=== PATIENT | female | born 1990 | race Caucasian/White ===

== ENCOUNTER → 2018-09-20 | Outpatient (CLI) | payer OTHER ==
--- NOTE | 2018-09-21 10:54 | REP ---
REASON: Shoulder pain after trauma. FINDINGS: Three views of the shoulder were performed. The acromioclavicular and glenohumeral relationships are within normal limits. There is no acute fracture or destructive osseous lesion. Electronically Signed by Alexis Burks DO 09/21/2018 12:43 P
== END ==
LOC: M WUC 18:21
PROVIDERS: ATTEND Physician Assistant
DX: S43.402A Unspecified sprain of left shoulder joint, initial encounter (principal); X58.XXXA Exposure to other specified factors, initial encounter; Y92.89 Other specified places as the place of occurrence of the external cause

== ENCOUNTER 2019-04-02 13:17 | Emergency (ER) | payer OTHER ==
[~2019-04-02] VITALS: Ht 172.7 cm; Wt 111.4 kg
[2019-04-02] MEDS ORDERED: PRAZ1CAP (13:25)
[2019-04-02] MEDS ORDERED: LIOT25TA8 (13:25)
[2019-04-02] MEDS ORDERED: CLON1TAB8 (13:25)
[2019-04-02] MEDS ORDERED: ZYRTTAB8 PO (13:25)
--- NOTE | 2019-04-02 14:08 | REP ---
Left knee series: Five views. History: Pain after twisting injury. Findings: Five views of the left knee demonstrate normal bones, joints and soft tissues. No fracture or subluxation is seen. Impression: Negative radiographs of the left knee. Electronically Signed by Pollo Barker MD 04/02/2019 02:00 P
--- NOTE | 2019-04-02 14:10 | REP ---
Right foot series: Five views. History: Horse stepped on right foot. Findings: Five views right foot show overall normal mineralization. There is no visible fracture or subluxation. A tiny os perineum is seen. There is also a tiny plantar calcaneal spur. Impression: No fracture seen. Electronically Signed by Pollo Barker MD 04/02/2019 02:01 P
[2019-04-02 14:46] VITALS: BP 109/74
== END 2019-04-02 15:10 | disposition home or self-care (01) ==
LOC: M ED 13:17
DX: S90.31XA Contusion of right foot, initial encounter (principal); S83.92XA Sprain of unspecified site of left knee, initial encounter; W55.12XA Struck by horse, initial encounter; Y92.89 Other specified places as the place of occurrence of the external cause; Y99.0 Civilian activity done for income or pay; J45.909 Unspecified asthma, uncomplicated; F41.9 Anxiety disorder, unspecified; E03.9 Hypothyroidism, unspecified; Z88.8 Allergy status to other drugs, medicaments and biological substances; Z79.83 Long term (current) use of bisphosphonates; Z79.899 Other long term (current) drug therapy

== ENCOUNTER 2019-09-16 09:14 | Emergency (ER) | payer BC, OTHER ==
[~2019-09-16] VITALS: Ht 172.7 cm; Wt 120.0 kg
[~2019-09-16 09:14] MED LIST: CLON1TAB8 PO; LIOT25TA8; PRAZ1CAP; ZYRTTAB8 PO
[2019-09-16] MEDS ORDERED: LAMO100T3 PO (09:22)
[2019-09-16] MEDS ORDERED: OXCA300T14 PO (09:22)
[2019-09-16] MEDS ORDERED: PRAZ2CAP PO (09:22)
[2019-09-16] MEDS ORDERED: ARIP1TAB PO (09:22)
[2019-09-16] MEDS ORDERED: MARIJUANA PO (09:23)
[2019-09-16 10:24] LABS: BASO % 0.4 % (0.0-1.0); EOS % 0.6 % (0.0-3.0); HEMATOCRIT 43.7 % (36.0-47.0); HEMOGLOBIN 14.3 g/dl (12.0-15.5); LYMPH # 1.6 10^3/uL (1.5-5.0); LYMPH % 24.2 % (24.0-44.0); MEAN CORPUSCULAR HEMOGLOBIN 31.1 pg (27.0-33.0); MEAN CORPUSCULAR HGB CONC 32.7 g/dl (32.0-36.5); MONO # 0.5 10^3/uL (0.0-0.8); MONO % 6.8 % (0.0-5.0); NEUTROPHILS # 4.6 10^3/uL (1.5-8.5); NEUTROPHILS % 67.7 % (36.0-66.0); PLATELET COUNT, AUTOMATED 310 10^3/uL (150-450); WHITE BLOOD COUNT 6.7 10^3/uL (4.0-10.0)
[2019-09-16 10:28] LABS: AMPHETAMINES LEVEL URINE NEGATIVE (NEGATIVE); BARBITURATES URINE NEGATIVE (NEGATIVE); BENZODIAZEPINES URINE NEGATIVE (NEGATIVE); CANNABINOIDS URINE NEGATIVE (NEGATIVE); COCAINE METABOLITE URINE NEGATIVE (NEGATIVE); METHADONE URINE NEGATIVE (NEGATIVE); OPIATES URINE NEGATIVE (NEGATIVE); PHENCYCLIDINE URINE NEGATIVE (NEGATIVE)
[2019-09-16 10:37] LABS: BLOOD UREA NITROGEN 15 MG/DL (7-18); CALCIUM LEVEL 8.9 MG/DL (8.5-10.1); CARBON DIOXIDE LEVEL 27 MEQ/L (21-32); CHLORIDE LEVEL 109 MEQ/L (98-107); CREATININE FOR GFR 0.75 MG/DL (0.55-1.30); FREE THYROXINE INDEX 2.1 % (1.3-4.8); GLOMERULAR FILTRATION RATE > 60.0 (>60); GLUCOSE, FASTING 96 MG/DL (70-100); MAGNESIUM LEVEL 2.2 MG/DL (1.8-2.4); POTASSIUM SERUM 4.5 MEQ/L (3.5-5.1); SODIUM LEVEL 140 MEQ/L (136-145); T UPTAKE 33 % (30-39); THYROXINE (T4) 6.5 UG/DL (4.5-12.0)
[2019-09-16 11:28] VITALS: BP 137/84
--- NOTE | 2019-09-16 19:06 | ECGEPIP ---
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 Order Number: [id number] Reading MD: Tanisha Ramirez Measurements Intervals [place] Rate: 87 P: 60 TX: 148 QRS: 72 QRSD: 86 T: 40 QT: 369 QTc: 445 Interpretive Statements SINUS RHYTHM POSSIBLE LEFT ATRIAL ENLARGEMENT NO PRIOR Electronically Signed on 09-16-2019 19:06:37 EDT by Tanisha Ramirez
--- NOTE | 2019-09-16 19:08 | ECGEPIP ---
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
== END 2019-09-16 11:29 | disposition home or self-care (01) ==
LOC: M ED 09:14
DX: R00.2 Palpitations (principal); J45.909 Unspecified asthma, uncomplicated; F41.9 Anxiety disorder, unspecified; G43.909 Migraine, unspecified, not intractable, without status migrainosus; F17.210 Nicotine dependence, cigarettes, uncomplicated; Z79.899 Other long term (current) drug therapy

== ENCOUNTER 2019-09-18 16:57 | Emergency (ER) | payer BC ==
[~2019-09-18] VITALS: Ht 172.7 cm; Wt 124.4 kg
[~2019-09-18 16:57] MED LIST changes: +ARIP1TAB PO; +LAMO100T3 PO; +MARIJUANA PO; +OXCA300T14 PO; +PRAZ2CAP PO
[2019-09-18] MEDS ORDERED: LIOT25TA8 PO (17:09)
[2019-09-18] MEDS ORDERED: NS 1,000 ML IV ONE (17:45)
[2019-09-18] MEDS ORDERED: GI COCKTAIL 50ML BTL(HYOSCYAMINE/MAALOX/LIDOCAINE VISCOUS)(1:3:1) PO ONE (17:45)
[2019-09-18 18:00] LABS: BASO % 0.2 % (0.0-1.0); EOS # 0.1 10^3/uL (0.0-0.5); HEMATOCRIT 39.2 % (36.0-47.0); HEMOGLOBIN 12.8 g/dl (12.0-15.5); LYMPH # 2.4 10^3/uL (1.5-5.0); LYMPH % 28.6 % (24.0-44.0); MEAN CORPUSCULAR HGB CONC 32.7 g/dl (32.0-36.5); MEAN CORPUSCULAR VOLUME 94.9 fl (80.0-96.0); MONO # 0.7 10^3/uL (0.0-0.8); MONO % 8.8 % (0.0-5.0); NEUTROPHILS # 5.1 10^3/uL (1.5-8.5); NEUTROPHILS % 61.2 % (36.0-66.0); PLATELET COUNT, AUTOMATED 319 10^3/uL (150-450); RED BLOOD COUNT 4.13 10^6/uL (4.00-5.40); WHITE BLOOD COUNT 8.3 10^3/uL (4.0-10.0)
[2019-09-18 18:27] LABS: ERYTHROCYTE SEDIMENTATION RATE 18 mm/hr (0-20)
[2019-09-18 18:28] LABS: HCG, SERUM QUALITATIVE NEGATIVE (NEGATIVE)
[2019-09-18 18:35] LABS: ALBUMIN 3.6 GM/DL (3.2-5.2); ALT/SGPT 45 U/L (12-78); BILIRUBIN,DIRECT < 0.1 MG/DL (0.0-0.2); BILIRUBIN,TOTAL 0.2 MG/DL (0.2-1.0); BLOOD UREA NITROGEN 14 MG/DL (7-18); C REACTIVE PROTEIN QUANTITATIV 1.06 MG/DL (0.00-0.30); CALCIUM LEVEL 8.9 MG/DL (8.5-10.1); CARBON DIOXIDE LEVEL 27 MEQ/L (21-32); CHLORIDE LEVEL 105 MEQ/L (98-107); CPK CREATINE PHOSPHOKINASE 152 U/L (26-192); CREATININE FOR GFR 0.69 MG/DL (0.55-1.30); FREE T4 0.65 NG/DL (0.76-1.46); GLOMERULAR FILTRATION RATE > 60.0 (>60); GLUCOSE, FASTING 80 MG/DL (70-100); LIPASE 92 U/L (73-393); MB/CK RELATIVE INDEX 1.32 (< OR =4); POTASSIUM SERUM 4.2 MEQ/L (3.5-5.1); SODIUM LEVEL 137 MEQ/L (136-145); THYROID STIMULATING HORMONE 0.957 uIU/ML (0.358-3.740); TOTAL PROTEIN 6.8 GM/DL (6.4-8.2); TROPONIN I < 0.02 NG/ML (< 0.10)
[2019-09-18] MEDS ORDERED: KETOROLAC 30 MG/ML 1ML VIAL IV ONE (19:00)
--- NOTE | 2019-09-18 19:03 | REP ---
Clinical: Chest pain. Technique: PA and lateral. Comparison: None. Findings: Calcified lymph node/granuloma in the right mid lung zone just lateral to the hilum likely represents chronic changes related to prior granulomas disease. Lung roberto are otherwise clear and without focal consolidation, effusion, or pneumothorax. Cardiac silhouette is normal. Skeletal structures intact. Impression: Right hilar calcification consistent with chronic granulomatous changes. No focal consolidation or effusion. Electronically Signed by Cachorro Garcia MD 09/18/2019 06:54 P
[2019-09-18 19:43] VITALS: BP 138/82
--- NOTE | 2019-09-19 01:14 | ECGEPIP ---
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
== END 2019-09-18 19:59 | disposition home or self-care (01) ==
LOC: M ED 16:57
DX: R07.89 Other chest pain (principal); R00.2 Palpitations; J45.909 Unspecified asthma, uncomplicated; E03.9 Hypothyroidism, unspecified; R51 Headache; F17.200 Nicotine dependence, unspecified, uncomplicated; Z98.890 Other specified postprocedural states; Z88.8 Allergy status to other drugs, medicaments and biological substances
CPT/HCPCS: 36415; 71046; 80048; 80076; 82550; 82553; 83690; 84439; 84443; 84484; 84703; 85025; 85379; 85652; 86140; 93005; 93041; 94760; 96360; 96361; 96375; 99285; J1885

== ENCOUNTER → 2020-04-13 | Outpatient (REF) | payer BC ==
[~2020-04-13] MED LIST changes: +LIOT25TA8 PO
[2020-04-13 19:18] LABS: CHLAMYDIA DNA AMPLIFICATION NEGATIVE (NEGATIVE); GC DNA AMPLIFICATION NEGATIVE (NEGATIVE)
== END ==
LOC: M SFHCWAGY 16:46
PROVIDERS: ATTEND Nurse Practitioner Family
DX: Z11.3 Encounter for screening for infections with a predominantly sexual mode of transmission (principal)

== ENCOUNTER → 2020-04-20 | Outpatient (CLI) | payer BC ==
--- NOTE | 2020-04-20 13:33 | REP ---
INDICATION: R10.2 PELVIC PAIN COMPARISON: None. TECHNIQUE: Transabdominal pelvic ultrasound followed by transvaginal examination for better evaluation of the endometrium and adnexa with color Doppler evaluation of the ovaries. FINDINGS: Bladder is unremarkable and measures 14.6 x 9.2 x 6.3 cm. Anteverted uterus measures 5.3 x 3.1 x 3.3 cm with moderate amount of fluid in the endocervical canal identified. The endometrial complex does not appear thickened and IUD is identified in relatively central position. Bilateral ovaries are normal in appearance and vascularity with multiple bilateral follicles noted. Right ovary measures 3.5 x 2.2 x 2.1 cm; R I = 0.46. Left ovary measures 2.3 x 2.2 x 2.7 cm; R I = 0.49. No pelvic free fluid or adnexal mass lesion. IMPRESSION: 1. Anteverted uterus with moderate amount of endocervical fluid may be related to menstrual cycle. IUD identified in relatively central position. 2. Normal bilateral ovaries. <Electronically signed by Cachorro Garcia > 04/20/20 [id number]
== END ==
LOC: M WHC 12:42
PROVIDERS: ATTEND Nurse Practitioner Family
DX: R10.2 Pelvic and perineal pain (principal); Z97.5 Presence of (intrauterine) contraceptive device

== ENCOUNTER → 2020-04-30 | Outpatient (REF) | payer BC | LOC: M SFHCWAGY 13:16 | PROVIDERS: ATTEND Nurse Practitioner Family | DX: R10.2 Pelvic and perineal pain (principal) ==

== ENCOUNTER 2020-09-05 19:38 | Emergency (ER) | payer BC ==
[~2020-09-05] VITALS: Ht 172.7 cm; Wt 118.2 kg
[2020-09-05] MEDS ORDERED: FLUO40CA PO (19:47)
[2020-09-05] MEDS ORDERED: ALPR0.5T6 PO (19:47)
[2020-09-05] MEDS ORDERED: dexameTHASONE 20MG/5ML VIAL (J1100 PER 1MG) IV ONE (20:55)
[2020-09-05] MEDS ORDERED: ACETAMINOPHEN 325 MG TAB PO ONE (20:55)
[2020-09-05] MEDS ORDERED: METOCLOPRAMIDE INJ 10MG/2ML VIAL (J2765 PER 1) IV ONE (20:55)
[2020-09-05] MEDS ORDERED: diphenhydrAMINE 50MG/ML VIAL (J1200) IV ONE (22:00)
[2020-09-05] MEDS ORDERED: ONDA8TAB8 PO (22:55)
[2020-09-05] MEDS ORDERED: KETO10TAB PO (22:55)
[2020-09-05 23:03] VITALS: BP 132/75
== END 2020-09-05 23:18 | disposition home or self-care (01) ==
LOC: M ED 20:49
DX: G43.909 Migraine, unspecified, not intractable, without status migrainosus (principal); F17.200 Nicotine dependence, unspecified, uncomplicated; Z88.8 Allergy status to other drugs, medicaments and biological substances; Z91.040 Latex allergy status; Z79.899 Other long term (current) drug therapy
CPT/HCPCS: 96374; 96375; 99284; J1100; J1200; J2765

== ENCOUNTER 2020-11-25 17:35 | Emergency (ER) | payer BC ==
[~2020-11-25] VITALS: Ht 172.7 cm; Wt 122.7 kg
[~2020-11-25 17:35] MED LIST changes: +ALPR0.5T6 PO; +ARIP10TA32 PO; -ARIP1TAB PO; +FLUO40CA PO; +KETO10TAB PO; +ONDA8TAB8 PO
[2020-11-25] MEDS ORDERED: ZONI25CA13 (17:55)
[2020-11-25] MEDS ORDERED: ADDE1TAB14 (17:55)
[2020-11-25] MEDS ORDERED: ZONI50CA11 (17:55)
[2020-11-25] MEDS ORDERED: SUMA50TA2 (17:55)
[2020-11-25] MEDS ORDERED: KETOROLAC 30 MG/ML 1ML VIAL IV ONE (19:00)
[2020-11-25] MEDS ORDERED: ONDANSETRON 4MG/2ML VIAL IV ONE ×2 (19:00→20:50)
[2020-11-25] MEDS ORDERED: NS 1,000 ML IV ONE (19:00)
[2020-11-25 19:24] LABS: BASO % 0.3 % (0.0-1.0); EOS # 0.1 10^3/uL (0.0-0.5); EOS % 0.9 % (0.0-3.0); HEMATOCRIT 38.3 % (36.0-47.0); HEMOGLOBIN 12.7 g/dl (12.0-15.5); LYMPH # 2.1 10^3/uL (1.5-5.0); MEAN CORPUSCULAR HEMOGLOBIN 31.6 pg (27.0-33.0); MEAN CORPUSCULAR HGB CONC 33.2 g/dl (32.0-36.5); MEAN CORPUSCULAR VOLUME 95.3 fl (80.0-96.0); MONO # 0.9 10^3/uL (0.0-0.8); MONO % 8.3 % (2.0-8.0); NEUTROPHILS % 71.1 % (36.0-66.0); PLATELET COUNT, AUTOMATED 313 10^3/uL (150-450); RED BLOOD COUNT 4.02 10^6/uL (4.00-5.40); WHITE BLOOD COUNT 11.3 10^3/uL (4.0-10.0)
[2020-11-25 19:50] LABS: ALBUMIN 3.7 GM/DL (3.2-5.2); ALT/SGPT 39 U/L (12-78); BILIRUBIN,DIRECT < 0.1 MG/DL (0.0-0.2); BILIRUBIN,TOTAL 0.3 MG/DL (0.2-1.0); BLOOD UREA NITROGEN 13 MG/DL (7-18); CALCIUM LEVEL 8.6 MG/DL (8.5-10.1); CARBON DIOXIDE LEVEL 29 MEQ/L (21-32); CHLORIDE LEVEL 105 MEQ/L (98-107); CREATININE FOR GFR 0.72 MG/DL (0.55-1.30); GLOMERULAR FILTRATION RATE > 60.0 (>60); GLUCOSE, FASTING 83 MG/DL (70-100); LIPASE 90 U/L (73-393); POTASSIUM SERUM 3.8 MEQ/L (3.5-5.1); SODIUM LEVEL 137 MEQ/L (136-145); TOTAL PROTEIN 6.9 GM/DL (6.4-8.2)
--- NOTE | 2020-11-25 20:05 | REP ---
INDICATION: pelvic pain. COMPARISON: 04/20/2020 TECHNIQUE: Transvesical and transvaginal imaging FINDINGS: The uterus measures 5.3 x 2.7 x 3.9 cm. The parenchymal echo pattern is within normal limits. The endometrial echo complex measures 6 mm in its greatest thickness. The specular reflection seen previously in the endometrial cavity is no longer present. This is consistent with the patient's history of recent removal of an IUD. There is a small amount of fluid seen in the endometrial cavity. The right ovary measures 2.7 x 2.2 x 2.6 cm and is within normal limits The left ovary measures 3.3 x 2.5 x 3.2 cm. Within the left ovary there is a 2.6 cm sized anechoic structure which exhibits posterior wall enhancement and increased through transmission. This is a simple cyst. There is a small amount of fluid in the cul-de-sac The left ovarian RI is 0.6 and the right is 0.66 The urinary bladder measures 5 x 6 x 8 cm IMPRESSION: 1. Status post removal of an IUD with only a small amount of fluid in the endometrial cavity. 2. Simple left ovarian cyst as described above. <Electronically signed by Alexis Burks > 11/25/202000
[2020-11-25] MEDS ORDERED: PERCOCET 5MG/325MG TAB PO ONE (20:50)
[2020-11-25] MEDS ORDERED: PERC5TAB12 PO (22:02)
[2020-11-25] MEDS ORDERED: ZOFR4TAB16 PO (22:03)
[2020-11-25 22:24] VITALS: BP 127/80
== END 2020-11-25 22:23 | disposition home or self-care (01) ==
LOC: M ED 17:35
DX: N83.292 Other ovarian cyst, left side (principal); R11.2 Nausea with vomiting, unspecified; R10.2 Pelvic and perineal pain; R10.31 Right lower quadrant pain; R10.32 Left lower quadrant pain; R10.84 Generalized abdominal pain; Z87.42 Personal history of other diseases of the female genital tract; F17.290 Nicotine dependence, other tobacco product, uncomplicated
CPT/HCPCS: 76830; 76856; 80048; 80076; 81001; 83690; 85025; 87210; 93976; 96361; 96374; 96375; 96376; 99284; J1885; J2405

== ENCOUNTER → 2020-12-14 | Outpatient (CLI) | payer BC ==
[~2020-12-14] MED LIST changes: +ADDE1TAB14; +ALLE60TA69 PO; +FLUO1TAB3 PO; +OXCA150T21 PO; +PERC5TAB12 PO; +PRAZ5CAP PO; +SUMA50TA2; +ZOFR4TAB16 PO; +ZONI25CA13 PO; +ZONI50CA11
== END ==
LOC: M LABSMTC 10:11
PROVIDERS: ATTEND Anesthesiology
DX: Z01.812 Encounter for preprocedural laboratory examination (principal)

== ENCOUNTER 2020-12-18 13:46 | Day surgery (SDC) | payer BC ==
[~2020-12-18] VITALS: Ht 172.7 cm; Wt 127.5 kg
[~2020-12-18 13:46] MED LIST changes: +LR 1,000 ML IV ONE
[2020-12-18] MEDS ORDERED: ONDANSETRON 4MG/2ML VIAL As Ordered ONE (14:10)
[2020-12-18] MEDS ORDERED: KETOROLAC 60MG 2ML VIAL As Ordered ONE (14:10)
[2020-12-18] MEDS ORDERED: SUGAMMADEX SODIUM 500 MG/5 ML VIAL (BRIDION) As Ordered ONE (14:10)
[2020-12-18] MEDS ORDERED: ROCURONIUM BROMIDE 50 MG/5 ML VIAL As Ordered ONE (14:10)
[2020-12-18] MEDS ORDERED: dexameTHASONE 4 MG/ML 1ML VIAL (J1100 PER 1MG) As Ordered ONE (14:10)
[2020-12-18] MEDS ORDERED: ACETAMINOPHEN 1000MG 100ML IV BTL (OFIRMEV) (J0131 PER 10MG) As Ordered ONE (14:10)
[2020-12-18] MEDS ORDERED: propofoL 200 MG/20 ML VIAL As Ordered ONE (14:10)
[2020-12-18] MEDS ORDERED: LIDOCAINE 2% 100MG/5ML SDV (FOR ANES.) As Ordered ONE (14:10)
[2020-12-18] MEDS ORDERED: MIDAZOLAM INJ 2MG/2ML VIAL (J2250 PER 1MG) As Ordered ONE (14:10)
[2020-12-18] MEDS ORDERED: fentaNYL 100 MCG/2 ML INJECTION (J3010) As Ordered ONE ×4 (14:11→17:25)
[2020-12-18 14:15] LABS: HEMOGLOBIN 13.6 g/dl (12.0-15.5); MEAN CORPUSCULAR HEMOGLOBIN 31.4 pg (27.0-33.0); MEAN CORPUSCULAR HGB CONC 33.2 g/dl (32.0-36.5); MEAN CORPUSCULAR VOLUME 94.7 fl (80.0-96.0); PLATELET COUNT, AUTOMATED 338 10^3/uL (150-450); RED BLOOD COUNT 4.33 10^6/uL (4.00-5.40); WHITE BLOOD COUNT 10.4 10^3/uL (4.0-10.0)
[2020-12-18] MEDS ORDERED: OXYC1TAB23 PO (15:58)
[2020-12-18] MEDS ORDERED: IBUP-1022 PO (15:58)
--- NOTE | 2020-12-18 16:00 | ROOPDOC ---
[facility] Report Of Operation Report of Operation DATE OF PROCEDURE: 12/18/20 .PREPROCEDURE DIAGNOSES: pelvic pain, endometriosis. POSTPROCEDURE DIAGNOSES: left ovarian cyst. PROCEDURE PERFORMED: Laparoscopic left ovarian cystectomy SURGEON: Jeanine Richardson MD ANESTHESIA: GETA. ESTIMATED BLOOD LOSS: Approximately 10 mL. COMPLICATIONS: none. FINDINGS: Normal uterus fallopian tubes, normal right ovary, 4-5 cm cystadenoma of left ovary. Mild adhesions of posterior cul de sac. No active endometriosis. SPECIMENS REMOVED: ovarian cyst and capsule PROCEDURE NOTE: The patient was taken to the operating room where general endotracheal anesthesia was induced. She was prepped and draped in a sterile fashion in the dorsal lithotomy position. A sponge stick was placed in the vagina to use as a manipulator. A periumbilical incision was made with a scalpel. A Veress needle was placed through this incision while tenting up on the skin of the abdomen. An intra-abdominal location the Veress needle was assessed with the use of a saline filled syringe. A pneumoperitoneum was created. The Veress needle was removed. A 5 mm trocar using Zura!iport was inserted through this incision. A 5 and 8 mm suprapubic port were placed under direct visualization. A grasping instrument was used to elevate each fallopian tube. Left ovarian cyst was stabilized with a grasping instrument. A harmonic scalpel was used to puncture the cyst wall. Clear cyst fluid was removed using a suction inspector crystal. Harmonic scalpel was used to excise the ovarian cyst and capsule. The specimen was removed through the 8 mm suprapubic port. Good hemostasis was noted. The pneumoperitoneum was released. All instruments were removed. The skin was closed with 4-0 Monocryl subcuticular sutures. Sponge instrument and needle counts were correct. The patient went to the recovery room in stable condition. JEANINE RICHARDSON MD Dec 18, 2020 16:00
[2020-12-18] MEDS ORDERED: BUPIVACAINE HCL 0.25% 10ML VIAL As Ordered ONE (16:09)
[2020-12-18 17:10] LABS: APPEARANCE, URINE CLOUDY (CLEAR); BACTERIA, URINE AUTO 1+ (NEGATIVE); BILIRUBIN, URINE AUTO NEGATIVE (NEGATIVE); BLOOD, URINE BLOOD 2+ (NEGATIVE); COLOR, URINE YELLOW (YELLOW); GLUCOSE, URINE (UA) AUTO NEGATIVE (NEGATIVE); KETONE, URINE AUTO NEGATIVE (NEGATIVE); LEUKOCYTE ESTERASE, URINE AUTO 3+ (NEGATIVE); MUCUS, URINE SMALL (NEGATIVE); NITRITE, URINE AUTO NEGATIVE (NEGATIVE); PROTEIN, URINE AUTO 2+ mg/dL (NEGATIVE); RBC, URINE AUTO 64 /HPF (0-3); SPECIFIC GRAVITY URINE AUTO 1.015 (1.002-1.035); SQUAMOUS EPITHELIAL CELL UR AU 0 /HPF (0-6); UROBILINOGEN, URINE AUTO 0.2 mg/dL (0.0-2.0); WBC, URINE AUTO TNTC /HPF (0-3)
[2020-12-18] MEDS: fentaNYL 100 MCG/2 ML INJECTION (J3010) IV PRN ×2 (17:24→17:29)
[2020-12-18] MEDS ORDERED: ONDANSETRON 4MG/2ML VIAL IV PRN (17:45)
[2020-12-18] MEDS ORDERED: MEPERIDINE INJ 25 MG/ML VIAL (J2175) IV PRN (17:45)
[2020-12-18] MEDS ORDERED: LR 1,000 ML IV SCH ×2 (17:45)
[2020-12-18] MEDS ORDERED: oxyCODONE 5MG TAB PO PRN (17:45)
[2020-12-18] MEDS ORDERED: PERCOCET 5MG/325MG TAB PO PRN (17:45)
[2020-12-18 18:25] VITALS: BP 118/74
== END 2020-12-18 18:34 | disposition home or self-care (01) ==
LOC: M SDC 13:46
PROVIDERS: ATTEND Specialist
DX: N83.202 Unspecified ovarian cyst, left side (principal); N73.6 Female pelvic peritoneal adhesions (postinfective); N80.8 Other endometriosis; R10.2 Pelvic and perineal pain; E03.9 Hypothyroidism, unspecified; K21.9 Gastro-esophageal reflux disease without esophagitis; G43.909 Migraine, unspecified, not intractable, without status migrainosus; F41.9 Anxiety disorder, unspecified; J45.909 Unspecified asthma, uncomplicated; Z79.899 Other long term (current) drug therapy; Z91.040 Latex allergy status; Z88.8 Allergy status to other drugs, medicaments and biological substances
CPT/HCPCS: 36415; 58662; 81001; 81025; 85027; 87086; 88305; J0131; J1100; J1885; J2250; J2405; J3010

== ENCOUNTER → 2021-04-01 | Outpatient (REF) | payer BC, OTHER ==
[~2021-04-01] MED LIST changes: +IBUP-1022 PO; -LR 1,000 ML IV ONE; +OXYC1TAB23 PO
== END ==
LOC: M SFHCWAGY 10:11
PROVIDERS: ATTEND Nurse Practitioner Women's Health
DX: Z12.4 Encounter for screening for malignant neoplasm of cervix (principal)

== ENCOUNTER 2021-04-15 10:44 | Emergency (ER) | payer BC, OTHER ==
[~2021-04-15] VITALS: Ht 165.1 cm; Wt 137.3 kg
[2021-04-15 10:45] VITALS: BP 134/61
--- OUTSIDE RECORDS SUMMARY | 2021-04-15 10:56 | CCD | Continuity of Care Document ---
Author Author Anna CABELLO [place] Organization Unknown Address [address] [place] [address] [place] [address] Phone [phone] Care Team Providers Care Learning Consultant Name Role Phone Alex Ia Publi AUTM [phone] [facility] AUTM [phone] Problems Description No Information Available Social History Type Date Description Comments Sex Unknown ETOH Use Occasionally consumes alcohol Tobacco Use Start: Unknown End: Unknown Patient is a former smoker Tobacco Use Start: Unknown Patient Currently Vapes Smoking Status Reviewed: 03/23/21 Patient Currently Vapes Allergies and adverse reactions Active Allergies Criticality Reaction | Severity Comments Date Nexium Unable to assess criticality Hives 09/20/2018 Latex Unable to assess criticality 03/25/2020 Medications Active Medications SIG Qnty Indications Ordering Provide r Date Liothyronine Sodium 25mcg Tablets Unknown Abilify Unknown Prozac Unknown Proair HFA Unknown Imitrex prn Unknown Immunizations CPT Code Status Date Vaccine Lot # [id number] Given 03/13/2019 Influenza Virus Vaccine, Quadrivalent (Cciiv4), Derived From Cell Vital Signs Date Vital Result Comment 03/23/2021 12:40pm BP Systolic 124 mmHg BP Diastolic 84 mmHg Heart Rate 79 /min Respiratory Rate 18 /min O2 % BldC Oximetry 98 % Body Temperature 98.2 F Weight 280.00 lb Height 68 inches 5'8" BMI (Body Mass Index) 42.6 kg/m2 Pain Level 4 02/17/2021 10:07am BP Systolic 115 mmHg BP Diastolic 78 mmHg Heart Rate 71 /min Respiratory Rate 20 /min O2 % BldC Oximetry 99 % Body Temperature 98.2 F Weight 280.00 lb Height 68 inches 5'8" BMI (Body Mass Index) 42.6 kg/m2 Pain Level 4 Results Description No Information Available Procedures Date Code Description Status 03/23/2021 12272 Office/Outpatient Established Lo w MDM 20-29 Min Completed 02/17/2021 11083 Office/Outpatient Established Lo w MDM 20-29 Min Completed Medical Devices Description No Information Available Encounters Type Date Location Provider Dx Diagnosis Office Visit 03/23/2021 10:15a Main Office TIFFANIE Carter J06 .9 Acute upper respiratory infection, unspecified Z20.828 Contact w and exposure to ot h viral communicable diseases Office Visit 02/17/2021 9:10a Main Office TIFFANIE Garcia JR J 06.9 Acute upper respiratory infection, unspecified Z20.828 Contact w and exposure to ot h viral communicable diseases Assessments Date Code Description Provider 03/23/2021 J06.9 Acute upper respiratory infectio n, unspecified TIFFANIE Carter 03/23/2021 Z20.828 Contact with and (hernandez spected) exposure to other viral communicable diseases TIFFANIE Carter 02/17/2021 J06.9 Acute upper respiratory infectio n, unspecified TIFFANIE Gracia JR 02/17/2021 Z20.828 Contact with and (hernandez spected) exposure to other viral communicable diseases TIFFANIE Garcia JR Plan of Treatment No Information Available Functional Status Description No Information Available Mental Status Description No Information Available Referrals Description No Information Available
--- OUTSIDE RECORDS SUMMARY | 2021-04-15 10:56 | CCD ---
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 20 Active confirmed 802034058 Problem Acquired hypothyroidism E03.9 Active confirmed 187806390 Problem Bipolar affective disorder, remission status unspecified F31.9 Active confirmed 29535006 Problem BMI 45.0-49.9, adult Z68.42 Active confirmed 791241264 ALLERGIES Allergen (clinical drug ingredient) Drug/Non Drug Allergy do cumented on EMR Reaction Allergy Type Onset Date Status esomeprazole Nexium([facility] Code:[address]-61) hives Drug Allergy Active Latex Latex anaphylaxis Non Drug Allergy Active ENCOUNTERS from 1990 to 2021-02-08 Encounter Location Date Provider Diagnosis [address] [id number] 08 Jan, 2021 Lisaernestina Patel Annual physical exam Z00.00 ; Acquired hypothyroidism E03.9 ; Depression with anxiety F41.8 ; PTSD (post-traumatic stress disorder) F43.10 ; History of migraine Z86.69 ; Mild intermittent asthma without complication J45.20 ; Bipolar affective disorder, remission status unspecified F31.9 ; Morbid (severe) obesity due to excess calories E66.01 ; BMI 45.0-49.9, adult Z68.42 ; Vaping nicotine dependence, tobacco product F17.290 ; Engages in vaping Z72.89 ; Screening for lipid disorders Z13.220 ; Vitamin D deficiency E55.9 ; Advanced care planning/counseling discussion Z71.89 and Trying to get Z78.9 IMMUNIZATIONS No Information SOCIAL HISTORY Tobacco Use: Social History Observation Description Date Details (start date - stop date) Current Smoker Sex Assigned At : Social History Observation Description Sex Assigned At Unknown Alcohol Screen Question Answer Notes Did you have a drink containing alcohol in the past year? Ye s Points 0 Interpretation Negative How many drinks did you have on a typica l day when you were drinking in the past year? 1 or 2 (0 points) Tobacco Use/Smoking Question Answer Notes Are you a current smoker How often do you smoke cigarettes? every day REASON FOR REFERRAL No Information VITAL SIGNS Height 67 in Jan, Weight 292.6 lbs Jan, BMI 45.82 kg/m2 Jan, Temperature 98.2 degrees Fahrenheit Jan, Heart Rate 83 /min Jan, Respiratory Rate 18 /min Jan, Oximetry 98 % Jan, Blood pressure systolic 124 mmHg Jan, Blood pressure diastolic 72 mmHg Jan, MEDICATIONS Medication SIG (Take, Route, Frequency, Duration) Notes Start Da te End Date Status 28-0.8 MG 1 tablet Orally Once a day for 30 day(s) Active Albuterol Sulfate HFA 108 (90 Base) MCG/ACT 2 puffs as needed Inhalation every 4 hrs for 83 PRN Active Liothyronine Sodium 25 MCG 1 tablet on an empty stomac h Orally Once a day for 90 Active PROzac 20 MG 1 capsule Orally Once a day for 30 day(s) Active PROzac 40 MG 1 capsule Orally Once a day Active Abilify 5 MG 1 tablet Orally Once a day for 30 day(s) Active PROCEDURES No Information RESULTS No Results REASON FOR VISIT [facility] (GENERAL) HISTORY Type Description Date Medical History Depression Medical History Anxiety Medical History PTSD with nightmares Medical History Hypothyroidism Medical History Endometriosis Medical History Asthma Medical History Allergies Medical History Migraines Medical History Bipolar Surgical History Tonsilectomy and adnoidectomy 2004 Surgical History laproscopy + hysterscopy 2012 Surgical History Pioneer teeth 2006 Surgical History Laproscopy 2020 Hospitalization History Mental health in patient - [place] 201 8 Hospitalization History Mental Health INPT- [facility] -06/17/2020 Goals Section No Information Health Concerns No Information MEDICAL EQUIPMENT No Information MENTAL STATUS No Information FUNCTIONAL STATUS No Information ASSESSMENTS Encounter Date Diagnosis Assessment Notes Treatment Notes Treatm ent Clinical Notes Jan, Annual physical exam (ICD-10 - Z00.00) - Follow up yearly for annual PE - Follow up as directed for routine condition monitoring - Follow up as needed for acute injury/illness/questions/concerns Health Maintenance: - Ensure diet high in fruits, vegetables, lean protein - Moderate alcohol, caffiene - Avoid tobacco - Obtain at least 150 mins of heart raising physical activity a week - Wear seatbelt - Use CO and smoke detectors in home Screenings: - Start colonoscopy at age 50 unless otherwise directed - Obtain yearly fasting labs - Start yearly mammograms at age 40 unless otherwise directed - Obtain yearly pelvic exams and every 3 years Jan, Acquired hypothyroidism (ICD-10 - E03.9) Labs ordered, will notify with the results once they are available. Continue to take medication as prescribed. Will continue to monitor Jan, Depression with anxiety (ICD-10 - F41.8) Continue to take medication as prescribed. Continue to follow with specialist. Will continue to monitor. Jan, PTSD (post-traumatic stress disorder) (ICD-10 - F43.10) As above. Jan, History of migraine (ICD-10 - Z86.69) Continue to take medication as needed. Will continue to monitor. Jan, Mild intermittent asthma without complication (I CD-10 - J45.20) Continue to use inhaler as prescribed. Will continue to monitor. Jan, Bipolar affective disorder, remission status unspecified (ICD-10 - F31.9) As above. Jan, Morbid (severe) obesity due to excess calories ( ICD-10 - E66.01) Things that you can do to reduce the chance of becoming a diabetic, getting high cholesterol, gaining weight and other health complications are mostly lifestyle (diet, exercise) related. Things you can do at home to prevent disease are: 1. Avoid processed foods and foods with added sugars (read nutrition labels) including bread, pasta, rice, sugar, sweets, potatoes 2. Monitor portions (weight/measure foods) and consider a food log/food diary 3. Increase physical activity: The [place] [employer] recommends at least 150 minutes of aerobic activity per week. This can include any heart raising activity (swim, bike, walk, run, exercise class, hike, ect) and does not need to be done all at once (may break up into two 75 min session or fifteen 10 min sessions) 4. Avoid snacking/eating between meals 5. Avoid sugary beverages like fruit juice, soda, alcohol 6. Maintain a healthy weight 7. Focus on healthy diet that is mostly lean protein, healthy fats, fruits and vegetables. Jan, BMI 45.0-49.9, adult (ICD-10 - Z68.42) As above. Jan, Vaping nicotine dependence, tobacco product (ICD -10 - F17.290) The patient is currently vaping. Encouraged patient to quit vaping as she is planning to get . Will continue to monitor. Jan, Engages in vaping (ICD-10 - Z72.89) As above. Jan, Screening for lipid disorders (ICD-10 - Z13.220) Labs ordered, will notify with the results once they are available. Encouraged healthy diet and exercise. Will continue to monitor. Things that you can do at home to help control cholesterol: - Decrease unhealthy fats (clemons, butter, meat) - Increase activity - Lose weight. Fasting labs have been ordered, please complete at least 2 days prior to appt. 1. Please do not eat or drink anything (other than PLAIN water) for at least 8 hours (preferably 12 hours). Usually the easiest thing to do is do not eat after dinner and have labs drawn the next day prior to coffee and breakfast. 2. The lab opens at 7 am daily, you do not need an appointment. 3. The orders will be sent to the hospital electronically, you will not need to remember to bring them with you. Jan, Vitamin D deficiency (ICD-10 - E55.9) Pt with low vitamin D levels in the past. Labs ordered, will notify the results once it is available. Jan, Advanced care planning/counseling discussion (IC D-10 - Z71.89) Pt denies having a healthcare proxy and is not interested in paperwork today. Jan, Trying to get (ICD-10 - Z78.9) Discussed with pt that she is ok to continue her prozac at this time until her third trimester. I advised her that her ambien will likely need to be discontinued before the third trimester. Encouraged her to discuss with her OBGYN. Jan, Other All questions an d concerns addressed, patient understanding and agreeable to plan. Patient encouraged to follow up at the clinic for any additional or new questions or concerns. Meg Mackay, scribing the following service on behalf of TIFFANIE Moreno on 02/03/2021. Time spent includes face to face time with patient and review of any pertinent laboratory results, and diagnostic imaging. Time spent: 25 minutes. PLAN OF TREATMENT Treatment Notes Assessment Notes Clinical Notes Advanced care planning/counseling discussion Pt denies having a healthcare proxy and is not interested in paperwork today. Annual physical exam - Follow up yearly for sophie mario PE- Follow up as directed for routine condition monitoring- Follow up as needed for acute injury/illness/questions/concernsHealth Maintenance:- Ensure diet high in fruit s, vegetables, lean protein- Moderate alcohol, caffiene- Avoid tobacco- Obtain at least 150 mins of heart raising physical activity a week- Wear seatbelt- Use CO and smoke detectors in homeScreenings:- Start colonoscopy at age 50 unless otherwise directed- Obtain yearly fasting labs- Start yearly mammograms at age 40 unless otherwise directed- Obtain yearly pelvic exams and every 3 years Vitamin D deficiency Pt with low vitamin D levels in the past. Labs ordered, will notify the results once it is available. Acquired hypothyroidism Labs ordered, will notify wi th the results once they are available. Continue to take medication as prescribed. Will continue to monitor Depression with anxiety Continue to take medication as prescribed. Continue to follow with specialist. Will continue to monitor. Trying to get Discussed with pt that she i s ok to continue her prozac at this time until her third trimester. I advised her that her ambien will likely need to be discontinued before the third trimester. Encouraged her to discuss with her OBGYN. PTSD (post-traumatic stress disorder) As above. History of migraine Continue to take medication as needed. Will continue to monitor. Mild intermittent asthma without complication Continue to use inhaler as prescribed. Will continue to monitor. Bipolar affective disorder, remission status unspecified As above. Screening for lipid disorders Labs ordered, will notif y with the results once they are available. Encouraged healthy diet and exercise. Will continue to monitor.Things that you can do at home to help control cholesterol: - Decrease unhealthy fats (clemons, butter, meat) - Increase activity - Lose weight.Fasting labs have been ordered, please complete at least 2 days prior to appt. 1. Please do not eat or drink anything (other than PLAIN water) for at least 8 hours (preferably 12 hours). Usually the easiest thing to do is do not eat after dinner and have labs drawn the next day prior to coffee and breakfast. 2. The lab opens at 7 am daily, you do not need an appointment. 3. The orders will be sent to the hospital electronically, you will not need to remember to bring them with you. Engages in vaping As above. Morbid (severe) obesity due to excess calories Things that you can do to reduce the chance of becoming a diabetic, getting high cholesterol, gaining weight and other health complications are mostly lifestyle (diet, exercise) related. Things you can do at home to prevent disease are:1. Avoid processed foods and foods with added sugars (read nutrition labels) including bread, pasta, rice, sugar, sweets, potatoes 2. Monitor portions (weight/measure foods) and consider a food log/food diary3. Increase physical activity:The [place] [employer] recommends at least 150 minutes of aerobic activity per week. This can include any heart raising activity (swim, bike, walk, run, exercise class, hike, ect) and does not need to be done all at once (may break up into two 75 min session or fifteen 10 min sessions) 4. Avoid snacking/eating between meals5. Avoid sugary beverages like fruit juice, soda, alcohol 6. Maintain a healthy weight 7. Focus on healthy diet that is mostly lean protein, healthy fats, fruits and vegetables. BMI 45.0-49.9, adult As above. Vaping nicotine dependence, tobacco product The patien t is currently vaping. Encouraged patient to quit vaping as she is planning to get . Will continue to monitor. Treatment Notes Test Name Order Date TSH 2021-02-03 FREE T4 2021-02-03 COMPLETE METABOLIC PROLFILE 2021-02-03 LIPID PROFILE 2021-02-03 CBC 2021-02-03 VITAMIN D, 25-HYDROXY 2021-02-03 Next Appt Details 6 months Reason:follow up Follow Up:6 monthsfollow up
--- OUTSIDE RECORDS SUMMARY | 2021-04-15 10:56 | CCD | Continuity of Care Document ---
Author Author Anna CABELLO MD Organization Unknown Address [address] [place] [address] [place] [address] Phone [phone] Care Team Providers Care Manager Clinical Informatics Name Role Phone [facility] [place] [employer] [facility] [phone] [facility] [phone] Problems Description No Information Available Social History [...] CPT Code Status Date Vaccine Lot # [id number] Given 03/13/2019 Influenza Virus Vaccine, Quadrivalent (Cciiv4), [...] Available Procedures Date Code Description Status 03/23/2021 57534 Office/Outpatient Established Lo w MDM 20-29 Min Completed 02/17/2021 71625 Office/Outpatient Established Lo w MDM 20-29 Min [...] Acute upper respiratory infectio n, unspecified TIFFANIE Garcia JR 02/17/2021 Z20.828 Contact with and (hernandez spected) exposure to other viral communicable diseases TIFFANIE Garcia JR Plan of Treatment No Information Available Functional Status Description No Information Available Mental Status Description No Information Available Referrals Description No Information Available
--- OUTSIDE RECORDS SUMMARY | 2021-04-15 10:56 | CCD | Continuity of Care Document ---
Author Author Anna BAL M.D. Organization Unknown Address [address] [place] [address] Phone [phone] Care Team Providers Care Boiling House Oiler Name Role Phone Lisa Patel PA-C AUTM [phone] Problems Description No Information Available Social History Type Date Description Comments Sex Unknown Allergies and adverse reactions Description No Information Available Medications Active Medications SIG Qnty Indications Ordering Provide r Date Magnesium Oxide 400mg Tablets 1 by daily x 1 week then 1 tab by mouth twice a day 60tabs Lida Mandel M.D. 03/11/2021 Riboflavin 100mg Capsules 1 by mouth twice a day 60caps Lida Bal M.D. 03/11/2021 History Medications Zonisamide 25mg Capsules 1 tab by mouth nightly x 1 week, then 1 tab twice a day x 1 week, then 1 tab morning and 2 tabs nightly 42caps Lida aBl M.D. 11/02/2020 - 03/11/2021 Zonisamide 50mg Capsules 1 by mouth twice a day 60caps Lida Bal M.D. 11/02/2020 - 03/11/2021 Immunizations Description No Information Available Vital Signs Description No Information Available Results Description No Information Available Procedures Date Code Description Status 03/11/2021 48257 Office/Outpatient Established Mo d MDM 30-39 Min Completed 11/17/2020 26398 MRI Brain W/O Contrast Completed 11/17/2020 43482 MRI Brain W/O Contrast Completed 11/02/2020 23860 Office/Outpatient New Moderate M DM 45-59 Minutes Completed Medical Devices Description No Information Available Encounters Type Date Location Provider Dx Diagnosis Office Visit 03/11/2021 9:15a Main office - [place] Lida Valeriano, M.D. R42 Dizziness and giddiness G47.00 Insomnia, unspecified M54.2 Cervicalgia G44.209 Tension-type headache, unspe cified, not intractable G31.84 Mild cognitive impairment, s o stated Office Visit 11/02/2020 12:30p Main office - [place] Lida Valeriano, M.D. R42 Dizziness and giddiness G47.00 Insomnia, unspecified G43.809 Other migraine, not intracta ble, without status migrainosus M54.2 Cervicalgia H53.8 Other visual disturbances G31.84 Mild cognitive impairment, s o stated Assessments Date Code Description Provider 03/11/2021 R42 Dizziness and giddiness Lida L meli, M.D. 03/11/2021 G47.00 Insomnia, unspecified Lida Lat if, M.D. 03/11/2021 M54.2 Cervicalgia Lida Valeriano, M. D. 03/11/2021 G44.209 Tension-type headache, unspecifi ed, not intractable Lida Valeriano, M.D. 03/11/2021 G31.84 Mild cognitive impairment, so st ated Lida Valeriano, M.D. 11/17/2020 R55 Syncope and collapse Sandee Valeriano , M.D. 11/17/2020 R55 Syncope and collapse MRI 11/02/2020 R42 Dizziness and giddiness Lida L meli, M.D. 11/02/2020 G47.00 Insomnia, unspecified Lida Lat if, M.D. 11/02/2020 G43.809 Other migraine, not intractable, without status migrainosus Lida Valeriano, M.D. 11/02/2020 M54.2 Cervicalgia Lida Valeriano, M. D. 11/02/2020 H53.8 Other visual disturbances Lida Valeriano, M.D. 11/02/2020 G31.84 Mild cognitive impairment, so st ated Lida Valeriano, M.DOmaira Plan of Treatment Future Appointment(s):* 06/11/2021 9:15 am - Lida Bal M.D. at Main office [facility] Functional Status Description No Information Available Mental Status Description No Information Available Referrals Refer to Reason for Referral Status Appt Date Created
--- OUTSIDE RECORDS SUMMARY | 2021-04-15 10:58 | CCD ---
Author Author [facility] Organization [facility] Address Unknown Phone Unavailable Care Team Providers Care Film Mounter Name Role Phone Shaun Farias MD Unavailable Unavailable Shaun Farias MD Unavailable Unavailable Shaun Farias MD Unavailable Unavailable Shaun Farias MD Unavailable Unavailable Shaun Farias MD Unavailable Unavailable Shaun Farias MD Unavailable Unavailable Elizabeth Maki MD Unavailable Unavailable Elizabeth Maki MD Unavailable Unavailable Elizabeth Maki MD Unavailable Unavailable Elizabeth Maki MD Unavailable Unavailable Elizabeth Maki MD Unavailable Unavailable Elizabeth Maki MD Unavailable Unavailable Elizabeth Maki MD Unavailable Unavailable Elizabeth Maki MD Unavailable Unavailable Elizabeth Maki MD Unavailable Unavailable Elizabeth Maki MD Unavailable Unavailable Elizabeth Maki MD Unavailable Unavailable Elizabeth Maki MD Unavailable Unavailable Elizabeth Maki MD Unavailable Unavailable Elizabeth Maki MD Unavailable Unavailable Elizabeth Maki MD Unavailable Unavailable Elizabeth Maki MD Unavailable Unavailable Elizabeth Maki MD Unavailable Unavailable Elizabeth Maki MD Unavailable Unavailable Elizabeth Maki MD Unavailable Unavailable SUN, David URBAN Unavailable Unavailable Amanda, M Lisa PA-C Unavailable Unavailable Amanda, M Lisa PA-C Unavailable Unavailable Amanda, M Lisa PA-C Unavailable Unavailable Amanda, M Lisa PA-C Unavailable Unavailable Amanda, M Lisa PA-C Unavailable Unavailable Amanda, M Lisa PA-C Unavailable Unavailable Amanda, M Lisa PA-C Unavailable Unavailable Amanda, M Lisa PA-C Unavailable Unavailable Amanda, M Lisa PA-C Unavailable Unavailable Amanda, M Lisa PA-C Unavailable Unavailable Amanda, M Lisa PA-C Unavailable Unavailable Amanda, M Lisa PA-C Unavailable Unavailable Amanda, M Lisa PA-C Unavailable Unavailable Amanda, M Lisa PA-C Unavailable Unavailable Amanda, M Lisa PA-C Unavailable Unavailable Amanda, M Lisa PA-C Unavailable Unavailable Amanda, M Lisa PA-C Unavailable Unavailable Amanda, M Lisa PA-C Unavailable Unavailable Amanda, M Lisa PA-C Unavailable Unavailable Amanda, M Lisa PA-C Unavailable Unavailable Amanda, M Lisa PA-C Unavailable Unavailable Amanda, M Lisa PA-C Unavailable Unavailable Amanda, M Lisa PA-C Unavailable Unavailable Amanda, M Lisa PA-C Unavailable Unavailable Amanda, M Lisa PA-C Unavailable Unavailable Amanda, M Lisa PA-C Unavailable Unavailable Amanda, M Lisa PA-C Unavailable Unavailable Amanda, M Lisa PA-C Unavailable Unavailable Amanda, M Lisa PA-C Unavailable Unavailable Amanda, M Lisa PA-C Unavailable Unavailable Amanda, M Lisa PA-C Unavailable Unavailable Amanda, M Lisa PA-C Unavailable Unavailable Amanda, M Lisa PA-C Unavailable Unavailable Amanda, M Lisa PA-C Unavailable Unavailable Amanda, M Lisa PA-C Unavailable Unavailable Amanda, M Lisa PA-C Unavailable Unavailable Amanda, M Lisa PA-C Unavailable Unavailable Amanda, M Lisa PA-C Unavailable Unavailable Amanda, M Lisa PA-C Unavailable Unavailable Amanda, M Lisa PA-C Unavailable Unavailable Amanda, M Lisa PA-C Unavailable Unavailable Amanda, M Lisa PA-C Unavailable Unavailable Amanda, M Lisa PA-C Unavailable Unavailable Amanda, M Lisa PA-C Unavailable Unavailable Amanda, M Lisa PA-C Unavailable Unavailable Amanda, M Lisa PA-C Unavailable Unavailable Amanda, M Lisa PA-C Unavailable Unavailable Amanda, M Lisa PA-C Unavailable Unavailable Amanda, M Lisa PA-C Unavailable Unavailable Amanda, M Lisa PA-C Unavailable Unavailable Amanda, M Lisa PA-C Unavailable Unavailable Amanda, M Lisa PA-C Unavailable Unavailable Amanda, M Lisa PA-C Unavailable Unavailable Amanda, M Lisa PA-C Unavailable Unavailable Amanda, M Lisa PA-C Unavailable Unavailable Amanda, M Lisa PA-C Unavailable Unavailable Amanda, M Lisa PA-C Unavailable Unavailable Amanda, M Lisa PA-C Unavailable Unavailable Amanda, M Lisa PA-C Unavailable Unavailable Amanda, M Lisa PA-C Unavailable Unavailable Amanda, M Lisa PA-C Unavailable Unavailable Amanda, M Lisa PA-C Unavailable Unavailable Amanda, M Lisa PA-C Unavailable Unavailable Amanda, M Lisa PA-C Unavailable Unavailable Amanda, M Lisa PA-C Unavailable Unavailable Amanda, M Lisa PA-C Unavailable Unavailable Amanda, M Lisa PA-C Unavailable Unavailable Amanda, M Lisa PA-C Unavailable Unavailable Amanda, M Lisa PA-C Unavailable Unavailable Amanda, M Lisa PA-C Unavailable Unavailable Amanda, M Lisa PA-C Unavailable Unavailable Amanda, M Lisa PA-C Unavailable Unavailable Amanda, M Lisa PA-C Unavailable Unavailable Amanda, M Lisa PA-C Unavailable Unavailable NEEDED NEEDED, INFO Unavailable Unavailable HEEDDY MD Unavailable Unavailable HEEDDY MD Unavailable Unavailable Susan, Antonio Chapmane AUTOMOTIVE INTERNET SALES MANAGER-C Unavailable Unavailabl e Susan, Antonio Chapmane AUTOMOTIVE INTERNET SALES MANAGER-C Unavailable Unavailabl e Susan, Antonio Smith Octavia AUTOMOTIVE INTERNET SALES MANAGER-C Unavailable Unavailabl e Susan, Antonio Chapmane AUTOMOTIVE INTERNET SALES MANAGER-C Unavailable Unavailabl e Susan, Antonio Chapmane AUTOMOTIVE INTERNET SALES MANAGER-C Unavailable Unavailabl e Susan, Antonio W Octavia AUTOMOTIVE INTERNET SALES MANAGER-C Unavailable Unavailabl e Susan, Antonio W Octavia AUTOMOTIVE INTERNET SALES MANAGER-C Unavailable Unavailabl e Susan, Anotnio Chapmane AUTOMOTIVE INTERNET SALES MANAGER-C Unavailable Unavailabl e Susan, Antonio Smith Octavia AUTOMOTIVE INTERNET SALES MANAGER-C Unavailable Unavailabl e Susan, Antonio Chapmane AUTOMOTIVE INTERNET SALES MANAGER-C Unavailable Unavailabl e Susan, Antonio Chapmane AUTOMOTIVE INTERNET SALES MANAGER-C Unavailable Unavailabl e Susan, Maris Sarah Dudley AUTOMOTIVE INTERNET SALES MANAGER-C Unavailable Unavailabl e Susan, Antonio Dudley AUTOMOTIVE INTERNET SALES MANAGER-C Unavailable Unavailabl e Susan, Antonio Chapmane AUTOMOTIVE INTERNET SALES MANAGER-C Unavailable Unavailabl e Susan, Antonio Chapmane AUTOMOTIVE INTERNET SALES MANAGER-C Unavailable Unavailabl e Susan, Antonio Smith Octavia AUTOMOTIVE INTERNET SALES MANAGER-C Unavailable Unavailabl e Susan, Maris W Octavia AUTOMOTIVE INTERNET SALES MANAGER-C Unavailable Unavailabl e Susan, Maris W Octavia AUTOMOTIVE INTERNET SALES MANAGER-C Unavailable Unavailabl e Susan, Maris W Octavia AUTOMOTIVE INTERNET SALES MANAGER-C Unavailable Unavailabl e Susan, Antonio W Octavia AUTOMOTIVE INTERNET SALES MANAGER-C Unavailable Unavailabl e Susan, Maris Sarah Octavia AUTOMOTIVE INTERNET SALES MANAGER-C Unavailable Unavailabl e Susan, Maris W Octavia AUTOMOTIVE INTERNET SALES MANAGER-C Unavailable Unavailabl e Susan, Maris W Octavia AUTOMOTIVE INTERNET SALES MANAGER-C Unavailable Unavailabl e Susan, Marish W Octavia AUTOMOTIVE INTERNET SALES MANAGER-C Unavailable Unavailabl e Susan, Antonio Dudley AUTOMOTIVE INTERNET SALES MANAGER-C Unavailable Unavailabl e Susan, Antonio Dudley AUTOMOTIVE INTERNET SALES MANAGER-C Unavailable Unavailabl e Susan, Antonio Dudley AUTOMOTIVE INTERNET SALES MANAGER-C Unavailable Unavailabl e Susan, Antonio Dudley AUTOMOTIVE INTERNET SALES MANAGER-C Unavailable Unavailabl e Susan, Antonio Dudley AUTOMOTIVE INTERNET SALES MANAGER-C Unavailable Unavailabl e Susan, Antonio Dudley AUTOMOTIVE INTERNET SALES MANAGER-C Unavailable Unavailabl e Susan, Antonio Dudley AUTOMOTIVE INTERNET SALES MANAGER-C Unavailable Unavailabl e Susan, Antonio Chapmane AUTOMOTIVE INTERNET SALES MANAGER-C Unavailable Unavailabl e LETTIERE, A LISA PA Unavailable Unavailable LETTIERE, A LISA PA Unavailable Unavailable LETTIERE, A LISA PA Unavailable Unavailable LETTIERE, A LISA PA Unavailable Unavailable LETTIERE, A LISA PA Unavailable Unavailable LETTIERE, A LISA PA Unavailable Unavailable LETTIERE, A LISA PA Unavailable Unavailable LETTIERE, A LISA PA Unavailable Unavailable LETTIERE, A LISA PA Unavailable Unavailable LETTIERE, A LISA PA Unavailable Unavailable LETTIERE, A LISA PA Unavailable Unavailable LETTIERE, A LISA PA Unavailable Unavailable LETTIERE, A LISA PA Unavailable Unavailable LETTIERE, A LISA PA Unavailable Unavailable LETTIERE, A LISA PA Unavailable Unavailable LETTIERE, A LISA PA Unavailable Unavailable LETTIERE, A LISA PA Unavailable Unavailable LETTIERE, A LISA PA Unavailable Unavailable LETTIERE, A LISA PA Unavailable Unavailable LETTIERE, A LISA PA Unavailable Unavailable LETTIERE, A LISA PA Unavailable Unavailable LETTIERE, A LISA PA Unavailable Unavailable LETTIERE, A LISA PA Unavailable Unavailable LETTIERE, A LISA PA Unavailable Unavailable LETTIERE, A LISA PA Unavailable Unavailable LETTIERE, A LISA PA Unavailable Unavailable LETTIERE, A LISA PA Unavailable Unavailable LETTIERE, A LISA PA Unavailable Unavailable LETTIERE, A LISA PA Unavailable Unavailable LETTIERE, A LISA PA Unavailable Unavailable LETTIERE, A LISA PA Unavailable Unavailable Feola, T Cata PA Unavailable Unavailable Feola, T Cata PA Unavailable Unavailable Feola, T Cata PA Unavailable Unavailable Feola, T Cata PA Unavailable Unavailable Feola, T Cata PA Unavailable Unavailable Feola, T Cata PA Unavailable Unavailable Feola, T Cata PA Unavailable Unavailable Feola, T Cata PA Unavailable Unavailable Feola, T Cata PA Unavailable Unavailable Feola, T Cata PA Unavailable Unavailable Feola, T Cata PA Unavailable Unavailable Feola, T Cata PA Unavailable Unavailable Feola, T Cata PA Unavailable Unavailable Feola, T Cata PA Unavailable Unavailable Feola, T Cata PA Unavailable Unavailable Feola, T Cata PA Unavailable Unavailable Feola, T Cata PA Unavailable Unavailable Feola, T Cata PA Unavailable Unavailable Feola, T Cata PA Unavailable Unavailable Feola, T Cata PA Unavailable Unavailable Feola, T Cata PA Unavailable Unavailable Feola, T Cata PA Unavailable Unavailable Feola, T Cata PA Unavailable Unavailable Feola, T Cata PA Unavailable Unavailable Feola, T Cata PA Unavailable Unavailable Feola, T Cata PA Unavailable Unavailable Feola, T Cata PA Unavailable Unavailable Feola, T Cata PA Unavailable Unavailable Feola, T Cata PA Unavailable Unavailable Feola, T Cata PA Unavailable Unavailable Feola, T Cata PA Unavailable Unavailable Feola, T Cata PA Unavailable Unavailable Feola, T Cata PA Unavailable Unavailable Feola, T Cata PA Unavailable Unavailable Feola, T Cata PA Unavailable Unavailable Feola, T Cata PA Unavailable Unavailable Feola, T Cata PA Unavailable Unavailable Feola, T Cata PA Unavailable Unavailable Feola, T Cata PA Unavailable Unavailable Feola, T Cata PA Unavailable Unavailable Feola, T Cata PA Unavailable Unavailable HANNAH, M ALLYN PA Unavailable Unavailable HANNAH, M ALLYN PA Unavailable Unavailable HANNAH, M ALLYN PA Unavailable Unavailable HANNAH, M ALLYN PA Unavailable Unavailable HANNAH, M ALLYN PA Unavailable Unavailable HANNAH, M ALLYN PA Unavailable Unavailable HANNAH, M ALLYN PA Unavailable Unavailable HANNAH, M ALLYN PA Unavailable Unavailable HANNAH, M ALLYN PA Unavailable Unavailable HANNAH, M ALLYN PA Unavailable Unavailable HANNAH, M ALLYN PA Unavailable Unavailable HANNAH, M ALLYN PA Unavailable Unavailable HANNAH, M ALLYN PA Unavailable Unavailable HANNAH, M ALLYN PA Unavailable Unavailable HANNAH, M ALLYN PA Unavailable Unavailable HANNAH, M ALLYN PA Unavailable Unavailable HANNAH, M ALLYN PA Unavailable Unavailable HANNAH, M ALLYN PA Unavailable Unavailable HANNAH, M ALLYN PA Unavailable Unavailable HANNAH, M ALLYN PA Unavailable Unavailable HANNAH, M ALLYN PA Unavailable Unavailable HANNAH, M ALLYN PA Unavailable Unavailable Sammi YOUNG PA Unavailable Unavailable Sammi YOUNG PA Unavailable Unavailable GALEN, MALISSA MD Unavailable Unavailable GALEN, MALISSA MD Unavailable Unavailable GALEN, MALISSA MD Unavailable Unavailable GALEN, MALISSA MD Unavailable Unavailable GALEN, MALISSA MD Unavailable Unavailable GALEN, MALISSA MD Unavailable Unavailable GALEN, MALISSA MD Unavailable Unavailable GALEN, MALISSA MD Unavailable Unavailable GALEN, MALISSA MD Unavailable Unavailable GALEN, MALISSA MD Unavailable Unavailable GALEN, MALISSA MD Unavailable Unavailable GALEN, MALISSA MD Unavailable Unavailable GALEN, MALISSA MD Unavailable Unavailable GALEN, MALISSA MD Unavailable Unavailable GALEN, MALISSA MD Unavailable Unavailable GALEN, MALISSA MD Unavailable Unavailable GALEN, MALISSA MD Unavailable Unavailable GALEN, MALISSA MD Unavailable Unavailable GALEN, MALISSA MD Unavailable Unavailable GALEN, MALISSA MD Unavailable Unavailable GALEN, MALISSA MD Unavailable Unavailable GALEN, MALISSA MD Unavailable Unavailable GALEN, MALISSA MD Unavailable Unavailable GALEN, MALISSA MD Unavailable Unavailable GALEN, MALISSA MD Unavailable Unavailable GALEN, MALISSA MD Unavailable Unavailable GALEN, MALISSA MD Unavailable Unavailable GALEN, MALISSA MD Unavailable Unavailable GALEN, MALISSA MD Unavailable Unavailable GALEN, MALISSA MD Unavailable Unavailable GALEN, MALISSA MD Unavailable Unavailable GALEN, MALISSA MD Unavailable Unavailable GALEN, MALISSA MD Unavailable Unavailable GALEN, MALISSA MD Unavailable Unavailable GALEN, MALISSA MD Unavailable Unavailable GALEN, MALISSA MD Unavailable Unavailable GALEN, MALISSA MD Unavailable Unavailable GALEN, MALISSA MD Unavailable Unavailable GALEN, MALISSA MD Unavailable Unavailable GALEN, MALISSA MD Unavailable Unavailable GALEN, MALISSA MD Unavailable Unavailable GALEN, MALISSA MD Unavailable Unavailable GALEN, MALISSA MD Unavailable Unavailable PICKERAL JR, J PANCHO PA-C Unavailable Unavailable PICKERAL JR, J PANCHO PA-C Unavailable Unavailable PICKERAL JR, J PANCHO PA-C Unavailable Unavailable PICKERAL JR, J PANCHO PA-C Unavailable Unavailable PICKERAL JR, J PANCHO PA-C Unavailable Unavailable PICKERAL JR, J PANCHO PA-C Unavailable Unavailable PICKERAL JR, J PANCHO PA-C Unavailable Unavailable PICKERAL JR, J PANCHO PA-C Unavailable Unavailable PICKERAL JR, J PANCHO PA-C Unavailable Unavailable PICKERAL JR, J PANCHO PA-C Unavailable Unavailable PICKERAL JR, J PANCHO PA-C Unavailable Unavailable PICKERAL JR, J PANCHO PA-C Unavailable Unavailable PICKERAL JR, J PANCHO PA-C Unavailable Unavailable PICKERAL JR, J PANCHO PA-C Unavailable Unavailable PICKERAL JR, J PANCHO PA-C Unavailable Unavailable PICKERAL JR, J PANCHO PA-C Unavailable Unavailable PICKERAL JR, J PANCHO PA-C Unavailable Unavailable PICKERAL JR, J PANCHO PA-C Unavailable Unavailable PICKERAL JR, J PANCHO PA-C Unavailable Unavailable PICKERAL JR, J PANCHO PA-C Unavailable Unavailable PICKERAL JR, J PANCHO PA-C Unavailable Unavailable PICKERAL JR, J PANCHO PA-C Unavailable Unavailable PICKERAL JR, J PANCHO PA-C Unavailable Unavailable PICKERAL JR, J PANCHO PA-C Unavailable Unavailable PICKERAL JR, J PANCHO PA-C Unavailable Unavailable PICKERAL JR, J PANCHO PA-C Unavailable Unavailable PICKERAL JR, J PACNHO PA-C Unavailable Unavailable Hamlin, Brenda Laurie PA Unavailable Unavailable Hamlin, Brenda Laurie PA Unavailable Unavailable Hamlin, Brenda Laurie PA Unavailable Unavailable Hamlin, Brenda Laurie PA Unavailable Unavailable Hamlin, Brenda Laurie PA Unavailable Unavailable Hamlin, Brenda Laurie PA Unavailable Unavailable Hamlin, Brenda Laurie PA Unavailable Unavailable Hamlin, Brenda Laurie PA Unavailable Unavailable Hamlin, Brenda Laurie PA Unavailable Unavailable Hamlin, Brenda Laurie PA Unavailable Unavailable TURRIN, VARGAS Unavailable Unavailable TURRIN, VARGAS Unavailable Unavailable TURRIN, VARGAS Unavailable Unavailable TURRIN, VARGAS Unavailable Unavailable Judith ARAIZA Unavailable Unavailable Rosa Maria ARROYO MD Unavailable Unavailable Rosa Maria ARROYO MD Unavailable Unavailable Rosa Maria ARROYO MD Unavailable Unavailable Rosa Maria ARROYO MD Unavailable Unavailable Ayse, A Lisa AUTOMOTIVE INTERNET SALES MANAGER Unavailable Unavailable Ayse, A Lisa AUTOMOTIVE INTERNET SALES MANAGER Unavailable Unavailable Ayse, A Lisa AUTOMOTIVE INTERNET SALES MANAGER Unavailable Unavailable Ayse, A Lisa AUTOMOTIVE INTERNET SALES MANAGER Unavailable Unavailable Ayse, A Lisa AUTOMOTIVE INTERNET SALES MANAGER Unavailable Unavailable Ayse, A Lisa AUTOMOTIVE INTERNET SALES MANAGER Unavailable Unavailable Ayse, A Lisa AUTOMOTIVE INTERNET SALES MANAGER Unavailable Unavailable Ayse, A Lisa AUTOMOTIVE INTERNET SALES MANAGER Unavailable Unavailable Ayse, A Lisa AUTOMOTIVE INTERNET SALES MANAGER Unavailable Unavailable Ayse, A Lisa AUTOMOTIVE INTERNET SALES MANAGER Unavailable Unavailable Ayse, A Lisa AUTOMOTIVE INTERNET SALES MANAGER Unavailable Unavailable Ayse, A Lisa AUTOMOTIVE INTERNET SALES MANAGER Unavailable Unavailable Ayse, A Lisa AUTOMOTIVE INTERNET SALES MANAGER Unavailable Unavailable Ayse, A Lisa AUTOMOTIVE INTERNET SALES MANAGER Unavailable Unavailable Ayse, A Lisa AUTOMOTIVE INTERNET SALES MANAGER Unavailable Unavailable Ayse, A Lisa AUTOMOTIVE INTERNET SALES MANAGER Unavailable Unavailable Ayse, A Lisa AUTOMOTIVE INTERNET SALES MANAGER Unavailable Unavailable Ayse, A Lisa AUTOMOTIVE INTERNET SALES MANAGER Unavailable Unavailable Ayse, A Lisa AUTOMOTIVE INTERNET SALES MANAGER Unavailable Unavailable Ayse, A Lisa AUTOMOTIVE INTERNET SALES MANAGER Unavailable Unavailable Ayse, A Lisa AUTOMOTIVE INTERNET SALES MANAGER Unavailable Unavailable Ayse, A Lisa AUTOMOTIVE INTERNET SALES MANAGER Unavailable Unavailable Yase, A Lisa AUTOMOTIVE INTERNET SALES MANAGER Unavailable Unavailable Ayse, A Lisa AUTOMOTIVE INTERNET SALES MANAGER Unavailable Unavailable Ayse, A Lisa AUTOMOTIVE INTERNET SALES MANAGER Unavailable Unavailable Ayse, A Lisa AUTOMOTIVE INTERNET SALES MANAGER Unavailable Unavailable Ayse, A Lisa AUTOMOTIVE INTERNET SALES MANAGER Unavailable Unavailable Ayse, A Lisa AUTOMOTIVE INTERNET SALES MANAGER Unavailable Unavailable Ayse, A Lisa AUTOMOTIVE INTERNET SALES MANAGER Unavailable Unavailable Ayse, A Lisa AUTOMOTIVE INTERNET SALES MANAGER Unavailable Unavailable Ayse, A Lisa AUTOMOTIVE INTERNET SALES MANAGER Unavailable Unavailable Ayse, A Lisa AUTOMOTIVE INTERNET SALES MANAGER Unavailable Unavailable Ayse, A Lisa AUTOMOTIVE INTERNET SALES MANAGER Unavailable Unavailable Ayse, A Lisa AUTOMOTIVE INTERNET SALES MANAGER Unavailable Unavailable Ayse, A Lisa AUTOMOTIVE INTERNET SALES MANAGER Unavailable Unavailable Ayse, A Lisa AUTOMOTIVE INTERNET SALES MANAGER Unavailable Unavailable Ayse, A Lisa AUTOMOTIVE INTERNET SALES MANAGER Unavailable Unavailable Ayse, A Lisa AUTOMOTIVE INTERNET SALES MANAGER Unavailable Unavailable Ayse, A Lisa AUTOMOTIVE INTERNET SALES MANAGER Unavailable Unavailable Ayse, A Lisa AUTOMOTIVE INTERNET SALES MANAGER Unavailable Unavailable Ayse, A Lisa AUTOMOTIVE INTERNET SALES MANAGER Unavailable Unavailable Ayse, A Lisa AUTOMOTIVE INTERNET SALES MANAGER Unavailable Unavailable Ayse, A Lisa AUTOMOTIVE INTERNET SALES MANAGER Unavailable Unavailable Ayse, A Lisa AUTOMOTIVE INTERNET SALES MANAGER Unavailable Unavailable Ayse, A Lisa AUTOMOTIVE INTERNET SALES MANAGER Unavailable Unavailable Ayse, A Lisa AUTOMOTIVE INTERNET SALES MANAGER Unavailable Unavailable Ayse, A Lisa AUTOMOTIVE INTERNET SALES MANAGER Unavailable Unavailable Ayse, A Lisa AUTOMOTIVE INTERNET SALES MANAGER Unavailable Unavailable Ayse, A Lisa AUTOMOTIVE INTERNET SALES MANAGER Unavailable Unavailable Ayse, A Lisa AUTOMOTIVE INTERNET SALES MANAGER Unavailable Unavailable Ayse, A Lisa AUTOMOTIVE INTERNET SALES MANAGER Unavailable Unavailable Ayse, A Lisa AUTOMOTIVE INTERNET SALES MANAGER Unavailable Unavailable Ayse, A Lisa AUTOMOTIVE INTERNET SALES MANAGER Unavailable Unavailable Ayse, A Lisa AUTOMOTIVE INTERNET SALES MANAGER Unavailable Unavailable Re-disclosure Warning The records that you are about to access may contain information from federally-assisted alcohol or drug abuse programs. If such information is present, then the following federally mandated warning applies: This information has been disclosed to you from records protected by federal confidentiality rules (42 CFR part 2). The federal rules prohibit you from making any further disclosure of this information unless further disclosure is expressly permitted by the written consent of the person to whom it pertains or as otherwise permitted by 42 CFR part 2. A general authorization for the release of medical or other information is NOT sufficient for this purpose. The Federal rules restrict any use of the information to criminally investigate or prosecute any alcohol or drug abuse patient.The records that you are about to access may contain highly sensitive health information, the redisclosure of which is protected by Article 27-F of the [facility] Public Health law. If you continue you may have access to information: Regarding HIV / AIDS; Provided by facilities licensed or operated by the [facility] Office of Mental Health; or Provided by the [facility] Office for People With Developmental Disabilities. If such information is present, then the following [facility] mandated warning applies: This information has been disclosed to you from confidential records which are protected by state law. State law prohibits you from making any further disclosure of this information without the specific written consent of the person to whom it pertains, or as otherwise permitted by law. Any unauthorized further disclosure in violation of state law may result in a fine or mcfp sentence or both. A general authorization for the release of medical or other information is NOT sufficient authorization for further disc losure. Allergies and Adverse Reactions Type Description Substance Reaction Status Data Source(s ) Drug allergy ESOMEPRAZOLE MAGNESIUM ESOMEPRAZOLE MAGNESIUM [facility] Propensity to adverse reactions LATEX Latex Itching [facility] Drug allergy latex Latex Other, not listed U Angioedema [facility] Drug allergy esomeprazole esomeprazole [facility] Family History Family Member Name Family Member Gender Family Member Status Date o f Status Description Data Source(s) Unknown Unknown Problem [facility] ([facility]) Encounters Encounter Providers Location Date Indications Data Source(s ) Emergency Attender: Shaun Farias MDConsultant: Lisa Patel PA-C 04/13/2021 04:18:00 PM EST - 04/13/2021 06:51:00 PM EST [facility] Patient discharged. Outpatient Attender: LISA seals 03/23/2021 10:15:00 AM EDT [facility] ([facility]) Outpatient Attender: MALISSA AARON MD Main office - [facility] n 03/11/2021 09:15:00 AM EDT [facility] ([facility]) Emergency Attender: Shaun Farias MDConsultant: Lisa Patel PA-C 02/25/2021 04:17:00 PM EDT - 02/25/2021 05:59:00 PM EDT [facility] Patient discharged. Outpatient Attender: PANCHO medellin 02/17/2021 09:10:00 AM EDT [facility] ([facility]) Outpatient Attender: Lisa Patel PA-C 02/03/2021 03:48 :00 PM [facility] Outpatient [facility] 02/03/2021 12:00:00 AM EDT eCW1 ([facility]) Outpatient Attender: MALISSA AARON MD 12/27/2020 11:00:00 A M [facility] Outpatient Attender: MALISSA AARON MDAttender: CHERISE STAFFORD N EEDED 12/16/2020 03:02:00 PM EDT - 12/25/2020 10:59:00 AM EDT [facility]ital Patient discharged. Outpatient Attender: LISA ARROYO MDConsultant: Lisa MORENO-C 11/23/2020 11:03:00 AM EDT - 11/23/2020 12:04:00 PM EDT [facility] Emergency Attender: VARGAS ORTIZConsultant: Lisa Khan-Alexis 11/18/2020 07:40:00 PM EDT - 11/18/2020 11:28:00 PM EDT [facility] Patient discharged. Outpatient Attender: MALISSA AARON MD Main office - [facility] 11/02/2020 12:30:00 PM EDT [facility] ([facility] [place]) Outpatient Attender: Lisa Patel PA-C 09/30/2020 03:26 :00 PM EDT [facility] Outpatient [facility] 09/30/2020 12:00:00 AM EDT eCW1 ([facility]) Outpatient [facility] 09/29/2020 12:00:00 AM EDT eCW1 ([facility]) Outpatient [facility] 09/22/2020 12:00:00 AM EDT eCW1 ([facility]) Outpatient [facility] 09/09/2020 12:00:00 AM EDT eCW1 ([facility]) Emergency Attender: Shaun Farias MDConsultant: Lisa Patel PA-C 09/06/2020 03:17:00 PM EDT - 09/06/2020 05:30:00 PM EDT [facility] Patient discharged. Outpatient Attender: Cata MORENO 021 05:06:50 PM EDT - 09/05/2020 05:46:54 PM EDT [employer]uTap ([facility] ) Outpatient Attender: Lisa Patel PA-C EMERGENCY ROOM-LA B 06/22/2020 01:32:00 PM EST - 06/22/2020 01:32:00 PM [facility] Outpatient Attender: Lisa Patel PA-C 06/22/2020 12:42 :00 PM [facility] (TCM) TCM/Hospital Follow Up [facility] 06/22/2020 12:00:00 AM EST eCW1 ([facility]) Outpatient [facility] 06/18/2020 12:00:00 AM EST eCW1 ([facility]) Inpatient Attender: YG Whitfield er: Elizabeth Maki MDAttender: RAJNI CAGEAdmitter: YG ARAIZAReferrer: Elizabeth Maki MD [id number] 06/10/2020 12:00:00 AM EST - 06/17/2020 11:04:00 [facility]. Emergency Attender: EDDY TEE MD 04/24/2020 0 7:01:00 PM EST - 04/25/2020 12:47:00 AM EST PELVIC PAIN [facility] l PELVIC PAIN Patient discharged. Outpatient [facility] 04/07/2020 12:00:00 AM EST eCW1 ([facility]) Outpatient Attender: Lisa Patel PA-C EMERGENCY ROOM-LA B REF 04/03/2020 08:45:00 AM EST - 04/03/2020 08:45:00 AM EST [facility] Outpatient Attender: Octavia FORTUNE 04/02/2020 12:05:[address] [facility] Hospital Admission cancelled. Disregard status an d admitted date. Outpatient Attender: Octavia FORTUNE 04/02/2020 12:03:[address] [facility] Hospital Admission cancelled. Disregard status an d admitted date. Outpatient Attender: Octavia FORTUNE EMERGENCY ROOM-LAB REF 04/02/2020 11:57:00 AM EST - 04/02/2020 11:57:00 AM EST [facility] Outpatient Attender: Octavia FORTUNE 04/02/2020 11:24:0 0 AM EST [facility] Outpatient [facility] 04/02/2020 12:00:00 AM EST eCW1 ([facility]) Outpatient [facility] 04/02/2020 12:00:00 AM EST eCW1 ([facility]) Outpatient [facility] 04/02/2020 12:00:00 AM EST eCW1 ([facility]) Outpatient Attender: ALLYN MORENO 03/28/2020 09:12:00 AM EDT [facility] Outpatient [facility] 03/28/2020 12:00:00 AM EDT eCW1 ([facility]) Outpatient Attender: Laurie seals 03/25/2020 05:30:00 PM EDT [facility] ([facility]) Outpatient Attender: Lisa Patel PA-C EMERGENCY ROOM-LA B 02/24/2020 10:05:00 AM EDT - 02/24/2020 10:05:00 AM EDT [facility] Outpatient Attender: Lisa Patel PA-C 02/24/2020 09:58 :00 AM EDT [facility] Outpatient [facility] 02/24/2020 12:00:00 AM EDT eCW1 ([facility]) Outpatient Attender: Lisa Tavera AMBER 11/13/2019 08:45 :00 AM EDT [facility] Immunizations Vaccine Date Status Description Data Source(s) COVID-19 VACCINE Moderna 04/02/2021 12:00:00 AM EDT completed [facility] Vaccine Series Complete: YESThis Data wa s Submitted to [facility] Via i3 membrane. COVID-19 VACCINE Pfizer 06/10/2020 12:00:00 AM EST completed [facility] Vaccine Series Complete: YESThis Data wa s Submitted to [facility] Via i3 membrane. COVID-19 VACCINE Pfizer 05/20/2020 12:00:00 AM EST completed [facility] Vaccine Series Complete: NOThis Data was Submitted to [facility] Via i3 membrane. Medications Medication Brand Name Start Date Product Form Dose Route Admi nistrative Instructions Pharmacy Instructions Status Indications Reaction Description Data Source(s) [facility] 03/11/2021 12:00:00 AM EDT ORAL active MEDENT ([facility]) Magnesium Oxide 400 MG Oral Tablet Magnesium Oxide 03/11/2021 12:00 :00 AM EDT ORAL active [facility] ([facility]) zonisamide 25 MG Oral Capsule Zonisamide 11/02/2020 12:00:00 AM EDT ORAL completed [facility]ENT ([facility] ) zonisamide 50 MG Oral Capsule Zonisamide 11/02/2020 12:00:00 AM EDT ORAL completed [facility] ([facility] ) Sumatriptan 50 MG Oral Tablet [Imitrex] Imitrex 50 MG Imitre x 50 MG 09/30/2020 12:00:00 AM EDT active Imitrex 50 MG eCW1 ([facility]) Sumatriptan 50 MG Oral Tablet [Imitrex] Imitrex 50 MG Imitre x 50 MG 09/30/2020 12:00:00 AM EDT active Imitrex 50 MG eCW1 ([facility]) Sennosides-Docusate Sodium (Senna Plus) 8.6-50 mg capsule 04/25/2020 12:27:17 AM EST 1 TAB-CAP active [facility] Acetaminophen 325 MG / Oxycodone Hydroch loride 5 MG Oral Tablet Oxycodone- Acetaminophen (Percocet) 5-325 mg tablet Oxycodone-Acetaminophen (Percocet) 5- 325 mg tablet 04/25/2020 12:26:37 AM EST 1 TAB active [facility] Pseudoephedrine Hydrochloride 60 MG Oral Tablet Pseudo ephedrine HCl 60 MG Pseudoephedrine HCl 60 MG 03/28/2020 12:00:00 AM EDT 1.0 {tablet_as _needed} active Pseudoephedrine HCl 60 MG eCW1 ([facility]) Insurance Providers Payer name Policy type / Coverage type Policy ID Covered alliance party ID Covered alliance party's relationship to benjamin Policy Benjamin Plan Information [employer] [id number] Luiza VYA [id number] [employer] - [place] Blue [employer]/B l[place] Shield [id number] Self [id number] [employer] [place] Blue [employer]/[place] Shield [id number] Self [id number] EX[employer]LLUS H [id number] Self [id number] [place] [id number] S VYA [id number] [place] PPO 302/307 [id number] SP [id number] [facility]EE [facility] KADY MIDDLETON 18 KADY MOHAMUDARINGEN BLUE CROSS BLUE SHIELD -O/P [id number] 18 [id number] BLUE CROSS BLUE SHIELD -O/P [id number] 18 [id number] [employer] [place] [id number] S VYA [id number] [facility] INSURANCE [facility] [id number] SP [id number] [place] WATN PPO 302/307 [id number] SP [id number] [place] PPO 302/307 [id number] SP [id number] [place] WAT[place] PPO 302/307 [id number] SP [id number] [facility] INSURANCE [facility] [id number] SP [id number] O UNAVAILABLE [facility] [id number] [facility] [id number] BLUE CROSS BLUE [place] [id number] 18 [id number] [facility] Commercial [id number] Family Dependent [id number] [facility] [id number] SP [id number] [facility] [id number] [facility] [id number] BCBS [place] WATN PPO 302/307 [id number] SP [id number] UMR -O/P [id number] 18 [id number] SELF PAY [id number] S [id number] Problems, Conditions, and Diagnoses Code Display Name Description Problem Type Effective Dates Data Source(s) Y00807 Latex allergy status Latex allergy status Diagnosis 02/25/2021 04:17:00 PM [facility] E039 Hypothyroidism, unspecified Hypothyroidism, unspecifie d Diagnosis 02/25/2021 04:17:00 PM [facility] L25331 Unspecified asthma, uncomplicated Unspecified as thma, uncomplicated Diagnosis 02/25/2021 04:17:00 PM [facility] A46140 Chronic migraine without aura, intractab le, without status migrainosus Chronic migraine without aura, intractable, without status migrainosus Diagnosis 02/25/2021 04:17:00 PM [facility] R519 Headache, unspecified Headache, unspecified Diagnosis 02/25/2021 04:17:00 PM [facility] Z71.89 Other specified counseling OTHER SPECIFIED COUNSELING Diagnosis 02/03/2021 03:48:00 PM [facility] Z13.220 Encounter for screening for lipoid disor ders ENCOUNTER FOR SCREENING FOR LIPOID DISORDERS Diagnosis 02/03/2021 03:48:00 PM [facility] Z72.89 Other problems related to lifestyle OTHER PROBLE MS RELATED TO LIFESTYLE Diagnosis 02/03/2021 03:48:00 PM [facility] Z86.69 Personal history of other di seases of the nervous system and sense organs PERSONAL HISTORY OF DIS OF THE NERVOUS SYS AND SEN Diagnosis 02/03/2021 03:48:00 PM [facility] F17.290 Nicotine dependence, other tobacco produ ct, uncomplicated NICOTINE DEPENDENCE, OTHER TOBACCO PRODUCT, UNCOMP Diagnosis 02/03/2021 03:48:0 0 PM [facility] Z68.42 Body mass index (BMI) 45.0-49.9, adult B AAMIR MASS INDEX [BMI] 45.0-49.9, ADULT Diagnosis 02/03/2021 03:48:00 PM [facility] l E66.01 Morbid (severe) obesity due to excess ca lories MORBID (SEVERE) OBESITY DUE TO EXCESS CALORIES Diagnosis 02/03/2021 03:48:[address] [facility] ital E55.9 Vitamin D deficiency, unspecified VITAMIN D DEFI CIENCY, UNSPECIFIED Diagnosis 02/03/2021 03:48:00 PM [facility] J45.20 Mild intermittent asthma, uncomplicated MILD INTERMITTENT ASTHMA, UNCOMPLICATED Diagnosis 02/03/2021 03:48:00 PM [facility] E03.9 Hypothyroidism, unspecified HYPOTHYROIDISM, UNSPECIFIE D Diagnosis 02/03/2021 03:48:00 PM [facility] F31.9 Bipolar disorder, unspecified BIPOLAR DISORDER, UNSPEC IFIED Diagnosis 02/03/2021 03:48:00 PM [facility] F43.10 Post-traumatic stress disorder, unspecif ied POST-TRAUMATIC STRESS DISORDER, UNSPECIFIED Diagnosis 02/03/2021 03:48:00 PM [facility] rodrigo F41.8 Other specified anxiety disorders OTHER SPECIFIE D ANXIETY DISORDERS Diagnosis 02/03/2021 03:48:00 PM [facility] Z00.00 Encounter for general adult medical examination without abnormal findings ENCNTR FOR GENERAL ADULT MEDICAL EXAM W/O ABNORMAL FINDINGS Diagnosis 02/03/2021 03:48:00 PM [facility] M54.2 Cervicalgia CERVICALGIA Diagnosis 12/16/2020 07:00:00 AM [facility] Z021 Encounter for pre-employment examination Encounter for pre-employment examination Diagnosis 11/23/2020 11:03:00 AM [facility] U71591 Nicotine dependence, other tobacco produ ct, uncomplicated Nicotine dependence, other tobacco product, uncomplicated Diagnosis 11/18 07:40:00 PM [facility] N809 Endometriosis, unspecified Endometriosis, unspecified Diagnosis 11/18/2020 07:40:00 PM [facility] K5730 Diverticulosis of large inte russ without perforation or abscess without bleeding Diverticulosis of large intestine withou t perforation or abscess without bleeding Diagnosis 11/18/2020 07:40:00 PM [facility] R1084 Generalized abdominal pain Generalized abdominal pain Diagnosis 11/18/2020 07:40:00 PM [facility] G43.909 Migraine, unspecified, not intractable, without status migrainosus MIGRAINE, UNSP, NOT INTRACTABLE, WITHOUT STATUS MIGRAINOSUS Diagnosis 09/30/2020 03:26:00 PM [facility] G43B1 Ophthalmoplegic migraine, intractable Op hthalmoplegic migraine, intractable Diagnosis 09/06/2020 03:17:00 PM [facility] Z13.21 Encounter for screening for nutritional disorder ENCOUNTER FOR SCREENING FOR NUTRITIONAL DISORDER Diagnosis 06/22/2020 12:42:00 PM [facility] spital Z13.0 Encounter for screening for diseases of the blood and blood-forming organs and certain disorders involving the immune mechanism ENCNTR SCREEN FOR DIS OF THE BLD/BLD-FORM ORG/IMMU Diagnosis 06/22/2020 12:42:00 PM [facility] ospital R03.0 Elevated blood-pressure reading, without diagnosis of hypertension ELEVATED BLOOD-PRESSURE READING, W/O DIAGNOSIS OF Diagnosis 05/30 12:42:00 PM [facility] R45.851 Suicidal ideations SUICIDAL IDEATIONS Diagnosis 12:42:00 PM [facility] F43.10 Post-traumatic stress disorder, unspecif ied Post-traumatic stress disorder, unspecified Diagnosis 06/11/2020 02:27:[address] [facility] R45.851 Suicidal ideations Suicidal ideations Diagnosis 10:04:37 PM [facility] Z20.822 Contact with and (suspected) exposure to covid-19 Contact with and (suspected) exposure to covid-19 Diagnosis 06/10/2020 07:49:00 PM [facility] F31.9 Bipolar disorder, unspecified Bipolar disorder, unspec ified Diagnosis 06/10/2020 07:49:00 PM [facility] R00.0 Tachycardia, unspecified Tachycardia, unspecified Diag nosis 06/10/2020 07:49:00 PM [facility] G89.29 Other chronic pain Other chronic pain Diagnosis 07:49:00 PM [facility] M54.2 Cervicalgia Cervicalgia Diagnosis 06/10/2020 07:49:00 PM [facility] Psych Eval Psych Eval Diagnosis 06/10/2020 07:49:00 PM [facility] Z20.828 Contact with and (suspected) exposure to other viral communicable diseases CONTACT W AND EXPOSURE TO OT VIRAL COMMUNICABLE DISEASES Di agnosis 04/03/2020 08:45:00 AM [facility] R19.7 Diarrhea, unspecified DIARRHEA, UNSPECIFIED Diagnosis 04/02/2020 11:24:00 AM [facility] J06.9 Acute upper respiratory infection, unspe cified ACUTE UPPER RESPIRATORY INFECTION, UNSPECIFIED Diagnosis 04/02/2020 11:24:00 AM [facility] ital K29.00 Acute gastritis without bleeding ACUTE GASTRITIS WITHOUT BLEEDING Diagnosis 04/02/2020 11:24:00 AM [facility] J00 Acute nasopharyngitis [common cold] ACUTE NASOPH ARYNGITIS [COMMON COLD] Diagnosis 03/28/2020 09:12:00 AM [facility] Z76.89 Persons encountering health services in other specified circumstances PERSONS ENCOUNTERING HEALTH SERVICES IN OT CIRCUM Diagnosis 09:58:00 AM [facility] Z71.6 Tobacco abuse counseling TOBACCO ABUSE COUNSELING Diag nosis 02/24/2020 09:58:00 AM [facility] Z30.09 Encounter for other general counseling a nd advice on contraception ENCOUNTER FOR [facility] GENERAL CNSL AND ADVICE ON CONTR Diagnosis 09:58:00 AM [facility] Z68.41 Body mass index (BMI) 40.0-44.9, adult B AAMIR MASS INDEX (BMI) 40.0-44.9, ADULT Diagnosis 02/24/2020 09[facility] [facility] F[facility].200 Nicotine dependence, unspecified, uncomp licated NICOTINE DEPENDENCE, UNSPECIFIED, UNCOMPLICATED Diagnosis 02/24/2020 09:58:00 AM [facility] Z68.42 Body mass index 40+ - severely obese BMI 45.0-49.9, ad ult Problem 02/03/2021 12:00:00 AM EDT eCW1 ([facility]) E66.01 Morbid obesity Morbid (severe) obesity due to excess c alories Problem 02/03/2021 12:00:00 AM EDT eCW1 ([facility]) E55.9 [id number] Vitamin D deficiency Problem 02/03/2021 12:0 0:00 AM EDT eCW1 ([facility]) F31.9 [id number] Bipolar affective disorder, remission sta tus unspecified Problem 06/22/2020 12:00:00 AM EST eCW1 ([facility]) E03.9 [id number] Acquired hypothyroidism Problem 02/24/2020 1 2:00:00 AM EDT eCW1 ([facility]) J45.20 [id number] Mild intermittent asthma without complica tion Problem 02/24/2020 12:00:00 AM EDT eCW1 ([facility]) F41.8 [id number] Depression with anxiety Problem 02/24/2020 1 2:00:00 AM EDT eCW1 ([facility]) F43.10 62859344 PTSD (post-traumatic stress disorder) Pro blem 02/24/2020 12:00:00 AM EDT eCW1 ([facility]) Z86.69 [id number] History of migraine Problem 02/24/2020 12:00 :00 AM EDT eCW1 ([facility]) F17.200 28024719 Tobacco dependence Problem 02/24/2020 12:00: 00 AM EDT eCW1 ([facility]) Z68.41 951475258 Body mass index (BMI) 40.0-44.9, adult Pr oblem 02/24/2020 12:00:00 AM EDT eCW1 ([facility]) Surgeries/Procedures Procedure Description Date Indications Data Source(s) OFFICE OUTPATIENT VISIT 15 MINUTES 03/23/2021 12:00:00 AM EDT [facility] ([facility]) OFFICE OUTPATIENT VISIT 25 MINUTES 03/11/2021 12:00:00 AM EDT MED[facility] ([facility]) OFFICE OUTPATIENT VISIT 15 MINUTES 02/17/2021 12:00:00 AM EDT [facility] ([facility]) MRI BRAIN BRAIN STEM W/O CONTRAST MATERIAL 11/17/2020 12:00:00 AM EDT MEDENT ([facility] ) MRI BRAIN BRAIN STEM W/O CONTRAST MATERIAL 11/17/2020 12:00:00 AM EDT MEDENT ([facility] ) OFFICE OUTPATIENT NEW 45 MINUTES 11/02/2020 12:00:00 A M EDT MED[facility] ([facility] ) Pelvic echography (procedure) 04/24/2020 11:12:00 PM E [facility] Computed tomography of abdomen and pelvis with contrast (pro cedure) 04/24/2020 07:24:[facility] 04/24/2020 12:00:00 AM [facility] Results ID Date Data Source [id number] 04/14/2021 09:19:00 AM [facility] [address] [place] [address] PHONE: [phone] FAX: [phone] Name .................. : EMI Wong Acct Number.................. : [id number] ROOM. ................. : VT-02 MR Number ................... : [id number] Stay type ............. : E/R Discharge Date......... ... : 04/13/21 Admit Date ....... .. : 04/13/21 Admit Phys .................... : JOSE Espinoza Date of ....... : 1990 Family Phys ................... : AMANDA PURVIS Phone .................. : [phone] Age ................................ : 30 Film# .................. .:[id number] Sex ................................. : F Unsigned transcriptions are preliminary reports and do not represent a medical or legal document [place] [id number] COMPLETE:04/13/21 17:53 ADB [id number] Reason(s): left pelvic pain ULTRASOUND PELVIS INDICATION: Left pelvic pain COMPARISON: CT 11/18/2020 TECHNIQUE: Ultrasound of the pelvis is performed using transabdominal technique. FINDINGS: Uterus: Size 6.7 x 2.2 x 3.1 cm. No focal uterine masses. Endometrium: thickness is 3.3 mm. Right ovary: 7.1 x 5.8 x 6.3 cm. Color flow/Doppler imaging shows blood flow to the ovary. Cyst 6.0 x 5.7 x 5.1 cm this has some artifactual reverberation echoes but is otherwise anechoic. Sharp posterior wall. No wall thickening or mural nodularity. Left Ovary: 2.4 x 1.1 x 1.6 cm. Color flow/Doppler imaging shows blood flow to the ovary. No ovarian or adnexal masses. No free fluid. IMPRESSION: Right ovarian cyst measuring up to 6 cm. This is a simple cyst. No evidence of ovarian torsion. Electronically Reviewed and Signed By Jorge Wayne MD , 04/14/21 09:19, JWAlexia Transcribe Initials: LEV , Transcribe Date: 04/13/21 21:01, Dictation Date: Page 1 of 2 [facility] [address] [place] [address] PHONE: [phone] FAX: [phone] Name .................. : EMI Wong Acct Number.................. : [id number] ROOM. ................. : VT-02 MR Number ................... : [id number] Stay type ............. : E/R Discharge Date......... ... : 04/13/21 Admit Date ......... : 04/13/21 Admit Phys .................... : JOSE Espinoza Date of ....... : 1990 Family Phys ................... : AMANDA PURVIS Phone .................. : [phone] Age ................................ : 30 Film# .................. .:[id number] Sex ................................. : F Unsigned transcriptions are preliminary reports and do not represent a medical or legal document [place] [address] COMPLETE: 17:53 ADB 86357 Reason(s): left pelvic pain Copy for: EMERGENCY DEPT via modem Copy for: 710 MED REC DISCHARGED Page 2 of 2 Name Value Range Interpretation Code Description Data Radha rce(s) Supporting Document(s) ID Date Data Source [id number] 04/13/2021 04:18:00 PM EST [facility] 1 OrderSheet [facility] Emergency Department [address] [place] [address] Phone #: ext- [phone] 04/13/2021 16:15 Patient: KADY MIDDLETON Sex: F : 1990 Age: 30yWEIGHT:131.5 kg (S) HEIGHT:68 inches (S) BMI:44.1ALLERGIES: Latex, NexIUMCHIEF COMPLAINT: abdominal painDIAGNOSIS: Cyst of ovaryLAB ORDERSOrder Description Priority Entered Acknowledged InitialedUA Reflex to UA STAT 16:31 04/13/2021 16:31 Babs SheltonCulture Babs Shelton R.N.; R.N. Verbal order per; Tapan Louis [facility] Urine Qual STAT 16:31 04/13/2021 16:31 Babs Shelton Julie R.N.; R.N. Verbal order per; Tapan Louis PADIAGNOSTIC STUDY ORDERSOrder Description Priority Entered Acknowledged InitialedUS PELVIC STAT 16:47 04/13/2021 17:14 Babs SheltonCOMPLETE W TV Shaun Farias ; R.N.IF NEEDED(Oxygen?(No))(IV?(No)) Reason for Study: left pelvic painMEDICATION/IV/DRIP/FLUID ORDERSOrder Description Priority Entered Acknowledged InitialedToradol IM 30 mg 16:46 04/13/2021 16:52 Babs Shelton(NOW x1) Shaun Farias ; R.N.Zofran ODT PO 4 16:52 04/13/2021 16:52 Babs Sheltonmg (NOW) Babs Shelton R.N.; R.N. Verbal order per; Shaun FariasGENERAL ORDERSOrder Description Priority Entered Acknowledged Initialed 2 OrderSheet [facility] Emergency Department [address] [place] [address] Phone #: ext- [phone] 04/13/2021 16:15 Patient: KADY MIDDLETON Sex: F : 1990 Age: 30y[Electronically signed by Marielle Sarabia RN (18:53 04/13/2021)][Electronically signed by Shaun Farais (18:54 03/29)][Electronically locked by Marielle Sarabia RN (18:53 04/13/2021)] Name Value Range Interpretation Code Description Data Radha rce(s) Supporting Document(s) ID Date Data Source [id number] 04/13/2021 04:18:00 PM [facility] 1 Medication Reconciliation Report [facility] Emergency Department [address] [place] [address] Phone #: ext- [phone] 04/13/2021 16:15 Patient: KADY MIDDLETON Sex: F : 1990 Age: 30yWeight: 131.5 kgHeight/Length: 68 in.BMI: 44.1ALLERGIES: Latex, NexIUMThe patient's Home Medications are listed below:CONTINUE TAKING THE FOLLOWING MEDICATIONS: Abilify Oral (5 mg), daily Magnesium Oral Vitamins Oral PROzac Oral 60mg, daily Synthroid Oral (25 mcg), dailyThe source(s) of the original Home Medication information:Not obtained.The following Medications were given to the patient in the Emergency Department:Toradol [IM] IM 30 mg, administered: 16:52 04/13/2021Zofran ODT [PO] PO 4 mg, administered: 16:52 04/13/2021The following Medications were prescribed to the patient:None. Name Value Range Interpretation Code Description Data Radha rce(s) Supporting Document(s) ID Date Data Source [id number] 04/13/2021 04:18:00 PM [facility] 1 Medication Administration Record [facility] Emergency Department [address] [place] [address] Phone #: ext- [phone] 04/13/2021 16:15 Patient: KADY MIDDLETON Sex: F : 1990 Age: 30yWeight: 131.5 kgHeight/Length: 68 inBMI: 44.1ALLERGIES: Latex, NexIUM Date/Time Medication Administered Medication OrderedGiven TORADOL [IM] (KETOROLAC Toradol IM 30 mg (NOW x1)16:52 04/13/2021 TROMETHAMINE)Babs Shelton R.N. Dose: 30 mg IMGiven ZOFRAN ODT [PO] (ONDANSETRON Zofran ODT PO 4 mg (NOW)16:52 04/13/2021 HCL)Babs Shelton R.N. Dose: 4 mg Oral Disintegrating Tablets PO Name Value Range Interpretation Code Description Data Radha rce(s) Supporting Document(s) ID Date Data Source [id number] 04/13/2021 04:18:00 PM EST [facility] 1 General Instructions [facility] Emergency Department [address] [place] [address] Phone #: ext- [phone] 04/13/2021 16:15 Patient: KADY MIDDLETON Sex: F : 1990 Age: 30ySingle follicular right ovarian cyst. No simple ovarian cyst.INSTRUCTIONSWarnings: Further evaluation is necessary.GENERAL WARNINGS: Return or contact your physician immediately if your condition worsens orchanges unexpectedly, if not improving as expected, or if other problems arise.Your Current Medications: Your current home medications have been reviewed.CONTINUE TAKING THE FOLLOWING MEDICATIONS:Abilify Oral : Tablet 5 mg, daily.Magnesium Oral. Vitamins Oral.PROzac Oral : 60mg daily.Synthroid Oral : Tablet 25 mcg, daily.Understanding of the discharge instructions verbalized by patient.[facility] TO [facility], , , [address] [facility] [facility], ,[place], [address] Follow up in three days even if well. Call for an appointment. Reason for referral: evaluation. ADDITIONAL INFORMATIONOvarian Cysts 2 General Instructions [facility] Emergency Department [address] [place] [address] Phone #: ext- [phone] 04/13/2021 16:15 Patient: KADY MIDDLETON Sex: F : 1990 Age: 30yThe ovaries are two small organs located on each side of a woman's uterus (womb). They are part ofthe female reproductive system. Ovarian cysts are sacs filled with fluid or tissue that form on or insidethe ovaries.Ovarian cysts are common in women, especially during childbearing years. There are different typesof cysts. Most are harmless (benign) and go away on their own. They often cause no symptoms. Ifsymptoms do occur, they can include mild pain or pressure in the lower belly (abdomen).Cysts that are large or break (rupture) may cause more severe pain and symptoms. In these cases,you may need hospital care or treatment such as surgery. You may need more extensive treatment ifa cyst causes an ovary to twist (called torsion) or if your doctor suspects your cyst is cancerous. Keepin mind that most cysts are not cancerous, however.General care To help relieve pain, your healthcare provider may recommend using [id number] pain medicine. If needed, your provide may prescribe stronger pain medicine. Depending on the type of cyst you have, your healthcare provider may advise ta grady control pills. These help shrink cysts in certain cases. They may also help prevent new cysts from forming. Be sure to take these medicines as directed if they are prescribed. Your healthcare provider may advise you to watch your symptoms over time to see if they go away or worsen. Regular ultrasound tests may also be advised. These can help check if a cyst goes away or grows in size.Follow-up careFollow up with your healthcare provider, or as advised. 3 General Instructions [facility] Emergency Department [address] [place] [address] Phone #: ext- [phone] 04/13/2021 16:15 Patient: KADY MIDDLETON Sex: F : 1990 Age: 30yWhen to seek medical adviceCall your healthcare provider right away if any of these occur: Pain worsens or fails to get better with home treatment Fever of 100.4F (38C) or higher (or other fever amount directed by your healthcare provider) Nausea and vomiting Weakness, dizziness, or fainting Abnormal vaginal bleeding [phone] [employer]. [address] [place] [address]. All rights reserved. This information is not intended as asubstitute for professional medical care. Always follow your healthcare professional's instructions. You have been given the following additional information: Ovarian Cyst(Electronica lly signed by Shaun Farias 04/13/2021 18:54) Name Value Range Interpretation Code Description Data Radha rce(s) Supporting Document(s) ID Date Data Source [id number] 04/13/2021 04:18:00 PM EST [facility] 1 Clinical Report - Nurses [facility] Emergency Department [address] [place] [address] Phone #: ext- [phone] 04/13/2021 16:15 Patient: KADY MIDDLETON Sex: F : 1990 Age: 30yTRIAGEArrived by private vehicle. Historian: patient. ( pelvic pain that radiates down legs more on left).Acuity: LEVEL 3.Chief Complaint: PELVIC PAIN and ABDOMINAL CRAMPS (menses light).Alert.Onset. (2 days ago). ( states when the pain gets bad she vomits and has not been able to keep anythingdown today).Treatment DISASTER DIRECTOR:Took ibuprofen. (midal 1200, motrin 900).SEPSIS SCREEN: SIRS SCREEN NEGATIVE. SEPSIS SCREEN NEGATIVE. No suspected or confirmedsigns of infection present. --16:30 04/13/21 Babs Shelton R.N.16:22 04/13/21. BP: 116/65. MAP: 82. HR: 77. RR: 18. O2 saturation: 100%. Temp: 98 F. Pain level now:12/05. --16:04/13/21 Babs Shelton R.N.Weight: 131.5 kg stated. Height/Length: 68 inches Per Patient. BMI: 44.1. --16:04/13/21 Babs Shelton R.N.MedicationsAbilify Oral (Tablet 5 mg), daily. --16:27 04/13/21 Babs Shelton R.N. PROzac Oral 60mg, daily. Synthroid Oral (Tablet 25 mcg), daily. --16:27 04/13/21 Babs Shelton R.N. Vitamins Oral. --16:27 04/13/21 Babs Shelton R.N. Magnesium Oral. --16:27 04/13/21 Babs Shelton R.N.AllergiesLatex.NexIUM. --16:27 04/13/21 Babs Shelton R.N.PROBLEMS:Diverticulosis.Endometritis.Abdominal Pain.Asthma.Bipolar Disorder.Hypothermia. 2 Clinical Report - Nurses [facility] Emergency Department [address] [place] [address] Phone #: ext- [phone] 04/13/2021 16:15 Patient: KADY MIDDLETON Sex: F : 1990 Age: 30yObesity.Neck Pain.Hypothyroidism. --16:27 04/13/21 Babs Shelton R.N.The following entry was modified by Babs Shelton R.N., 16:27 04/13/21PTSD. --16:26 04/13/21 Babs Shelton R.N.The following entry was modified by Babs Shelton R.N., 16:27 04/13/21Migraine Headache. --16:26 04/13/21 Babs Shelton R.N..ADDITIONAL SURGERIES:Adenoidectomy.Dental Surgery.Laparoscopy.Tonsillectomy. --16:27 04/13/21 Babs Shelton R.N.HistoryPAST MEDICAL HX: Immunizations: up-to-date. Last normal menstrual period- Mar 22.SOCIAL HX: Smoker- current status unknown (vapes). Occasional alcohol use. Occasional drug use:marijuana. She was offered HIV testing but declined and hepatitis C testing but declined. She has nottraveled outside the [place]Infectious disease exposure: No infectious disease exposure. The patient was not exposed t o Coronavirus.Patient is not a known carrier of tuberculosis, hepatitis, HIV, MRSA or VRE. Patient is not a known carrierof CRE.SELF HARM ASSESSMENT: Self harm assessment was performed. The patient answered "no" to thequestion(s) "Have you recently felt down, depressed, or hopeless?" and "Do you have thoughts of harmingor killing yourself?".ABUSE ASSESSMENT: Abuse assessment. Abuse denied. No suspicion of abuse. No report of abuse.NUTRITIONAL RISK ASSESSMENT: The nutritional risk assessment revealed no deficiencies.FUNCTIONAL ASSESSMENT: Functional assessment: no impairments noted.LEARNING NEEDS ASSESSMENT: The learning needs assessment revealed no barriers.FALL RISK ASSESSMENT: Fall risk assessment completed. No risk factors identified.SKIN INTEGRITY ASSESSMENT: Skin integrity risk assessment completed. No skin integrity riskidentified. --16:30 04/13/21 Babs Shelton R.N.FAMILY HX:No significant family medical history. --16:52 04/13/21 Shaun Farias.Interventions 3 Clinical Report - Nurses [facility] Emergency Department [address] [place] [address] Phone #: ext- [phone] 04/13/2021 16:15 Patient: KADY MIDDLETON Sex: F : 1990 Age: 30y Identification band on patient. To treatment room. --16:30 04/13/21 Babs Shelton R.N.PHYSICAL ASSESSMENTGENERAL / NEURO / PSYCH: Alert. Oriented X 4. Appears in no acute distress.HEENT: Mucous membranes are pink.RESPIRATORY: Respirations not labored. Breath sounds within normal limits.CVS: Normal heart rate and rhythm. Capillary refill less than 2 seconds.GI / : Abdomen soft. Abdominal tenderness (pelvic pain, nausea). Bowel sounds within normal limits.No vaginal bleeding. No vaginal discharge. No genital lesions noted.SKIN: Skin is warm and dry. --16:31 04/13/21 Babs Shelton R.N.NURSING PROGRESS NOTESPatient gowned. Reassurance given. Patient ID band checked for patient name and birthdate: patientconfirmed. Instructions provided to collect clean catch urine and patient verbalized understanding. Cleancatch urine collected; sample sent to lab for urinalysis and HCG. Specimen labeled in the presence of thepatient. Two patient identifiers checked. Call light placed in reach. Side rails up x 2. Bed placed inlowest position. Brakes of bed on. Patient ready for evaluation. --16:31 04/13/21 Babs Shelton R.N. 16:52 04/13/2021 Toradol (Ketorolac Tromethamine) IM 30 mg given. Given in the left deltoid. Allergies verified and confirmed 5 rights. Information reviewed with patient including reason for taking this medication, signs of allergic reaction and precautions. Verbalizes understanding. --16:52 04/13/21 Babs Shelton R.N. 16:52 04/13/2021 Zofran ODT (Ondansetron HCl) PO Oral Disintegrating Tablets 4 mg given. Allergies verified and confirmed 5 rights. Information reviewed with patient including reason for taking this medication, signs of allergic reaction and precautions. Verbalizes understanding. --16:52 04/13/21 Babs Shelton R.N. 17:09 04/13/21. [facility] by wheelchair with pharmaceutical laboratory technician. --17:14 04/13/21 Babs Shelton R.N. 17:52 04/13/21. BP: 105/61. HR: 77. RR: 18. O2 saturation: 100%. --17:52 04/13/21 [facility].DISPOSITION / DISCHARGE 18:49 04/13/21. BP: 98/64. HR: 72. RR: 18. O2 saturation: 99%. Temp: 98.9 F. Pain level now 7/10. --18:50 04/13/21 [facility] 18:51 04/13/21. Condition at departure: stable. No learning barriers present. Discharge instructions provided and reviewed with the patient. Patient verbalized understanding. Written instructions provided in Omani. The patient was discharged home. She left ambulatory and via private vehicle. Patient driving. --18:52 04/13/21 Marielle Sarabia RN. 4 Clinical Report - Nurses [facility] Emergency Department [address] [place] [address] Phone #: ext- [phone] 04/13/2021 16:15 Patient: KADY MIDDLETON Sex: F : 1990 Age: 30yLocked/Released at 04/13/2021 18:53 by Marielle Sarabia RN Name Value Range Interpretation Code Description Data Radha rce(s) Supporting Document(s) ID Date Data Source [id number] 04/13/2021 04:18:00 PM EST [facility] 1 Clinical Report - Physicians/Mid Levels [facility] Emergency Department [address] [place] [address] Phone #: ext- [phone] 04/13/2021 16:15 Patient: KADY MIDDLETON Sex: F : 1990 Age: 30y Time Seen: 16:43 04/13/2021. Arrived- By private vehicle. Historian- patient.HISTORY OF PRESENT ILLNESS Chief Complaint: ABDOMINAL PAIN. It is described as "pain" and sharp and it is described as located in the left lower quadrant and radiating to the left thigh. This started 3 days and is still present. It has been constant and waxing/waning. At its maximum, severity described as moderate. When seen in the E.D., severity described as moderate. Modifying factors. Not worsened by anything. The patient has had nausea and vomiting. No loss of appetite or diarrhea. (History of endometriosis and ovarian cyst. She's had pelvic pain. no improvement with NSAID's, midol. No burning with urination. Does not believe she is even though IUD removed earlier this year). No recent travel. Similar symptoms previously. Recent medical care: Not recently seen/assessed.REVIEW OF SYSTEMSNo constipation, hematemesis, difficulty with urination, urinary frequency or fever. No headache, sorethroat, chest pain, difficulty breathing or cough. No skin rash, chills, back pain, fever or dizziness. Nodiabetic symptoms. The patient has had nausea and vomiting. All other systems reviewed and arenegative.PAST HISTORYSee nurses notes. Has not had urinary calculi. Problems: Diverticulosis. Endometritis. Asthma. Bipolar Disorder. Obesity. Hypothyroidism. Surgeries: Prior abdominal surgery. Additional Surgeries: Adenoidectomy. Dental Surgery. Laparoscopy. 2 Clinical Report - Physicians/Mid Levels [facility] Emergency Department [address] [place] [address] Phone #: ext- [phone] 04/13/2021 16:15 [id number] Sex: F : 1990 Age: 30y Tonsillectomy. Medications: Magnesium Oral. Vitamins Oral. PROzac Oral 60mg, daily. Synthroid Oral (Tablet 25 mcg), daily. Abilify Oral (Tablet 5 mg), daily. Allergies: Latex. NexIUM.SOCIAL HISTORYCurrent every day smoker.FAMILY HISTORYNo significant family medical history.ADDITIONAL NOTESThe nursing notes have been reviewed.PHYSICAL EXAMVital Signs: 04/13/2021 16:22 BP: 116/65. MAP: 82. HR: 77. RR: 18. O2 saturation: 100%. Temp: 98 F.Pain level now: 7/10.Appearance: Alert. Oriented X3. No acute distress.Eyes: Pupils equal, round and reactive to light.ENT: Nose normal. Pharynx normal.Neck: Neck supple.CVS: Normal heart rate and rhythm. Heart sounds normal.Respiratory: No respiratory distress. Breath sounds normal. Chest nontender.Abdomen: Soft. Moderate tenderness in the left lower quadrant. No guarding. No mass. Obese.Back: Normal inspection.Skin: Skin warm and dry. Normal skin color. No rash. Normal skin turgor.Extremities: Extremities exhibit normal ROM. No lower extremity edema.Neuro: Oriented X 3. No motor deficit. No sensory deficit.LABS, X-RAYS, AND EKGPelvic Sonogram: An ovarian cyst is present. no torsion. 6 cm complex cyst on right. The study wasinterpreted by the radiologist.Laboratory Tests: US PELVIC COMPLETE W TV IF NEEDED: (LULU: 04/13/2021 16:47) ( MsgRcvd 04/13/2021 17:54) In Progress US PELVIC COMPLETE W TV IF NEEDED Reason(s): left pelvic pain TRANSPORTATION: IV? IV?(No) O2? Oxygen?(No) Elif 3 Clinical Report - Physicians/Mid Levels [facility] Emergency Department [address] [place] [address] Phone #: ext- [phone] 04/13/2021 16:15 Patient: KADY MIDDLETON Sex: F : 1990 Age: 30y UA REFLEX TO UA CULTURE: (LULU: 04/13/2021 16:30) ( [facility] 04/13/2021 16:40) Final results Test Result Flag Units (Reference) UA REFLEX TO UA CULTURE URINALYSIS SOURCE R COLOR yellow (NORMAL: Yello CLARITY clear (NORMAL: Clear SPEC GRAVITY 1.025 (1.001 - 1.030 pH 6 (5 - 9) GLUCOSE NORM (NORMAL: Negat BILIRUBIN NEG (NORMAL: Negat KETONE NEG (NORMAL: Negat PROTEIN NEG (NORMAL: Negat NITRITE NEG (NORMAL: Negat BLOOD NEG (NORMAL: Negat LEUK EST NEG (NORMAL: Negat UROBILINOGEN NOR (less than 1.0 MICROSCOPIC Not Indicate Beta-HCG, Qual Urine: (LULU: 04/13/2021 16:30) ( [facility] 04/13/[facility] 16:42) Final results Test Result Flag Units (Reference) HCG URINE QUAL NEGATIVE (NORMAL: NEGAT HCG URINE QL REENTER NEGATIVE (NORMAL: NEGAT { KIT LOT # [id number] ){ KIT EXP DATE 06.28.22 ){ PROCEDURAL CONTROL VALID ).PROGRESS AND PROCEDURESCourse of Care: 17:00 04/13/21. Non-surgical abdomen. No fever, diarrhea or bowel changes to suggestdiverticulitis. No signs of UTI. 18:45 04/13/21. Patient made aware of findings on ultrasound. She was given choice to follow up with her urogynaecologist or [facility] [facility]. NSAID's for pain. No signs of ovarian torsion. Patient/family counseled. Disposition: Discharged. Condition: stable.CLINICAL IMPRESSION Single follicular right ovarian cyst. No simple ovarian cyst.INSTRUCTIONS 4 Clinical Report - Physicians/Mid Levels [facility] Emergency Department [address] [place] [address] Phone #: ext- [phone] 04/13/2021 16:15 Patient: KADY MIDDLETON Sex: F : 1990 Age: 30y Warnings: Further evaluation is necessary. GENERAL WARNINGS: Return or contact your physician immediately if your condition worsens or changes unexpectedly, if not improving as expected, or if other problems arise. Your Current Medications: Your current home medications have been reviewed. CONTINUE TAKING THE FOLLOWING MEDICATIONS: Abilify Oral : Tablet 5 mg, daily. Magnesium Oral. Vitamins Oral. PROzac Oral : 60mg daily. Synthroid Oral : Tablet 25 mcg, daily. Understanding of the discharge instructions verbalized by patient. Follow-up with: [facility], , , [address] [place] [address], [address] Follow up in three days even if well. Call for an appointment. Reason for referral: evaluation.(Electronically signed by Shaun Farias 04/13/2021 18:54) Name Value Range Interpretation Code Description Data Radha rce(s) Supporting Document(s) ID Date Data Source [id number] 04/13/2021 04:41:00 PM EST [facility] Name Value Range Interpretation Code Description Data Radha rce(s) Supporting Document(s) HCG URINE QUAL NEGATIVE NORMAL: NEGATIVE [facility] HCG URINE QL REENTER NEGATIVE NORMAL: NEGATIVE [facility] { KIT LOT # [id number] ){ KIT EXP DATE 06.28.22 ){ PROCEDURAL CONTROL VALID ) ID Date Data Source [id number] 04/13/2021 04:40:00 PM EST [facility] Name Value Range Interpretation Code Description Data Radha rce(s) Supporting Document(s) UA REFLEX TO UA CULTURE [facility]YSIS [facility] yellow NORMAL: Yellow [facility] ospital CLARITY clear NORMAL: Clear [facility] Ho spital Specific gravity of Urine by Test strip 1.025 1.001 - 1.030 [facility] pH 6 5 - 9 [facility] Glucose [Mass/volume] in Urine by Test strip NORM NORMAL: Negat [facility] Bilirubin.total [Presence] in Urine by Test strip NEG NORMAL: Negative [facility] Ketones [Presence] in Urine by Test strip NEG NORMAL: Negative [facility] Protein [Mass/volume] in Urine by Test strip NEG NORMAL: Negat [facility] Nitrite [Presence] in Urine by Test strip NEG NORMAL: Negative [facility] BLOOD NEG NORMAL: Negative [facility] Leukocyte esterase [Presence] in Urine by Test strip NEG AMANDA L: Negative [facility] Urobilinogen [Mass/volume] in Urine by Test strip NOR less antonio n 1.0 mg/dL [facility] MICROSCOPIC Not Indicate [facility] ospital ID Date Data Source [id number] 03/23/2021 12:00:00 AM EDT [facility] Name Value Range Interpretation Code Description Data Radha rce(s) Supporting Document(s) SARS-CoV2 Rapid Antigen Negative [facility] This lab was ordered by [facility] and reported by [facility]. ID Date Data Source [id number] 02/25/2021 04:17:00 PM EDT [facility] 1 OrderSheet [facility] Emergency Department [address] [place] [address] Phone #: ext- [phone] 02/25/2021 15:58 Patient: KADY MIDDLETON Sex: F : 1990 Age: 30yWEIGHT:127.0 kg (S) HEIGHT:68 inches (S) BMI:42.6ALLERGIES: Latex, NexIUMCHIEF COMPLAINT: headacheDIAGNOSIS: MigraineLAB ORDERSOrder Description Priority Entered Acknowledged InitialedDIAGNOSTIC STUDY ORDERSOrder Description Priority Entered Acknowledged InitialedMEDICATION/IV/DRIP/FLUID ORDERSOrder Description Priority Entered Acknowledged InitialedToradol IVP 30 mg 16:34 02/25/2021 16:47 Babs Shelton(NOW x1) Shaun Farias ; R.WindyReglan 10 mg IVP 16:34 02/25/2021 16:47 Babs SheltonX1 dose: 10 mg Shaun Farias ; R.N.(NOW x1)Benadryl IVP 12.5 16:34 02/25/2021 16:47 Babs Sheltonmg (NOW x1) Shaun Farias.WindyHaldol IVP 5 mg 17:19 02/25/2021 17:23 Babs Shelton(NOW x1) Shaun Farias ; R.NOmairaGENERAL ORDERSOrder Description Priority Entered Acknowledged Initialed[Electronically signed by Hector Shelton R.N. (17:59 02/25/2021)][Electronically signed by Shaun Farias (20:53 02/25/2021)][Electronically locked by Babs Shelton R.N. (17:59 02/25/2021)] Name Value Range Interpretation Code Description Data Radha rce(s) Supporting Document(s) ID Date Data Source [id number] 02/25/2021 04:17:00 PM EDT [facility] 1 Medication Reconciliation Report [facility] Emergency Department [address] [place] [address] Phone #: ext- [phone] 02/25/2021 15:58 Patient: KADY MIDDLETON Sex: F : 1990 Age: 30yWeight: 127.0 kgHeight/Length: 68 in.BMI: 42.6ALLERGIES: Latex, NexIUMThe patient's Home Medications are listed below:CONTINUE TAKING THE FOLLOWING MEDICATIONS: Abilify Oral (5 mg), daily PROzac Oral 60mg, daily Synthroid Oral (25 mcg), dailyThe source(s) of the original Home Medication information:Not obtained.The following Medications were given to the patient in the Emergency Department:Toradol [IVP] IVP 30 mg, administered: 16:47 02/25/2021eglan [IVP] IVP 10 mg, administered: 16:02/25/2021enadryl [IVP] IVP 12.5 mg, administered: 16:47 02/25/2021HALDOL [IVP] IVP 5 mg, administered: 17:23 02/25/2021The following Medications were prescribed to the patient:None. Name Value Range Interpretation Code Description Data Radha rce(s) Supporting Document(s) ID Date Data Source [id number] 02/25/2021 04:17:00 PM EDT [facility] 1 Medication Administration Record [facility] Emergency Department [address] [place] [address] Phone #: ext- [phone] 02/25/2021 15:58 Patient: KADY MIDDLETON Sex: F : 1990 Age: 30yWeight: 127.0 kgHeight/Length: 68 inBMI: 42.6ALLERGIES: NexIUM, Latex Date/Time Medication Administered Medication OrderedGiven TORADOL [IVP] (KETOROLAC Toradol IVP 30 mg (NOW x1)16:47 02/25/2021 TROMETHAMINE)Babs Shelton R.N. Dose: 30 mg IVP Site: #1 left ACGiven REGLAN [IVP] (METO CLOPRAMIDE Reglan 10 mg IVP X1 dose: 10 mg16:47 02/25/2021 HCL) (NOW x1)Babs Shelton R.N. Dose: 10 mg IVP Site: #1 left ACGiven BENADRYL [IVP] (DIPHENHYDRAMINE Benadryl IVP 12.5 mg (NOW x1)16:47 02/25/2021 HCL)Babs Shelton R.N. Dose: 12.5 mg IVP Site: #1 left ACGiven HALDOL [IVP] (HALOPERIDOL Haldol IVP 5 mg (NOW x1)17:23 02/25/2021 LACTATE)Babs Shelton R.N. Dose: 5 mg IVP Site: #1 left AC Name Value Range Interpretation Code Description Data Radha rce(s) Supporting Document(s) ID Date Data Source [id number] 02/25/2021 04:17:00 PM EDT [facility] 1 General Instructions [facility] Emergency Department [address] [place] [address] Phone #: aiq- [phone] 02/25/2021 15:58 Patient: KADY MIDDLETON Sex: F : 1990 Age: 30yChronic migraine headache without aura- poorly controlled. No status migrainosus.INSTRUCTIONSDo not work tomorrow.Warnings: Further evaluation is necessary.GENERAL WARNINGS: Return or contact your physician immediately if your condition worsens orchanges unexpectedly, if not improving as expected, or if other problems arise.Your Current Medications: Your current home medications have been reviewed.CONTINUE TAKING THE FOLLOWING MEDICATIONS:Abilify Oral : Tablet 5 mg, daily.PROzac Oral : 60mg daily.Synthroid Oral : Tablet 25 mcg, daily.Follow-up:Follow up with your healthcare provider.Understanding of the discharge instructions verbalized by patient. ADDITIONAL INFORMATIONMigraine HeadacheA migraine headache is an often severe type of headache. It's different from other types ofheadaches in that symptoms other than pain occur with the it. For instance, a classic migraineheadache means visual symptoms (or aura) such as flashes of light, blind spots or other visionchanges, warns you a headache is coming on. Nausea and vomiting, lightheadedness, sensitivity tolight or sound, and other visual disturbances are common migraine symptoms. The pain may lastfrom a few hours to several days. It's not clear why migraines occur, but certain factors called triggerscan raise the risk of having a migraine attack. A migraine may be triggered by emotional stress ordepression, or by hormone changes during the menstrual cycle. Other triggers include certain birthcontrol pills, overuse of migraine medicines, alcohol or caffeine, foods with tyramine such as agedcheese and wine, eyestrain, weather changes, missed meals, or too little or too much sleep. 2 General Instructions [facility] Emergency Department [address] [place] [address] Phone #: ext- [phone] 02/25/2021 15:58 Patient: KADY MIDDLETON Sex: F : 1990 Age: 30yHome careFollow these tips when taking care of yourself at home: Don't drive yourself home if you were given pain medicine for your headache or are having visual symptoms. Instead, have someone else drive you home. Try to sleep when you get home. You should feel much better when you wake up. Cold can help ease migraine symptoms. Put an ice pack wrapped in a thin towel on your forehead or at the base of your skull. Put heat on the back of your neck to help ease any neck spasm. Drink only clear liquids or eat a light diet until your symptoms get better. This will help you prevent nausea and vomiting.How to prevent migrainesPay attention to what seems to trigger your headache. Try to stay away from the triggers when youcan. If you have headaches often, consider keeping a headache diary. In it, write down what youwere doing, feeling, or eating in the hours before each headache. Show this to your healthcareprovider to help find the cause of your headaches.If stress seems to be a trigger for your headaches, figure out what is causing stress in your life. Learnnew ways to handle your stress. Ideas include regular exercise, biofeedback, self-hypnosis, yoga,and meditation. Talk with your healthcare provider to find out more information about managingstress. Many books and digital media are also available on this subject.Tyramine is a substance found in many foods. It can trigger a migraine in some people. These foodscontain tyramine: Chocolate Yogurt All cheeses, but especially aged cheeses Smoked or pickled fish and meat, including fields, caviar, bologna, pepperoni, and salami Liver Avocados Bananas Figs Raisins 3 General Instructions [facility] Emergency Department [address] [place] [address] Phone #: ext- [phone] 02/25/2021 15:58 Patient: KADY MIDDLETON Sex: F : 1990 Age: 30y Red wineTry staying away from these foods for 1 to 2 months to see if you have fewer headaches.How to treat future headaches Take time out at the first sign of a headache, if possible. Find a quiet, dark, comfortable place to sit or lie down. Let yourself relax or sleep. Put an ice pack wrapped in a thin towel on your forehead or on the area of greatest pain. A heating pad and massage may help if you are having a muscle spasm and tightness in your neck. If you have been prescribed a medicine to stop a migraine headache, use this at the first warning sign of the headache for best results. First signs may be an aura or pain. If you have been prescribed a medicine to prevent the headaches, it's important to take the medicine as directed. Many of these medicines may take a few weeks to start preventing headaches, so it's important to not give up on them right away. If you continue to have just as many headaches after taking these medicines for a while, talk with your doctor to see if the dose needs to be changed or if a different medicine is advised. If you need to take medicine often for your migraine, talk with your healthcare provider about other ways to prevent your headaches.Follow-up careFollow up with your healthcare provider, or as advised. Talk with your provider if you have frequentheadaches. He or she can figure out a treatment plan. Ask if you can have medicine to take at homethe next time you get a bad headache. This may keep you from having to visit the emergencydepartment in the future. You may need to see a headache specialist (neurologist) if you continue tohave headaches.When to seek medical adviceCall your healthcare provider right away if any of these occur: Your head pain gets worse, or doesn't get better within 24 hours You can't keep liquids down (repeated vomiting) Pain in your sinuses, ears, or throat Fever of 100.4 F (38 C) or higher, or as directed by your healthcare provider Stiff neck 4 General Instructions [facility] Emergency Department [address] [place] [address] Phone #: ext- [phone] 02/25/2021 15:58 Patient: KADY MIDDLETON Sex: F : 1990 Age: 30y Extreme drowsiness, confusion, or fainting Dizziness, or dizziness with spinning sensation (vertigo) Weakness or trouble feeling in an arm or leg, or on one side of your face Trouble talking or seeing [id number] [employer]. [address] [place] [address], [place] [address]. All rights reserved. This information is not intended as asubstitute for professional medical care. Always follow your healthcare professional's instructions. You have been given the following additional information: Headache, Migraine, Classic Do not work tomorrow.(Electronically signed by Shaun Farias 02/25/2021 20:53) Name Value Range Interpretation Code Description Data Radha rce(s) Supporting Document(s) ID Date Data Source [id number] 02/25/2021 04:17:00 PM EDT [facility] 1 Clinical Report - Nurses [facility] Emergency Department [address] [place] [address] Phone #: ext- [phone] 02/25/2021 15:58 Patient: KADY MIDDLETON Sex: F : 1990 Age: 30yTRIAGEArrived by private vehicle. Historian: patient. Unaccompanied. ( under a lot of stress).Acuity: LEVEL 4.Chief Complaint: MIGRAINE HEADACHE and (left sided miagraine).Alert. No acute distress.This started yesterday 1300. She has had nausea and vomiting. ( tingling in left side of arm but pt statesshe has that sometimes from her neck).Treatment DISASTER DIRECTOR:(imitrex 0800, tordol 1200).SEPSIS SCREEN: SIRS SCREEN NEGATIVE. SEPSIS SCREEN NEGATIVE. No suspected or confirmedsigns of infection present. --16:07 02/25/21 Babs Shelton R.N.16:01 02/25/21. BP: 120/59. MAP: 79. HR: 77. RR: 18. O2 saturation: 98%. Temp: 98.3 F. Pain level now:01/05. --16:07 02/25/21 Babs Shelton R.N.Weight: 127 kg stated. Height/Length: 68 inches Per Patient. BMI: 42.6. --16:00 02/25/21 Babs Shelton R.N.MedicationsAbilify Oral (Tablet 5 mg), daily. --16:04 02/25/21 Babs Shelton R.N. PROzac Oral 60mg, daily. --16:04 02/25/21 Babs Shelton R.N. Synthroid Oral (Tablet 25 mcg), daily. --16:04 02/25/21 Babs Shelton R.N.AllergiesLatex. --16:03 02/25/21 Babs Shelton R.N.NexIUM. --16:03 02/25/21 Babs Shelton R.N.PROBLEMS:Endometritis.Neck Pain.Hypothermia. --16:05 02/25/21 Babs Shelton R.N.Obesity.Abdominal Pain.Asthma.Diverticulosis.Hypothyroidism. --16:20 02/25/21 Babs Shelton R.N. 2 Clinical Report - Nurses [facility] Emergency Department [address] [place] [address] Phone #: ext- [phone] 02/25/2021 15:58 Patient: KADY MIDDLETON Sex: F : 1990 Age: 30y The following entry was modified by Babs Shelton R.N., 16:20 02/25/21 PTSD. --16:04 02/25/21 Babs Shelton R.N. The following entry was modified by Babs Shelton R.N., 16:20 02/25/21 Migraine Headache. --16:04 02/25/21 Babs Shelton R.N. The following entry was modified by Babs Shelton R.N., 16:20 02/25/21 Bipolar Di sorder. --16:04 02/25/21 Babs Shelton R.N.. ADDITIONAL SURGERIES: Laparoscopy. --16:05 02/25/21 Babs Shelton R.N. Adenoidectomy. Dental Surgery. Tonsillectomy. --16:20 02/25/21 Babs Shelton R.N. History PAST MEDICAL HX: Immunizations: up-to-date. Last normal menstrual period- 2 weeks ago. SOCIAL HX: Smoker- current status unknown (vapes). Occasional alcohol use. No drug use. No recent travel. No known contact with a sick individual. She was offered HIV testing but declined and hepatitis C testing but declined. She has not traveled outside the [place] Infectious disease exposure: No infectious disease exposure. The patient was not exposed to Coronavirus. (covid vaccinated covid test last week negative). Patient is not a known carrier of tuberculosis, hepatitis, HIV, MRSA or VRE. Patient is not a known carrier of CRE. SELF HARM ASSESSMENT: Self harm assessment was performed. The patient answered "no" to the question(s) "Have you recently felt down, depressed, or hopeless?" and "Do you have thoughts of harming or killing yourself?". ABUSE ASSESSMENT: Abuse assessment. Abuse denied. No suspicion of abuse. No report of abuse. FUNCTIONAL ASSESSMENT: Functional assessment: no impairments noted. LEARNING NEEDS ASSESSMENT: The learning needs assessment revealed no barriers. FALL RISK ASSESSMENT: Fall risk assessment completed. No risk factors identified. SKIN INTEGRITY ASSESSMENT: Skin integrity risk assessment completed. No skin integrity risk identified. --16:07 02/25/21 Babs Shelton R.N. FAMILY HX: Mother: Migraine without aura. --16:54 02/25/21 Shaun Farias. Interventions Identification band on patient. To treatment room. --16:07 02/25/21 Babs Shelton R.N.PHYSICAL ASSESSMENTGENERAL / NEURO / PSYCH: Alert. Oriented X 4. Appears in no acute distress. Speech within normal 3 Clinical Report - Nurses [facility] Emergency Department [address] [place] [address] Phone #: ext- [phone] 02/25/2021 15:58 Patient: KADY MIDDLETON Sex: F : 1990 Age: 30y limits. HEENT: No facial asymmetry noted. ( headache left sided). RESPIRATORY: Respirations not labored. Breath sounds within normal limits. CVS: Capillary refill less than 2 seconds. GI / : The patient has had nausea. Abdomen soft and nontender. SKIN: Skin is warm and dry. --16:08 02/25/21 Babs Shelton R.N.NURSING PROGRESS NOTESPatient gowned. Reassurance given. Two patient identifiers checked. Call light placed in reach. Siderails up x 2. Bed placed in lowest position. Brakes of bed on. Patient ready for evaluation. --16:0802/25/21 Babs Shelton R.N. 16:46 02/25/2021 Site #1 started via IV in the left antecubital space with an 20g angiocath, with aseptic technique and good blood return; one attempt. --16:46 02/25/21 Babs Shelton R.N. 16:47 02/25/2021 Toradol (Ketorolac Tromethamine) IVP 30 mg given over 2 minute(s) via site #1. Allergies verified and confirmed 5 rights. IV patency established. IV site checked: no pain, redness, or swelling. IV flushed thoroughly pre- and post- medication administration. IVP given by RN. Information reviewed with patient in cluding reason for taking this medication, signs of allergic reaction and precautions. Verbalizes understanding. --16:47 02/25/21 Babs Shelton R.N. 16:47 02/25/2021 Reglan (Metoclopramide HCl) IVP 10 mg given over 2 minute(s) via site #1. Allergies verified and confirmed 5 rights. IV patency established. IV site checked: no pain, redness, or swelling. IV flushed thoroughly pre- and post- medication administration. IVP given by RN. Information reviewed with patient including reason for taking this medication, signs of allergic reaction and precautions. Verbalizes understanding. --16:47 02/25/21 Babs Shelton R.N. 16:47 02/25/2021 Benadryl (diphenhydrAMINE HCl) IVP 12.5 mg given over 2 minute(s) via site #1. Allergies verified and confirmed 5 rights. IV patency established. IV site checked: no pain, redness, or swelling. IV flushed thoroughly pre- and post-medication administration. IVP given by RN. Information reviewed with patient including reason for taking this medication, signs of allergic reaction, precautions and sedative warning. Verbalizes understanding. --16:47 02/25/21 Babs Shelton R.N. Reassessment after medication administered. Pain still present. Nausea still present but improving. --17:06 02/25/21 Babs Shelton R.N. 17:23 02/25/2021 HALDOL (Haloperidol Lactate) IVP 5 mg given over 2 minute(s) via site #1. Allergies verified and confirmed 5 rights. IV patency established. IV site checked: no pain, redness, or swelling. IV flushed thoroughly pre- and post- medication administration. IVP given by RN. Information reviewed with patient including reason for taking this medication, signs of allergic reaction, precautions and sedative warning. Verbalizes understanding. --17:23 02/25/21 Babs Shelton R.N. 17:58 02/25/2021 Site #1 removed upon discharge. Pressure dressing applied. --17:58 02/25/21 Babs Shelton R.N. 4 Clinical Report - Nurses [facility] Emergency Department [address] [place] [address] Phone #: ext- [phone] 02/25/2021 15:58 Patient: KADY MIDDLETON Sex: F : 1990 Age: 30yDISPOSITION / DISCHARGE Condition at departure: improved. No learning barriers present. Work note given. Patient verbalized understanding. Written instructions provided in Omani. The patient was discharged home and unaccompanied at time of discharge. She left ambulatory and via private vehicle. Patient driving. --17:58 02/25/21 Babs Shelton R.N. 17:58 02/25/21. BP: 111/58. MAP: 75. HR: 97. RR: 19. O2 saturation: 98%. Temp: 97 F. Pain level now: 10. --17:58 02/25/21 Babs Shelton R.N. Departure time: 17:59 02/25/2021. --17:59 02/25/21 Babs Shelton R.N.Locked/Released at 02/25/2021 17:59 by Babs Shelton R.N. Name Value Range Interpretation Code Description Data Radha rce(s) Supporting Document(s) ID Date Data Source [id number] 02/25/2021 04:17:00 PM EDT [facility] 1 Clinical Report - Physicians/Mid Levels [facility] Emergency Department [address] [place] [address] Phone #: ext- [phone] 02/25/2021 15:58 Patient: KADY MIDDLETON Sex: F : 1990 Age: 30y Time Seen: 16:40 02/25/2021. Arrived- By private vehicle. Historian- patient.HISTORY OF PRESENT ILLNESS Chief Complaint: HEADACHE. Is still present. This started yesterday. It was gradual in onset and has been constant. It is described as similar to previous headaches and throbbing. Located in the region of the left eye and left hemicranial and left parietal region. No neck pain. Not located in the facial region. At its maximum, severity described as moderate. When seen in the E.D., severity described as severe. Modifying factors: worsened by bright light. The patient has had photophobia, nausea and vomiting. No preceding symptoms, blurred vision, numbness or weakness. (Once in awhile she gets migraines. Neurology work up with MRI. Long history of headaches and migraines. No improvement with Imitrex). No recent travel. Similar symptoms previously. Recent medical care: The patient was seen recently by a health care provider. ( Treated in ED twice([facility] and [facility]) in last 5 months).REVIEW OF SYSTEMSThe patient has had fever and a headache. No muscle aches, sinus pressure, ear pain, sore throat orhead injury. No chest pain, difficulty breathing, abdominal pain, pain with urination or enlarged lymphnodes. No back pain, fever, decreased vision, double vision or sinus pain. No fainting episodes. Deniescurrent . All other systems reviewed and are negative.PAST HISTORYSee nurses notes. No history of head injury. Problems: Endometriosis. Migraine Headache. Asthma. Diverticulosis. Hypothyroidism. Hypothermia. Additional Surgeries: Adenoidectomy. Dental Surgery. Tonsillectomy. 2 Clinical Report - Physicians/Mid Levels [facility] Emergency Department [address] [place] [address] Phone #: ext- [phone] 02/25/2021 15:58 Patient: KADY MIDDLETON Sex: F : 1990 Age: 30y Medications: Synthroid Oral (Tablet 25 mcg), daily. PROzac Oral 60mg, daily. Abilify Oral (Tablet 5 mg), daily. Allergies: Latex. NexIUM.SOCIAL HISTORYNever smoker. No alcohol use.FAMILY HISTORYMother: Migraine without aura.ADDITIONAL NOTESThe nursing notes have been reviewed.PHYSICAL EXAMVital Signs: 02/25/2021 16:01 BP: 120/59. MAP: 79. HR: 77. RR: 18. O2 saturation: 98%. Temp: 98.3 F.Pain level now: 8/10.Appearance: Alert.Eyes: Pupils equal, round and reactive to light. Eyes normal inspection.ENT: Nose normal. Pharynx normal.Neck: Normal inspection. Neck supple. ( no goiter).CVS: Normal heart rate and rhythm. Heart sounds normal.Respiratory: No respiratory distress. Painless inspiration.Abdomen: Soft and nontender.Back: Normal inspection.Skin: Skin warm. Normal skin color. Normal skin turgor.Extremities: No lower extremity edema.Neuro: Oriented X 3. Alert. Mood/affect normal. Speech normal. Cranial nerves normal (as tested).No cerebellar findings. No motor deficit. No sensory deficit.PROGRESS AND PROCEDURESCourse of Care: 16:56 02/25/21. Patient reporting migraine with her normal typical symptoms. No focaldeficits. She has had no history of polycystic kidneys, amenorrhea, PCOS. 17:53 02/25/21. Headache was unchanged with Reglan and Toradol. Some improvement with Haldol IV. Patient/family counseled. Old medical records ordered. Disposition: Discharged. Condition: stable. 3 Clinical Report - Physicians/Mid Levels [facility] Emergency Department [address] [place] [address] Phone #: ext- [phone] 02/25/2021 15:58 Patient: KADY MIDDLETON Sex: F : 1990 Age: 30yCLINICAL IMPRESSION Chronic migraine headache without aura- poorly controlled. No status migrainosus.INSTRUCTIONS Do not work tomorrow. Warnings: Further evaluation is necessary. GENERAL WARNINGS: Return or contact your physician immediately if your condition worsens or changes unexpectedly, if not improving as expected, or if other problems arise. Your Current Medications: Your current home medications have been reviewed. CONTINUE TAKING THE FOLLOWING MEDICATIONS: Abilify Oral : Tablet 5 mg, daily. PROzac Oral : 60mg daily. Synthroid Oral : Tablet 25 mcg, daily. Follow-up: Follow up with your healthcare provider. Understanding of the discharge instructions verbalized by patient.(Electronically signed by Shaun Farias 02/25/2021 20:53) Name Value Range Interpretation Code Description Data Radha rce(s) Supporting Document(s) ID Date Data Source [id number] 02/17/2021 12:00:00 AM EDT [facility] Name Value Range Interpretation Code Description Data Radha rce(s) Supporting Document(s) SARS-CoV2 Rapid Antigen Not Detected [facility] This lab was reported by Becky Waite. ID Date Data Source [id number] 11/24/2020 08:25:00 AM EDT [facility] Name Value Range Interpretation Code Description Data Radha rce(s) Supporting Document(s) Mumps virus IgG Ab [Units/volume] in Serum by Immunoassay <9 .0 AU/mL Immune >10.9 L [facility] Negative <9.0 Equivocal 9.0 - 10.9 Positive >10.9 A positive result generally indicates past exposure to Mumps virus or previous vaccination. ID Date Data Source [id number] 11/24/2020 08:25:00 AM EDT [facility] Value Range Interpretation Code Description Data Radha rce(s) Supporting Document(s) Hepatitis B virus surface Ab [Presence] in Serum Non Reactive [facility] Non Reactiv e: Inconsistent with immunity, less than 10 mIU/mL Reactive: Consistent with immunity, greater than 9.9 mIU/mLVerified by repeat analysis ID Date Data Source [id number] 11/24/2020 08:24:00 AM [facility] Value Range Interpretation Code Description Data Radha rce(s) Supporting Document(s) Varicella zoster virus IgG Ab [Units/volume] in Serum by Imm unoassay 1686 index Immune >165 [facility] Negative <135 Equivocal 135 - 165 Positive >165 A positive result generally indicates exposure to the pathogen or administration of specific immunoglobulins, but it is not indication of active infection or stage of disease. ID Date Data Source [id number] 11/24/2020 08:24:00 AM [facility] Value Range Interpretation Code Description Data Radha rce(s) Supporting Document(s) Measles virus IgG Ab [Units/volume] in Serum by Immunoassay >300.0 AU/mL Immune >16.4 [facility] Negative <13.5 Equivocal 13.5 - 16.4 Positive >16.4 Presence of antibodies to Rubeola is presumptive evidence of immunity except when acute infection is suspected. ID Date Data Source [id number] 11/23/2020 12:32:00 PM EDT [facility] Value Range Interpretation Code Description Data Radha rce(s) Supporting Document(s) Rubella virus IgG Ab [Units/volume] in Serum 52.190 IU/ml [facility] REACTI VE \\BLDo\\Rubella Immunity Interpretation\\BLDx\\ Non-reactive: <10 IU/mL Reactive: greater than or equal to 10 IU/mL A reactive result is presumptive evidence of immunity to Rubella, except when acute infection is suspected. ID Date Data Source [id number] 11/19/2020 10:04:00 AM EDT [facility] [address] [place] [address] PHONE: [phone] FAX: [phone] Name .................. : EMI HILLMAN Acct Number.................. : [id number] ROOM. ................. : VT-19 Number ................... : [id number] Stay type ............. : E/R Discharge Date......... ... : Admit Date ......... : 11/18/20 Admit Phys .................... : DIANA KEYS Date of ....... : 1990 Family Phys ................... : AMANDA PURVIS Phone .................. : [phone] Age ................................ : 30 Film# .................. .:[id number] Sex ................................. : F Unsigned transcriptions are preliminary reports and do not represent a medical or legal document CT ABD & PELVIS W/ IV ONLY [id number] COMPLETE:11/18/20 22:45 DLA [id number] Reason(s): diffuse abdominal pain, nausea, IUD removed 11-13-20, no bleeding CT OF THE ABDOMEN AND PELVIS WITH CONTRAST: INDICATION: Diffuse abdominal pain, nausea, IUD removed on the . FINDINGS: The chest base is clear. There is normal contrast-enhanced CT appearance of the liver, spleen, pancreas, adrenal glands and kidneys. No gallbladder wall thickening or biliary duct dilatation. The visualized bowel is normal in caliber. The appendix is normal. No bowel wall thickening. There is mild diveritculosis without diverticulitis. The bladder and pelvic organs are normal. No acute osseous abnormality. No lymphadenopathy. IMPRESSION: Mild diverticulosis without diverticulitis. No other acute abdominal process. While performing the above CT examination, radiation dose reduction was accomplished utilizing automated exposure control, adjusting of the mA and kV based on the patient's body size and/or the use of imperative reconstructive techniques. CT dose: 2115.0 mGycm Contrast agent in mL: 75 Isovue 370 Method of administra tion: Intravenous Page 1 of 2 [place] [address] PHONE: [phone] FAX: [phone] Name .................. : EMI HILLMAN Acct Number.................. : [id number] ROOM. ................. : VT-19 Number ................... : [id number] Stay type ............. : E/R Discharge Date......... ... : Admit Date ......... : 11/18/20 Admit Phys .................... : DIANA KEYS Date of ....... : 1990 Family Phys ................... : AMANDA PURVIS Phone .................. : [phone] Age ................................ : 30 Film# .................. .:[id number] Sex ................................. : F Unsigned transcriptions are preliminary reports and do not represent a medical or legal document CT ABD & PELVIS W/ IV ONLY [id number] COMPLETE:11/18/20 22:45 DLA [id number] Reason(s): diffuse abdominal pain, nausea, IUD removed 11-13-20, no bleeding Electronically Reviewed and Signed By Juwan Anaya M.D. , 11/19/20 10:04, [facility] Transcribe Initials: LEV , Transcribe Date: 11/18/20 23:03, Dictation Date: Copy for: EMERGENCY DEPT via modem Copy for: 710 MED REC DISCHARGED Page 2 of 2 Name Value Range Interpretation Code Description Data Radha rce(s) Supporting Document(s) ID Date Data Source [id number] 11/18/2020 07:40:00 PM EDT [facility] 1 OrderSheet [facility] Emergency Department [address] [place] [address] Phone #: ext- [phone] 11/18/2020 19:39 Patient: KADY MIDDLETON Sex: F : 1990 Age: 30yWEIGHT:122.4 kg (S) HEIGHT:68 inches (S) BMI:41.0ALLERGIES: Latex, NexIUMCHIEF COMPLAINT: abdominal painDIAGNOSIS: Abdominal pain, Endometriosis (clinical), Diverticular diseaseLAB ORDERSOrder Description Priority Entered Acknowledged In itialedCBC w Diff STAT 20:14 11/18/2020 20:27 Diana Kelly Riccardo Laura R.N. M.Elizabeth;CMP STAT 20:14 11/18/2020 20:27 Diana Kelly Riccardo Laura R.N. M.D.;Lipase STAT 20:14 11/18/2020 20:27 Robin, Vargas Ortiz R.N. M.D.;Urinalysis (Clean STAT 20:11/18/2020 Ack'd: 20:27 20:36 Robin,Catch) Vargas Ortiz Laura Laura R.NOmaira MJane; R.N.Lactic Acid STAT 20:11/18/2020 20:27 Diana Kelly Riccardo Laura R.N. M.Elizabeth;Beta-HCG, Qual STAT 20:11/18/2020 Ack'd: 20:27 20:36 Robin,Urine Vargas Ortiz Laura Laura R.N. MJane; R.N.DIAGNOSTIC STUDY ORDERSOrder Description Priority Entered Acknowledged InitialedCT Abd PEL W/ IV STAT 21:41 11/18/2020 Ack'd: 21:48 22:24 Temo,Contrast Only Vargas Ortiz, Yanet Holt(Oxygen?(No)) Renato;(IV?(Yes)) Reason for Study: diffuse abdominal pain, nausea, IUD removed 11-13-, no bleedingMEDICATION/IV/DRIP/FLUID ORDERS 2 OrderSheet [facility] Emergency Department [address] [place] [address] Phone #: ext- [phone] 11/18/2020 19:39 ---- Patient: KADY MIDDLETON Sex: F : 1990 Age: 30yOrder Description Priority Entered Acknowledged InitialedNS IV 1000 mL 20:14 11/18/2020 20:36 Melaragno,Bolus: : Bolus 1000 Felixrin, Vargas Avendañoa R.N.mL (X1) M.DOmaira;Toradol 15 mg IVP 20:14 11/18/2020 20:37 Melaragno,X1 dose: 15 mg Turrin, Vargas Rose R.N.(NOW x1) M.DOmaira;Zofran 4 mg IVP X 1 20:14 11/18/2020 20:37 [place],dose: 4 mg (NOW Turrin, Vargas Rose R.N.x1) M.DOmaira;Ofirmev IV 1000 mg 21:41 11/18/2020 Ack'd: 21:48 21:54 Temo(NOW x1, Infuse Vargas Ortiz Katelyn Katelynover 15 minutes) Renato;GENERAL ORDERSOrder Description Priority Entered Acknowledged InitialedNPO 20:14 11/18/2020 20:27 Diana Kelly Riccardo Laura R.N. M.D.;Saline Lock 20:11/18/2020 20:27 Diana Kelly Riccardo Laura R.N. M.D.;[Electronically signed by Yanet Plascencia (:11/18/2020)][Electronically signed by Vargas Ortiz M.D. (:11/19/2020)][Electronically locked by Yanet Plascencia (:11/18/2020)] Name Value Range Interpretation Code Description Data Radha rce(s) Supporting Document(s) ID Date Data Source [id number] 11/18/2020 07:40:00 PM EDT [facility] 1 Medication Reconciliation Report [facility] Emergency Department [address] [place] [address] Phone #: ext- [phone] 11/18/2020 19:39 Patient: KADY MIDDLETON Sex: F : 1990 Age: 30yWeight: 122.4 kgHeight/Length: 68 in.BMI: 41.0ALLERGIES: Latex, NexIUMThe patient's Home Medications are listed below:CONTINUE TAKING THE FOLLOWING MEDICATIONS: Abilify Oral (10 mg) 1 tablet, daily Adderall Oral (5 mg) 1 tablet, prn Imitrex Oral UNKNOWN DOSE, NOT HER PRESCRIPTION, SIGNIFICANT OTHERS Liothyronine Sodium Oral (25 mcg) 1 tablet, daily Prazosin HCl Oral 5 mg, daily PROzac Oral 40 mg, daily Trileptal Oral 450 mg, 2x a day Xanax Oral 0.25 mg, 2x a day Zofran ODT Oral 8 mg, prnThe source(s) of the original Home Medication information:Not obtained.The following Medications were given to the patient in the Emergency Department:Sodium Chloride [IV] IV Fluids bolus 0, then 1000 mL/hr, administered: 20:36 11/18/2020Toradol [IVP] IVP 15 mg, administered: 20:37 11/18/2020Zofran [IVP] IVP 4 mg, administered: 20:37 11/18/2020 2 Medication Reconciliation Report [facility] Emergency Department [address] [place] [address] Phone #: ext- [phone] 11/18/2020 19:39 Patient: KADY MIDDLETON Sex: F : 1990 Age: 30yOfirmev IVPB bolus 0, then 1 gm, administered: 21:54 11/18/2020The following Medications were prescribed to the patient:None. Name Value Range Interpretation Code Description Data Radha rce(s) Supporting Document(s) ID Date Data Source [id number] 11/18/2020 07:40:00 PM EDT [facility] 1 Medication Administration Record [facility] Emergency Department [address] [place] [address] Phone #: ext- [phone] 11/18/2020 19:39 Patient: KADY MIDDLETON Sex: F : 1990 Age: 30yWeight: 122.4 kgHeight/Length: 68 inBMI: 41ALLERGIES: Latex, NexIUM Date/Time Medication Administered Medication OrderedStart SODIUM CHLORIDE [IV] NS IV 1000 mL Bolus: : Bolus [id number] 11/18/2020 Dose: IV Fluids mL (X1)Rose Kelly, R.N. Rate: 1000 mL/hr over 1 hour(s)---- Dispensed: 1000 mL bagStop Site: #1 left AC22:20 1BYanet teran,Given TORADOL [IVP] (KETOROLAC Toradol 15 mg IVP X1 dose: 15 mg20:37 11/18/2020 TROMETHAMINE) (NOW x1)Rose Kelly, R.N. Dose: 15 mg IVP Site: #1 left ACGiven ZOFRAN [IVP] (ONDANSETRON HCL) Zofran 4 mg IVP X 1 dose: 4 mg20:37 11/18/2020 Dose: 4 mg IVP (NOW x1)Rose Kelly, R.N. Site: #1 left ACStart Ofirmev * Ofirmev IV 1000 mg (NOW x1,21:54 11/18/2020 Dose: 1 gm * IVPB Infuse over 15 minutes)Yanet Plascencia,----Stop22:17 11/18/2020Yanet teran, Name Value Range Interpretation Code Description Data [facility]) Supporting Document(s) ID Date Data Source [id number] 11/18/2020 07:40:00 PM EDT [facility] 1 General Instructions [facility] Emergency Department [address] [place] [address] Phone #: ext- [phone] 11/18/2020 19:39 Patient: KADY MIDDLETON Sex: F : 1990 Age: 30yAcute generalized abdominal pain of unknown cause.Chronic diverticulosis of the colon. No perforation, bleeding or abscess.Endometriosis.INSTRUCTIONSDrink plenty of fluids. Avoid alcohol. Avoid fatty, fried/greasy, lactose-containing (such as milk, cheeseand ice cream), salty and spicy foods. No alcohol. Do not smoke.(PLEASE FOLLOW UP WITH YOUR FRENCH COMBER IN [place] WITHIN 2 DAYS).Warnings: Further evaluation is necessary in order to conduct further tests (FRENCH COMBER). It is very importantto follow up with a healthcare provider.GENERAL WARNINGS: Return or contact your physician immediately if your condition worsens orchanges unexpectedly, if not improving as expected, or if other problems arise. SPECIFICALLY, return ifyou develop pain in the abdomen, pelvis, back or shoulder, fever, vomiting, the inability to keep fluidsdown, blood in vomitus, blood in diarrhea, fainting or lightheadedness.Your Current Medications: Your current home medications have been reviewed.CONTINUE TAKING THE FOLLOWING MEDICATIONS:Abilify Oral : Tablet 10 mg, 1 tablet daily.Adderall Oral : Tablet 5 mg, 1 tablet, prn.Imitrex Oral : UNKNOWN DOSE, NOT HER PRESCRIPTION, SIGNIFICANT OTHERS.Liothyronine Sodium Oral : Tablet 25 mcg, 1 tablet daily.Prazosin HCl Oral : 5 mg daily.PROzac Oral : 40 mg daily.Trileptal Oral : 450 mg 2x a day.Xanax Oral : 0.25 mg 2x a day.Zofran ODT Oral : 8 mg, prn.Follow-up:Return to the emergency department as needed. Follow up with a pbx repairer in two days even if well.Call for an appointment. Reason for referral: evaluation and treatment. Summary of care provided topatient via paper.Understanding of the discharge instructions verbalized by patient. Expected course of illness, dischargeinstructions, activity level, diet, follow-up appointment and risks and benefits of treatment reviewed withpatient and understanding verbalized. Agrees to plan of care. 2 General Instructions [facility] Emergency Department [address] [place] [address] Phone #: ext- [phone] 11/18/2020 19:39 Patient: KADY MIDDLETON Sex: F : 1990 Age: 30y ADDITIONAL INFORMATIONUnknown Causes of Abdominal Pain (Female)The exact cause of your belly (abdominal) pain is not clear. This does not mean that this is somethingto worry about. Everyone likes to know the exact cause of the problem. But sometimes with bellypain, there is no clear-cut cause, and this could be a good thing. The good news is that yoursymptoms can be treated, and you will feel better.Your condition does not seem serious now. But sometimes the signs of a serious problem may takemore time to appear. For this reason, it is important for you to watch for any new symptoms,problems, or worsening of your condition.Over the next few days, the abdominal pain may come and go. Or it may be constant. Other commonsymptoms can include nausea and vomiting. Sometimes it can be difficult to tell if you feel nauseous.You may just feel bad and not connect that feeling to nausea. Constipation, diarrhea, and a fever maygo along with the pain.The pain may continue even if treated correctly over the following days. Depending on how things go,sometimes the cause can become clear and may need more or different treatment. Additionalevaluations, medicines, or tests may also be needed. 3 General Instructions [facility] Emergency Department [address] [place] [address] Phone #: ext- [phone] 11/18/2020 19:39 Patient: KADY MIDDLETON Sex: F : 1990 Age: 30yHome [facility] healthcare provider may prescribe medicine for pain, symptoms, or an infection. Follow thehealthcare provider's instructions for taking these medicines.General care Rest as much as you can until your next exam. No strenuous activities. Try to find positions that ease discomfort. A small pillow placed on the abdomen may help relieve pain. Something warm on your abdomen (such as a heating pad) may help, but be careful not to burn yourself.Diet Don't force yourself to eat, especially if having cramps, vomiting, or diarrhea. Water is important so you don't get dehydrated. Soup may also be good. Sports drinks may also help, especially if they are not too acidic. Don't drink sugary drinks as this can make things worse. Take liquids in small amounts. Don't guzzle them. Caffeine sometimes makes the pain and cramping worse. Don't take dairy products if you have vomiting or diarrhea. Don't eat large amounts at a time. Wait a few minutes between bi grace. Eat a diet low in fiber (called a low-residue diet). Foods allowed include refined breads, white rice, fruit and vegetable juices without pulp, tender meats. These foods will pass more easily through the intestine. Don't have whole-grain foods, whole fruits and vegetables, meats, seeds and nuts, fried or fatty foods, dairy, alcohol and spicy foods until your symptoms go away.Follow-up careFollow up with your healthcare provider, or as advised, if your pain does not begin to improve in thenext 24 hours.Call [phone] if any of these occur: Trouble breathing Confusion 4 General Instructions [facility] Emergency Department [address] [place] [address] Phone #: ext- [phone] 11/18/2020 19:39 Patient: KADY MIDDLETON Sex: F : 1990 Age: 30y Fainting or loss of consciousness Rapid heart rate SeizureWhen to seek medical adviceCall your healthcare provider right away if any of these occur: Pain gets worse or moves to the right lower abdomen New or worsening vomiting or diarrhea Swelling of the abdomen Unable to pass stool for more than 3 days Fever of 100.4F (38C) or higher, or as directed by your healthcare provider. Blood in vomit or bowel movements (dark red or black color) Yellow color of eyes and skin (jaundice) Weakness, dizziness Chest, arm, back, neck, or jaw pain Unexpected vaginal bleeding or missed period Can't keep down liquids or water and you are getting dehydrated [id number] [employer]. [address] [place] [address]. All rights reserved. This information is not intended as asubstitute for professional medical care. Always follow your healthcare professional's instructi ons.Diverticulosis 5 General Instructions [facility] Emergency Department [address] [place] [address] Phone #: ext- [phone] 11/18/2020 19:39 Patient: KADY MIDDLETON Sex: F : 1990 Age: 30yDiverticulosis means that small pouches have formed in the wall of your large intestine (colon). Mostoften, this problem causes no symptoms and is common as people age. But the pouches in the colonare at risk of becoming infected. When this happens, the condition is called diverticulitis. Althoughmost people with diverticulosis never develop diverticulitis, it is still not uncommon. Rectal bleedingcan also occur and in less common situations, a type of colon inflammation called colitis.While most people don't have symptoms, some people with diverticulosis may have: Abdominal cramps and pain Bloating Constipation Change in bowel habitsCausesThe exact cause of diverticulosis (and diverticulitis) has not been proved, but a few things areassociated with the condition: Low-fiber diet Constipation Lack of exercise 6 General Instructions [facility] Emergency Department [address] [place] [address] Phone #: ext- [phone] 11/18/2020 19:39 Patient: KADY MIDDLETON Sex: F : 1990 Age: 30yYour healthcare provider will talk with you about how to manage your condition. Diet changes may juana that are needed to help control diverticulosis and prevent progression to diverticulitis. If youdevelop diverticulitis, you will likely need other treatments.Home careYou may be told to take fiber supplements daily. Fiber adds bulk to the stool so that it passes throughthe colon more easily. Stool softeners may also be recommended. You may also be given medicinesfor pain relief. Be sure to take all medicines as directe d.In the past, people were told to avoid corn, nuts, and seeds. This is no longer necessary.Follow these guidelines when caring for yourself at home: Eat unprocessed foods that are high in fiber. Whole-grains, fruits, and vegetables are good choices. Drink 6 to 8 glasses of water every day unless your healthcare provider has you limit how much fluid you should have. Watch for changes in your bowel movements. Tell your provider if you notice any changes. Begin an exercise program. Ask your provider how to get started. Generally, walking is the best. Get plenty of rest and sleep.Follow-up careFollow up with your healthcare provider, or as advised. Regular visits may be needed to check [facility]. Sometimes special procedures such as colonoscopy, are needed after an episode ofdiverticulitis or blooding. Be sure to keep all your appointments.If a stool sample was taken, or cultures were done, you should be told if they are positive, or if yourtreatment needs to be changed. You can call as directed for the results.If X-rays were done, a radiologist will look at them. You will be told if there is a change in yourtreatment.If antibiotics were prescribed, be sure to finish them all.When to seek medical adviceCall your healthcare provider right away if any of these occur: Fever of 100.4F (38C) or higher, or as directed by your healthcare provider 7 General Instructions [facility] Emergency Department [address] [place] [address] Phone #: ext- [phone] 11/18/2020 19:39 Patient: KADY MIDDLETON Sex: F D OB: 1990 Age: 30y Severe cramps in the lower left side of the abdomen or pain that is getting worse Tenderness in the lower left side of the abdomen or worsening pain throughout the abdomen Diarrhea or constipation that doesn't get better within 24 hours Nausea and vomiting Bleeding from the rectumCall 911Call 911 if any of the following occur: Trouble breathing Confusion Very drowsy or trouble awakening Fainting or loss of consciousness Rapid heart rate Chest pain [id number] [employer]. [address] [place] [address]. All rights reserved. This information is not intended as asubstitute for professional medical care. Always follow your healthcare professional's instructions.EndometriosisEndometriosis is a condition that occurs when the tissue that lines the uterus starts to grow where it 8 General Instructions [facility] Emergency Department [address] [place] [address] Phone #: ext- [phone] 11/18/2020 19:39 Patient: KADY MIDDLETON Sex: F : 1990 Age: 30ysh ould not. The tissue may grow on the outside surface of the uterus, the ovaries, or fallopian tubes.It may also grow on the bowel, rectum, bladder, or other areas. The tissue responds to the samehormones that control your menstrual cycle. So it may swell and bleed just like the lining of theuterus, which is shed every month during your period. The swelling and blood irritate nearby tissues.This causes pelvic or lower abdominal (belly) pain and cramping. The pain is often worse around thetime of your period. Pain during sex is also common. Some women have pain during bowelmovements or urination. Over time, scar tissue may form. This scar tissue can bind organstogether. It can also cause problems getting (infertility).The exact cause of endometriosis is unknown. The best way to confirm a diagnosis is with aprocedure called laparoscopy. This allows the provider to look inside the abdomen with a small tubeand light.Treatment depends on your symptoms. If pain is mild, no treatment may be needed. If pain is moresevere, medicines may be advised. Surgery may also be an option. Your provider can tell you moreas needed.Home careMedicinesTo help manage endometriosis, any of the following medicines may be used: Pain relievers, such as non-steroidal anti-inflammatory drugs (NSAIDS) Hormonal medicines o control pills o Progestin-only pills o Gonadotropin-releasing hormone (GnRH) agonists o DanazolIf you're prescribed medicines, be sure to take them as directed. Also, report any side effects youhave to your provider.General care Rest as needed when you have symptoms. To help ease pain or cramping, apply a heating pad to where the pain is. You may also use a hot water bottle.Follow-up care 9 General Instructions [facility] Emergency Department [address] [place] [address] Phone #: ext- [phone] 11/18/2020 19:39 Patient: KADY MIDDLETON Sex: F : 1990 Age: 30yFollow up with your healthcare provider, or as directed.When to seek medical adviceCall your healthcare provider right away if any of these occur: Fever of 100.4F (38C) or higher, or as directed by your provider Abdominal or pelvic pain or cramping worsens, or doesn't improve with medicines Pain during sex, urination, or bowel movements continues Heavy bleeding (soaking 1 pad or tampon every hour for 3 hours) Missed periods (if they are usually regular) Sudden, severe pain in the abdomen Abdominal swelling with nausea or vomiting Blood in the urine or problems urinating Blood in the stool Dizziness, weakness, fainting Note: If you have been unable to get after trying for 1 year, see your provider. He or she can talk with you about i nfertility testing. [phone] [employer]. [address] [place] [address], [place] [address]. All rights reserved. This information is not intended as asubstitute for professional medical care. Always follow your healthcare professional's instructions. You have been given the following additional information: Abdominal Pain, Unknown Cause, (Female) Diverticulosis Endometriosis(Electronically signed by Vargas Ortiz M.D. 11/19/2020 01:23) Name Value Range Interpretation Code Description Data Radha rce(s) Supporting Document(s) ID Date Data Source [id number] 11/18/2020 07:40:00 PM EDT [facility] 1 Clinical Report - Nurses [facility] Emergency Department [address] [place] [address] Phone #: ext- [phone] 11/18/2020 19:39 Patient: KADY MIDDLETON Sex: F : 1990 Age: 30yTRIAGEArrived by private vehicle. Historian: patient.Acuity: LEVEL 3.Chief Complaint: ABDOMINAL PAIN and NAUSEA.Alert. No acute distress.This started today. ( Pt arrives c/o abdominal pain. Pt states she started to experience left sided sharpabdominal pain and nausea today. Pt also reports she had her mirina taking out on Monday and has beenhaving pelvic pain since then. 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 --19:50 11/18/20 Rose Kelly R.N.19:45 11/18/20. BP: 122/68. MAP: 86. HR: 85. RR: 16. O2 saturation: 98% on room air. Temp: 97.9 F(oral). Pain level now: 12/05. --19:50 11/18/20 Rose Kelly R.N.Weight: 122.4 kg stated. Height/Length: 68 inches Per Patient. BMI: 41. --19:45 11/18/20 Rose Kelly R.N.MedicationsAbilify Oral (Tablet 10 mg) 1 tablet, daily. Imitrex Oral UNKNOWN DOSE (NOT HER PRESCRIPTION, SIGNIFICANT OTHERS). Liothyronine Sodium Oral (Tablet 25 mcg) 1 tablet, daily. Prazosin HCl Oral 5 mg, daily. PROzac Oral 40 mg, daily. Trileptal Oral 450 mg, 2x a day. Xanax Oral 0.25 mg, 2x a day. Zofran ODT Oral 8 mg, as needed. --19:48 11/18/20 Rose Kelly R.N. Adderall Oral (Tablet 5 mg) 1 tablet, as needed. --19:48 11/18/20 Rose Kelly R.N.AllergiesLatex. NexIUM. --19:48 11/18/20 Rose Kelly R.N.PROBLEMS:Bipolar Disorder.Asthma.Endometriosis. 2 Clinical Report - Nurses [facility] Emergency Department [address] [place] [address] Phone #: ext- [phone] 11/18/2020 19:39 -------- Patient: KADY MIDDLETON Sex: F : 1990 Age: 30y PTSD. Migraine Headache. --19:49 11/18/20 Rose Kelly R.N. ADDITIONAL SURGERIES: Adenoidectomy. Dental Surgery. Laparoscopy. Tonsillectomy. --19:49 11/18/20 Rose Kelly R.N. History PAST MEDICAL HX: Immunizations: up-to-date. Last normal menstrual period- 2 years, had mirina that was taken out of Monday. SOCIAL HX: Smoker- current status unknown (Don). Occasional alcohol use. No drug use. ( COVID screen negative). She has not traveled outside the [place] Infectious disease exposure: No infectious disease exposure. Patient is not a known carrier of tuberculosis, hepatitis, HIV, MRSA or VRE. Patient is not a known carrier of CRE. SELF HARM ASSESSMENT: Self harm assessment was performed. The patient answered "no" to the question(s) "Have you recently felt down, depressed, or hopeless?", "Do you have thoughts of harming or killing yourself?", "Do you have a plan for harming or killing yourself?", "Have you recently had thoughts about harming or killing others?", "Do you have any dangerous items in your possession?", "Have you noticed less interest or pleasure in doing things?", "Are you here because you tried to hurt yourself?" and "Have you ever tried to hurt yourself before today?". ABUSE ASSESSMENT: Abuse assessment. The patient had positive responses to the question(s) "Do you feel safe in your home?", "Are you afraid to go home?", "Has anyone hurt you or threatened to hurt you?", "Are you afraid of your partner?" and "Have children witnessed violence in the home?". Abuse denied. NUTRITIONAL RISK ASSESSMENT: The nutritional risk assessment revealed no deficiencies. FUNCTIONAL ASSESSMENT: Functional assessment: no impairments noted. LEARNING NEEDS ASSESSMENT: The learning needs assessment revealed no barriers. FALL RISK ASSESSMENT: Fall risk assessment completed. No risk factors identified. SKIN INTEGRITY ASSESSMENT: Skin integrity risk assessment completed. No skin integrity risk identified. --19:50 11/18/20 Rose Kelly R.N. Interventions Identification band on patient. To treatment room. --19:50 11/18/20 Rose Kelly R.N.PHYSICAL ASSESSMENTAmbulatory to room. Patient gowned. 3 Clinical Report - Nurses [facility] Emergency Department [address] [place] [address] Phone #: ext- [phone] 11/18/2020 19:39 Patient: KADY MIDDLETON Sex: F : 1990 Age: 30y GENERAL / NEURO / PSYCH: Alert. Oriented X 4. Appears in no acute distress. Appears anxious. HEENT: Mucous membranes are pink. RESPIRATORY: Respirations not labored. Breath sounds within normal limits. CVS: Normal sinus rhythm noted. Capillary refill less than 2 seconds. GI / : The patient has had nausea. Abdomen soft. Abdominal tenderness. Bowel sounds within normal limits. No emesis noted. No diarrhea. ( Pt reports left sided sharp abdominal pain with nausea that started today. Pt states cuauhtemoc was taken out on Monday and has been experiences pelvic pain and spotting since then.). SKIN: Skin is warm and dry. --19:52 11/18/20 Rose Kelly R.N.NURSING PROGRESS NOTESMonitoring of patient in place. Patient gowned. Head of bed elevated. Reassurance given. Twopatient identifiers checked. Call light placed in reach. Side rails up x 2. Bed placed in lowest position.Brakes of bed on. --19:50 11/18/20 Rose Kelly R.N. 20:36 11/18/2020 Site #1 started via IV in the left antecubital space with an 20g angiocath, with aseptic technique; one attempt. Blood drawn: rainbow set. Sent to the lab. Saline lock flushed with 10 mL saline. --20:36 11/18/20 Rose Kelly R.N. 20:36 11/18/2020 Started bag #1 1000 mL IV Fluids Sodium Chloride; at 1000 mL/hr over 1 hour(s) via site #1 via IV pump. Allergies verified and confirmed 5 rights. IV patency established. IV site checked: no pain, redness, or swelling. IV flushed thoroughly pre- and post- medication administration. Information reviewed with patient. Verbalizes understanding. --20:36 11/18/20 Rose Kelly R.N. 20:37 11/18/2020 Toradol (Ketorolac Tromethamine) IVP 15 mg given via site #1. Allergies verified and confirmed 5 rights. IV patency established. IV site checked: no pain, redness, or swelling. IV flushed thoroughly pre- and post-medication administration. IVP given by RN. Information reviewed with patient. Verbalizes understanding. --20:37 11/18/20 Rose Kelly R.N. 20:37 11/18/2020 Zofran (Ondansetron HCl) IVP 4 mg given via site #1. Allergies verified and confirmed 5 rights. IV patency established. IV site checked: no pain, redness, or swelling. IV flushed thoroughly pre- and post-medication administration. IVP given by RN. Information reviewed with patient. Verbalizes understanding. --20:37 11/18/20 Rose Kelly R.N. Reassurance given. Rounding: Pain: assessed pain level. Position: states comfortable. Personal care / toileting: denies toileting needs. Proximity of possessions / care items: call light within easy reach. Plug ins: assured IV pump plugged in; checked status of equipment in use; located all cords, tubes, and lines to prevent fall hazard. --21:42 11/18/20 Yanet Plascencia 21:54 11/18/2020 [facility] * IVPB 1 gm --21:54 11/18/20 Yanet Plascencia 22:17 [facility] Discontinued: completed. Total amount infused: 100 mL. IV patency 4 Clinical Report - Nurses [facility] Emergency Department [address] [place] [address] Phone #: ext- [phone] 11/18/2020 19:39 Patient: KADY MIDDLETON Sex: F : 1990 Age: 30y established. IV site checked: no pain, redness, or swelling. IV flushed thoroughly. --22:17 11/18/20 Yanet Plascencia 22:20 11/18/2020 IV Fluids Sodium Chloride via IV site #1 Discontinued: bag #1 infused. Total amount infused: 1000 mL. IV patency established. IV site checked: no pain, redness, or swelling. IV flushed thoroughly. --22:20 11/18/20 Yanet Plascencia Patient transported to [place] by wheelchair with mask and tech. --22:24 11/18/20 Yanet Plascencia.DISPOSITION / DISCHARGE 23:28 11/18/2020 Site #1 removed upon discharge. Catheter intact. Bandaid applied. --23:28 11/18/20 Yanet Plascencia Departure time: 23:28 0 11/18/2020. Condition at departure: improved. No learning barriers present. Discharge instructions provided and reviewed with the patient. Reviewed warnings. Reviewed medication(s). Treatments reviewed. Reviewed referrals. Patient verbalized understanding. Written instructions provided in Omani. The patient was discharged by the physician. She was discharged home and unaccompanied at time of discharge. She left ambulatory and via private vehicle. Patient driving. --23:28 11/18/20 Yanet Plascencia 23:27 11/18/20. BP: 118/74. HR: 82. RR: 17. O2 saturation: 99%. Temp: 98.6 F. Pain level now 06/07. --23:28 11/18/20 Yanet Plascencia.Locked/Released at 11/18/2020 23:28 by Yanet Plascencia Name Value Range Interpretation Code Description Data Radha rce(s) Supporting Document(s) ID Date Data Source [id number] 11/18/2020 07:40:00 PM EDT [facility] 1 Clinical Report - Physicians/Mid Levels [facility] Emergency Department [address] [place] [address] Phone #: ext- [phone] 11/18/2020 19:39 Patient: KADY MIDDLETON Sex: F : 1990 Age: 30y Time Seen: 19:51 11/18/2020; initial patient contact. Arrived- By private vehicle. Historian- patient. Disposition decision: 23:20 11/18/2020.HISTORY OF PRESENT ILLNESS Chief Complaint: ABDOMINAL PAIN. This started today and is still present. It has been intermittent. It is described as "pain" and cramping and it is described as located in the right lower quadrant, left upper quadrant and left abdomen. At its maximum, severity described as severe and 8 / 10. When seen in the E.D., severity described as moderate and 4 / 10. Modifying factors. Not worsened by anything. Not relieved by anything. The patient has had nausea. No loss of appetite, vomiting or diarrhea. (pt has Hx of endometriosis and is supposed to have LSC surgery in the future at [facility]). No recent travel. Similar symptoms previously. None. Recent medical care: The patie nt was seen recently by a health care provider. ( had Mirena IUD removed 11/13 by [facility]EN[facility] COMBER at [facility], had it x 2-3 yrs).REVIEW OF SYSTEMSNo constipation, black stools, hematemesis, difficulty with urination or pain with urination. No urinaryfrequency, bloody stools, fever, headache or sore throat. No blurred vision, chest pain, difficulty breathing,cough or joint pain. No skin rash, chills or back pain. Denies current . The patient has nothad weight loss. All other systems reviewed and are negative.PAST HISTORYSee nurses notes. Problems: Obesity. Hypothyroidism. Bipolar Disorder. Asthma. Endometriosis. PTSD. Migraine Headache. Additional Surgeries: Adenoidectomy. Dental Surgery. Laparoscopy. Tonsillectomy. 2 Clinical Report - Physicians/Mid Levels [facility] Emergency Department [address] [place] [address] Phone #: ext- [phone] 11/18/2020 19:39 Patient: KADY MIDDLETON Sex: F : 1990 Age: 30y Medications: Adderall Oral (Tablet 5 mg) 1 tablet, as needed. Abilify Oral (Tablet 10 mg) 1 tablet, daily. Imitrex Oral UNKNOWN DOSE (NOT HER P RESCRIPTION, SIGNIFICANT OTHERS). Liothyronine Sodium Oral (Tablet 25 mcg) 1 tablet, daily. Prazosin HCl Oral 5 mg, daily. PROzac Oral 40 mg, daily. Trileptal Oral 450 mg, 2x a day. Xanax Oral 0.25 mg, 2x a day. Zofran ODT Oral 8 mg, as needed. Allergies: Latex. NexIUM.SOCIAL HISTORYSmoker- current status unknown (electronic cigarrette). Occasional alcohol use. No drug use.ADDITIONAL NOTESThe nursing notes have been reviewed with agreement regarding the chief complaint, HPI, ROS, PMH andpatient medications and allergies.PHYSICAL EXAMVital Signs: 11/18/2020 19:45 BP: 122/68. MAP: 86. HR: 85. RR: 16. O2 saturation: 98% on room air.Temp: 97.9 F. Pain level now: 7/10. Have been reviewed. Oxygen saturation normal.Appearance: Alert. Oriented X3. No acute distress.Eyes: Pupils equal, round and reactive to light. Eyes normal inspection.ENT: Nose normal. Pharynx normal.Neck: Normal inspection. Neck supple.CVS: Normal heart rate and rhythm. Heart sounds normal. Pulses normal.Respiratory: No respiratory distress. Painless inspiration. Breath sounds normal. Chest nontender.Abdomen: Soft and nontender. Bowel sounds normal. No organomegaly. No mass. Femoral pulsesequal. Moderately obese.Back: Normal inspection. No CVA tenderness.Skin: Skin warm and dry. Normal skin color. No rash. Normal skin turgor.Extremities: Extremities exhibit normal ROM. No lower extremity edema.Neuro: Oriented X 3. No motor d eficit. No sensory deficit.LABS, X-RAYS, AND EKGAbdominal CT: see report; mild diverticulosis, no itis, otw NAD. Study type: abdomen and pelvis.Abdominal CT performed with IV contrast. The study was interpreted by the radiologist. Interpretationtime: 23:02 11/18/2020.Laboratory Tests: Laboratory tests have been ordered, with results reviewed and considered in themedical decision making process. CT Abd PEL W/ IV Contrast Only: (LULU: 11/18/2020 21:41) ( MsgRcvd 11/18/2020 23:05) In Progress 3 Clinical Report - Physicians/Mid Levels [facility] Emergency Department [address] [place] [address] Phone #: ext- [phone] 11/18/2020 19:39 Patient: KADY MIDDLETON Sex: F : 1990 Age: 30yCT ABDReason(s): diffuse abdominal pain, nausea, IUD removed 6-18-21, no bleedingTRANSPORTATION: WC IV? IV?(Yes) O2? Oxygen?(No) Ro Exam CT ABD //T// PELVIS W/ IV ONLY [facility] [address] [place] [address] PHONE: [phone] FAX: [phone] Name .................. : EMI HILLMAN Acct Number....... ........... : [id number] ROOM. ................. : [facility] MR Number ................... : [id number] Stay type ............. : E/R Discharge Date......... ... : Admit Date ......... : 11/18/20 Admit Phys .................... : DIANA KEYS Date of ....... : 1990 Family Phys ................... : AMANDA YANIV Phone .................. : [phone] Age ................................ : 30 Film# .................. .:[id number] Sex ............................ ..... : F Unsigned transcriptions are preliminary reports and do not represent a medical or legal document CT ABD Reason(s): diffuse abdominal pain, nausea, IUD removed 11-13-20, no bleeding CT OF THE ABDOMEN AND PELVIS WITH CONTRAST: INDICATION: Diffuse abdominal pain, nausea, IUD removed on the . FINDINGS: The chest base is clear. There is normal contrast-enhanced CT appearance of the liver, spleen, pancreas, adrenal glands and kidneys. No gallbladder wall thickening or biliary duct dilatation. The visualized bowel is normal in caliber. The appendix is normal. No bowel wall thickening. There is mild diveritculosis without diverticulitis. The bladder and pelvic organs are normal. No acute osseous abnormality. No lymphadenopathy. IMPRESSION: Mild diverticulosis without diverticulitis. No other acute abdominal process. While performing the above CT examination, radiation dose reduction was accomplished utilizing automated exposure control, adjusting of the mA and kV based on the patient's body size and/or the use of imperative reconstructive techniques. CT dose: 2115.0 mGycm Contrast agent in mL: 75 Isovue 370 Method of administration: Intravenous Page 1of 2 [facility] 4 Clinical Report - Physicians/Mid Levels [facility] Emergency Department [address] [place] [address] Phone #: ext- [phone] 11/18/2020 19:39 Patient: KADY MIDDLETON Sex: F : 1990 Age: 30y [address] [place] [address] PHONE: [phone] FAX: Name .................. : EMI HILLMAN Acct Number.................. : [id number] ROOM. ................. : VT-19 MR Number ................... : [id number] Stay type ............. : E/R Discharge Date......... ... : Admit Date ......... : 11/18/20 Admit Phys .................... : DIANA KEYS Date of ....... : 1990 Family Phys ................... : AMANDA PURVIS Phone .................. : [phone] Age ........................ ........ : 30 Film# .................. .:[id number] Sex ................................. : F Unsigned transcriptions are preliminary reports and do not represent a medical or legal document CT ABD Reason(s): diffuse abdominal pain, nausea, IUD removed 11-13-20, no bleeding Electronically Reviewed and Signed By DCTNAME , SIGNDATE, NHAngelia Transcribe Initials: LEV , Transcribe Date: 11/18/20 23:03, Dictation Date: <<REPDIST>> Page 2of 2CBC w Diff: (LUUL: 11/18/2020 20:23) ( MsgRcvd 11/18/2020 21:14) Final results Test Result Flag Units (Reference) CBC W/AUTOMATED DIFF COMPLETE BLOOD COUNT WBC 8.6 10/uL (4.2 - 11.0) RBC 4.36 10/uL (4.20 - 5.40) HEMOGLOBIN 13.7 g/dL (12.0 - 16.0) HEMATOCRIT 41.3 % (37.0 - 47.0) MCV 94.7 fL (81.0 - 101) MCH 31.4 pg (27.0 - 34.0) MCHC 33.2 g/dL (31.0 - 36.0) RDW 12.3 % (11.5 - 14.5) PLATELETS 334 10/uL (150 - 450) MPV 9.7 fL (7.4 - 10.4) NEUT 60.7 % (37.0 - 80.0) LYMPH 28.7 % (25.0 - 40.0) MONO 8.7 H % (3.0 - 8.0) EOS 1.4 % (0.0 - 7.0) BASO 0.3 % (0.0 - 2.5) %IG 0.2 H % (0.0 - 0.0) %NRBC 0.0 % (0.0 - 0.0) #NEUT 5.24 10/uL (2.00 - 6.90) #LYMPH 2.48 10/uL (0.60 - 3.40) #MONO 0.75 10/uL (0.00 - 0.90) #EOS 0.12 10/uL (0.00 - 0.70) #BASO 0.03 10/uL (0.00 - 0.20) 5 Clinical Report - Physicians/Mid Levels [facility] Emergency Department [address] [place] [address] Phone #: ext- [phone] 11/18/2020 19:39 Patient: KADY MIDDLETON Sex: F : 1990 Age: 30y #IG 0.02 10/uL (0.00 - 0.10) #NRBC 0.00 10/uL (0.00 - 0.00) MANUAL DIFF NOT INDICATED RBC MORPH NOT INDICATEDCMP: (LULU: 11/18/2020 20:23) ( MsgRcvd 11/18/2020 21:29) Final results T est Result Flag Units (Reference) COMPREHENSIVE METABOLIC PANEL COMPREHENSIVE METABOLIC PANEL SODIUM 137 mEq/L (134 - 153) POTASSIUM 4.0 mEq/L (3.6 - 5.0) CHLORIDE 101 mEq/L (98 - 107) CO2 26 MEQ/L (22 - 30) GLUCOSE 89 MG/DL (70 - 99) BUN 13 MG/DL (7 - 21) CREATININE 0.7 MG/DL (0.7 - 1.5) BUN/CREAT 19 (8 - 27) TOTAL PROTEIN 7.3 G/DL (6.3 - 8.2) ALBUMIN 4.3 G/DL (3.9 - 5.0) GLOBULIN 3.0 GM/DL (2.4 - 3.2) A/G RATIO 1.4 (0.8 - 2.0) CALCIUM 9.3 MG/DL (8.4 - 10.2) TOTAL BILI <0.7 MG/DL (0.2 - 1.3) ALKALINE PHOS 118 U/L (38 - 126) SGOT/AST 27 U/L (5 - 40) SGPT/ALT 38 U/L (7 - 56) ANION GAP 10.0 mmol/L (8.0 - 16.0) AGE 30 yrs NON-AA GFR >60 mL/min AFR AMER GFR >60 mL/min Male GFR Interprentation 20-49 yrs >60 mL/min Tejmho88-66 yrs >56 mL/min Normal 60-69 yrs >49 mL/min Normal 70-79yrs>42 mL/min Normal 80 and above >35 mL/min Normal Female GFRInterpretation 20-39 yrs >60 mL/min Normal 40-49 yrs >58 mL/minNormal 50-59 yrs >51 mL/min Normal 60-69 yrs >45 mL/min Ooumfu25-11 yrs >39 mL/min Normal 80 and above >32 mL/min NormalLipase: (LULU: 11/18/2020 20:23) ( [facility]29[facility] Final results Test Result Flag Units (Reference) LIPASE 24 U/L (13 - 60)Urinalysis: (LULU: 11/18/2020 20:23) ( Mscvd 11/18/2020 22:02) Final results Test Result Flag Units (Reference) URINALYSIS URINALYSIS SOURCE R COLOR yellow (NORMAL: Yello CLARITY clear (NORMAL: Clear SPEC GRAVITY 1.015 (1.001 - 1.030 pH 6 (5 - 9) GLUCOSE NORM (NORMAL: Negat BILIRUBIN NEG (NORMAL: Negat KETONE NEG (NORMAL: Negat PROTEIN NEG (NORMAL: Negat NITRITE NEG (NORMAL: Negat BLOOD 25 A (NORMAL: Negat 6 Clinical Report - Physicians/Mid Levels [facility] Emergency Department [address] [place] [address] Phone #: ext- [phone] 11/18/2020 19:39 Patient: KADY MIDDLETON Sex: F : 1990 Age: 30y LE[place] EST NEG (NORMAL: Negat UROBILINOGEN NOR (less than 1.0 MICROSCOPIC See Below WBC 0 - 1 (NORMAL: NONE RBC 1 - 3 (NORMAL: NONE EPITHELIAL MODERATE A (NORMAL: NONE BACTERIA 1+ SMALL (NORMAL: NONE MUCOUS Trace (NORMAL: NONE Lactic Acid: (LULU: 11/18/2020 20:23) ( PagRcvd 11/18/2020 21:11) Final results Test Result Flag Units (Reference) LACTIC ACID 1.5 MMOL/L (0.2 - 2.2) Beta-HCG, Qual Urine: (LULU: 11/18/2020 20:23) ( [facility] 11/18/2020 21:46) Final results Test Result Flag Units (Reference) HCG URINE QUAL NEGATIVE (NORMAL: NEGAT HCG URINE QL REENTER NEGATIVE (NORMAL: NEGAT { KIT LOT # [id number] ){ KIT EXP DATE 04.27.22 ){ PROCEDURAL CONTROL VALID ).PROGRESS AND PROCEDURESCourse of Care: 21:42 11/18/20. workup all in and reviewed and nml, incl. WBC, lactic; pt states pain isback and is localized b/l lower pelvis, abdomen soft though, pt has endometriosis and is suppose to haveLSC surgery in future, will do CTAP w iv 23:18 11/18/20. CTAP w iv shows mild diverticulosis, see report; pt feeling much better, abdomen soft, will d/c home w instructions, advised to f/u w her [facility]EN[facility] COMBER within 2 days; pt agrees; probable abdominal pain from endometriosis and/or diverticulosis. Patient counseled in person regarding the patient's stable condition, test results, diagnosis and need for follow- up. Patient agrees with plan of care. Disposition: Condition: good and stable. Discharge decision based on the following: patient's condition is stable; patient's condition is improved; patient is ambulatory; patient is active; patient drinking fluids; patient eating; patient's pain is controlled; patient's exam is improved; no abnormal test results; improving condition on multiple repeat evaluations; social support is good; transportation is available; follow-up is available; clinical impression is consistent with outpatient treatment.CLINICAL IMPRESSION Acute generalized abdominal pain of unknown cause. Chronic diverticulosis of the colon. No perforation, bleeding or abscess. Endometriosis. 7 Clinical Report - Physicians/[facility] Emergency Department [address] [place] [address] Phone #: ext- [phone] 11/18/2020 19:39 Patient: KADY MIDDLETON Sex: F : 1990 Age: 30yINSTRUCTIONS Drink plenty of fluids. Avoid alcohol. Avoid fatty, fried/greasy, lactose-containing (such as milk, cheese and ice cream), salty and spicy foods. No alcohol. Do not smoke. (PLEASE FOLLOW UP WITH YOUR FRENCH COMBER IN [place] WITHIN 2 DAYS). Warnings: Further evaluation is necessary in order to conduct further tests (FRENCH COMBER). It is very important to follow up with a healthcare provider. GENERAL WARNINGS: Return or contact your physician immediately if your condition worsens or changes unexpectedly, if not improving as expected, or if other problems arise. SPECIFICALLY, return if you develop pain in the abdomen, pelvis, back or shoulder, fever, vomiting, the inability to keep fluids down, blood in vomitus, blood in diarrhea, fainting or lightheadedness. Your Current Medications: Your current home medications have been reviewed. CONTINUE TAKING THE FOLLOWING MEDICATIONS: Abilify Oral : Tablet 10 mg, 1 tablet daily. Adderall Oral : Tablet 5 mg, 1 tablet, prn. Imitrex Oral : UNKNOWN DOSE, NOT HER PRESCRIPTION, SIGNIFICANT OTHERS. Liothyronine Sodium Oral : Tablet 25 mcg, 1 tablet daily. Prazosin HCl Oral : 5 mg daily. PROzac Oral : 40 mg daily. Trileptal Oral : 450 mg 2x a day. Xanax Oral : 0.25 mg 2x a day. Zofran ODT Oral : 8 mg, prn. Follow-up: Return to the emergency department as needed. Follow up with a pbx repairer in two days even if well. Call for an appointment. Reason for referral: evaluation and treatment. Summary of care provided to patient via paper. Understanding of the discharge instructions verbalized by patient. Expected course of illness, discharge instructions, activity level, diet, follow-up appointment and risks and benefits of treatment reviewed with patient and understanding verbalized. Agrees to plan of care.(Electronically signed by Vargas Ortiz M.D. 11/19/2020 01:23) Name Value Range Interpretation Code Description Data [facility](s) Supporting Document(s) ID Date Data Source [id number] 11/18/2020 10:00:00 PM EDT [facility] Name Value Range Interpretation Code Description Data [facility](s) Supporting Document(s) URINALYSIS [facility] URINALYSIS SOURCE R [facility] al COLOR yellow NORMAL: Yellow [facility] CLARITY clear NORMAL: Clear [facility] Specific gravity of Urine by Test strip 1.015 1.001 - 1.030 [facility] pH 6 5 - 9 [facility] Glucose [Mass/volume] in Urine by Test strip NORM NORMAL: Negat [facility] Bilirubin.total [Presence] in Urine by Test strip NEG NORMAL: Negative [facility] Ketones [Presence] in Urine by Test strip NEG NORMAL: Negative [facility] Protein [Mass/volume] in Urine by Test strip NEG NORMAL: Negat [facility] Nitrite [Presence] in Urine by Test strip NEG NORMAL: Negative [facility] BLOOD 25 NORMAL: Negative [facility] LE[place] EST NEG NORMAL: Negative [facility] Urobilinogen [Mass/volume] in Urine by Test strip NOR less antonio n 1.0 mg/dL [facility] MICROSCOPIC See Below [facility] ital WBC 0 - 1 NORMAL: NONE SEEN [facility] Erythrocytes [#/volume] in Urine by Test strip 1 - 3 NORMAL: NON E SEEN [facility] EPITHELIAL MODERATE NORMAL: NONE SEEN [facility] Bacteria [Presence] in Urine sediment by Light microscopy 1+ SMALL NORMAL: NONE SEEN [facility] Mucus [Presence] in Urine sediment by Light microscopy Trace NORMAL: NONE SEEN [facility] ID Date Data Source [id number] 11/18/2020 09:45:00 PM EDT [facility] Name Value Range Interpretation Code Description Data Radha rce(s) Supporting Document(s) HCG URINE QUAL NEGATIVE NORMAL: NEGATIVE [facility] HCG URINE QL REENTER NEGATIVE NORMAL: NEGATIVE [facility] { KIT LOT # [id number] ){ KIT EXP DATE 04.27.22 ){ PROCEDURAL CONTROL VALID ) ID Date Data Source [id number] 11/18/2020 09:29:00 PM EDT [facility] Name Value Range Interpretation Code Description Data Radha rce(s) Supporting Document(s) Lipase [Enzymatic activity/volume] in Serum or Plasma 24 U/L 13 - 60 [facility] ID Date Data Source [id number] 11/18/2020 09:29:00 PM EDT [facility] Name Value Range Interpretation Code Description Data Radha rce(s) Supporting Document(s) COMPREHENSIVE METABOLIC PANEL [facility] COMPREHENSIVE METABOLIC PANEL Sodium [Moles/volume] in Serum or Plasma 137 mEq/L 134 - 153 [facility] Potassium [Moles/volume] in Serum or Plasma 4.0 mEq/L 3.6 - 5.0 [facility] Chloride [Moles/volume] in Serum or Plasma 101 mEq/L 98 - 107 [facility] Carbon dioxide, total [Moles/volume] in Serum or Plasma 26 MEQ/L 22 - 30 [facility] Glucose [Mass/volume] in Serum or Plasma 89 MG/DL 70 - 99 [facility] BUN 13 MG/DL 7 - 21 [facility] Creatinine [Mass/volume] in Serum or Plasma 0.7 MG/DL 0.7 - 1.5 [facility] BUN/CREAT 19 8 - 27 [facility] al Protein [Mass/volume] in Serum or Plasma 7.3 G/DL 6.3 - 8.2 [facility] Albumin [Mass/volume] in Serum or Plasma 4.3 G/DL 3.9 - 5.0 [facility] Globulin [Mass/volume] in Serum by calculation 3.0 GM/DL 2.4 - 3.2 [facility] A/G RATIO 1.4 0.8 - 2.0 [facility] Calcium [Mass/volume] in Serum or Plasma 9.3 MG/DL 8.4 - 10.2 [facility] Bilirubin.total [Mass/volume] in Serum or Plasma <0.7 MG/DL 0.2 - 1.3 [facility] Alkaline phosphatase [Enzymatic activity/volume] in Serum or Plasma 118 U/L 38 - 126 [facility] Aspartate aminotransferase [Enzymatic activity/volume] in Serum or Plasma 27 U/L 5 - 40 [facility] Alanine aminotransferase [Enzymatic activity/volume] in Seru m or Plasma 38 U/L 7 - 56 [facility] Anion gap 3 in Serum or Plasma 10.0 mmol/L 8.0 - 16.0 [facility] AGE 30 yrs [facility] al NON-AA GFR >60 mL/min [facility] ital AFR AMER GFR >60 mL/min [facility] Male GFR In terprentation 20-49 yrs >60 mL/min Normal 50-59 yrs >56 mL/min Normal 60-69 yrs >49 mL/min Normal 70-79yrs >42 mL/min Normal 80 and above >35 mL/min Normal Female GFR Interpretation 20-39 yrs >60 mL/min Normal 40-49 yrs >58 mL/min Normal 50-59 yrs >51 mL/min Normal 60-69 yrs >45 mL/min Normal 70-79 yrs >39 mL/min Normal 80 and above >32 mL/min Normal ID Date Data Source [id number] 11/18/2020 09:13:00 PM EDT [facility] Name Value Range Interpretation Code Description Data Radha rce(s) Supporting Document(s) CBC W/AUTOMATED DIFF [facility] COMPLETE BLOOD COUNT Leukocytes [#/volume] in Blood by Automated count 8.6 10^3/uL 4.2 - 1 1.0 [facility] Erythrocytes [#/volume] in Blood by Automated count 4.36 10^6/uL 4. 20 - 5.40 [facility] Hemoglobin [Mass/volume] in Blood 13.7 g/dL 12.0 - 16.0 [facility] Hematocrit [Volume Fraction] of Blood by Automated count 41.3 % 3 7.0 - 47.0 [facility] Erythrocyte mean corpuscular volume [Entitic volume] by Auto mated count 94.7 fL 81.0 - 101 [facility] Erythrocyte mean corpuscular hemoglobin [Entitic mass] by Automated count 31.4 pg 27.0 - 34.0 [facility] Erythrocyte mean corpuscular hemoglobin concentration [Mass/volume] by Automated count 33.2 g/dL 31.0 - 36.0 [facility] Erythrocyte distribution width [Ratio] by Automated count 12.3 % 11.5 - 14.5 [facility] Platelets [#/volume] in Blood by Automated count 334 10^3/uL 150 - 45 0 [facility] Platelet mean volume [Entitic volume] in Blood by Automated count 9.7 fL 7.4 - 10.4 [facility] Neutrophils/100 leukocytes in Blood by Automated count 60.7 % 37. 0 - 80.0 [facility] Lymphocytes/100 leukocytes in Blood by Manual count 28.7 % 25.0 - 40.0 [facility] Monocytes/100 leukocytes in Blood by Automated count 8.7 % 3.0 - 8.0 H [facility] Eosinophils/100 leukocytes in Blood by Automated count 1.4 % 0.0 - 7.0 [facility] Basophils/100 leukocytes in Blood by Automated count 0.3 % 0.0 - 2.5 [facility] %IG 0.2 % 0.0 - 0.0 [facility] %NRBC 0.0 % 0.0 - 0.0 [facility] al Neutrophils [#/volume] in Blood by Automated count 5.24 10^3/uL 2.00 - 6.90 [facility] Lymphocytes [#/volume] in Blood by Automated count 2.48 10^3/uL 0.60 - 3.40 [facility] Monocytes [#/volume] in Blood by Automated count 0.75 10^3/uL 0.00 - 0.90 [facility] Eosinophils [#/volume] in Blood by Automated count 0.12 10^3/uL 0.00 - 0.70 [facility] Basophils [#/volume] in Blood by Automated count 0.03 10^3/uL 0.00 - 0.20 [facility] #IG 0.02 10^3/uL 0.00 - 0.10 [facility] #NRBC 0.00 10^3/uL 0.00 - 0.00 [facility] MANUAL DIFF NOT INDICATED [facility] RBC MORPH NOT INDICATED [facility] ID Date Data Source [id number] 11/18/2020 09:11:00 PM EDT [facility] Name Value Range Interpretation Code Description Data Radha rce(s) Supporting Document(s) Lactate [Moles/volume] in Serum or Plasma 1.5 MMOL/L 0.2 - 2.2 [facility] ID Date Data Source [id number] 09/07/2020 09:12:00 AM EDT [facility] [address] [place] [address] PHONE: [phone] FAX: [phone] Name .................. : EMI TANN Acct Number.................. : [id number] ROOM. ................. : TR-1A MR Number ................... : [id number] Stay type ............. : E/R Discharge Date......... ... : Admit Date ......... : 09/06/20 Admit Phys .................... : JOSE Espinoza Date of ....... : 1990 Family Phys ................... : AMANDA PURVIS Phone .................. : [phone] Age ................................ : 30 Film# .................. .:[id number] Sex ................................. : F Unsigned transcriptions are preliminary reports and do not represent a medical or legal document CT HEAD W/O CONTRAST [id number] COMPLETE:09/06/20 15:16 [id number] Reason(s): Headache CT OF THE HEAD WITHOUT CONTRAST: COMPARISON: None. FINDINGS: No intra-axial or extra-axial collections of fluid. Ventricles and sulci unremarkable. No midline shift or mass effect. Visualized paranasal sinuses and mastoid air cells unremarkable. IMPRESSION: No acute intracranial process. While performing the above CT examination, radiation dose reduction was accomplished utilizing automated exposure control, adjusting of the mA and kV based on the patient's body size and/or the use of imperative reconstructive techniques. CT dose: 854.4 mGycm Electronically Reviewed and Signed By Sujata Pepper MD , 09/07/20 09:12, KGMeenakshi Transcribe Initials: LEV , Transcribe Date: 09/06/20 15:58, Dictation Date: Copy for: [facility]ILLAL[facility]OS via fax Copy for: EMERGENCY DEPT via modem Copy for: 710 MED REC DISCHARGED Page 1 of 1 Name Value Range Interpretation Code Description Data Radha rce(s) Supporting Document(s) ID Date Data Source [id number] 09/06/2020 03:17:00 PM EDT [facility] 1 OrderSheet [facility] Emergency Department [address] [place] [address] Phone #: ext- [phone] 09/06/2020 14:58 Patient: KADY MIDDLETON Sex: F : 1990 Age: 30yWEIGHT:117.9 kg (S) HEIGHT:68 inches (S) BMI:39.5ALLERGIES: Latex, NexIUMCHIEF COMPLAINT: migraine HADIAGNOSIS: MigraineLAB ORDERSOrder Description Priority Entered Acknowledged InitialedCBC w Diff STAT 15:14 09/06/2020 15:49 Tapan Downing R.N. PA;CMP STAT 15:14 09/06/2020 15:49 Tapan Bateman R.N. PA;PT/PTT STAT 15:14 09/06/2020 15:49 Tapan Bateman R.N. PA;DIAGNOSTIC STUDY ORDERSOrder Description Priority Entered Acknowledged InitialedCT Head W/O Cont STAT 15:14 09/06/2020 15:49 Bhvaana,(Oxygen?(No)) Tapan Hart R.N. PA; Reason for Study: HeadacheMEDICATION/IV/DRIP/FLUID ORDERSOrder Description Priority Entered Acknowledged InitialedNS IV 1000 mL 15:14 09/06/2020 Ack'd: 15:49 16:07 Bhavana,Bolus: : Bolus 1000 Hailey Hess R.N.mL (X1) PA; R.N.Ofirmev IV 1000 mg 15:17 09/06/2020 Ack'd: 15:49 16:13 Bhavana,(NOW x1, Infuse Hailey HessNOmairaover 15 minutes) PA; R.N.Reglan 10 mg IVP 15:17 09/06/2020 Ack'd: 15:49 16:08 Bhavana,Brett dose: 10 mg Hailey Hess R.N.(NOW x1) TIFFANIE; ROmairaNOmaira 2 OrderSheet [facility] Emergency Department [address] [place] [address] Phone #: ext- [phone] 09/06/2020 14:58 Patient: KADY MIDDLETON Sex: F : 1990 Age: 30yHaloperidol IVP 5 15:17 09/06/2020 Ack'd: 16:08 16:12 Bhavana,Hailey Tobias R.N.; R.NOmairaZofran IVP 8 mg 15:17 09/06/2020 Ac k'd: 15:49 16:07 Tapan Bateman Jennifer Jennifer R.N. PA; R.NOmairaGENERAL ORDERSOrder Description Priority Entered Acknowledged Initialed[Electronically signed by Hailey Bateman R.N. (17:32 09/06/2020)][Electronically signed by Tapan Louis (22:07 09/06/2020)][Electronically locked by Hailey Bateman R.N. (17:32 09/06/2020)] Name Value Range Interpretation Code Description Data Radha rce(s) Supporting Document(s) ID Date Data Source [id number] 09/06/2020 03:17:00 PM EDT [facility] 1 Medication Reconciliation Report [facility] Emergency Department [address] [place] [address] Phone #: ext- [phone] 09/06/2020 14:58 Patient: KADY MIDDLETON Sex: F : 1990 Age: 30yWeight: 117.9 kgHeight/Length: 68 in.BMI: 39.5ALLERGIES: Latex, NexIUMThe patient's Home Medications are listed below:CONTINUE TAKING THE FOLLOWING MEDICATIONS: Abilify Oral (10 mg) 1 tablet, daily Benadryl Allergy Oral (25 mg) 2 tablets, prn Imitrex Oral UNKNOWN DOSE, NOT HER PRESCRIPTION, SIGNIFICANT OTHERS Liothyronine Sodium Oral (25 mcg) 1 tablet, daily Prazosin HCl Oral 5 mg, daily PROzac Oral 40 mg, daily Trileptal Oral 450 mg, 2x a day Xanax Oral 0.25 mg, 2x a day Zofran ODT Oral 8 mg, prnThe source(s) of the original Home Medication information:patientThe following Medications were given to the patient in the Emergency Department:NS [IV] IV Fluids bolus 1000 mL wide open, administered: 16:00 09/06/2020Zofran [IVP] IVP 8 mg, administered: 16:00 09/06/2020eglan [IVP] IVP 10 mg diluted in NS 10 mL, administered: 16:04 09/06/2020 2 Medication Reconciliation Report [facility] Emergency Department [address] [place] [address] Phone #: ext- [phone] 09/06/2020 14:58 Patient: KADY MIDDLETON Sex: F : 1990 Age: 30yHaloperidol [IVP] IVP 5 mg diluted in NS 10 mL, administered: 16:12 09/06/2020Ofirmev IVPB bolus 0, then 1000 mg, administered: 16:13 09/06/2020The following Medications were prescribed to the patient:None. Name Value Range Interpretation Code Description Data Radha rce(s) Supporting Document(s) ID Date Data Source [id number] 09/06/2020 03:17:00 PM EDT [facility] 1 Medication Administration Record [facility] Emergency Department [address] [place] [address] Phone #: ext- [phone] 09/06/2020 14:58 Patient: KADY MIDDLETON Sex: F : 1990 Age: 30yWeight: 117.9 kgHeight/Length: 68 inBMI: 39.5ALLERGIES: Latex, NexIUM Date/Time Medication Administered Medication OrderedStart NS [IV] NS IV 1000 mL Bolus: : Bolus 584145:00 09/06/2020 Dose: IV Fluids mL (X1)Hailey Bateman R.N. Bolus: 1000 mL wide open---- Dispensed: 1000 mL bagStop Site: #1 left AC17:20 1PHailey ramos R.N.Start Ofirmev * Ofirmev IV 1000 mg (NOW x1,16:13 09/06/2020 Dose: 1000 mg * IVPB Infuse over 15 minutes)Hailey Bateman R.N.----Stop16:45 1PHailey ramos R.N.Given REGLAN [IVP] (METOCLOPRAMIDE Reglan 10 mg IVP X1 dose: 10 mg16:04 09/06/2020 HCL) (NOW x1)Hailey Bateman R.N. Dose: 10 mg IVP In: NS 10 mL Site: #1 left ACGiven HALOPERIDOL [IVP] Haloperidol IVP 5 mg16:12 09/06/2020 Dose: 5 mg IVPPHailey ramos R.N. In: NS 10 mL Site: #1 left ACGiven ZOFRAN [IVP] (ONDANSETRON HCL) Zofran IVP 8 mg16:00 09/06/2020 Dose: 8 mg Hailey Morley R.N. Site: #1 left Name Value Range Interpretation Code Description Data Radha rce(s) Supporting Document(s) ID Date Data Source [id number] 09/06/2020 03:17:00 PM EDT [facility] 1 General Instructions [facility] Emergency Department [address] [place] [address] Phone #: ext- [phone] 09/06/2020 14:58 Patient: KADY MIDDLETON Sex: F : 1990 Age: 30yAcute migraine headache without aura, with status migrainosus and ophthalmoplegia- poorly controlledand refractory to treatment.INSTRUCTIONSWarnings: Further evaluation is necessary. It is very important to follow up with a healthcare provider.GENERAL WARNINGS: Return or c ontact your physician immediately if your condition worsens orchanges unexpectedly, if not improving as expected, or if other problems arise. if pain worsens.Your Current Medications: Your current home medications have been reviewed.CONTINUE TAKING THE FOLLOWING MEDICATIONS:Abilify Oral : Tablet 10 mg, 1 tablet daily.Benadryl Allergy Oral : Tablet 25 mg, 2 tablets, prn.Imitrex Oral : UNKNOWN DOSE, NOT HER PRESCRIPTION, SIGNIFICANT OTHERS.Liothyronine Sodium Oral : Tablet 25 mcg, 1 tablet daily.Prazosin HCl Oral : 5 mg daily.PROzac Oral : 40 mg daily.Trileptal Oral : 450 mg 2x a day.Xanax Oral : 0.25 mg 2x a day.Zofran ODT Oral : 8 mg, prn.Follow-up:Follow up with your doctor. Call for the next available appointment. Reason for referral: evaluation,treatment and refer to Neurology for evaluation of Headaches. Summary of care provided to patient.Understanding of the discharge instructions verbalized by patient. ADDITIONAL INFORMATIONMigraine HeadacheA migraine headache is an often severe type of headache. It's different from other types ofheadaches in that symptoms other than pain occur with the it. For instance, a classic migraineheadache means visual symptoms (or aura) such as flashes of light, blind spots or other visionchanges, warns you a headache is coming on. Nausea and vomiting, lightheadedness, sensitivity tolight or sound, and other visual disturbances are common migraine symptoms. The pain may lastfrom a few hours to several days. It's not clear why migraines occur, but certain factors called triggers 2 General Instructions [facility] Emergency Department [address] [place] [address] Phone #: ext- [phone] 09/06/2020 14:58 Patient: KADY MIDDLETON Sex: F : 1990 Age: 30ycan raise the risk of having a migraine attack. A migraine may be triggered by emotional stress ordepression, or by hormone change s during the menstrual cycle. Other triggers include certain birthcontrol pills, overuse of migraine medicines, alcohol or caffeine, foods with tyramine such as agedcheese and wine, eyestrain, weather changes, missed meals, or too little or too much sleep.Home careFollow these tips when taking care of yourself at home: Don't drive yourself home if you were given pain medicine for your headache or are having visual symptoms. Instead, have someone else drive you home. Try to sleep when you get home. You should feel much better when you wake up. Cold can help ease migraine symptoms. Put an ice pack wrapped in a thin towel on your forehead or at the base of your skull. Put heat on the back of your neck to help ease any neck spasm. Drink only clear liquids or eat a light diet until your symptoms get better. This will help you prevent nausea and vomiting.How to prevent migrainesPay attention to what seems to trigger your headache. Try to stay away from the triggers when youcan. If you have headaches often, consider keeping a headache diary. In it, write down what youwere doing, feeling, or eating in the hours before each headache. Show this to your healthcareprovider to help find the cause of your headaches.If stress seems to be a trigger for your headaches, figure out what is causing stress in your life. Learnnew ways to handle your stress. Ideas include regular exercise, bi ofeedback, self-hypnosis, yoga,and meditation. Talk with your healthcare provider to find out more information about managingstress. Many books and digital media are also available on this subject.Tyramine is a substance found in many foods. It can trigger a migraine in some people. These foodscontain tyramine: Chocolate Yogurt All cheeses, but especially aged cheeses Smoked or pickled fish and meat, including fields, caviar, bologna, pepperoni, and salami Liver Avocados 3 General Instructions [facility] Emergency Department [address] [place] [address] Phone #: ext- [phone] 09/06/2020 14:58 Patient: KADY MIDDLETON Sex: F : 1990 Age: 30y Bananas Figs Raisins Red wineTry staying away from these foods for 1 to 2 months to see if you have fewer headaches.How to treat future headaches Take time out at the first sign of a headache, if possible. Find a quiet, dark, comfortable place to sit or lie down. Let yourself relax or sleep. Put an ice pack wrapped in a thin towel on your forehead or on the area of greatest pain. A heating pad and massage may help if you are having a muscle spasm and tightness in your neck. If you have been prescribed a medicine to stop a migraine headache, use this at the first warning sign of the headache for best results. First signs may be an aura or pain. If you have been prescribed a medicine to prevent the headaches, it's important to take the medicine as directed. Many of these medicines may take a few weeks to start preventing headaches, so it's important to not give up on them right away. If you continue to have just as many headaches after taking these medicines for a while, talk with your doctor to see if the dose needs to be changed or if a different medicine is advised. If you need to take medicine often for your migraine, talk with your healthcare provider about other ways to prevent your headaches.Follow-up careFollow up with your healthcare provider, or as advised. Talk with your provider if you have frequentheadaches. He or she can figure out a treatment plan. Ask if you can have medicine to take at homethe next time you get a bad headache. This may keep you from having to visit the emergencydepartment in the future. You may need to see a headache specialist (neurologist) if you continue tohave headaches.When to seek medical adviceCall your healthcare provider right away if any of these occur: Your head pain gets worse, or doesn't get better within 24 hours You can't keep liquids down (repeated vomiting) 4 General Instructions [facility] E mergency Department [address] [place] [address] Phone #: [phone] 09/06/2020 14:58 Patient: KADY MIDDLETON Sex: F : 1990 Age: 30y Pain in your sinuses, ears, or throat Fever of 100.4 F (38 C) or higher, or as directed by your healthcare provider Stiff neck Extreme drowsiness, confusion, or fainting Dizziness, or dizziness with spinning sensation (vertigo) Weakness or trouble feeling in an arm or leg, or on one side of your face Trouble talking or seeing [phone] [employer]. [address] [place] [address]. All rights reserved. This information is not intended as asubstitute for professional medical care. Always follow your healthcare professional's instructions. You have been given the following additional information: Headache, Migraine, Classic(Electronically signed by TIFFANIE Dave 09/06/2020 22:07) Name Value Range Interpretation Code Description Data Radha rce(s) Supporting Document(s) ID Date Data Source [id number] 09/06/2020 03:17:00 PM EDT [facility] 1 Clinical Report - Nurses [facility] Emergency Department [address] [place] [address] Phone #: ext- [phone] 09/06/2020 14:58 Patient: KADY MIDDLETON Sex: F : 1990 Age: 30yTRIAGEArrived by private vehicle. Historian: patient. Accompanied by (Dropped off).Triage time: late entry - 14:58 09/06/2020. Acuity: LEVEL 4.Chief Complaint: MIGRAINE HEADACHE.Alert. No acute distress.( Pt states has a history of migraines, has not seen neurology for this in the past. Pt states 4 days ago shestarted having left sided head pain, spreading to forehead and behind her eyes, feels like her typicalmigraine, but does not normally last this long. Pt was seen at urgent care yesterday for this and was giventoradol shot. Pt went to [facility] later on yesterday and was given tylenol, reglan, dexamethasone andbenadryl IV.). The patient has had nausea. The patient has had vomiting (once today). (Photosensitivity).Treatment DISASTER DIRECTOR:(8mg Zofran, tylenol, imitrex all at 0815, at 1130 took toradol and 50mg Benadryl and caffeine).SEPSIS SCREEN: SIRS SCREEN NEGATIVE. SEPSIS SCREEN NEGATIVE. No suspected or confirmedsigns of infection present. (15:07 09/06/2020).DAVE COMA SCORE: 15- eyes open- spontaneous (4); best verbal response- oriented (5); bestmotor response- obeys commands (6). --15:09 09/06/20 Hailey Bateman R.N.15:00 09/06/20. BP: 113/72. MAP: 85. HR: 92. RR: 18. O2 saturation: 100% on room air. Temp: 98.7 F(oral). Pain level now: 01/05. --15:09 09/06/20 Hailey Bateman R.N.Weight: 117.9 kg stated. Height/Length: 68 inches Per Patient. BMI: 39.5. --14:57 09/06/20 Hailey Bateman R.N.MedicationsZofran ODT Oral 8 mg, as needed. --15:04 09/06/20 Hailey Bateman R.N. Benadryl Allergy Oral (Tablet 25 mg) 2 tablets, as needed. --15:04 09/06/20 Hailey Bateman R.N. Imitrex Oral UNKNOWN DOSE (NOT HER PRESCRIPTION, SIGNIFICANT OTHERS). --15:04 09/06/20Hailey Bateman R.N. Xanax Oral 0.25 mg, 2x a day. --15:04 09/06/20 Hailey Bateman R.N. Trileptal Oral 450 mg, 2x a day. --15:04 09/06/20 Hailey Bateman R.N. PROzac Oral 40 mg, daily. --15:04 09/06/20 Hailey Bateman R.N. Liothyronine Sodium Oral (Tablet 25 mcg) 1 tablet, daily. --15:05 09/06/20 Hailey Bateman R.N. Prazosin HCl Oral 5 mg, daily. --15:05 09/06/20 Hailey Bateman R.N. Abilify Oral (Tablet 10 mg) 1 tablet, daily. --15:05 09/06/20 Hailey Bateman R.N. 2 Clinical Report - Nurses [facility] Emergency Department [address] [place] [address] Phone #: [phone]- [phone] 09/06/2020 14:58 Patient: KADY MIDDLETON Sex: F : 1990 Age: 30yAllergiesNexIUM. --15:05 09/06/20 Hailey Bateman R.N.Latex. --15:05 09/06/20 Hailey Bateman R.N.PROBLEMS:Bipolar Disorder.PTSD.Endometriosis.Asthma.Migraine Headache. --15:09/06/20 Hailey Bateman R.N.Medication/allergy information source: the patient. --15:09/06/20 Hailey Bateman R.N.ADDITIONAL SURGERIES:Adenoidectomy.Dental Surgery.Laparoscopy.Tonsillectomy. --15:09/06/20 Hailey Bateman R.N.HistoryPAST MEDICAL HX: Immunizations: up-to-date. Uses an intrauterine device.SOCIAL HX: Current some days smoker (electronic cigarrettes). Occasional alcohol use. Occasionaldrug use: marijuana. (medical marijuana). No recent travel. No known contact with a sick individual.The patient was offered HIV testing but declined. Patient education was provided. The patient was offeredhepatitis C testing but declined. Patient education was provided. ( COVID screen negative). The patienthas not traveled outside the [place]Infectious disease exposure: No infectious disease exposure. The patient was not exposed to Coronavirus.Mask placed on patient. Patient is not a known carrier of tuberculosis, hepatitis, HIV, MRSA or VRE.Patient is not a known carrier of CRE.SELF HARM ASSESSMENT: Self harm assessment was performed. The patient answered "no" to thequestion(s) "Do you have thoughts of harming or killing yourself?" and "Do you have a plan for harming orkilling yourself?".ABUSE ASSESSMENT: Abuse assessment. The patient had positive responses to the question(s) "Do youfeel safe in your home?". Abuse denied. No suspicion of abuse. No report of abuse.NUTRITIONAL RISK ASSESSMENT: The nutritional risk assessment revealed no deficiencies.FUNCTIONAL ASSESSMENT: Functional assessment: no impairments noted.LEARNING NEEDS ASSESSMENT: The learning needs assessment revealed no barriers. 3 Clinical Report - Nurses [facility] Emergency Department [address] [place] [address] Phone #: ext- [phone] 09/06/2020 14:58 Patient: KADY MIDDLETON Sex: F : 1990 Age: 30y FALL RISK ASSESSMENT: Fall risk assessment completed. No risk factors identified. SKIN INTEGRITY ASSESSMENT: Skin integrity risk assessment completed. No skin integrity risk identified. --15:09 09/06/20 Hailey Bateman R.N. Interventions Identification band on patient. --15:09/06/20 Hailey Bateman R.N.PHYSICAL ASSESSMENTAmbulatory to room.GENERAL / NEURO / PSYCH: Alert. Oriented X 4. Appears in pain. Speech within normal limits. (neuro exam within normal limits). Pupillary exam: Pupils are equal, round, and reactive to light. Right [id number]. Left pupil: 7mm.HEENT: No facial asymmetry noted. Pupils equal, round and reactive to light.RESPIRATORY: Respirations not labored. Breath sounds within normal limits.CVS: Capillary refill less than 2 seconds.GI / : The patient has had nausea. Emesis noted. (please see triage note). Abdomen soft andnontender.SKIN: Skin is warm and dry. --15:12 09/06/20 Hailey Bateman R.N.NURSING PROGRESS NOTESPatient gowned. Reassurance given. Lights dimmed. Three patient identifiers checked. Call lightplaced in reach. Side rails up x 2. Bed placed in lowest position. Brakes of bed on. Patient ready forevaluation- PA notified. --15:12 09/06/20 Hailey Bateman R.N. late entry - 15:39 09/06/20. Patient transported to [place] by wheelchair with mask and pharmaceutical laboratory technician. --15:44 09/06/20 Hailey Bateman R.N. Patient returned from CT by wheelchair with mask and pharmaceutical laboratory technician. --15:44 09/06/20 Hailey Bateman R.N. 15:50 09/06/2020 Site #1 started via IV in the left antecubital space with an 20g angiocath, with aseptic technique and good blood return; one attempt. Saline lock flushed with 10 mL saline. --15:50 09/06/20 Hailey Bateman R.N. 16:00 09/06/2020 Started bag #1 1000 mL IV Fluids NS; bolus of 1000 mL wide open via site #1 via IV pump. Allergies verified and confirmed 5 rights. IV patency established. IV site checked: no pain, redness, or swelling. IV flushed thoroughly pre- and post- medication administration. Information reviewed with patient including reason for taking this medication, signs of allergic reaction and precautions. Verbal izes understanding. --16:07 09/06/20 Hailey Bateman R.N. 16:00 09/06/2020 Zofran (Ondansetron HCl) IVP 8 mg given over 4 minute(s) via site #1. Allergies verified and confirmed 5 rights. IV patency established. IV site checked: no pain, redness, or swelling. IV flushed thoroughly pre- and post-medication administration. IVP given by RN. Information reviewed with patient 4 Clinical Report - Nurses [facility] Emergency Department [address] [place] [address] Phone #: ext- [phone] 09/06/2020 14:58 Patient: KADY MIDDLETON Sex: F : 1990 Age: 30yincluding reason for taking this medication, signs of allergic reaction and precautions. Verbalizesunderstanding. --16:07 09/06/20 Hailey Bateman R.N.16:04 09/06/2020 Reglan (Metoclopramide HCl) IVP 10 mg given diluted in NS 10mL over 5 minute(s) viasite #1. Allergies verified and confirmed 5 rights. IV patency established. IV site checked: no pain, redness,or swelling. IV flushed thoroughly pre- and post-medication administration. IVP given by RN. Informationreviewed with patient including reason for taking this medication, signs of allergic reaction and precautions.Verbalizes understanding. --16:08 09/06/20 Hailey Bateman R.N.Reassessment acuity: LEVEL 3.Rounding: Pain: assessed pain level. Proximity of possessions / care items: call light within easy reach.Plug ins: assured IV pump plugged in; checked status of equipment in use; located all cords, tubes, andlines to prevent fall hazard. Set expectation s: advised patient of rounding protocol timing and asked if theyneeded anything else at this time. The patient is calm and resting quietly. Overall patient status is thesame- she states feels the same.GENERAL / NEURO / PSYCH: Alert. Oriented X 4.RESPIRATORY: No respiratory distress. --16:09 09/06/20 Hailey Bateman R.N.16:08 09/06/20. BP: 110/67. HR: 66. RR: 18. O2 saturation: 100%. --16:09 09/06/20 Hailey Bateman R.N.16:12 09/06/2020 Haloperidol IVP 5 mg given diluted in NS 10mL over 5 minute(s) via site #1. Allergiesverified and confirmed 5 rights. IV patency established. IV site checked: no pain, redness, or swelling. IVflushed thoroughly pre- and post-medication administration. IVP given by RN. Information reviewed withpatient including reason for taking this medication, signs of allergic reaction, precautions and sedativewarning. Verbalizes understanding. --16:12 09/06/20 Hailey Bateman R.N.16:13 09/06/2020 Ofirmev * IVPB 1000 mg --16:13 09/06/20 Hailey Bateman R.N.Reass essment acuity: LEVEL 3.Rounding: Pain: assessed pain level. Proximity of possessions / care items: call light within easy reach. Setexpectations: advised patient of rounding protocol timing and asked if they needed anything else at thistime. Reassessment after medication administered. Pain still present. She has had no adverse reaction.Overall patient status is the same- she states feels the same. ( Pt states she feels about the same, PAmade aware. Pt NAD, on phone, will recheck VS.).GENERAL / NEURO / PSYCH: The patient reports headache is still present. Alert. Oriented X 4.RESPIRATORY: No respiratory distress. --17:00 09/06/20 Hailey Bateman R.N.16:58 09/06/20. BP: 93/55. PA notified. MAP: 67. HR: 78. RR: 18. O2 saturation: 97%. --17:00 09/06/20Hailey Bateman R.N.16:25 09/06/2020 Zofran IVP Response: no adverse reaction symptoms have improved the patient feels 5 Clinical Report - Nurses [facility] Emergency Department [address] [place] [address] Phone #: ext- [phone] 09/06/2020 14:58 Patient: KADY MIDDLETON Sex: F : 1990 Age: 30y better. --17:28 09/06/20 Hailey Bateman R.N. 16:45 09/06/2020 Reglan IVP Response: no adverse reaction symptoms are the same. The patient feels the same. --17:28 09/06/20 Hailey Bateman R.N. 16:45 09/06/2020 Haloperidol IVP Response: no adverse reaction symptoms are the same. The patient feels the same. Physician multimedia assistant notified. --17:29 09/06/20 Hailey Bateman R.N. 16:45 09/06/2020 Ofirmev IVPB Discontinued: bag #1 completed. Total amount infused: 100 mL. IV patency established. IV site checked: no pain, redness, or swelling. IV flushed thoroughly. --17:29 09/06/20 Hailey Bateman R.N. 17:29 09/06/20. Pain level now 510. --17:30 09/06/20 Hailey Bateman R.N. late entry - 17:09/06/20. Reassessment acuity: LEVEL 3. The patient reports no complaints, she is calm and resting quietly and she has had no adverse reaction. Overall patient status is improved- she states feels better. GENERAL / NEURO / PSYCH: The patient reports headache is still present but improving. Alert. Oriented X 4. RESPIRATORY: No respiratory distress. --17:30 09/06/20 Hailey Bateman R.N. 17:20 09/06/2020 IV Fluids NS via IV site #1 Discontinued: bag #1 completed. Total amount infused: 1000 mL. IV patency established. IV site checked: no pain, redness, or swelling. IV flushed thoroughly. --17:28 09/06/20 Hailey Bateman R.N.DISPOSITION / DISCHARGE Departure time: late entry - 17:09/06/2020. Condition at departure: improved and stable. No learning barriers present. Discharge instructions provided and reviewed with the patient. Reviewed warnings (please see paper copy). Patient verbalized understanding. Written instructions provided in Omani. The patient was discharged by the physician multimedia assistant. She was discharged home and accompanied by glucose and syrup weigher. She left ambulatory and via private vehicle. Electro Mechanic driving. --17:31 09/06/20 Hailey Bateman R.N. 17:30 09/06/20. BP: 101/69. MAP: 79. HR: 67. RR: 18. O2 saturation: 98% on room air. Temp: 98.5 F (oral). Pain level now: 510. --17:31 09/06/20 Hailey Bateman R.N. 17:25 09/06/2020 Site #1 removed upon discharge. Bandage applied (2x2 and tape, no bleeding noted, pt tolerated well, clean dry and intact upon d/c.). --17:32 09/06/20 Hailey Bateman R.N.Locked/Released at 09/06/2020 17:32 by Hailey Bateman R.N. 6 Clinical Report - Nurses [facility] Emergency Department [address] [place] [address] Phone #: ext- [phone] 09/06/2020 14:58 Patient: KADY MIDDLETON Sex: F : 1990 Age: 30y Name Value Range Interpretation Code Description Data Radha rce(s) Supporting Document(s) ID Date Data Source [id number] 09/06/2020 03:17:00 PM EDT [facility] 1 Clinical Report - Physicians/Mid Levels [facility] Emergency Department [address] [place] [address] Phone #: ext- [phone] 09/06/2020 14:58 Patient: KADY MIDDLETON Sex: F : 1990 Age: 30y Time Seen: 15:00 09/06/2020. Arrived- By private vehicle. Historian- patient.HISTORY OF PRESENT ILLNESS Chief Complaint: MIGRAINE HEADACHE. Is still present. This started 4 days ago. It was abrupt in onset and has been constant. It is described as similar to previous headaches and "pain". Located in the region of the right eye and frontal region. At its maximum, severity described as 8 / 10. When seen in the E.D., severity described as 8 / 10. The patient has had photophobia, nausea and vomiting. No preceding symptoms, blurred vision, numbness or weakness. (Pt states has a history of migraines, has not seen neurology for this in the past. Pt states 4 days ago she started having left sided head pain, spreading to forehead and behind her eyes, feels like her typical migraine, but does not normally last this long. Pt was seen at urgent care yesterday for this and was given toradol shot. Pt went to [facility] later on yesterday and was given tylenol, reglan, dexamethasone and benadryl IV.). The patient has had nausea. The patient has had vomiting (once today). ( Photosensitivity).). Similar symptoms previously. Patient has had similar symptoms several times. Recent medical care: The patient was seen recently at another facility in the emergency department and a clinic.REVIEW OF SYSTEMSLast normal menstrual period unknown. Uses an intrauterine device. No fever, muscle aches, sinuspressure, ear pain or sore throat. No carbon monoxide exposure, tick bite, head injury, chest pain ordifficulty breathing. No cough, abdominal pain, diarrhea, pain with urination or skin rash. No enlargedlymph nodes or back pain.PAST HISTORYProblems:Bipolar Disorder.PTSD.Endometriosis.Asthma.Migraine Headache. Additional Surgeries: Adenoidectomy. Dental Surgery. 2 Clinical Report - Physicians/Mid Levels [facility] Emergency Department [address] [place] [address] Phone #: [phone] 09/06/2020 14:58 Patient: KADY MIDDLETON Sex: F : 1990 Age: 30y Laparoscopy. Tonsillectomy. Medications: Abilify Oral (Tablet 10 mg) 1 tablet, daily. Prazosin HCl Oral 5 mg, daily. Liothyronine Sodium Oral (Tablet 25 mcg) 1 tablet, daily. PROzac Oral 40 mg, daily. Trileptal Oral 450 mg, 2x a day. Xanax Oral 0.25 mg, 2x a day. Imitrex Oral UNKNOWN DOSE (NOT HER PRESCRIPTION, SIGNIFICANT OTHERS). Benadryl Allergy Oral (Tablet 25 mg) 2 tablets, as needed. Zofran ODT Oral 8 mg, as needed. Allergies: Latex. NexIUM.SOCIAL HISTORYSmoker- current status unknown (electronic cigarrette). Occasional alcohol use. Drug use: Medical:marijuana.PHYSICAL EXAMVital Signs: 09/06/2020 15:00 BP: 113/72. MAP: 85. HR: 92. RR: 18. O2 saturation: 100% on room air.Temp: 98.7 F. Pain level now: 8/10. Have been reviewed as normal. Oxygen saturation normal.Appearance: Alert. No acute distress.Eyes: Photophobia present. Pupils equal, round and reactive to light.ENT: Ears normal. Nose normal. Pharynx normal.Neck: Normal ins pection. Neck supple.CVS: Normal heart rate and rhythm. Heart sounds normal.Respiratory: No respiratory distress. Painless inspiration.Abdomen: Nontender.Back: Normal inspection.Skin: Skin warm and dry. Normal skin color. No rash. Normal skin turgor.Extremities: Extremities exhibit normal ROM. No lower extremity edema.Neuro: Oriented X 3. Alert. Mood/affect normal. Speech normal. Cranial nerves normal (as tested).No cerebellar findings. No motor deficit. No sensory deficit. Reflexes normal.LABS, X-RAYS, AND EKGCT Head: Normal study. (NAD). Head CT performed without contrast. The study was interpreted by theradiologist and contemporaneously by me. Interpretation time: 15:55 09/06/2020.Laboratory Tests: Laboratory tests have been ordered, with results reviewed and considered in themedical decision making process. CBC w Diff: (LULU: 09/06/2020 15:25) ( MsgRcvd 09/06/2020 16:22) Final results Test Result Flag Units (Reference) 3 Clinical Report - Physicians/Mid Levels [facility] Emergency Department [address] [place] [address] Phone #: ext- [phone] 09/06/2020 14:58 Patient: KADY MIDDLETON [facility]#: [id number] Sex: F : 1990 Age: 30y CBC W/AUTOMATED DIFF COMPLETE BLOOD COUNT WBC 14.5 H 10/uL (4.2 - 11.0) RBC 4.36 10/uL (4.20 - 5.40) HEMOGLOBIN 13.8 g/dL (12.0 - 16.0) HEMATOCRIT 40.4 % (37.0 - 47.0) MCV 92.7 fL (81.0 - 101) MCH 31.7 pg (27.0 - 34.0) MCHC 34.2 g/dL (31.0 - 36.0) RDW 13.1 % (11.5 - 14.5) PLATELETS 326 10/uL (150 - 450) MPV 9.4 fL (7.4 - 10.4) NEUT 78.5 % (37.0 - 80.0) LYMPH 12.6 L % (25.0 - 40.0) MONO 8.4 H % (3.0 - 8.0) EOS 0.1 % (0.0 - 7.0) BASO 0.1 % (0.0 - 2.5) %IG 0.3 H % (0.0 - 0.0) %NRBC 0.0 % (0.0 - 0.0) #NEUT 11.37 H 10/uL (2.00 - 6.90) #LYMPH 1.83 10/uL (0.60 - 3.40) #MONO 1.21 H 10/uL (0.00 - 0.90) #EOS 0.01 10/uL (0.00 - 0.70) #BASO 0.01 10/uL (0.00 - 0.20) #IG 0.05 10/uL (0.00 - 0.10) #NRBC 0.00 10/uL (0.00 - 0.00) MANUAL DIFF SEE BELOW SEGS 74 % (37 - 80) BAND 0 % (0 - 5) %LYMPH 14 L % (25 - 40) %MONO 12 H % (3 - 8) %EOS 0 % (0 - 7) %BASO 0 % (0 - 2) METAMYELOCYTE 0 % MYELOCYTE 0 % PROMYELOCYTE 0 % BLASTS 0 % LUNA LYM 0 % NRBC 0 % RBC MORPH NOT INDICATEDCMP: (LULU: 09/06/2020 15:25) ( MsgRcvd 09/06/2020 15:49) Final results Test Result Flag Units (Reference) COMPREHENSIVE METABOLIC PANEL COMPREHENSIVE METABOLIC PANEL SODIUM 139 mEq/L (134 - 153) POTASSIUM 3.9 mEq/L (3.6 - 5.0) CHLORIDE 105 mEq/L (98 - 107) CO2 25 MEQ/L (22 - 30) GLUCOSE 79 MG/DL (70 - 99) BUN 10 MG/DL (7 - 21) CREATININE 0.7 MG/DL (0.7 - 1.5) BUN/CREAT 14 (8 - 27) TOTAL PROTEIN 6.7 G/DL (6.3 - 8.2) ALBUMIN 4.0 G/DL (3.9 - 5.0) GLOBULIN 2.7 GM/DL (2.4 - 3.2) A/G RATIO 1.5 (0.8 - 2.0) CALCIUM 9.0 MG/DL (8.4 - 10.2) TOTAL BILI <0.7 MG/DL (0.2 - 1.3) 4 Clinical Report - Physicians/Mid Levels [facility] Emergency Department [address] [place] [address] Phone #: ext- [phone] 09/06/2020 14:58 Patient: KADY MIDDLETON Sex: F : 1990 Age: 30y ALKALINE PHOS 93 U/L (38 - 126) SGOT/AST 15 U/L (5 - 40) SGPT/ALT 20 U/L (7 - 56) ANION GAP 9.0 mmol/L (8.0 - 16.0) AGE 30 yrs NON- AA GFR >60 mL/min AFR AMER GFR >60 mL/min Male GFR Interprentation 20-49 yrs >60 mL/min [id number] yrs >56 mL/min Normal 60-69 yrs >49 mL/min Normal 70-79yrs>42 mL/min Normal 80 and above >35 mL/min Normal Female GFRInterpretation 20-39 yrs >60 mL/min Normal 40-49 yrs >58 mL/minNormal 50-59 yrs >51 mL/min Normal 60-69 yrs >45 mL/min Arofqn36-78 yrs >39 mL/min Normal 80 and above >32 mL/min NormalPT/PTT: (LULU: 09/06/2020 15:25) ( MsgRcvd 09/06/2020 15:40) Final results Test Result Flag Units (Reference) PROTIME 13.8 SECONDS (11.0 - 15.5) INR 1.01 (0.93 - 1.23) PTT 27.5 SECONDS (24.8 - 36.7) \\BLDo\\INR INTERPRETATION\\BLDx\\ Therapeutic range for Coumadin andrelated oral anticoagulants. -International Normalized Ratio (INR): 2.0 - 3.0 for VenousThrombosis, Pulmonary Embolus, Tissue heart valves, Acute [place] Atrial Fibrillation, Valvular heart diseaseand recurrent Systemic Embolism. -International Normalized Ratio (INR): 2.5 - 3.5 forMechanical Prosthetic valve.CT Head W/O Cont: (LULU: 09/06/2020 15:16) ( MsgRcvd 09/06/2020 16:18) In Progress Exam [place] HEAD [place] [address] PHONE: [phone] FAX: [phone] Name .................. : EMI HILLMAN Acct Number.................. : [id number] ROOM. ................. : TR-1A MR Number ................... : [id number] Stay type ............. : E/R Discharge Date......... ... : Admit Date ......... : 09/06/20 Admit Phys .................... : JOSE Espinoza Date of ....... : 1990 Family Phys .............. ..... : AMANDA MER Phone .................. : [phone] Age ................................ : 30 Film# .................. .:[id number] Sex ................................. : F Unsigned transcriptions are preliminary reports and do not represent a medical or legal document CT HEAD W/O CONTRAST [id number] COMPLETE:09/06/20 15:16 [id number] Reason(s): Headache CT OF THE HEAD WITHOUT CONTRAST: COMPARISON: None. FINDINGS: No intra-axial or extra-axial collections of fluid. Ventricles and sulci unremarkable. No midline shift or mass effect. Visualized paranasal sinuses and mastoid air cells unremarkable. 5 Clinical Report - Physicians/Mid Levels [facility] Emergency Department [address] [place] [address] Phone #: ext- [phone] 09/06/2020 14:58 Patient: KADY MIDDLETON Sex: F : 1990 Age: 30y IMPRESSION: No acute intracranial process. While performing the above CT examination, radiation dose reduction was accomplished utilizing automated exposure control, adjusting of the mA and kV based on the patient's body size and/or the use of imperative reconstructive techniques. CT dose: 854.4 mGycm Electronically Reviewed and Signed By DCTLIBBY SIGNDATEVICKIE Transcribe Initials: LEV , Transcribe Date: 09/06/20 15:58, Dictation Date: <<REPDIST>> Page 1 of 1.PROGRESS AND PROCEDURESCourse of Care: 17:Sep 06 2020. Evaluation after observation. (Discussed risks, benefits, options andpt is agreeable with dx and tx plan.). Patient counseled in person regarding the patient's stable condition, test results, diagnosis and need for follow-up. Patient agrees with plan of care. 17:Sep 06 2020. Disposition: Discharged home in good and improved condition (:Sep 06 2020).CLINICAL IMPRESSION Acute migraine headache without aura, with status migrainosus and ophthalmoplegia- poorly controlled and refractory to treatment.INSTRUCTIONS Warnings: Further evaluation is necessary. It is very important to follow up with a healthcare provider. GENERAL WARNINGS: Return or contact your physician immediately if your condition worsens or changes unexpectedly, if not improving as expected, or if other problems arise. if pain worsens. Your Current Medications: Your current home medications have been reviewed. CONTINUE TAKING THE FOLLOWING MEDICATIONS: 6 Clinical Report - Physicians/Mid Levels [facility] Emergency Department [address] [place] [address] Phone #: ext- [phone] 09/06/2020 14:58 Patient: KADY MIDDLETON Sex: F : 1990 Age: 30y Abilify Oral : Tablet 10 mg, 1 tablet daily. Benadryl Allergy Oral : Tablet 25 mg, 2 tablets, prn. Imitrex Oral : UNKNOWN DOSE, NOT HER PRESCRIPTION, SIGNIFICANT OTHERS. Liothyronine Sodium Oral : Tablet 25 mcg, 1 tablet daily. Prazosin HCl Oral : 5 mg daily. PROzac Oral : 40 mg daily. Trileptal Oral : 450 mg 2x a day. Xanax Oral : 0.25 mg 2x a day. Zofran ODT Oral : 8 mg, prn. Follow- up: Follow up with your doctor. Call for the next available appointment. Reason for referral: evaluation, treatment and refer to Neurology for evaluation of Headaches. Summary of care provided to patient. Understanding of the discharge instructions verbalized by patient.(Electronically signed by TIFFANIE Dave 09/06/2020 22:07) Name Value Range Interpretation Code Description Data Radha rce(s) Supporting Document(s) ID Date Data Source [id number] 09/06/2020 04:21:00 PM EDT [facility] Name Value Range Interpretation Code Description Data Radha rce(s) Supporting Document(s) CBC W/AUTOMATED DIFF [facility] COMPLETE BLOOD COUNT Leukocytes [#/volume] in Blood by Automated count 14.5 10^3/uL 4.2 - 11.0 H [facility] Erythrocytes [#/volume] in Blood by Automated count 4.36 10^6/uL 4. 20 - 5.40 [facility] Hemoglobin [Mass/volume] in Blood 13.8 g/dL 12.0 - 16.0 [facility] Hematocrit [Volume Fraction] of Blood by Automated count 40.4 % 3 7.0 - 47.0 [facility] Erythrocyte mean corpuscular volume [Entitic volume] by Auto mated count 92.7 fL 81.0 - 101 [facility] Erythrocyte mean corpuscular hemoglobin [Entitic mass] by Automated count 31.7 pg 27.0 - 34.0 [facility] Erythrocyte mean corpuscular hemoglobin concentration [Mass/volume] by Automated count 34.2 g/dL 31.0 - 36.0 [facility] Erythrocyte distribution width [Ratio] by Automated count 13.1 % 11.5 - 14.5 [facility] Platelets [#/volume] in Blood by Automated count 326 10^3/uL 150 - 45 0 [facility] Platelet mean volume [Entitic volume] in Blood by Automated count 9.4 fL 7.4 - 10.4 [facility] Neutrophils/100 leukocytes in Blood by Automated count 78.5 % 37. 0 - 80.0 [facility] Lymphocytes/100 leukocytes in Blood by Manual count 12.6 % 25.0 - 40.0 L [facility] Monocytes/100 leukocytes in Blood by Automated count 8.4 % 3.0 - 8.0 H [facility] Eosinophils/100 leukocytes in Blood by Automated count 0.1 % 0.0 - 7.0 [facility] 0.1 %IG 0.3 % 0.0 - 0.0 H [facility] %NRBC 0.0 % 0.0 - 0.0 [facility] Neutrophils [#/volume] in Blood by Automated count 11.37 10^3/uL 2. 00 - 6.90 H [facility] Lymphocytes [#/volume] in Blood by Automated count 1.83 10^3/uL 0.60 - 3.40 [facility] Monocytes [#/volume] in Blood by Automated count 1.21 10^3/uL 0.00 - 0.90 H [facility] Eosinophils [#/volume] in Blood by Automated count 0.01 10^3/uL 0.00 - 0.70 [facility] Basophils [#/volume] in Blood by Automated count 0.01 10^3/uL 0.00 - 0.20 [facility] #IG 0.05 10^3/uL 0.00 - 0.10 [facility] #NRBC 0.00 10^3/uL 0.00 - 0.00 [facility] MANUAL DIFF SEE BELOW [facility] ital Segmented neutrophils/100 leukocytes in Blood by Manual count 74 % 37 - 80 [facility] BAND 0 % 0 - 5 [facility] %LYMPH 14 % 25 - 40 L [facility] %MONO 12 % 3 - 8 H [facility] %EOS 0 % 0 - 7 [facility] 0 Metamyelocytes/100 leukocytes in Blood by Manual count 0 % [facility] Myelocytes/100 leukocytes in Blood by Manual count 0 % [facility] Promyelocytes/100 leukocytes in Blood by Manual count 0 % [facility] Blasts/100 leukocytes in Blood by Manual count 0 % [facility] LUNA LYM 0 % [facility] Nucleated erythrocytes/100 erythrocytes in Blood by Manual count 0 % [facility] RBC MORPH NOT INDICATED [facility] ID Date Data Source [id number] 09/06/2020 03:49:00 PM EDT [facility] Name Value Range Interpretation Code Description Data Radha rce(s) Supporting Document(s) COMPREHENSIVE METABOLIC PANEL [facility] COMPREHENSIVE METABOLIC PANEL Sodium [Moles/volume] in Serum or Plasma 139 mEq/L 134 - 153 [facility] Potassium [Moles/volume] in Serum or Plasma 3.9 mEq/L 3.6 - 5.0 [facility] Chloride [Moles/volume] in Serum or Plasma 105 mEq/L 98 - 107 [facility] Carbon dioxide, total [Moles/volume] in Serum or Plasma 25 MEQ/L 22 - 30 [facility] Glucose [Mass/volume] in Serum or Plasma 79 MG/DL 70 - 99 [facility] BUN 10 MG/DL 7 - 21 [facility] Creatinine [Mass/volume] in Serum or Plasma 0.7 MG/DL 0.7 - 1.5 [facility] BUN/CREAT 14 8 - 27 [facility] Protein [Mass/volume] in Serum or Plasma 6.7 G/DL 6.3 - 8.2 [facility] Albumin [Mass/volume] in Serum or Plasma 4.0 G/DL 3.9 - 5.0 [facility] Globulin [Mass/volume] in Serum by calculation 2.7 GM/DL 2.4 - 3.2 [facility] A/G RATIO 1.5 0.8 - 2.0 [facility] Calcium [Mass/volume] in Serum or Plasma 9.0 MG/DL 8.4 - 10.2 [facility] Bilirubin.total [Mass/volume] in Serum or Plasma <0.7 MG/DL 0.2 - 1.3 [facility] Alkaline phosphatase [Enzymatic activity/volume] in Serum or Plasma 93 U/L 38 - 126 [facility] Aspartate aminotransferase [Enzymatic activity/volume] in Serum or Plasma 15 U/L 5 - 40 [facility] Alanine aminotransferase [Enzymatic activity/volume] in Seru m or Plasma 20 U/L 7 - 56 [facility] Anion gap 3 in Serum or Plasma 9.0 mmol/L 8.0 - 16.0 [facility] AGE 30 yrs [facility] NON-AA GFR >60 mL/min [facility] ital AFR AMER GFR >60 mL/min [facility] Male GFR In terprentation 20-49 yrs >60 mL/min Normal 50-59 yrs >56 mL/min Normal 60-69 yrs >49 mL/min Normal 70-79yrs >42 mL/min Normal 80 and above >35 mL/min Normal Female GFR Interpretation 20-39 yrs >60 mL/min Normal 40-49 yrs >58 mL/min Normal 50-59 yrs >51 mL/min Normal 60-69 yrs >45 mL/min Normal 70-79 yrs >39 mL/min Normal 80 and above >32 mL/min Normal ID Date Data Source [id number] 09/06/2020 03:40:00 PM EDT [facility] Name Value Range Interpretation Code Description Data Radha rce(s) Supporting Document(s) Prothrombin time (PT) 13.8 SECONDS 11.0 - 15.5 [facility] INR in Platelet poor plasma by Coagulation assay 1.01 0.93 - 1. 23 [facility] aPTT in Blood by Coagulation assay 27.5 SECONDS 24.8 - 36.7 [facility] \\BLDo\\INR INTERPRETATION\\BLDx\\ Therapeutic range for Coumadin and related oral anticoagulants. - International Normalized Ratio (INR): 2.0 - 3.0 for Venous Thrombosis, Pulmonary Embolus, Tissue heart valves, Acute [place] Atrial Fibrillation, Valvular heart disease and recurrent Systemic Embolism. - International Normalized Ratio (INR): 2.5 - 3.5 for Mechanical Prosthetic valve. ID Date Data Source [id number] 06/23/2020 08:06:00 AM EST [facility] Name Value Range Interpretation Code Description Data Radha rce(s) Supporting Document(s) Folate (Folic Acid), Serum 9.8 ng/mL >3.0 [facility] A serum folate concentration of less antonio n 3.1 ng/mL isconsidered to represent clinical deficiency. ID Date Data Source [id number] 06/23/2020 08:06:00 AM EST [facility] Name Value Range Interpretation Code Description Data [facility] rce(s) Supporting Document(s) Vitamin D, 25-Hydroxy 19.5 ng/mL 30.0-100.0 Below low normal [facility] Vitamin D deficiency has been defined by the [place] ofMedicine and an Endocrine Society practice guideline as alevel of serum 25-OH vitamin D less than 20 ng/mL (1,2).The Endocrine Society went on to further define vitamin Dinsufficiency as a level between 21 and 29 ng/mL (2).1. IOM ([place] of [employer]). 2010. Dietary reference intakes for calcium and D. [place]: The National Academies Press.2. Saloni Guillory, Chacorta [place], et al. Evaluation, treatment, and prevention of vitamin D deficiency: an Endocrine Society clinical practice guideline. JCEM. 2010; 96(7):1911-30. ID Date Data Source [id number] 06/23/2020 08:06:00 AM EST [facility] Name Value Range Interpretation Code Description Data [facility] rce(s) Supporting Document(s) Vitamin B12 900 pg/mL [id number] [facility] ID Date Data Source [id number] 06/23/2020 08:06:00 AM EST [facility] Name Value Range Interpretation Code Description Data [facility] rce(s) Supporting Document(s) VITAMIN D, 25-HYDROXY 19.5 ng/mL 30.0-100.0 [facility] Vitamin D deficiency has been defined by the [place] ofMedicine and an Endocrine Society practice guideline as alevel of serum 25-OH vitamin D less than 20 ng/mL (1,2).The Endocrine Society went on to further define vitamin Dinsufficiency as a level between 21 and 29 ng/mL (2).1. IOM ([place] of [employer]). 2010. Dietary reference intakes for calcium and D. [place]: The National Academies Press.2. Saloni Guillory, Chacorta [place], et al. Evaluation, treatment, and prevention of vitamin D deficiency: an Endocrine Society clinical practice guideline. JCEM. 2010; 96(3):1911-30. ID Date Data Source [id number] 06/23/2020 08:06:00 [facility] Name Value Range Interpretation Code Description Data Radha rce(s) Supporting Document(s) VITAMIN B12 900 pg/mL [id number] [facility] Performed at: RN - [facility] [place] [id number] Director: Jerilyn Sainz MD, Phone: [phone] ID Date Data Source [id number] 06/23/2020 08:06:00 AM [facility] l Name Value Range Interpretation Code Description Data Radha rce(s) Supporting Document(s) FOLATE (FOLIC ACID), SERUM 9.8 ng/mL >3.0 [facility] A serum folate concentration of less antonio n 3.1 ng/mL isconsidered to represent clinical deficiency. ID Date Data Source [id number] 06/22/2020 02:59:00 PM [facility] l Name Value Range Interpretation Code Description Data Radha rce(s) Supporting Document(s) FERRITIN 88 ng/mL 8-252 [facility] ID Date Data Source [id number] 06/22/2020 02:59:00 PM [facility] l Name Value Range Interpretation Code Description Data Radha rce(s) Supporting Document(s) IRON 40 ug/dL 50-170 [facility] TIBC 290 ug/dL 250-450 [facility] % SATURATION 14 % 20-50 [facility] ID Date Data Source [id number] 06/22/2020 02:04:00 PM [facility] l Name Value Range Interpretation Code Description Data Radha rce(s) Supporting Document(s) WHITE BLOOD COUNT 6.4 K/mm3 4.0-10.0 [facility] al RED BLOOD COUNT 4.44 M/mm3 4.00-5.50 [facility] HEMOGLOBIN 13.7 gm/dL 12.0-16.0 [facility] HEMATOCRIT 40.3 % 36.0-48.8 [facility] MEAN CELL VOLUME 90.8 fl 80-96 [facility] MEAN CORPUSCULAR HEMOGLOBIN 30.9 pg 27.0-31.0 [facility] MEAN CORPUSCULAR HGB CONC 34.0 g/dl 32.0-36.0 [facility] RED CELL DISTRIBUTION WIDTH 12.3 % 10.0-14.5 [facility] PLATELET COUNT 305 K/mm3 172-450 [facility] MEAN PLATELET VOLUME 9.4 fl 9.0-13.0 [facility] pital GRAN % 68.6 % 50-80.0 [facility] IG% 0.2 % 0.0-0.2 [facility] LYMPH % 22.2 % 25.0-50.0 L [facility] MONO % 7.3 % 2.0-10.0 [facility] EOS % 1.2 % 0-5.0 [facility] BASO % 0.5 % 0.0-2.0 [facility] GRAN # 4.4 K/mm3 2.0-8.00 [facility] IG# 0.0 K/mm3 0.0-0.2 [facility] LYMPH # 1.4 K/mm3 1.0-5.0 [facility] MONO # 0.5 K/mm3 0.10-1.20 [facility] EOS # 0.1 K/mm3 0.0-0.5 [facility] BASO # 0.0 K/mm3 0.0-0.2 [facility] ID Date Data Source VITAMIN D, 25-HYDROXY 06/22/2020 12:00:00 AM EST eCW1 ([facility]) Name Value Range Interpretation Code Description Data Radha rce(s) Supporting Document(s) 19.5 30.0-100.0 VITAMIN D, 25-HYDROXY eCW 1 ([facility]) ID Date Data Source FERRITIN 06/22/2020 12:00:00 AM EST eCW1 ([facility]) Name Value Range Interpretation Code Description Data Radha rce(s) Supporting Document(s) 88 8-252 FERRITIN eCW1 ([facility]) ID Date Data Source IRON PROFILE 06/22/2020 12:00:00 AM EST eCW1 ([facility]) Name Value Range Interpretation Code Description Data Radha rce(s) Supporting Document(s) 290 250-450 TIBC eCW1 ([facility]) 40 50-170 IRON eCW1 ([facility]) 14 20-50 % SATURATION eCW1 ([facility]) ID Date Data Source CBC W/DIFF 06/22/2020 12:00:00 AM EST eCW1 ([facility]) Name Value Range Interpretation Code Description Data Radha rce(s) Supporting Document(s) 4.44 4.00-5.50 RED BLOOD COUNT eCW1 ([facility]) 6.4 4.0-10.0 WHITE BLOOD COUNT eCW1 ([facility]) 90.8 80-96 MEAN CELL VOLUME eCW1 ([facility]) 13.7 12.0-16.0 HEMOGLOBIN eCW1 ([facility]) 40.3 36.0-48.8 HEMATOCRIT eCW1 ([facility]) 30.9 27.0-31.0 MEAN CORPUSCULAR HEMOGLOB IN eCW1 ([facility]) 305 172-450 PLATELET COUNT eCW1 ([facility]) 34.0 32.0-36.0 MEAN CORPUSCULAR HGB CONC eCW1 ([facility]) 12.3 10.0-14.5 RED CELL DISTRIBUTION WID TH eCW1 ([facility]) 22.2 25.0-50.0 LYMPH % eCW1 ([facility]) 9.4 9.0-13.0 MEAN PLATELET VOLUME eCW1 ([facility]) 68.6 50-80.0 GRAN % eCW1 ([facility]) 7.3 2.0-10.0 MONO % eCW1 ([facility]) 1.4 1.0-5.0 LYMPH # eCW1 ([facility]) 0.5 0.0-2.0 BASO % eCW1 ([facility]) 4.4 2.0-8.00 GRAN # eCW1 ([facility]) 1.2 0-5.0 EOS % eCW1 ([facility]) 0.1 0.0-0.5 EOS # eCW1 ([facility]) 0.5 0.10-1.20 MONO # eCW1 ([facility]) 0.0 0.0-0.2 BASO # eCW1 ([facility]) ID Date Data Source [id number] 06/18/2020 04:22:59 PM EST [facility] Name Value Range Interpretation Code Description Data Radha rce(s) Supporting Document(s) Discharge Summary [facility] HLNNJr9sItQFOyCa64/SZAriMJYmk6IhMExtTKj5SKguMXNqN4JfTDO3nC6zNXI6INoLQfOrKoAbDIDm lbm [file] UV+DRwX6iW2jhgOn6OZscz9aYoe0Ax7kCCKX7I3idXFRNfFQbJi/Richard+vStNbgdUPJXoCtlkWfVd33MnG nh4iNS6zbXgXmWnThlNVEEawxNE4AQ8mn6mVpS3uHKK0oGeUS3+FQyq+y6bJvsj2hfgJMlo8CHkfpDU5 Dg9ym3LiFT52BkLmIMYRMONIonrsdHMZW4vDHQpSb/ dGWppqy0ckPLzPY/3QmzpXQcG+xu510/Xl3E9gKcFoCMgzezAzAHOxuouSsgwZfkjJdt7rNc4nmdbhgT E5O5jtocUB5MsNlVsZOK+RMECugrG9oRXmzCvuHdsZYLklykXIGpmq3mgwFbuj1a3/+8pnQ/TuJOorWX CAP6B6hZ9lmJJ7ZJjOq25xWOuFcWFdvQzjeST8ZTU1 zlDhZPikfbBY5CSYZtWxhIchMsN0SYMi8w8/fcnagv62iNi9lBoblmgOavBZG5Xmu9AyhHjLuPvs5rXs 20LjZEjIMXdMbMiVQ8fu2kgTI8GvnIv6ExWk/2WVOY2nnri5EmTFvx5M3FAj68ba9uqvM6vEcfAlsVr4 XasKDtCjW0hc7s2xBJsdV4SQZXnNqP8mvbhRu5Rk5i E2Ze7Ve7jC31GvaKQbzntfGgTDgljbiEt7xtPftLKzC1dpq/rTdLHhwzxgycesbhh6Rcz8G0kuIplb7A JcMXE08VaCtIPSqNfwDmxXFedHgpMfER89kwVwUdUoNKjGyt5WcTpIL2NW+NcuLjV8tEQRszeU7ArZu5 7+lAuU2J+9NK02naD/GAoQLekjPvm7LsceQMOR0JtS KmQdan8igzvjWJjoNDG3jQuC8E+Tm36eVrM7XjszNVK5WrP2vehZXzqTJsTKGcP03yDC8m/a+h7sxkKn bYe/fCuqhK1dwTkrUKX+Pi4ravJ9Hu/Patient Care Coordinator/ziRrsz9LY4Q29+qKtjUwuflPoikJXnu+hfI63igMD1HCg /tbbGd0BBfCQ2L2RjVnFGsQ7k/BqjdNHJi2H+kw+/g 5MeyLRVKhklrSgbUDpLQ3CUuYyEC3ncj5MOAMgLTVhWdeAIxHzAZwSOdArGELvDEasVA5JLCugMHooCA JaT4McpsOajATeRNCaZa6NKTRkCZ9WHLDcvSFsUFRpSqEkLVVXDfCjFKTsKMArmGPGr6hhQmMgMPP6KW RmHimqMD3CCHYvXC4Xk555KQ74hcBnSHOwSFLDBxDj YGBbY1JrkTWxGKmwX0XrA4MtJU4soZLrBF7vrOKfU4RrQ6SusxqhHQRHAyPnNWViTCsgAXRlUtZgJFle ZSA+Md9FKHD+Rw1VIS5fs5EpKRzqJnCyCF0gul2PJJN6CG4OlYq3OVMrT5HiQJJtGFDdn8DmQP1AXT9j dGggNDEwMT4+IAlwRRV4lzJoaM1HREWudMeo4OPHvT 3G1A9a3cJEcHt4BZwvTMOceq0Kfqp8uS7SLAzgjuYqJSjE3Zp05+4noBBmZpeRXEoFA1AIZ9VlJU+qqu td3UnS/jnFCGcDSA2Ua4/Ku4TLfmb/Sv7+t+TmtSK/fu3mT/XSzd+3I03Wu7bt/CLv1Iv7GbcQ6g7o71 Ilu25416Ohr/eimw78z5qCwk4wd+YTv23co82zEh/r 0Xx2MD///PPki6++sPDbnU7T4yCBV1xgd2U/rTuhxlDnf5jkt0nUh3wSJJ9ynjWqJXn55Wl9+2b3eipj ND/5OPlutv/f6UgkKSg+8/eo72gWWLZ5mu2/6ACp61gr897pi+bSg2IJ1Gx6OBg63lk6dpvWpFkiH32H Ge2txm465Bo8Kyuk282ei9cog1HTO7z5qVX30/wK9c [file] 9qe3FlaZx/Ne+TwT+CpqO7n4Gn0lI+oLofROt7WlvcA1o1wn6AkqVDur/Senior Living Advisor/YvW2GJoDhsw6jyQrGzeu [file] ICAgICAgICAgICAgICAgICAgICAgICAgICAgICAgICAgICAgICAgICAgICAgICAgICAgICAgICAgICAg ICAgICAgICAgICAgICAgICAgICAgICAgICAgICAgIC AgICAgDQogICAgICAgICAgICAgICAgICAgICAgICAgICAgICAgICAgICAgICAgICAgICAgICAgICAgIC AgICAgICAgICAgICAgICAgICAgICAgICAgICAgICAgICAgICAgICAgICAgICAgDQogICAgICAgICAgIC AgICAgICAgICAgICAgICAgICAgICAgICAgICAgICAg ICAgICAgICAgICAgICAgICAgICAgICAgICAgICAgICAgICAgICAgICAgICAgICAgICAgICAgICAgDQog ICAgICAgICAgICAgICAgICAgICAgICAgICAgICAgICAgICAgICAgICAgICAgICAgICAgICAgICAgICAg ICAgICAgICAgICAgICAgICAgICAgICAgICAgICAgIC AgICAgICAgDQogICAgICAgICAgICAgICAgICAgICAgICAgICAgICAgICAgICAgICAgICAgICAgICAgIC AgICAgICAgICAgICAgICAgICAgICAgICAgICAgICAgICAgICAgICAgICAgICAgICAgDQogICAgICAgIC AgICAgICAgICAgICAgICAgICAgICAgICAgICAgICAg ICAgICAgICAgICAgICAgICAgICAgICAgICAgICAgICAgICAgICAgICAgICAgICAgICAgICAgICAgICAg DQogICAgICAgICAgICAgICAgICAgICAgICAgICAgICAgICAgICAgICAgICAgICAgICAgICAgICAgICAg ICAgICAgICAgICAgICAgICAgICAgICAgICAgICAgIC AgICAgICAgICAgDQogICAgICAgICAgICAgICAgICAgICAgICAgICAgICAgICAgICAgICAgICAgICAgIC AgICAgICAgICAgICAgICAgICAgICAgICAgICAgICAgICAgICAgICAgICAgICAgICAgICAgDQogICAgIC AgICAgICAgICAgICAgICAgICAgICAgICAgICAgICAg ICAgICAgICAgICAgICAgICAgICAgICAgICAgICAgICAgICAgICAgICAgICAgICAgICAgICAgICAgICAg ICAgDQogICAgICAgICAgICAgICAgICAgICAgICAgICAgICAgICAgICAgICAgICAgICAgICAgICAgICAg ICAgICAgICAgICAgICAgICAgICAgICAgICAgICAgIC YjGVFzJLOsVYYaXYOcQIi0T8ncOYWaWWDdNK8eZRq3Xi4+YYmZAfYtRXU8vzNqrN3KRA0zz2FrSJjnOA Tdi5HxSBf1ZM9ERIWcCCyvEV4RIQxbpt4JSRKxHWYzuIVUv8ypXeRkALI0NOIoNurmZM9HWRWyF3haja BbIDUgMCBSIDcgMCBSIDkgMCBSIDExIDAgUiAxMyAw USKiDKSbHYNZKQK2LARsCqIxRRWxKTXvSiQzIRADLCIzAOQgGeKxMGSuKGDxWzgzXJSTOCH3EYKtIfGp OCFkUGKjND1GUCInN127hpDfEMCQTw4+GCjhlmIjOeqZPdGdZPEfr2WcJRi5GT4MLOXzVqfvd3PjXgBq UTCBUEqtII5FWEM0XASfTHRvBz3CTBTuV807zwFuLS 7YEz8QEfIiAF8slp5JVlCpOGTsTknJGsz1MSuuCZ8DnNSsJVoShAPeoIIgZ3VaR9GqlAFbgPYybKEZOZ JlHN8nDCmyiRllXV8PYmFsSQIpTF9aZZ0qHWKkUCI9WoHvZAMPCG1EMHUfYKLjsJQiYIDxLOUFUF4DIH jxJAI0AYJhlpNzxPPhVCevOX5IAGJpzyWdNvWtUJDJ DQo+Sy7DUY8cs6OnVDm9ZSQzSU3lwg9VPZnKBoUzR1V0uOYoS2H9ZFpkSs4LNYQiOEVyKkXeBYCBUNuc OV7ZBX9clmC7YK9ZtFObMNGsPQUafESnOYu6Q98hxTKlOLbsRU5HYGV+Jenny+Fy6OZDBeTVWuMVKyTgUk KAKQTxOlC1LwK4HQk2UmV4FdDG59rUxhfwPdJXcnAQ 0EDM5zCVVpTZRGIO1KkJOwaZ9jcsY8DaKoWGLHPiUyO95ktAXhBFGwSPEoYDVcKz2CJUAvO5GsbiJcpB mbwvYhICLbRFNDQP4BZWvcgwDrzJDugMpoOY75rDbzWO7KVf4SGdKtVJ6ein1QsYMuPv3KMCB5RR0WSL MtCGCmJCIgVIZ6ZAMmCdTrTQpgQXPoHMRvEXG3THSv EJWfJM7PVlZtLZRzGxS8KgVkIJIoSOJkhe0MIFTnDDL8CkW8UMLqCXJfIYDfSItbLKTsWDNnTHE6RXJd FKNoNU3TYvMnLMHuEQW5IkwhIJQsVCZiyq7ZUHIjGPTlNFz6MbCcGYSmWKCnULyjIGToMDS4WPB3IUUt POViZS3FZvKjDDTuBGn3LjOsXKBdVWNibg4NTGNgTF DxMnA2ZLUxPWHaEIQpNMmeMYTlSCBlTmg6OLVlHVUdND6ZZnLqGPXdATI8FYGuCFBjZFUmew6WYYSbVH PzJuC2XPNrZJWoVIWrLEphJTOzTHNnEaVmYOTmTSHqQW1YObYiFSVxMaC0SaztKSRsLOTnyq2MBWQvOB IpEmP3GBWxMSWbXOTbYLlkCMTmDNRfUrYfAEXhNDTe LG5PQuTaAJTkCyE1HWDdIELpIBUrrf0MVOBdNBXpDiN2GHYfFUJlISNlVXvqGKDjMLG1AOF3IRArAIPs GI6HKoAjCCJvJgn8WnDhABLvVRLoxw7VTSHrVNZsPqI1CkEhEHTyWVQtPCzmNJVvAEIpXwSeITZlVFKh RP3TIfGcCQImLpC5AJQsBWKeTVPmei8MCVCbLWZpSv X0AcSrZQGvLPDdQLfvSOZkIIInZFj1RFDpJUAgWG9DRqRmAWZpTEVdAITxUDGwCCDrri7RQRDwGEJ7OX syLuTvVJPmPPMdWPuqLDOsUQR7DIC0LCXoVEPaFB0ZVuUsWYKjNPx7SRouKQZaNBFsmz5QNIRiWRU1Qb loQXJkWSJyXGXyYMlqCJTsTWO5JId4CSVdWQErHE7I IcSnWEYmJUo8BBGnVSGoVDBkmf6ODHFjPIN0VZO0YjQoEHAsQVKqXSjnJFPaKJMxSTA9FGBtGRInXM8D XjPrNMJnVYG0XVHhSBFwHPDkoc3WMBEiACM3UJbcIHIxCUEoHKCiEGsvTDKsAZUlXJSaYJNvOVEcXA6C SgUaPLAjTHClBKXjCDNmEIQbed8TCDHfKZW0WtD3JT IeQWHbBZObRDepFYUqNEHjBaK5IVFwWQXoMJ5ZPoDsDOWuSIO2LpDuPGZaRDYglh2MOCIiLCB3MUyrVr RwEIGpBPUkRHejPRNwXIO9LZS3ZPOjCAQaUY8WToSrUHDgSrAmCLZwCFToEHCbou2EJDWuQNJ8NAW0Nu EmOXEjEJGuDSfsIYZzRMK3HaE0CFCrSUWfDZ8QTvDl FFAeWkL2GMXsCXIyMDXdlj0ZPTQeQVP2BNbgPuBiIHHfZMFjBGbjXSCvWRicIHF1ATQpRDGzYQ5OJuQa KQLnNdTvZPWcETMkLTJnbg7PQUZeEFK9BLZbGDOoQWOwYJBvLBhwKRAcKJwgVFI8APDcPMFcOS0ISwXg BTOoGfR4IbEtTTJrEZNqaz4KWKZpVUO1NvoxDOOwWL UrQEDsRLmdJYPmKYatWrA4RBZrZKFqDL1QTpExROGbRmM8IRrqSYFvWOIbte6JEHFsAKQ9UUIkKHPiPR FmYEUrVKhuLVGxZMq2RfI7MGXbSZXzNB0XIlLvYVUaJeB1YZAdKOQiZRDlfs9YJCFfDHI7CBw8FPFlYG BqTIRwCRfhGNGxCVj3CtD5XDSgHWPlOB6OLtHnMFSw DxU6DWGkPVOcTEUzme3IFTKhQSY0FmmrSUJsSENxYMYeRFxvSFYkEZo1QEg5UFIiTCCvXZ8KPyXkJBjm GTXUWkk8EFudY5e8LBB7GM5FH9Lkr6KbHlQyANEFYZzxXE8odcCeJZGfHf7KR9hVQdjrZ7RfOeQ5XnG0 YFFyBcD4ZJTfYFXlPxRcYVYoYmxyJr5jLGN9DMZtBG SeDERjYMKvUibuZtF5UyH3IeUzLCFuO8M4DyCkIR0TGw6USeN8BIV2dNFjZd7BCndpXlBZEdXyEQ1BUT o= ID Date Data Source [id number] 06/11/2020 02:29:00 PM [facility] Name Value Range Interpretation Code Description Data Radha e(s) Supporting Document(s) History and Physical [facility] XQENSa7gXwEMByVj29/FXAkxSMCur7YcTHmeZYv6QLnqJUOxW4OtSYR6gF0qUEZ4YBrCQyIeMlZiNYQ6 lbm [file] vxAt6qszlWUPF9huMJcHZXmXS/imqQypE8pRpw/CLINICAL NEUROPSYCHOLOGIST kBX2QN1uDvasNUody03vjWytfBou4YKo4jU/tvDC5n3r0N9ocEpsq+oZIsc7grZ1Paj3SO7ugMi60Q30 5fFBkCq5I8KPmjdzCjkLpdr9pGF9QxoOV3OwHtTFcjzP+V00CC6g2Ny7ZjyNNL/iHA0a4gm5Q0G3Qnlk 4al0k3wei0hls17L0jdaa3sMgP3wkVI9S97fniihz2 oIN/IdhS4tU7M16DwzVsNL+/TGvpEsAPUvPgTbVSRFxVd9NphkxOI0V+5fC7PP9C/y8WJ0r0W9PyGljr iuMuun0mhxIMkzP/m++pPvMDlWPfqwctHJgYlmUMYUshdZi6dCzvPo2j5s2z7++3e7L2Cl6ytPsS72qY PqEtIYO3XSEGjmC/t5p4jktr96sW7dAZ8V6jwwKVB/ H67VSF4xUSqr2hRd7YfK/ZDVd5RnWCc5xNuMe7kLpbL5nxe/EDPWRkUztzBOaxZ+v79IbDpS1B5YO+bB 85721yjWKLZ/UqDUAbEt/fcKncTPZvmcao+cj+lYbER5VAtxCko5tFafFzCVi8XMN3LLqi6JhmSc+PwQ fY8DNiy0cb8CdbVZRR8zybVrUg4Caezq3v75jwntpf zU00oeCaqF/Ew2jwV6hTdY9bWHOs0j4pc5mg2v1+YZT5j5lXcr4QPi2qc3/AyGAid15M9Pe3g236Wih6 f+WZSuTdjfructTrjzhzqe+3BU6YbtODbOc5iA6QZjukZX8Dzg3ccEEqfo2R434ghkVH3Q0TVxrspvEf ifI+rMhsk1w7HbNre9HFi8kNE+XYe/MWhvt1Eap/lf ri5G4PHeBaIGTx5wMw/oOd/Vz0b7r1emjDhSfkEpwioq1rz66Zd3JisODuyizbnrvf3bFgJVDDB9h2cI tMtNPjnmwJnt0PxKqEPu0lpb7yleonrRRyJ8ngsNsgTY8i/dS8MBwvvtOf0d8kI3wQqCYaK+FlVqnr4k Oliver/Lj8Kv6H/5i26bjL9hoLy61txP7/RTDY5B/B1Of [file] AgICAgICAgICAgICAgICAgICAgICAgICAgICAgICAgICAgICAgICAgICAgICAgICAgICAgICAgICAgIC AgDQogICAgICAgICAgICAgICAgICAgICAgICAgICAg ICAgICAgICAgICAgICAgICAgICAgICAgICAgICAgICAgICAgICAgICAgICAgICAgICAgICAgICAgICAg ICAgICAgICAgICAgDQogICAgICAgICAgICAgICAgICAgICAgICAgICAgICAgICAgICAgICAgICAgICAg ICAgICAgICAgICAgICAgICAgICAgICAgICAgICAgIC AgICAgICAgICAgICAgICAgICAgICAgDQogICAgICAgICAgICAgICAgICAgICAgICAgICAgICAgICAgIC AgICAgICAgICAgICAgICAgICAgICAgICAgICAgICAgICAgICAgICAgICAgICAgICAgICAgICAgICAgIC AgICAgDQogICAgICAgICAgICAgICAgICAgICAgICAg ICAgICAgICAgICAgICAgICAgICAgICAgICAgICAgICAgICAgICAgICAgICAgICAgICAgICAgICAgICAg ICAgICAgICAgICAgICAgDQogICAgICAgICAgICAgICAgICAgICAgICAgICAgICAgICAgICAgICAgICAg ICAgICAgICAgICAgICAgICAgICAgICAgICAgICAgIC AgICAgICAgICAgICAgICAgICAgICAgICAgDQogICAgICAgICAgICAgICAgICAgICAgICAgICAgICAgIC AgICAgICAgICAgICAgICAgICAgICAgICAgICAgICAgICAgICAgICAgICAgICAgICAgICAgICAgICAgIC AgICAgICAgDQogICAgICAgICAgICAgICAgICAgICAg ICAgICAgICAgICAgICAgICAgICAgICAgICAgICAgICAgICAgICAgICAgICAgICAgICAgICAgICAgICAg ICAgICAgICAgICAgICAgICAgDQogICAgICAgICAgICAgICAgICAgICAgICAgICAgICAgICAgICAgICAg ICAgICAgICAgICAgICAgICAgICAgICAgICAgICAgIC AgICAgICAgICAgICAgICAgICAgICAgICAgICAgDQogICAgICAgICAgICAgICAgICAgICAgICAgICAgIC AgICAgICAgICAgICAgICAgICAgICAgICAgICAgICAgICAgICAgICAgICAgICAgICAgICAgICAgICAgIC DyTQFzWRQnXLJqLXk6U8emXGZwSFTiEA4mVSv8Fm1+ RNoPEwSrYCT6jmThzH4TDN8wu8FrHSthISWwr0JpIWk4CI7ICAUjMGrzSE6DEDgngf3NHIXfSRRuyQUT z7abDeYtZSK3UORyQieyPD7WNPNdR8nbkoEpBXMmZHXEHFszTMQGGGdlXLDTKQFjFVLgLqSxYuAoWHFc OQKnZLHNWE0FDuXkQ2ZepK86HSKZKf7+DQplbmRvYm vIDvT6RMUsc1BdCLv1LU0WRGJkTfaxl6SlNdwqETNXHNzlKI9SOBJ5RGY1JNHjNa1OZDAoA660yfBfBH 7PWj4JWlXcHP8vkp8ROrcpQNZoIkaPXxo3HBdhZJ3FjAImYUuYRfRsGfybOTTykNECSLIuTMAnvUwmNP ZoPIJbAO9fHU5zGLGoCDBuYtK7CXHSKE8IZNHvSDBx qEKyQDSeVMEGVJ1WWRhuSMW7YMHipwLqvQXxRAwfHQ9VRVIkuhLsCdwpDDHALHd+Eq6PPK2fl1KnDWw6 YFMgPX6hai0GLEnTPtXnQ0F7vSBgI6J0IBgiMl3SWYFlRXYxBbMiXULDXAucQC3VNX8vumU2PM5MhUGp YORfVVAbvWWeQEz8N02jxSCoFRsjWI2OPRA+Jenny+Pg 6XVNYbOWOtGIDmMxQoTKPAXzEuI2ZxD7GYn9LeU5DwMV52pTjjjzOgXKicYF8PKH6oEUNtHEVLHM1XvA VslR1uytQbVEYuHEYSYvJqX20xaRTbIDFsYPM8XOTzNh3JARBrG5IkpvCfiAyewdQrFHJnFBGVBX4DJW uonuLxaWKaoAakVN80eKlrKO5ZCg2RFeFxWP6zfi2R aDKmUf7LXXA3BD7AKOAlXJTpLUUoTNQ0DCRnDeTxMZudEDPyLIQaWQB0ZWOeIHAyHH1RKqEjZAFyGuLt ZcLqRIWzIOFmrv0CAITdBGTrGoh7BWGzEGHqTXKzCHuuTGQqEEOtOJQ9ORFqTJWyRH4FLbLgJFZeDAS9 QxOyXZHpBUXbgi4PFNEpWIIrNdNhHORtWKQwFJHaPP mcNKWpDSP5NPL2UOSiFJEzTX1WAgWwHJNlJQD1DHBsNKPrYIMmuz1WAFTjDWBpVWZhMrRxNLRhNFReEK qqRUQcPIM9XFU6CMAvFNMgWM0DWgKnUVMqGJW1QSHvXXUuTYHurk3NEDYxSMFkCbOnJMVoVTNpBTFzNW ykKLZlLEL1OGEdIFCzDLWxPM6WQfPsXCKpRCUjVXNo BRCdSWRzgp4MGAKxVMDwOjo4LBMlMQQjQDDtPZogSOMcLKY8SZS4PUHgNTSrFP5TTdUbCKZaUXefURTc QIRhKXIksd0KNREjZMBbOBHyLSKwMSRkLZXiEUwgBJDhFWX8DTq1VODcRGPbVR9QRyHnLGMkINt6GKSd PPNpXATmay1EXVCwNVKkCKF9MINgBVWaHDTxNQzwVU NkVNU5HOMnQEZhNVOeKQ8IQoMoQZRoQvC4LSDwWPZaVEXgmr6DLRWlWAJfABVmILNxHYMfVNTpPLujWH ZiLSFfVIwpATZpWDSwDH0YVvPpONJqVqA3LqvyIKHiHAUbqm6RTWMnASIyIwk4DjOoURGsSOTrCQsiVA SbLPLiJWf3EXEpDJPoFV3GTaEkFMScApZwBbTsDAWs TMUzrk5JHSTqGOEaZyM7WFDsDYBsTAAuFRvhSAZcQIQ5KRB6POIiKHLjMP0KMsPrJKJcSqC3RYFsRSEt UASfsz4ZXKNrEXRrGRo7CZEeDZBtOIAlYEvzALTlFRT7OoTkSJUlFMJyWS6YFuOlEVSlEzJ4QhJeEKDa DAHuhc7LERKzGROfRbIbBRRdOUAmDTSbLScrSBKkOM Y3LBW7BABoKQAnUF1JTbIhCAXaQmjoTaysMEQjEKTfnb8RLMClGXPvZYZlSIMgJJVqFEAhVLkjSNIxZA A4GvV2QSElXGSrET4CEoQhIEhqAHRVEbr7NBavP2v3MEF8YS3QN7Djy1HiBVJvINPOEHzsHQ3fhqRqGW NzBs0TV9dEDurlNvLuCKEpKVJ2V5JgAOF9GulcUnPd EYuuPdh2DBVcEj9kGJMvGYVnDEN6GKqvFlDzXZp8P0ZxUzCvBPFuHtH5GJO0SbVuFV6KZf6HVaF9JUH6 wQJoPz7OYyz4ESJVXaQgUO9BKVu= ID Date Data Source [id number] 06/11/2020 09:12:21 AM [facility] Name Value Range Interpretation Code Description Data Radha rce(s) Supporting Document(s) [facility] HBLXTi0dTiNHJbWrf3AvTcLfHHBqDR8vehj3Z1P2rWOxA1SuaSZsl4xrE8TyR5CbUWAyWSMKNA3WkQHj jb2 [file] cNxZUD0kfX/Ieb2N4oCIhjfXDN3Uc9/richard/cnL3MT44epagmoopRGwelHoT5BajWFCrykQuAyOJCFECNR Zzg8+s0NtXPk78M6HGQfJXqSQtJaTvJoLnkcLNkZ6/a2WerpBb+9TLvOc9WV8QR8mvEhg6MzhLmj8vg9 wYxHg2CyXvWZ9JNB1D5YiDKByrnd7Yx43biJBBse78 5tZZTmcN/ODnTz9tUtsqJSLUmZHAEfiyMm+XQmD8mix5AVQsOyA/xKJo2NHbB22RQir4YDHsoWrHmGE2 NWLwHYCEjGAIBi8turmlMbCNOuuAxQHAQjGCjINDu7cz2kkcTq94ag5mIjUxIfuJClOyB18atybTyU1H jkQGKTCKXY9c+7431lm8/1w7E86Yv2I+F025n4z1a9 8Fw0Vwn5RlcK7Tyam90mfMVheu3vW+c1FcP+lb1/1J37q/I93P/Iv7i48S1ZTWNlF/RD5H3/ca6Rvp+6 FkFhuTuv54lY63E61U+nFvZxO72x9yRsTE3V8j+27fcX104s/dZlVm74isjRF0T4i+mTWV/hzqs6FNFE u8tiD57h2McP15bopuosBTrYPH7/XN//PS9dfy4Bi6 c7jr0knFH2U1wjazJ+u4H/o2G6tirZe9aZIj8jlvA81w3S0L0q/Q6+ir8Md+8D4aon7H/b1e+/R669Pt wbqy6346nokUV1uzsqYg7k6D67q36Qf787nEWrRfnN4dgeT+or8z90Obo/q06TcNZ1U++fE9jd4jaN9N 4MqdrpDKgVz3/bzfpWfP+574Lu37CO+KhKk4tqsQ2f /6xvVE+hX0EplJIgl866qwNKb+Q/erovT1Aw4Zunzp6SqeR80bOhfFUn9+5SeHdc782vtOK6XZ2ozzdI Um4A4ev6t2zTNoRuvQ6722v6/vthR52k2jOJ1C00oQ+74M9FTff48v6+p6NfO0OV7j/ni/E/rlfj4foz X/Nlva5AnAsn+ym/8wPT0N00stSIoqD5FLgu6m/nl/ U3wPtZ90nwk+0iM8/pZ4Emt5x+97vU+36iy7YWQsnOevPwy7ZpBuJbN7K3/mRvMB7Ce9abZDl2Rx8rw8 7JTPfvFecMrj03gOj41cit38wsBUT/43KVW1Gc5T2gn5ld7YRsY/DIEKXn/0/A66dHma+5W+v/mcGPJ7 kpQ3wd5FbQatL454dy83/aQ3pT/7voRdGbI1k07bi4 f+R9+o6dijR3fjyGQ8DrajEL8fySaeT8YV26y4pHmc3ZCmVItZ8xKhKmGySPgBuasOp49acFz2/+FXmq tNjUv51l0x6FoCzqyjRZxAkNKrdSK+GfDp75az1158/54Y8W+eA/WZqOdE+kY9Yc45n01c7DdU9u5eGB GrCLg+/XwPdz41PJQ14LHp5COelyJ4/gNzn9pzfqv8 +NWnCt+I8I+Sqfne84pM8nzftrsTAWcN5/uzH711J/9LI6Xft7rLMp/0XRb1/Pw52hAe+kff1eP+j77L 9SPDD7+615/0rnwefvUZEiIi/Ml/6tqecntcf+mRIem14lNn5SsTjdZk7i88A92Y8d/8UuI78154qXFz 7ek74RtdEE/+p7vl1PzFOVrB3V16vkDz0T0Pq9M+xK 8i+Rj0aglH+X7fUb/8+LS1R1l79m2J73+49/u5Tb4fuJG881R5+SYTIozw23TxdZ+571mp0q1UC7dzgH d//VpH3K53BKo2nyeM210We+JYv25aL3g+h1+FHbwVXCMd+jr0dUf+gqomhLT4UK38Oe/Uc6Keq+D66n g70Akw4V/Oq46OTC/3/gF9D7/6XuN+sK1Vobe2I72R 6ukaMG3h6+FXodeQvro++rqeI37S40fqI24do/ccfePZffM5/CrumeXef/tQ7sk964D/8NjMf1Xthv5B F55KUfvq9Q29Tkg8oEz/k368c4RqbIxM95Hlwx8KH4U6ZjUNIV/3YiZh2EcxuW++EUT20K6kg0/c05BP v3Ze/bfzeL6oq+1njYJrpM/bHg6/esq55r3/h1/FuL QwXh1+JV/aoVDt0zp+JN84fd0y0k2+4AnFfvM//Or6sbbAje28F0r0ufNlyKf9SXa3t12CHMPw+NV7PZ E+xX1OH8TXg4+CG+yN/Aj60IU9EfT3khiZalJ0dk+Rbrj/+ppt6jexP//+pfpUtB50qRacr+45itL3lj eerVz/0uVgxxxl5s2zSp8J47d+0cSvVH/sD6uxH541 4UvDqLR1Cx4uiH22fS4NPSo+1IXrEvgVK9a/IJ+J/Oe1s/jV6YFp497QD5c5hcFswoha7sQePkW5pSok 1ct8ru0okX39uvU95BcYHh2fwpz+8r5m2MmDq6d7VkOxN/1KHOOEUQd/EnRU5VMfHAbs0QmXJmuoS5Tz XOVEUN/st28mu8TEk9/IRckN1yu/OqHT3+rgS79Y7b YFTuh44L2pUUke9aFO/Ept7/Cr91r+gm6PP733Ban/+Mb526nd/muoyMjNb86A2/8RdeRJb6+mmUHj8o SK++3mc/nP4LR1aAzOAbT10axxn9wcz7+tiLe+/b6es40geu4Avcwjn2U2g79CuD7t6yn9M/XHfvlki/ WruL73+s1bn7ydeRvq8ugz6ubWy+kQbi86yKI2Odco Q3U9D0gK+l2va+YBgjM1txekxn0z9pysC+JXpoDtR9+Imj/9hfQZs536zyRHhv7gqkW+HeXp0qqnF+n+ w6/iXT/8auqcqhP+fHY9/lc6aUVt0fWuae2IHFCQsmEe//gLcyvPxz+G30vMn3mXw4A//GpZ1/3j8Xci nHk+/r5XdDQjW2u0WMBFt9jh+fhHH+/gXD/+UYlyP/ rOVRUSXB7/S3k+/GrKnzrRzjPCrR9+ED2ppVM+m3p/Jwuu1kCs9mcPKE3g17kRP//uwjJENaRDbOh1Ff tXCtzV+bLW8rd5UAS+M0xY304SIpJk3TR5umB7mSphP+606ckPkhQtj8y27V+3PYhfqf+FJ8D2F2kEjf NruS3EeRSz/9e8gXgly1maP+937H02B+XEMd/re/++ /mTIRz8zm6CL64G54x4yypt81IflayeekzmcsU1/ey29B783+pJZOq4iV1Sy/+aXMh2z5EPj25Hgn2Gn qcPbG1Hq25+X6jyeMYh/063cZ6//h3GNi27qASw35XDkuq7Bn5IYuU/rU1QGn87bM/Vcfu+577drf/C0 8y5+xYD2jhuyW75LROj5/LiRh899yjzwmh40rJ05xQ 6v/1u1FjvP7n/s2B/ssT+hr8Xn3pezx6v7V5MK2c/If9/3hfWrrvUrj+Djgmu/92y7n34/txver/iV7G X9wz6SA3egdsxKqj8+2V3au6TyS3d1cP4O+Syk3/R2ido0zyffN+nhM6U9U3g8H37b/ZSu/cGpdPvyw9 7u/mKpz381v2lr1rsHtie6p7/97pjfQH9Af5oxqS2y /6W7glG37+j6h7J0n7/XjM0m1eI/GNd3/4vzo2Z478vzukGF89Q24T0t4A60K/pA+j0U9b7su0WlD7PO il+8762tyw9f+vrdP+p+94+6+FWk4/293IVxW3X//mQ22o09d/kmJuuNOrykaUb3ZXoM+vlhEbxBsk3b /0K5G/KTT00OV+3Wer0HI6oyxbQtwtmSa2afnJ+vOF HIlAXV6KN8jeK89HnAkb79U/w9L4M0sPdRLyjp+6KVaw8gtwGSKhdWwdCHH7axavV3st788I5oXlsUuc 0Bc1bfp/qV+NIJEg6/4MQIh+/Wdk98Ga7+je6oTdZmq+hdWrd4Mr336Sswzs0Bn/NmRzaDn5er0Sl/KM KZz/5RXC+kL9y/jeffrey/CW7I4aooN3LPi/aMTERyc+QQE a64QcOw+6MP4HajFcmmlDVsgejJ5Zw1Dhgb7smEG1auHwkvw54K5EbFuv//3xAC/Y++95ml47p77+rr7 B55f0dg57f/vIabEatbm0KvvN+810hvST/+NZ7W+xDiiW3mqbf5vh36q09n+3MWvZE/xqxbX/k0XinPf 9S/iy6qjls/ApT3ksSvi8+6T8K00vdBmlk9t+qtA36 kPpE+p59VmwkB0n/t5At8yQvPg5s3GTY8Tez1+j+7vj/8SgcB+/Bo9+/hH+pz7xPd+um/E+f89tsQd+/ Z3OhC45qx5cmrpqsGrqSipc4imMAS1vb5hKifaUSS78JatYyJvR+mPvvrU+aM5Lt64Bh9Cc55Ce0meJ0 K9ndAzr2/G535QTi/86/W2Z6/F44kuC0rva6zZb/1K 8cvYH/O5913e81jMfGh/O8IeR8lhU7Xx+41vNR0Lc7+/eQ8ulBOIymT4l/P0h62q5tfilrS/mSOK9j3/ 6DZR/8pw4D97ybtoq6Y965EvhpBfl/uXt7v+7O1+j+T4/srx/ZXj+ckwRpam9L5yvhMX/pdPerv+rze8 X+qNaagDf40n3k387gNNgtu/5yiv32l6b+iL76+8G+ 442EK8Q32xuxZuOH/yH2NG0xm7+ta/X3/fxa/hCgqFO6W3Zdb48zR7E5+sX7nj/jxgn1jtc1poKpSqgW I39VU94Lh90sHw2gidc2olo1Lv02uK8mMyxi+f7UDsvw/1Zxe/eq+vXuOut/vA+d28ca6UUJ70uB+luis alberto a7T4dk2JfR5e2WM+z1fm/m486/Pq6/8JY0Rz3S1oiV 3/q4/PjW4z4lzvWqEhoWU0v0NqG7+6oWRgmEnnnxD9UmiT1/RGAGu70vqGlzJ7A1qNxCEh/PJ12C9ne0 TU6kz6f8AQLyQR2xwLR52/PXnFh7CmXB/Ct1Pg60o5LrgJ4U7aVsug5Pn3DPcPe20y1Ar9991Wgts/RO F90atmbt3VtE1j922a1FGCsMZtqU5M0fFcbe1yL3C3 99f/JgR84jSa508+/XWhqq26xo/h5kHoQ2f8/b8vQZLrr7VeJoR9v47JjE8Vu64hAAVrzn+Y5eZBq6Co a+v9px/yB1ItscaOnSTxwCV/dezN9158vadKW3P/3pm2Ei5G560dNl/rV+ldBMysLTsU19aqVYR15NsG Q90Sp/FPl7jb1E69t/+Antonio+R99I8+aa9I5NIdUA9JR [file] noc engineer/HJbxMNu/OdZaOMs5jv0bLPSMR4y2jPP1pwIwbHBZJb9ny+ya1A1cL6HbiqdVqKXxtBV4tX8ug/6/ gRKn1Or8gt1VfhF1VcIlIcdFg5ZZ/g93yjLiekSZ8Lco++/v5K79THD0ve6Szkiql83wNh33BNd69iF5 jv+Ndpqxm48iv5/pPs+WIPSinvlRnxKdpb29D6Hmky r4PW+0b3/pT2Urs2UbqAqt2Yo1ta2wOIWxnnc/PO/2/tvfd/dzdxSO//3v7/7693/PuyfK/Pqwc5ztdF /+nvdUhH+fTrXjdO2u4Qt9M/CwM4Zer2yu7Xvpn9pk//13/Nfo/3UyhfTReQr+fagpUz9H6/Om7T53/X 7vffzvec++7X+eDyFf4k8+FeKucJ8n0r86/yoLkif8 Ssxhv14R3h+Px7e/QGKPrmO/KXEj4FDqrxx+2HQ3fuGcx83qzg4KWJ//Wyo6gkzCqhen2/4y8lZ05yqu +tzPW6c+L/z91Z+yr/6UffWn/Ks/1e+3/z7vF7+h+lxdn/s3+6v/bQS64YoT2z3+n2wJuJ+CEIW7o9Jo Qb+fD/39ln/bCMU2R4yP37+j40a/94f+nuHRk4PAgq q+6QhA9vIoOus6c2c5frUJ4iwggm20Exq0/JpM05ehQl60Wt9+PK/5wFe3wYOW0venivpjBcr+6fh++7 2TCeEtP/37u+h4fb+bd8wQmW0+3mTICS38RgFvjw5XODYYh+10KvE2q6/n+90t7pthHbgsyMw13+5yvv 7qJD54/218iRYooRZKm1mO83g4Ih006/Pd/xoP/U3H 0YuCRj9kzQr056PR3DR6eqh54B4fg4p/cSehiTfvppo5eaViySQCv2bkO63La9OAjP8c+Pf3eL/L2fpq 9N/z1WnZ+gq5EI6+un/TcaPjR1/ZN7eSN9GQ+SXV24Pu3jco/c4Lf80gEL59It0u//TGSWRwn/Geronimo/jk [file] ++++bLT7/9/Tyron/ouLf2Y5NmxVdjv2n9h4za/rNtx/lbv6OT837evpl/PzLz/+dZ++V+H726+9+8emb// Llt58+vvr6m1+9yvTpi//10korsbkatn8l675+/fbL q19mdG118zdhf/38y19+/rNffvrxS+LW719xt9/8+V/+8Nc//fDPH//6b0149i+///N/++P3f/iPHz/7 6x++//PHP/2HOxrvP/39x1/+/NF+3hXVn2sTI94+e/XEz3/1bxogLgLdmYr+6U8//Ru/csR3iKtb8B0+ H9aogqQaiZx/+J4ZjgsbeLgpyr5fnOZD2hJe4/6SPc 4Cy9HdoK1r/BzwbCzXF6/e9dF+3FgRcOZ+4Jsf/uWHv/029lmln0//+9Mvf/npdx/jzpnz72iywnY8u9 30jowg65cQmHvi+P9pPF8y6Py/OaKF05zGzvggh9v0tiVh/vDnf/2Hj79+/68/vGX/Wq8+0nvN/dCf/v bj3DfW+kze4gm96Uxhr/jzv/7w1//3+z/+D7bysimL 2vUi0iJ1/op7ac2zB89+/PP/eJX9D3/584+uG63rC1u+s3iwf/zup//43e/2f2zrqX+6w0/IaJnN6d8f embMHvijwj+Sb8sXt0g/BqtSbezXP/ccR247mF5/f/mvfw9514fEn/z80xc/gC52vJqsb9p2H0/9p7// 0dP7P/xfP/zp+z++/eH1hn/x/f/4/fd/e3W2H+Ww29 rmH/784/nq8HSHO//rx775loJz/aMJG7816s++/dEDu76//MvvP+N/DpOWdP5/w9/98Pv//uc//P5VvN fTua1Z6b+ejUAb+ezf/vXV5/75s19/+9uvbeZv55i9ZHVxfu56j2217ndtpq8Kp0q78/g/PnKrIvLhNS v++vv/9sNH+/nRy1hOVrO5NLIBz0sd08Rgc7Wbz84+ 7Rot3n3rfip+6aY7nH0Abi4575xwV+S0l7Y87/Sknmp1Q0+9nu1XH/2VcN3y6Y0QLN3P8pvgwfApqSYs UI0BES6mi6KsTdM5STFqb2CeTTkzLNn9vRKxFBfioxAdk4ObtjhgJ4Qgq7ReNtYoEWYhVuEzRgf3EMJz FcS2eIMyHfNgXWZgW6DkJOUuKsE0WhQwTEVADT5KSP JlbnQgMiAwIFI+QyUjFG1kdaabUJAbo1JfGSdjXTgaBRJwU5W5hFpwBCHdS8TzdW29ZSKxK0IzjuR7UR E1KXGyXgJlXRAhnXJpMVKoYAR+YcExIH7ltnxsJPQew1DgXBptQLJ5fK7fNQeVWHKSMVdHQOriAvZ6y6 3jfgIXFEHqTWRiLM6LpvZgvJiluwNupHLvTMR0UbGc WYUsOYFnPWLtAOPUGDCyPJAtFEZbKBDdO8GhbSzkSGaEHHCGFGeTMFiyQeWbx5L2GXWsbwKCU0DQChlA X9XQITYINMXXKN0bWgwbHwInQsaeE2X5KpylU9NpWH7PK8OiKITmXFSLLYZcgfAzUZ9QwwUwwO3mNNeS WNKZZPnMCWdrIrE1y76qpjSADNQfZPPgHQgnSKJsEC WuEQTlRVLqDFWbDVMoWHPiSJ7QM2LdUJXaJXUVCLZ1u9LuRYUmapwfedwrPo5qvkTlJvn+PgoxIDAgb2 XiYIdnU4W2jTNuG4PiJ2YwGF6ZvOFyJEauGOXpXOBcNDAbW029vlXmMX0+KY6ub2KzMldlKOOVKJHcLY QgYLFwPEM3BnUpJKVjJQKeCWJvDoV3UxDcLrHTHOXs LGE5ORM5RZPbUZQoUZTpZTkaULLqYMH1YcU1OMWmYSImYP6uHmUwKDQeBhy6XPbhIXPgOTQintPRBRFf OSUzEKQiZFT8GNOcCTGkALdxIGVhWLQhXOK4MZEdDESsCO7eLhJtFLKhMCBdUcjrNHKyZKHuprULSXOb BZCaKBE5DkJvEDMpVIPsMTalEWVyKLLbAqd8NDGrYJ OqRE8fPuYfCEGrPON5ZGppRPLuFVZxtpQZLXDnWIWvTMQkUyZmCWBeIGYkDJbzAEHkWWMwFtUkQSQcCC NoWT8aLwGmOXEhCJV9DKTrFMAbGWVtfzTSATEqIXItFVo6QYAsGYVwMCHrJEgmLLNnSIGgZWG3QPSfRW NwKR4bRvHfKANkULIfVWEtKISyINDsleJFSZEfGTDz KNC4CTAnOVEkHIMoNTajGGFxZKDxDvq7DPNhJPGmHX9xBvMgRNApUAP6MPEyYHQwOTBrguUMBJJsSEN9 VuOiDNXxJBOxMXEsEAdkLFUyCELsSmC0BSEaBGGwOZ2lJzQtRYRaOLR0LmQyOGSsUPQmyePOIWMbJPXz BYV5XwAbVGTlWXEvRMraMPXtKUBjMKZyCYQ9NZK1FV BdKbIpVNvnMCGFWWzJY1GpdiBmAaWOZ3sxOo1eEfErDAHPL1Kmj9ZbWOMjJLYOHm3+OsL2QNB5cGHzEo u0SFPqBTcuKOTOOb== ID Date Data Source [id number] 06/10/2020 10:48:15 PM EST [facility] Name Value Range Interpretation Code Description Data Radha rce(s) Supporting Document(s) History and Physical [facility] EBYJZl3oKaHXYoWe17/NONorSRJwv8JiZUtqQVz0QKmgPTJhF2RfKMM8zG2kOXI8QQbFWwCwChAtMEEk lbm [file] AgICAgICAgICAgICAgICAgICAgICAgICAgICAgICAgICAgICAgICAgICAgICAgICAgICAgICAgICAgIC AgICAgICAgICAgICAgICAgICAgICAgICAgICAgICAg XGRaQEXcVV8JACWaZCFwCMCfLQThMPZaMXNhWMBkOCXpBZViVWDxYCNsVPYtTJKoCXHkWXJmFRDgHFXk LMQwFOYeAAMmYCDpXTQoPAJzQFSyIEKtWZEqMKDlUWYlFYHpEGIiRDFyWXUjNIAwKI3PIZUaECQuZLWz ICAgICAgICAgICAgICAgICAgICAgICAgICAgICAgIC AgICAgICAgICAgICAgICAgICAgICAgICAgICAgICAgICAgICAgICAgICAgICAgICAgICAgICAgICAgIA 0KICAgICAgICAgICAgICAgICAgICAgICAgICAgICAgICAgICAgICAgICAgICAgICAgICAgICAgICAgIC AgICAgICAgICAgICAgICAgICAgICAgICAgICAgICAg RCRkBHIcEKZwIH6HYDZuGZOhVMIvLYNiZGSkHPOzXYAdKCKbCVYhXZPcMCVpDENwZRMjSAYrIHCzPPTq FIUdSBEcMOLwSFSzLLQsHDQmWXIyHBBnPBCtZYHsUSNoONExDZTsLEKkEZQqONLaWFRiLG2ATWNhBGPt ICAgICAgICAgICAgICAgICAgICAgICAgICAgICAgIC AgICAgICAgICAgICAgICAgICAgICAgICAgICAgICAgICAgICAgICAgICAgICAgICAgICAgICAgICAgIC RyLQ2ATWYuVTYpNNVzLKYnOQMgUKNlMKOtMGUbHBGfMKQmHAVfVCQdDEEfDSHxILHqRABrRYPnYLFvEZ AgICAgICAgICAgICAgICAgICAgICAgICAgICAgICAg FMIpRCUwZLOmAPJsZW7QQRKlWIPeLROaQOCoXOQaSKZuRAVnZMLcOCPnZYDnIOWcZCCdBQAaXVTiGWBv XODhJXQtPSGxBGJiOHPrSAVxNOGgPBRqURDiEYYmWESxBQIyWFPgVYAtLZTzQMKsEJOiJIRdCX0EKFAy ICAgICAgICAgICAgICAgICAgICAgICAgICAgICAgIC AgICAgICAgICAgICAgICAgICAgICAgICAgICAgICAgICAgICAgICAgICAgICAgICAgICAgICAgICAgIC SnBHGlJE5NJEDwPGLoGYGgARYhEHXoYEEdZESuCPHqBUEaUWVzQSMrCCXaSUGpSMYkJFQbTOLiHJQtAM AgICAgICAgICAgICAgICAgICAgICAgICAgICAgICAg BUHiSXCfQVEiITFkPIKlRP2ITN07uPTme4U9AFIxZP3pkcv/Ip1TDAazftBjmNEoTW6GRhFoTS9jgj6H QsKaPI5tgz8HUQaUOaQxW8S3nKFpZVKcVGMKFfYeL83kMQzsCq60WHvzSEMtNkFoVZv0Mi0IRmKjW6jd UYPmPxL3YQEjPyO2PNZnJuR9XQMvQeDaSQZaABPjMB KqOAEPVCO2YSDeUgPaDYuwGX5Jb1IbiOP5KLc+Ax5QXP7af1IaLNilFXTiIP4kdv8GXOiGVbPaZ3Qwsm M4GOU0WGEePs5NGSSyCTAynPBoRCGwDTWFHhRfL7NttF10WCYQSa6+ISoneaMzNdrBOpZ8LCKfj4BaQH e1WG5FGZGlROd3zZChEHOTXHZ2DMuqlkEgTMTPseCh UBGzZ0ZskCxhJeHkGFPiEY3nXp3yHFPeWCMvXnX6YFKNSS2DHGMlWHPyxBTdSDNuIFMXDK7LDYfaMJQ2 STEscsXxeWOiDMwjQT0ZSNHragInFvcfSLSVZFs+Sf0DPZ3kd9RnNFq5MZMnXV2fvn2PEBwGJiViF7X8 fVPpT1K4FCrnOo4FFGYmVTPgMwSoSDVIZOkwNL4XDV 4avmO8IM2KwNXoMZJpQBWxfLYbVLj4M12scLKnUAqvRL8RSHJ+Jenny+Dx1LKSLzQSFaGJCrGmIwVTVNYf QwW1YhD9KRz1GsD1CnHB16kMxibaFvTEdgMP3KLU2fMAFtRVUXJF0DlXKzrJ3zylFdZYSdBXMSXgFsJ3 5yaBWnPPCtKDX7AHVgTg8SSIRlW3PtakYccJvdowIv ZBQlYHBPRA9EWKdkuyUhgOLfmKejOV49tMfeYI6RLk5EKrBvYP5vhc1AoTJfGz3SAXJ1RR8ESUDeVKZq GZZhPTN8FPSuEnSaTVqxAJCyIOEfRLW0FMJwTQCbKB1BNiJuTEWiYiB4YeYxXLTfTUGvdf4SQWRvCBQi ZQYiRpPyMCKmPGYcZYksQLElNMLdSOD5FJPdBVHcWE 0TMwZgIRHgKGD4AZIuLQEcWMRqrf5ZPZQeVCReSib3KkUcMTNdXMSzKVsoCUVuYYM7WYJ0ZXCzJXZmYC 0SPjGjHFZkZBjoQqXnNHVoLPGqtc3ABUZqPZIjCDx0QHUjIZHaQMBxXMxuZTWrWYAxWGh5KPJxKXQqLO 9HTyBhRZEzQZK2TbUjUNMvGFHvcf4MXJQePXPvPMo7 OrQbQDJtCSLzPGubSGHlOPX8NMMyIHHxBQWfRI8BOyIrFWOtDXpjQfwvMZIpWOEila9JYDMmCNVhGIjy LSRaBRMwAWXsYVifWOTdHJRrKUP7ZUPoFZRtRB0DVkHtRNFcAhR6DlycUPGeNRBwww7AQVBaZSJqKoS3 QXByGAXuATFrKUkmZNApAIAlBcC9TWLdEVGeKT9PGm TyLLVcGwOtCEWtJKBpBKKknu1HLPWiVKQcMgGoKGNlKLFaWTLxEYltYOYpHIKlSdM2MBHiUVPgYD0CCj PnOSIiTjD8RgPwUVMaYXAaup1JBZIeAVYvJNv0FUAjENPwKJYlBVibTGWkOPU6BJGvXZTdAKOhAW1AXd RnZKSiXeRwGPijOLTqDZVyob2LWFXdEBJqLtCeFEEh RAYfIPRjUPcvFQRnREL5KKCuQHSxKIVeSA3UKoRsJPWcVzQnVltuSWHiQUNsed8WCXHeLNIeBBTxZKGu MJNpPBLjUIgxKXFiNMQyNPA5EWWiHISdDH3TCvDbSPUkMsLiXdZmVPQjFSRhtd3QRJFnZZAbVgPqPDNo QCBeAFSrJDwbXNKmWZWcXBM2VQZkOLWdXU0ZHnUtAB ThYwD8KaTuAHVqFBJovc8LSBTuTLMfUacmOlQdWNEmJXZvVJmwOVEgDRVxNtJjLZEsQTXqAN7VRbBoXD NkZaD4PmGrNIBtLXEruq4IGKAlXUVbQTbxYSVyBEOiVOHqPUxhHQMwFHF7VAQ0XNVePKEvKQ4TElBeRN gxJZAUDuz4JObwC2o0LPV4JT7NA2Vvi5NwDNWrABIK VZjvIF8qjiIcXBAfQx2NR9nGQagsKQBcFCR1RUWbL8Y0Cnu6VJD8FDGwIWEiLbL0D7WrSY6bJUHtC1Wb YuO5KNOjCtHgGWj6PKAaJKM6MTExTonaLZY8AfWtJM0KJq4NZoP8RYW1uSFoOc4GYxWnVMUYVkJpYB6E DQo= ID Date Data Source [id number] 06/10/2020 10:13:00 PM EST [facility] Name Value Range Interpretation Code Description Data Radha rce(s) Supporting Document(s) SARS-CoV-2 RNA 2019 nCoV Real-Time RT-PCR: NOT DETECTED [facility] was ordered by [facility] and reported by [facility]. ID Date Data Source [id number] 06/11/2020 02:13:51 PM [facility] Name Value Range Interpretation Code Description Data Radha rce(s) Supporting Document(s) Specimen source [Identifier] of Unspecified specimen [facility] SARS-CoV-2 RNA 2019 nCoV Real-Time RT-PCR: NOT DETECTED [facility] Assay Performed [facility] Patients first test for [facility] Patient employed in healthcare setting [facility] Patient has symptoms related to [facility] When did you start to experience these symptoms [Date and time] [Phen X] [facility] Patient was hospitalized because of this condition [facility] patient was admitted to ICU for [facility] Patient resides in a congregate care setting [facility] status [facility] ID Date Data Source [id number] 06/11/2020 06:48:12 AM EST [facility] Cmnt XXX-Imp : NoneRespiratory P CR Panel : PCR ResultsMicroorganism XXX Cult : This test does NOT include the virus that causes COVID-19. See separate test for this result.HAdV DNA QI RAULITO+non-probe : Not DetectedHCoV 229ERNA Nph QI RAULITO+non-probe : Not DetectedHCoV LCN5QEN Nph QI RAULITO+non-probe : Not HiabyapbURxBGX31 RNA Nph QI RAULITO+non-probe : Not ZmdokrzsQTlUPV68 RNA Upper resp QI RAULITO+probe : Not DetectedhMPV RNA Nph QINAA+non-probe : Not DetectedRV+EV RNA Nph QI RAULITO+non-probe : Not DetectedFLUAV RNA Nph QI RAULITO+ non-probe : Not DetectedFLUBV RNA Nph QI RAULITO+non-probe : Not DetectedHPIV1 RNA NphQINAA+non- probe : Not DetectedHPIV2 RNA Nph QINAA+non-probe : Not DetectedHPVI3 RNA Nph RAULITO+non-probe : Not DetectedHPIV4 RNA Nph Q RAULITO+non-probe : Not DetectedRSV RNA Nph Q RAULITO+non-probe : Not DetectedB pert.PT PrmtNph Q RAULITO+non-probe : Not DetectedC pneum DNA Nph Q RAULITO+non-probe : Not DetectedM pneum DNA Nph Q RAULITO+non- probe : Not Detected Name Value Range Interpretation Code Description Data Radha rce(s) Supporting Document(s) ID Date Data Source [id number] 06/10/2020 10:12:38 PM EST [facility] Name Value Range Interpretation Code Description Data Radha rce(s) Supporting Document(s) ED Provider Note [facility] XPKVRl8qPzJKHpNy03/VBSkfSATuc3LeHSdoFAg3WGqcGHIyR9LdHGV2uY0sUAP2XTpEDwMaUsRzZLOt lbm [file] vwIVyW6ffjQAnRMkH7WelN/+Jose D+96/dlvrPv7IoZMPn25Q4mY83k6Si/18BpmsSC2oYST+9Ht/E86lu [file] PpVTC7ISzbDBBRKh6Q ID Date Data Source [id number] 06/10/2020 10:05:33 PM EST [facility] Name Value Range Interpretation Code Description Data Radha rce(s) Supporting Document(s) Consultation [facility] XZWLYy9zLiILQnTi21/TBOhtEUVjm8UhWWyqJFd1OArqAJVqX1RfUBL5uA6cVSJ1LIfTXhJuWwTiVYJm lbm [file] AgICAgICAgICAgICAgICAgICAgICAgICAgICAgICAgICAgICAgICAgICAgICAgICAgICAgICAgICAgIC AgICAgICAgICAgICANCiAgICAgICAgICAgICAgICAg ICAgICAgICAgICAgICAgICAgICAgICAgICAgICAgICAgICAgICAgICAgICAgICAgICAgICAgICAgICAg ICAgICAgICAgICAgICAgICAgICAgICANCiAgICAgICAgICAgICAgICAgICAgICAgICAgICAgICAgICAg ICAgICAgICAgICAgICAgICAgICAgICAgICAgICAgIC AgICAgICAgICAgICAgICAgICAgICAgICAgICAgICAgICANCiAgICAgICAgICAgICAgICAgICAgICAgIC AgICAgICAgICAgICAgICAgICAgICAgICAgICAgICAgICAgICAgICAgICAgICAgICAgICAgICAgICAgIC AgICAgICAgICAgICAgICANCiAgICAgICAgICAgICAg ICAgICAgICAgICAgICAgICAgICAgICAgICAgICAgICAgICAgICAgICAgICAgICAgICAgICAgICAgICAg ICAgICAgICAgICAgICAgICAgICAgICAgICANCiAgICAgICAgICAgICAgICAgICAgICAgICAgICAgICAg ICAgICAgICAgICAgICAgICAgICAgICAgICAgICAgIC AgICAgICAgICAgICAgICAgICAgICAgICAgICAgICAgICAgICANCiAgICAgICAgICAgICAgICAgICAgIC AgICAgICAgICAgICAgICAgICAgICAgICAgICAgICAgICAgICAgICAgICAgICAgICAgICAgICAgICAgIC AgICAgICAgICAgICAgICAgICANCiAgICAgICAgICAg ICAgICAgICAgICAgICAgICAgICAgICAgICAgICAgICAgICAgICAgICAgICAgICAgICAgICAgICAgICAg ICAgICAgICAgICAgICAgICAgICAgICAgICAgICANCiAgICAgICAgICAgICAgICAgICAgICAgICAgICAg ICAgICAgICAgICAgICAgICAgICAgICAgICAgICAgIC AgICAgICAgICAgICAgICAgICAgICAgICAgICAgICAgICAgICAgICANCiAgICAgICAgICAgICAgICAgIC AgICAgICAgICAgICAgICAgICAgICAgICAgICAgICAgICAgICAgICAgICAgICAgICAgICAgICAgICAgIC AgICAgICAgICAgICAgICAgICAgICANCjw/bGFiU1mb hUVuzyB5C0niKu9KJb4UFS9ln5XgRKJlUSdbjhVwHwdSLxUjEPQsMqxJYcg7ZQmbQQ9HdCByS4EpT0Ox RYwiSD4HGYMtECMzcWRxGVHbZDHxBhG0WZVcGUcaIW7AoZIfOWzxCYYqCWGcRA9NJRItB125qmWnIM5D Yf1UJvVbPG9lmk4CIDGsPYDhKcrBZdb0ZHupVW4QgG OobSOmMSMoTSUBGoDwK0gvg7NkEIYjEWYPNHgpBW7Vi8OvpWNxQOs+Ck1DMN5cu1AwNFduBOXcUT0ula 8EFMtIMxLuX0XxnPwyJLKcgjP0wYWfWXI6IMkrjqJjUGCQcuUbTKIxP6RbqKrjWlJfIPOuCK4aLg3gUU SaTUL3UeVsVSANVP9MCFAgVTTrnOObXNEiCSWDZR6D WEooLGK0CGTinwNbrPKfIOabLL5OFTJsjpGjYRPqSAAFJLp+Ho6VZA5ig1SvHNuxFuKfLU7pwn1XAZyU TbJaO8Q4fPWjG4X3FQchWf5YHRFuOSQcRPTtTXFVXTkxXU1YIL7yrwW4DJ5ReOMqDEXhSZPzzSCsAEl8 R25teWGvEMdtWW0ILMX+Jenny+Sw2USRPeFFHsDUDuBq ZtWCEGHyBaY9YkS2GQu0UbH8BeJO07bTzmeeGjPUxhPR0FCS3oOKNbERVABG7BdTFbqQ8zlrFkQYXzGR QTIzKzP72fyUIqHGFjZWBtMVAkRb3OKNYkC4FivnSomMnghdCrBJTtVSMXCN7GYSjaauPlwYAoaEnfKR 17vGgqOL1XLg3UJdWwDE8ywk1WrSGyHh3GKFGeMg1J YUQvHYMhOMYsNYZ0TOUrAbThVUthEOYgZGXxEKA1CKRsFGQcVG2RFlObZADvJBD7TdbtMXGrKLUztk1G KJVmPJDzLkL0HjCaMBQtRSBqRUswVMKjEACuTQT0MDXbAOVoJD2HQsStAKNzJBG6DfdtOIRsXHGsoj6R CYUxIWVpNRt2MKUmMCQwZNOxGRmpHLDmZNYxMSBjZR ZuVBUfDL4ORbInZBZhGOClVbLaHCBaHFCbew5LRRJtGAXgUwZnYiJyVIPqQMGlOUnyVNKeMYJ4QdL5ZM BnXHPnPX8FLgTsGOLxDTO0NiFnALMhNUJspb6RUNSnTPMcACT1CwPmBMOfYFYjPYrtGLJaVNF4YHZ8AF OjQIKjCW1FXuRtRHFyYGV6VXQtGCHjBXSmwu4QIJKs IYDeHyD1CqYdWBUpCLPgJEnwCGQhUWA6LaGhXLDtEGZoMP7USeJjRWcyVSTAJbt5ZDrdF9w6BCRxBv6O B0Hfr2AzQDSvRQEXZZumJQ5qrtAfQMUqBn9LO8xLPcxjXRCeRsRnUJlcW0J7OHhuFhPaEGD9LeF0XKV9 O1YpQs5uMLUpHrYzOJXrDTSaOqg6PQNlEsDrLBw2Xj V3Pcs9KSCvBvGxBI1ATa4FCrL7WKY3nDGxCl5HYaf0Wk7XXVZFF5ABOp== ID Date Data Source [id number] 06/10/2020 09:16:00 PM EST [facility] Name Value Range Interpretation Code Description Data Radha rce(s) Supporting Document(s) SARS coronavirus 2 RdRp gene https://www.fda.gov/media/281262/del beck [facility] This lab was ordered by [facility] and reported by [facility]. ID Date Data Source [id number] 06/10/2020 09:27:37 PM [facility] Name Value Range Interpretation Code Description Data Radha rce(s) Supporting Document(s) SARS coronavirus 2 RdRp gene Negative [facility] Test performed using the [employer] ID NOW C OVID-19 assay. This test is only for use under the Food and Drug Administration's Emergency Use Authorization. 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 [facility] Patient has symptoms related to [facility] When did you start to experience these symptoms [Date and time] [Phen X] [facility] Patient was hospitalized because of this condition [facility] patient was admitted to ICU for [facility] Patient resides in a congregate care setting [facility] status [facility] ID Date Data Source [id number] 06/10/2020 08:49:13 PM [facility] Name Value Range Interpretation Code Description Data Radha rce(s) Supporting Document(s) Choriogonadotropin.beta subunit free [Units/volume] in Serum or Plasm a <5 [facility] (NOTE)Levels between 5 and 25 [IU]/L may indicate earlypregnancy and should be repeated after 48 hours. ID Date Data Source [id number] 06/10/2020 08:33:32 PM EST [facility] Name Value Range Interpretation Code Description Data Radha rce(s) Supporting Document(s) Leukocytes [#/volume] in Blood by Automated count 10.7 10*3/uL 4-10 H [facility] Erythrocytes [#/volume] in Blood by Automated count 4.59 10*6/uL 4.1- 5.3 [facility] Hemoglobin [Mass/volume] in Blood 14.3 g/dL 11.5-15.5 [facility] Hematocrit [Volume Fraction] of Blood by Automated count 42.7 % 3 6-45 [facility] Erythrocyte mean corpuscular volume [Entitic volume] by Auto mated count 93.1 fL 80-96 [facility] Erythrocyte mean corpuscular hemoglobin [Entitic mass] by Automated count 31.1 pg 27-33 [facility] Erythrocyte mean corpuscular hemoglobin concentration [Mass/volume] by Automated count 33.5 g/dL 32.0-[facility] width [Ratio] by Automated count 13.5 % 11.5-14.5 [facility] Platelets [#/volume] in Blood by Automated count 336 10*3/uL 150-400 [facility] Differential cell count method - Blood [facility] Neutrophils/100 leukocytes in Blood by Automated count 66 % [facility] Lymphocytes/100 leukocytes in Blood by Automated count 23 % [facility] Monocytes/100 leukocytes in Blood by Automated count 9 % [facility] Eosinophils/100 leukocytes in Blood by Automated count 1 % [facility] Basophils/100 leukocytes in Blood by Automated count 1 % [facility] Neutrophils [#/volume] in Blood by Automated count 7.21 10*3/uL 1.8-7 .0 H [facility] Lymphocytes [#/volume] in Blood by Automated count 2.40 10*3/uL 1.2-4 .0 [facility] Monocytes [#/volume] in Blood by Automated count 0.93 10*3/uL 0-0.8 H [facility] Eosinophils [#/volume] in Blood by Automated count 0.08 10*3/uL 0-0.5 [facility] Basophils [#/volume] in Blood by Automated count 0.07 10*3/uL 0-0.2 [facility] Nucleated erythrocytes/100 leukocytes [Ratio] in Blood by Automated count 0 /100{WBCs} 0-0 [facility] ID Date Data Source [id number] 06/10/2020 09:11:44 PM [facility] Name Value Range Interpretation Code Description Data Radha rce(s) Supporting Document(s) Acetaminophen [Mass/volume] in Serum or Plasma 10.0-30.0 L [facility] ID Date Data Source [id number] 06/10/2020 09:11:44 PM [facility] Value Range Interpretation Code Description Data Radha rce(s) Supporting Document(s) Bicarbonate [Moles/volume] in Serum 26 mmol/L 22-29 [facility] Chloride [Moles/volume] in Serum or Plasma 103 mmol/L 98-107 [facility] Creatinine [Mass/volume] in Serum or Plasma 0.69 mg/dL 0.50-0.90 [facility] Glucose [Mass/volume] in Serum or Plasma 99 mg/dL 70-140 [facility] Potassium [Moles/volume] in Serum or Plasma 3.7 mmol/L 3.4-5.1 [facility] Sodium [Moles/volume] in Serum or Plasma 139 mmol/L 136-145 [facility] Urea nitrogen [Mass/volume] in Serum or Plasma 9 mg/dL 6-20 [facility] Anion gap 3 in Serum or Plasma 9 mmol/L 8-15 [facility] Osmolality of Serum or Plasma by calculation 287 mosm/kg 275-300 [facility] Creatinine/Urea nitrogen [Mass Ratio] in Serum or Plasma 13 [facility] Calcium [Mass/volume] in Serum or Plasma 9.5 mg/dL 8.6-10.0 [facility] Glomerular filtration rate/1.73 sq M pre dicted among non-blacks [Volume Rate/Area] in Serum or Plasma by Creatinine-based formula (MDRD) >6 0 [facility] Glomerular filtration rate/1.73 sq M pre dicted among blacks [Volume Rate/Area] in Serum or Plasma by Creatinine-based formula (MDRD) >60 [facility] ID Date Data Source [id number] 06/10/2020 09:11:44 PM [facility] Value Range Interpretation Code Description Data Radha rce(s) Supporting Document(s) Thyroxine (T4) [Mass/volume] in Serum or Plasma 4.6 ug/dl 4.5-11.7 [facility] ID Date Data Source [id number] 06/10/2020 09:11:44 PM [facility] Value Range Interpretation Code Description Data Radha rce(s) Supporting Document(s) Salicylates [Mass/volume] in Serum or Plasma 3.0-30.0 L [facility] ID Date Data Source [id number] 06/10/2020 09:11:44 PM [facility] Value Range Interpretation Code Description Data Radha rce(s) Supporting Document(s) Ethanol [Mass/volume] in Serum or Plasma Negative [facility] ID Date Data Source [id number] 06/10/2020 09:11:44 PM [facility] Value Range Interpretation Code Description Data Radha rce(s) Supporting Document(s) Albumin [Mass/volume] in Serum or Plasma by Bromocresol green (BCG) dye binding method 4.5 g/dL 3.5-5.2 [facility] Bilirubin.total [Mass/volume] in Serum or Plasma 0.3 mg/dL <1.2 [facility] Bilirubin.direct [Mass/volume] in Serum or Plasma <0.3 [facility] Alkaline phosphatase [Enzymatic activity/volume] in Serum or Plasma 110 U/L 35-104 H [facility] Aspartate aminotransferase [Enzymatic activity/volume] in Serum or Plasma 19 U/L <32 [facility] Alanine aminotransferase [Enzymatic activity/volume] in Seru m or Plasma 21 U/L <33 [facility] Protein [Mass/volume] in Serum or Plasma 7.5 g/dL 6.4-8.3 [facility] ID Date Data Source [id number] 06/10/2020 09:11:44 PM [facility] Value Range Interpretation Code Description Data Radha rce(s) Supporting Document(s) Thyrotropin [Units/volume] in Serum or Plasma 1.040 u[IU]/mL 0.270-4. 200 [facility] ID Date Data Source [id number] 06/10/2020 08:56:12 PM [facility] Value Range Interpretation Code Description Data Radha rce(s) Supporting Document(s) Amphetamine [Presence] in Urine by Screen method Negative [facility] Benzodiazepines [Presence] in Urine by Screen method Negat grisel [facility] Cannabinoids [Presence] in Urine by Screen method Negative [facility] Benzoylecgonine [Presence] in Urine by Screen method Negat [facility] Methadone [Presence] in Urine by Screen method Negative [facility] Opiates [Presence] in Urine by Screen method Negative [facility] Oxycodone [Presence] in Urine by Screen method Negative [facility] Fentanyl+Norfentanyl [Presence] in Urine by Screen method Negative [facility] Service comment [facility] Results below the indicated cutoff (ng/m L), are reported as"Negative." Note: for medical purposes only; not valid for legalor employment testing. ID Date Data Source [id number] 04/25/2020 12:16:00 AM EST [address] [address] [phone] NAME SEX PT STATUS ACCOUNT NUMBER EMIKADY Lea [facility] ER [id number] ORDERING PHYSICIAN LOCATION MEDICAL RECORD NO. Eddy Tee MD ER [id number] ATTENDING PHYSICIAN DATE OF DATE OF EXAM/TIME Doctor Provided,No Family 1990 04/24/202311 TYPE / EXAM US Transvaginal non-OB REASON FOR EXAM LLQ PAIN [address] [address] [phone] NAME SEX PT STATUS ACCOUNT NUMBER LAKSHMI MIDDLETONLUIS A Lea [facility] ER [id number] ORDERING PHYSICIAN LOCATION MEDICAL RECORD NO. Eddy Tee MD ER [id number] ATTENDING PHYSICIAN DATE OF DATE OF EXAM/TIME Doctor Provided,No Family 1990 04/24/202311 TYPE / EXAM US Pelvic complete REASON FOR EXAM left sided pelvic pain. Clinical History/Indication for Exam: left sided pelvic pain. Pelvic ultrasound, transvaginal ultrasound 04/24/2020 Clinical information: Left side pelvic pain. Comparison: CT same day. Findings: Uterus measures 5.8 x 2.7 x 3.3 centimeters. There is no uterine mass, specifically fibroid. The endometrium is distended with hypoechoic fluid with low-level internal echoes suggesting the possibility of hemorrhage. The endometrium is distended to 8 mm in overall thickness. L[employer] DES[employer]ER correlation and follow-up is recommended. There is an intrauterine device in proper position. Right ovary measures 3.3 x 1.8 x 2.8 centimeters. Left ovary measures 2.9 x 2.2 x 2.8 centimeters. Both appear normal in contour and echotexture, no masses, normal flow. No free fluid in the adnexa. Impression: 1. Satisfactory intrauterine device. 2. Distention of the endometrium with free fluid suggesting hemorrhage. Etiology not certain. Recommend LIGHTING DESIGNER correlation and follow-up. 3. Normal ovaries. REPORT SIGNATURE ON FILE 04/25/2020 (00:14 Eastern Time ) Signed by: Jose D Sneed M.D. Reported By Jose D Sneed MD on 04/25/2013 Signed By Jose D Sneed MD on 04/25/2013 Date Time CC: Jose D Sneed MD; No Family PHYS Provided Techn: FANTASMA Trans Dt/Tm: Trans by: DT Prt Dt/Tm: : Total DLP = 0.00 mGy-cm 0275-7030: Total Radiation Dose = 0.0000 mSv Lifetime Dose: 21.0750 mSv Reported By Jose D Sneed MD on 04/25/2015 Signed By Jose D Sneed MD on 04/29/20 1100 Date Time CC: Jose D Sneed MD; No Family PHYS Provided Techn: CARAI Trans Dt/Tm: Trans by: DT Prt Dt/Tm: [id number]: Total DLP = 0.00 mGy-cm 8770-5001: Total Radiation Dose = 0.0000 mSv Lifetime Dose: 21.0750 mSv Name Value Range Interpretation Code Description Data Radha rce(s) Supporting Document(s) ID Date Data Source [id number] 04/25/2020 12:14:00 AM [facility] [address] [place] [address] [phone] NAME SEX PT STATUS ACCOUNT NUMBER KADY MID[place] [facility] ER [id number] ORDERING PHYSICIAN LOCATION MEDICAL RECORD NO. Eddy Tee MD ER [id number] ATTENDING PHYSICIAN DATE OF DATE OF EXAM/TIME Doctor Provided,No Family 1990 04/24/202311 TYPE / EXAM US Pelvic complete REASON FOR EXAM left sided pelvic pain. Clinical History/Indication for Exam: left sided pelvic pain. Pelvic ultrasound, transvaginal ultrasound 04/24/2020 Clinical information: Left side pelvic pain. Comparison: CT same day. Findings: Uterus measures 5.8 x 2.7 x 3.3 centimeters. There is no uterine mass, specifically fibroid. The endometrium is distended with hypoechoic fluid with low-level internal echoes suggesting the possibility of hemorrhage. The endometrium is distended to 8 mm in overall thickness. L[employer] DESIGNER correlation and follow-up is recommended. There is an intrauterine device in proper position. Right ovary measures 3.3 x 1.8 x 2.8 centimeters. Left ovary measures 2.9 x 2.2 x 2.8 centimeters. Both appear normal in contour and echotexture, no masses, normal flow. No free fluid in the adnexa. Impression: 1. Satisfactory intrauterine device. 2. Distention of the endometrium with free fluid suggesting hemorrhage. Etiology not certain. Recommend L[employer] DESIGNER correlation and follow- up. 3. Normal ovaries. REPORT SIGNATURE ON FILE 04/25/2020 (00:14 Eastern Time ) Signed by: Jose D Sneed M.D. Reported By Jose D Sneed MD on 04/25/2013 Signed By Jose D Sneed MD on 04/25/2013 Date Time CC: Jose D Sneed MD; No Family PHYS Provided Techn: CARSAIAD Trans Dt/Tm: Trans by: REINIER Prt Dt/Tm: : Total DLP = 0.00 mGy-cm 1226-3969: Total Radiation Dose = 0.0000 mSv Lifetime Dose: 21.0750 mSv Name Value Range Interpretation Code Description Data Radha rce(s) Supporting Document(s) ID Date Data Source [id number] 04/24/2020 10:13:00 PM EST [facility] [address] [place] [address] [phone] NAME SEX PT STATUS ACCOUNT NUMBER KADY [place] [facility] ER [id number] ORDERING PHYSICIAN LOCATION MEDICAL RECORD NO. Eddy Tee MD ER [id number] ATTENDING PHYSICIAN DATE OF DATE OF EXAM/TIME Doctor Provided,No Family 1990 04/24/201923 TYPE / EXAM CT Abd/pel w/ contrast REASON FOR EXAM suprapubic and pelvic pain Clinical History/Indication for Exam: suprapubic and pelvic pain CT ABDOMEN AND PELVIS WITH INTRAVENOUS CONTRAST INDICATION: suprapubic and pelvic pain TECHNIQUE: Axial computed tomography images of the abdomen and pelvis with intravenous contrast. Sagittal and coronal reformatted images were created and reviewed. This CT exam was performed using one or more of the following dose reduction techniques: automated exposure control, adjustment of the mA and/or kV according to patient size, and/or use of iterative reconstruction technique. COMPARISON: No relevant prior studies available. FINDINGS: Lung bases: Unremarkable. No mass. No consolidation. ABDOMEN: Liver: Unremarkable. No mass. Gallbladder and bile ducts: Unremarkable. No calcified stones. No ductal dilation. Pancreas: Unremarkable. No mass. No ductal dilation. Spleen: Unremarkable. No splenomegaly. Adrenals: Unremarkable. No mass. Kidneys and ureters: No obstructive uropathy. Stomach and bowel: Mild constipation. No obstruction. No mucosal thickening. PELVIS: Appendix: Normal appendix. Bladder: Unremarkable. No mass. Reproductive: IUD. ABDOMEN and PELVIS: Intraperitoneal space: Unremarkable. No free air. No significant fluid collection. Bones/joints: No acute fracture. No dislocation. Soft tissues: Unremarkable. Vasculature: Unremarkable. No abdominal aortic aneurysm. Lymph nodes: Unremarkable. No enlarged lymph nodes. Other findings: No acute findings. IMPRESSION: 1. No acute findings. 2. Normal appendix. 3. Mild constipation. 4. No obstructive uropathy. Automatic exposure control was used as a dose lowering technique. REPORT SIGNATURE ON FILE 04/24/2020 (22:13 Eastern Time ) Signed by: Laya Humphries M.D. Reported By Laya Humphries MD on 04/24/202212 Signed By Laya Humphries MD on 04/24/202212 Date Time CC: Laya Humphries MD; No Family PHYS Provided Techn: PALHE Trans Dt/Tm: Trans by: DT Prt Dt/Tm: : Total DLP = 1405.00 mGy-cm : Total Radiation Dose = 21.0750 mSv Lifetime Dose: 21.0750 mSv Name Value Range Interpretation Code Description Data Radha rce(s) Supporting Document(s) ID Date Data Source [id number] 04/24/2020 09:56:00 PM [facility] ED Physician Documentation NAME: KADY MIDDLETON : 1990 AGE: 29 MR#: [id number] SERVICE DATE: 04/24/[address]: Eddy Tee MD PRIMARY CARE DR: No Family PHYS Provided ROOM#: [facility] (Adult, General) General Chief Complaint: Multi system (Adult) Stated Complaint: PELVIC PAIN Resident LT, travel outisde home, exposure to hot tubs:: No Time Seen by Provider: 04/24/20 19:07 Source: patient Exam Limitations: no limitations History of Present Illness Narrative: 29-year-old female patient underlying medical history of endometriosis, migraine, asthma presented with 1 month history of suprapubic and pelvic abdominal pain. As per patient initially pain intermittent, but since yesterday pain is sharp and more consistent. Radiating down the left leg. Reported increased vaginal discharge, whitish, [id number]. Stated it was her normal vaginal discharge but slight increase in quantity. Patient has an IUD. Denies fevers or chill. Currently sexually active with one partner. In the process of getting a colposcopy next week for abnormal Pap smear. Denies nausea or vomiting. Reported pelvic pain worsened with walking. No relieving factor. Denies chest pain. No diarrhea. History of Present Illness Initial Comments: Suprapubic and pelvic pain Timing/Duration: constant and getting worse Past Medical History Past Medical History: Nursing Past Medical History Has Been Reviewed Allergies/Home Meds Allergies Allergy/AdvReac Type Severity Reaction Status Date / Time esomeprazole [From Nexium] Allergy Hives Verified 04/24/20 19:13 latex Allergy Other, not Verified 04/24/20 19:14 listed Home Medications Medication Instructions Recorded Confirmed Last Taken Type oxycodone-acetaminophen [Percocet] 1 tab PO Q6HR PRN #10 tab 04/25/20 Unknown Rx sennosides-docusate sodium [Senna 1 tab- cap PO BID #60 cap 04/25/20 Unknown Rx Plus] Medication list updated and reviewed:: Yes Pain Assessment Pain Location: Suprapubic and pelvic pain. Pain Description: Sharp Pain Intensity: 8 Pain Scale Used: Numeric Scale ER plan Plan of care and ER treatment: An ER treatment plan was discussed with patient and family, Patient encouraged to ask questions about plan and ER treatments and Patient agrees with ER plan of care Plan: CBC, CMP, magnesium, C-reactive protein, UA, hCG, CT abdomen pelvis, GC chlamydia, PMH (from Triage) Patient Medical History PMH Reviewed/Updated as Needed: Yes Female History LMP:: Medication to stop menses : No Hx Drug Resistant Infections Hx Other Resistant Infection?: No Isolation: Standard precautions Hx Recent Travel Nurse screening for coronavirus: Recent Travel outside the No country (where) Has patient experienced No coronavirus symptoms Social History Are you in a relationship with/Does anyone hit you, yell/swear at you, steal from you?: No Substance Use Second Hand Smoke Exposure: Yes Smoking Status: Current some day smoker Tobacco Use Tobacco Products:: E- cigarette Hx Chewing Tobacco Use: No Vaccination History Hx/Date of Tetanus, Diphtheria Vaccination: Yes Hx/Date of Influenza Vaccination: Yes Hx/Date of Pneumococcal Vaccination: No Immunizations Up to Date: Yes PFSH Social History Does the Patient have a Healthcare Proxy: No Does Patient have a DNR?: No Does Patient have a Living Will?: No Smoking Status: Current some day smoker ROS Review of Systems Constitutional: Denies fever and chills Eyes: Denies vision change ENT: Denies mouth pain and throat pain Respiratory: Denies cough and sputum Cardiovascular: Denies chest pain and palpitations Gastrointestinal: Reports abdominal pain; Denies nausea and vomiting Genitourinary-Female: Denies dysuria, frequency, cloudy or smoky urine and h/o STDs Musculoskeletal: Denies neck pain, shoulder pain and arm pain Skin/Breasts: Denies rash and lesions Neurologic: Denies weakness and numbness Psychiatric: Reports No Symptoms/Complaints Endocrine: Reports No Symptoms/Complaints Hematological/Lymphatic: Reports No Symptoms/Complaints Allergic/Immunologic: Reports No Symptoms/Complaints Physical Exam General Limitations: no limitations General appearance: alert and in no apparent distress Head Head exam: Present atraumatic and normocephalic Eye Eye exam: Present normal apperance and EOMI ENT ENT exam: Present normal exam and mucous membranes moist Neck Neck exam: Present normal inspection and full ROM Respiratory Respiratory exam: Present normal lung sounds bilaterally; Absent respiratory distress, wheezes, rales and rhonchi Cardiovascular Cardiovascular Exam: Present regular rate, normal rhythm and no murmur GI/Abdominal GI/Abdominal exam: Present Abd soft, bowel sounds present all quadrents, soft and normal bowel sounds; Absent guarding, rebound and rigid External exam: Present normal external exam Speculum exam: Present normal speculum exam; Absent erythe ma, vaginal discharge, cervical discharge,vaginal bleeding, foreign body, tissue and laceration By manual exam: Present normal by manual exam Extremities Exam Extremities exam: Present normal inspection, Full ROM without tenderness, capillary refill brisk andfull ROM Back Exam Back exam: Present normal inspection Neurological Exam Neurological exam: Present alert, oriented X3 and CN II-XII intact Psychiatric Psychiatric exam: Present normal affect Skin Skin exam: Present dry and intact Vital Signs Vital Signs: Vital Signs 04/24/20 19:05 04/24/20 22:27 Temperature 97.7 F Pulse Rate 87 74 Respiratory Rate 20 18 Blood Pressure 142/88 109/78 O2 Sat by Pulse Oximetry 98 100 MDM (comprehensive) Lab Data Labs: 04/24/20 19:50 04/24/20 19:50 Laboratory Results Last 24 hours 04/24/20 19:50: WBC 8.0, RBC 4.06 L, Hgb 12.3, Hct 39.1, MCV 96.3 H, MCH 30.3, MCHC 31.5 L, RDW 13, Plt Count 278, MPV 9.7, Immature Gran % (Auto) 0.1, Neut % (Auto) 63.3, Lymph % (Auto) 27.9, [place] % (Auto) 7.1, Eos % (Auto) 1.2, Baso % (Auto) 0.4, Lymph # (Auto) 2.2, Abs Immat Gran (auto) 0.0, Add Manual Diff No, Absolute Neutrophils 5.1, Monocytes # 0.6, Absolute Eosi nophils 0.1, Absolute Basophils 0.0 04/24/20 19:50: C-Reactive Protein 7.8 H 04/24/20 19:50: Sodium 141, Potassium 4.1, Chloride 109, Carbon Dioxide 28, Anion Gap 8, BUN 12, Creatinine 0.9, GFR Calculation Greater than 60, Glucose 88, Calcium 8.7, Total Bilirubin 0.3, AST 13, ALT 35, Alkaline Phosphatase 105, Serum Total Protein 7.0, Albumin 3.5, Lipase 82 04/24/20 19:50: Lactic Acid 0.9 04/24/20 20:15: Urine HCG, Qual Negative 04/24/20 20:15: Urine Color Yellow, Urine Appearance Clear, Urine pH 6.0, Ur Specific [place] 1.019,Urine Protein Negative, Urine Ketones Negative, Urine Blood Negative, Urine Nitrate Negative, Urine Bilirubin Negative, Urine Urobilinogen 0.2 eu/dl, Ur Leukocyte Esterase Negative, Add Ur Microanalysis No, Urine Glucose Negative Radiology Data Radiology results: image reviewed Radiology impressions: CT abdomen pelvis with contrast shows constipation. With ultrasound shows intrauterine fluids. Medical Decision Making Free Text/Narative:: History of endometriosis. No evidence of vaginal bleeding from pelvic exam. Ultrasound shows intrauterine fluids. Afebrile. No leukocytosis. GC, chlamydia pending. No evidence of ovarian torsion. CT abdomen pelvis shows no evidence of appendicitis. Pain improved. Recommend outpatient follow-up in the next 5 days with [facility]. Plan Plan Plan: Pelvic pain, follow-up GC, chlamydia as outpatient. UA negative. Work-up does not suggest infectious etiology. Follow-up with [facility] as outpatient in the next 5 days. Return to the hospital if febrile, purulent vaginal discharge or worsening pain. Plan of care: Pain control discussed with patient, Activity limitations discussed with patient/family, Follow up appointments discussed, Plan of care discussed with patient and or family,Patient encouraged to ask questions about plan, Patient agrees with plan of care, Teach back used with patient/caregivers to build capacity, Person receiving instructions verbalizes understanding ofplan and Discharge plan and instructions discussed with patient and or family Visit Medications Administered ED medications:: Medications Discontinued Medications Generic Name Dose Route Start Last Admin Trade Name Freq PRN Reason Stop Dose Admin Ketorolac Tromethamine 15 mg 04/24/20 21:40 04/24/20 21:47 Ketorolac Tromethamine 30 Mg/Ml Sdv IVP 04/24/20 21:41 15 mg 1T ONE Administration Morphine Sulfate 2 mg 04/24/20 22:17 04/24/20 22:21 Morphine Sulfate 2 Mg/Ml Sdv IVP 04/24/20 22:18 2 mg 1T ONE Administration Polyethylene Glycol 17 gm 04/24/20 22:18 04/24/20 23:19 Polyethylene Glycol 3350 17 Gm/Pkt Packet PO 04/24/20 22:19 Not Given 1T ONE Discharge Plan Admission/Discharge Dx Primary DC Diagnosis: Pelvic pain ED Provider: Eddy Tee ED Status: Ready for Discharge Time Seen by Provider: 04/24/20 19:07 Triaged At: 04/24/20 19:05 Condition Condition: Stable Discharge Detail Disposition: Home, Self-Care Med Rec New Prescriptions: New oxycodone-acetaminophen [Percocet] 5-325 mg tablet 1 tab PO Q6HR PRN (Reason: pain (scale score 4- 6)) Qty: 10 RF: 0 Senna Plus 8.6-50 mg capsule 1 tab-cap PO BID Qty: 60 RF: 0 Diet:: regular Medications Medication reconciliation performed by provider at discharge: Yes Follow Up Care/Instructions Diet/Activity/Wound Care..: Please follow-up with primary care provider in 5 days. Please see [facility] in 5 days. Return to the hospital symptoms worsen. Or if develop fevers. Purulent vaginal discharge. Follow-up ALLI, chlamydia resu lts as outpatient. Assessment: Patient work-up negative for acute infectious etiology. Intrauterine fluids detected on pelvic ultrasound with no signs of active bleeding. Need further evaluation by [facility]. GC chlamydia sent. No leukocytosis, afebrile. UA negative. CT abdomen pelvis within normal limits. Bowel regimen prescribed. No evidence of ovarian torsion on physical exam or ultrasound. *Discharge Patient* Discharge Orders: Discharge Order (Routine); Ordered 04/25/20 Ordered By: Eddy Tee Interventions Interventions: ED General Adult Last Done: 04/24/20 19:11 Report Signers: <Electronically signed by Eddy Tee MD> Eddy Tee MD 04/25/20 0035 Eddy Tee MD SIGNATURE DA Report Cosigners: D: RUDOLPH 04/24/202155 T: RUDOLPH 04/24/202155 CC: No Family PHYS Provided Name Value Range Interpretation Code Description Data Radha rce(s) Supporting Document(s) ID Date Data Source [id number] 04/24/2020 08:31:00 PM [facility] Reason for ordering culture: Abnormal fi ndings UAMethod of Collection:: Voided Name Value Range Interpretation Code Description Data Radha rce(s) Supporting Document(s) Color of Urine [facility] Appearance of Urine CLEAR [facility] pH of Urine by Test strip 6.0 5-8 [facility] Specific gravity of Urine by Refractometry 1.019 1.005-1.030 [facility] Leukocyte esterase [Presence] in Urine by Test strip NEGAT GRISEL [facility] Nitrite [Presence] in Urine by Test strip NEGATIVE [facility] Protein [Presence] in Urine by Test strip NEGATIVE [facility] Glucose [Mass/volume] in Urine by Automated test strip NEGATIVE NEG ATIVE [facility] Ketones [Presence] in Urine by Test strip NEGATIVE [facility] Urobilinogen [Presence] in Urine 0.2-1 EU/dl [facility] Bilirubin.total [Presence] in Urine by Automated test strip NEGATIVE [facility] Erythrocytes [#/volume] in Urine by Test strip NEGATIVE NEGATIVE [facility] URINE MICROSCOPIC? (CIF) NO [facility] ID Date Data Source [id number] 04/28/2020 01:37:00 PM EST [facility] Name Value Range Interpretation Code Description Data Radha rce(s) Supporting Document(s) Chlamydia trachomatis rRNA [Presence] in Unspecified specimen by Probe and target amplification method NOT DETECTED [facility] Neisseria gonorrhoeae rRNA [Presence] in Unspecified specimen by Probe and target amplification method NOT DETECTED [facility] Chlamydia/GC DNA Note SEE NOTE [facility] The analytical performance characteristi cs of thisassay, when used to test SurePath(TM) specimens have beendetermined by [employer]. The modifications havenot been cleared or approved by the FDA. This assay hasbeen validated pursuant to the CLIA regulations and isused for clinical purposes.For additional information, please refer tohttps://education.[employer]/faq/PEU711(This link is being provided for information/educational purposes only.)THIS TEST WAS PERFORMED AT:[email or web address] [id number] ABRAHAM MD ID Date Data Source [id number] 04/26/2020 03:16:00 PM EST [facility] Name Value Range Interpretation Code Description Data Radha rce(s) Supporting Document(s) Trichomonas DNA Probe NOT DETECTED NOT DETECTED [facility] Gardnerella DNA Probe NOT DETECTED NOT DETECTED [facility] Esther species DNA Probe NOT DETECTED NOT DETECTED [facility] THIS TEST WAS PERFORMED AT:[employer] [address] [id number] MERATI,MD ID Date Data Source [id number] 04/24/2020 08:31:00 PM [facility] @ DID THE CONTROL BAND APPEAR? YES@ DID THE BACKGROUND CLEAR? YES Special Instructions: Lab may order repe at test if initial test elevatedPhysician If elevated, reflex second test in 4-6 hrs Name Value Range Interpretation Code Description Data Radha rce(s) Supporting Document(s) Choriogonadotropin [Moles/volume] in Urine NEGATIVE NEGATIVE [facility] @Reenter manual test result: NEGATIVE@by Rae Marquez at 04/24/202030. ID Date Data Source [id number] 04/24/2020 08:26:00 PM [facility] @ DID THE CONTROL BAND APPEAR? YES@ DID THE BACKGROUND CLEAR? YES Special Instructions: Lab may order repe at test if initial test elevatedPhysician If elevated, reflex second test in 4-6 hrs Name Value Range Interpretation Code Description Data Radha rce(s) Supporting Document(s) Urea nitrogen [Mass/volume] in Serum or Plasma 12 mg/dL 9-23 N [facility] Sodium [Moles/volume] in Serum or Plasma 141 mmol/L 132-146 [facility] Potassium [Moles/volume] in Serum or Plasma 4.1 mmol/L 3.5-5.5 [facility] Chloride [Moles/volume] in Serum or Plasma 109 mmol/L 99-109 N [facility] Carbon dioxide, total [Moles/volume] in Serum or Plasma 28 mmol/L 20 -31 N [facility] Anion gap in Serum or Plasma 8 mmol/L 8-16 [facility] Glucose [Mass/volume] in Serum or Plasma 88 mg/dL 74-106 [facility] Creatinine 0.9 mg/dL 0.5-1.1 [facility] Glomerular filtration rate/1.73 sq M.pre dicted [Volume Rate/Area] in Serum or Plasma Greater Than 60 ABOVE 60 [facility] Alanine aminotransferase [Enzymatic acti vity/volume] in Serum or Plasma by With P-5'-P 35 U/L 10-49 [facility] ital Aspartate aminotransferase [Enzymatic ac tivity/volume] in Serum or Plasma by With P-5'-P 13 U/L 0-33 [facility] Alkaline phosphatase [Enzymatic activity/volume] in Serum or Plasma 105 U/L 45-129 [facility] Calcium [Mass/volume] in Serum or Plasma 8.7 mg/dL 8.5-10.1 [facility] Bilirubin.total [Mass/volume] in Serum or Plasma 0.3 mg/dL 0.3-1.2 [facility] Albumin [Mass/volume] in Serum or Plasma by Bromocresol purple (BCP) dye binding method 3.5 g/dL 3.2-4.8 [facility] ital Protein [Mass/volume] in Serum or Plasma 7.0 g/dL 5.7-8.2 [facility] ID Date Data Source [id number] 04/24/2020 08:31:00 PM [facility] @ DID THE CONTROL BAND APPEAR? YES@ DID THE BACKGROUND CLEAR? YES Special Instructions: Lab may order repe at test if initial test elevatedPhysician If elevated, reflex second test in 4-6 hrs Name Value Range Interpretation Code Description Data Radha rce(s) Supporting Document(s) Lactic w Rfx (if elevated) 0.9 mmol/L 0.5-2.[address] [facility] ID Date Data Source [id number] 04/29/2020 07:52:00 PM [facility] @ DID THE CONTROL BAND APPEAR? YES@ DID THE BACKGROUND CLEAR? YES Special Instructions: Lab may order repe at test if initial test elevatedPhysician If elevated, reflex second test in 4-6 hrs Name Value Range Interpretation Code Description Data Radha rce(s) Supporting Document(s) Bacteria identified in Blood by Culture [facility] NO GROWTH AFTER 5 DAYS ID Date Data Source [id number] 04/24/2020 08:26:00 PM [facility] @ DID THE CONTROL BAND APPEAR? YES@ DID THE BACKGROUND CLEAR? YES Special Instructions: Lab may order repe at test if initial test elevatedPhysician If elevated, reflex second test in 4-6 hrs Name Value Range Interpretation Code Description Data Radha rce(s) Supporting Document(s) Lipase [Enzymatic activity/volume] in Serum or Plasma 82 U/L 73-3 93 [address] [facility] ID Date Data Source [id number] 04/24/2020 07:57:00 PM [facility] Name Value Range Interpretation Code Description Data Radha rce(s) Supporting Document(s) Leukocytes [#/volume] in Blood by Automated count 8.0 10*3/uL 4.45-10 .71 [facility] Erythrocytes [#/volume] in Blood by Automated count 4.06 10*6/uL 4.20-5.40 Below low normal [facility] Hemoglobin [Moles/volume] in Blood 12.3 g/dL 10.7-15.4 [facility] Hematocrit [Volume Fraction] of Blood by Automated count 39.1 % 3 7-47 [facility] Erythrocyte mean corpuscular volume [Ent itic volume] in Cord blood by Automated count 96.3 fL 80-96 Above high normal [facility] Erythrocyte mean corpuscular hemoglobin [Entitic mass] by Automated count 30.3 pg 27-31 N [facility] Erythrocyte mean corpuscular hemoglobin concentration [Mass/volume] in Cord blood 31.5 g/dL 33-37 Below low normal [facility] Erythrocyte distribution width [Entitic volume] by Automated count 13 % 11-15 N [facility] Platelets [#/volume] in Blood by Automated count 278 10*3/uL 130-472 N [facility] Platelet mean volume [Entitic volume] in Blood 9.7 fL 9.1-13.1 N [facility] Neutrophils/100 leukocytes in Blood by Automated count 63.3 % 41- 77 N [facility] Neutrophils [#/volume] in Blood by Automated count 5.1 U 1.7-7.6 N [facility] Lymphocytes/100 leukocytes in Blood by Automated count 27.9 % 14- 46 N [facility] Lymphocytes [#/volume] in Blood by Automated count 2.2 U 0.6-4.6 N [facility] Monocytes/100 leukocytes in Blood by Automated count 7.1 % 4-12 N [facility] Monocytes [#/volume] in Blood by Automated count 0.6 U 0.2-1.2 N [facility] Eosinophils/100 leukocytes in Blood by Automated count 1.2 % 0-7 N [facility] Eosinophils [#/volume] in Blood by Automated count 0.1 U 0.0-0.5 N [facility] Basophils/100 leukocytes in Blood by Automated count 0.4 % 0.4-1 .3 N [facility] Basophils [#/volume] in Blood by Automated count 0.0 U 0.0-0.2 [facility] NUCLEATED RED BLOOD CELL 0 % [facility] NUCLEATED RED BLOOD CELL# [address] [facility] Immature granulocytes [Presence] in Blood by Automated count 0-2 N [facility] Immature granulocytes [#/volume] in Blood by Automated count 0.0 U 0-0.1 N [facility] Manual Differential panel - Blood NO [facility] ID Date Data Source [id number] 04/24/2020 08:26:00 PM EST [facility] Name Value Range Interpretation Code Description Data Radha rce(s) Supporting Document(s) C reactive protein [Mass/volume] in Serum or Plasma 7.8 mg/L 0.0-5.0 Above high normal [facility] ID Date Data Source [id number] 04/04/2020 04:05:00 PM EST [facility] Name Value Range Interpretation Code Description Data Radha rce(s) Supporting Document(s) SARS-CoV-2, RAULITO Not Detected Not Detected [facility] This nucleic acid amplification test was developed and its performancecharacteristics determined by [facility]. Nucleic acidamplification tests include PCR and TMA. This test has not been FDAcleared or approved. This test has been authorized by FDA under anEmergency Use Authorization (EUA). This test is only authorized forthe duration of time the declaration that circumstances existjustifying the authorization of the emergency use of in vitrodiagnostic tests for detection of SARS-CoV-2 virus and/or diagnosisof COVID-19 infection under section 564(b)(1) of the Act, 21 U.S.C.360bbb-3(b) (1), unless the authorization is terminated or revokedsooner.When diagnostic testing is negative, the possibility of a falsenegative result should be considered in the context of a patient'srecent exposures and the presence of clinical signs and symptomsconsistent with COVID- 19. An individual without symptoms of COVID-19and who is not shedding SARS-CoV-2 virus would expect to have anegative (not detected) result in this assay. ID Date Data Source [id number] 04/03/2020 08:00:00 AM EST [facility] Name Value Range Interpretation Code Description Data Radha rce(s) Supporting Document(s) SARS coronavirus 2 RNA [facility] This lab was ordered by [facility] a nd reported by [facility]. ID Date Data Source [id number] 04/04/2020 04:10:00 PM [facility] Value Range Interpretation Code Description Data Radha rce(s) Supporting Document(s) SARS COV2 [facility] Not Detected Not Detected [facility] This nucleic acid amplification test was developed and itsperformance characteristics determined by [facility]. Nucleic acid amplification tests include PCRand TMA. This test has not been FDA cleared or approved.This test has been authorized by FDA under an Emergency UseAuthorization (EUA). This test is only authorized forthe duration of time the declaration that circumstancesexist justifying the authorization of the emergency use ofin vitro diagnostic tests for detection of SARS-CoV-2 virusand/or diagnosis of COVID-19 infection under [id number](b)(1) of the Act, 21 U.S.C. 360bbb-3(b) (1), unless theauthorization is terminated or revoked sooner.When diagnostic testing is negative, the possibility of afalse negative result should be considered in the contextof a patient's recent exposures and the presence ofclinical signs and symptoms consistent with COVID-19. Anindividual without symptoms of COVID-19 and who is notshedding SARS-CoV-2 virus would expect to have a negative(not detected) result in this assay.Performed at: [facility] [place] [id number] Director: Jerilyn Sainz MD, Phone: [phone] ID Date Data Source INFLUENZA A,B PCR 04/02/2020 01:23:34 PM EST eCW1 ([facility]) Name Value Range Interpretation Code Description Data Radha rce(s) Supporting Document(s) NEGATIVE INFLUENZA A eCW1 ([facility]) NEGATIVE INFLUENZA B eCW1 ([facility]) ID Date Data Source [id number] 04/02/2020 12:19:00 PM EST [facility] Name Value Range Interpretation Code Description Data Radha rce(s) Supporting Document(s) INFLUENZA A NEGATIVE NEGATIVE [facility] INFLUENZA B NEGATIVE NEGATIVE [facility] This is a rapid molecular in vitro diagn ostic test utilizingan isothermal nucleaic acid amplification technology for thequalitative detection and discrimination of influenza A andB viral RNA. Negative results do not preclude influenzavirus infection and should not be used as the sole basis fordiagnosis, treatment or other patient management decisions. ID Date Data Source [id number] 04/02/2020 12:26:00 PM EST [facility] Name Value Range Interpretation Code Description Data Radha rce(s) Supporting Document(s) GLUCOSE 97 mg/dL 74-106 [facility] BLOOD UREA NITROGEN 11 mg/dL 7-18 [facility] ital CREATININE 0.9 mg/dL 0.6-1.0 [facility] SODIUM 141 mmol/L 136-145 [facility] POTASSIUM 4.1 mmol/L 3.5-5.1 [facility] CHLORIDE 104 mmol/L 98-107 [facility] CO2 29 mmol/L 21-32 [facility] CALCIUM 9.3 mg/dL 8.5-10.1 [facility] ANION GAP 8.0 mmol/L 5-12 [facility] GLOMERULAR FILTRATION RATE 75 mL/min [facility] GFR IS CALCULATED IN mL/min/1.73m2 AMANDA L FUNCTION: >90MILDLY DECREASED: 60-89MILDY TO MODERATELY DECREASED: 45-59 MODERATELY TO SEVERELY DECREASED: 30-44SEVERELY DECREASED: 15-29RENAL FAILURE: <15 ID Date Data Source [id number] 04/02/2020 12:08:00 PM [facility] Name Value Range Interpretation Code Description Data Radha rce(s) Supporting Document(s) WHITE BLOOD COUNT 7.1 K/mm3 4.0-10.0 [facility] al RED BLOOD COUNT 4.65 M/mm3 4.00-5.50 [facility] HEMOGLOBIN 14.3 gm/dL 12.0-16.0 [facility] HEMATOCRIT 42.8 % 36.0-48.8 [facility] MEAN CELL VOLUME 92.0 fl 80-96 [facility] MEAN CORPUSCULAR HEMOGLOBIN 30.8 pg 27.0-31.0 [facility] MEAN CORPUSCULAR HGB CONC 33.4 g/dl 32.0-36.0 [facility] RED CELL DISTRIBUTION WIDTH 12.5 % 10.0-14.5 [facility] PLATELET COUNT 322 K/mm3 172-450 [facility] MEAN PLATELET VOLUME 9.7 fl 9.0-13.0 [facility] pital GRAN % 70.5 % 50-80.0 [facility] IG% 0.1 % 0.0-0.2 [facility] LYMPH % 21.6 % 25.0-50.0 L [facility] MONO % 6.9 % 2.0-10.0 [facility] EOS % 0.6 % 0-5.0 [facility] BASO % 0.3 % 0.0-2.0 [facility] GRAN # 5.0 K/mm3 2.0-8.00 [facility] IG# 0.0 K/mm3 0.0-0.2 [facility] LYMPH # 1.5 K/mm3 1.0-5.0 [facility] MONO # 0.5 K/mm3 0.10-1.20 [facility] EOS # 0.0 K/mm3 0.0-0.5 [facility] BASO # 0.0 K/mm3 0.0-0.2 [facility] ID Date Data Source BASIC METABOLIC PANEL 04/02/2020 02:01:38 AM EST eCW1 ([facility]) Name Value Range Interpretation Code Description Data Radha rce(s) Supporting Document(s) 97 GLUCOSE eCW1 ([facility]) 0.9 CREATININE eCW1 ([facility]) 11 BLOOD UREA NITROGEN eCW1 ([facility]) 141 SODIUM eCW1 ([facility]) 4.1 POTASSIUM eCW1 ([facility]) 104 CHLORIDE eCW1 ([facility]) 29 CO2 eCW1 ([facility]) 8.0 ANION GAP eCW1 ([facility]) 75 GLOMERULAR FILTRATION RAT E eCW1 ([facility]) 9.3 CALCIUM eCW1 ([facility]) ID Date Data Source FREE T4 02/24/2020 01:01:54 PM EDT eCW1 ([facility]) Name Value Range Interpretation Code Description Data Radha rce(s) Supporting Document(s) 0.90 FREE T4 eCW1 ([facility]) ID Date Data Source CBC 02/24/2020 01:01:40 PM EDT eCW1 ([facility]) Name Value Range Interpretation Code Description Data Radha rce(s) Supporting Document(s) 6.4 WHITE BLOOD COUNT eCW1 ([facility]) 4.57 RED BLOOD COUNT eCW1 ([facility]) 91.7 MEAN CELL VOLUME eCW1 ([facility]) 14.3 HEMOGLOBIN eCW1 ([facility]) 41.9 HEMATOCRIT eCW1 ([facility]) 315 PLATELET COUNT eCW1 ([facility]) 31.3 MEAN CORPUSCULAR HEMOGLOB IN eCW1 ([facility]) 12.7 RED CELL DISTRIBUTION WID TH eCW1 ([facility]) 34.1 MEAN CORPUSCULAR HGB CONC eCW1 ([facility]) ID Date Data Source TSH 02/24/2020 01:00:21 PM EDT eCW1 ([facility]) Name Value Range Interpretation Code Description Data Radha rce(s) Supporting Document(s) 1.67 TSH eCW1 ([facility]) ID Date Data Source LIPID PROFILE 02/24/2020 01:00:14 PM EDT eCW1 ([facility]) Name Value Range Interpretation Code Description Data Radha rce(s) Supporting Document(s) 135 CHOLESTEROL eCW1 ([facility]) Cholesterol in LDL [Mass/volume] in Serum or Plasma by calculation 66 LDL CHOLESTEROL eCW1 ([facility]) 53 TRIGLYCERIDES eCW1 ([facility]) 2.3 CHOL/HDL RATIO eCW1 ([facility]) 58 HDL CHOLESTEROL eCW1 ([facility]) ID Date Data Source [id number] 02/24/2020 11:22:00 AM EDT [facility] Name Value Range Interpretation Code Description Data Radha rce(s) Supporting Document(s) FREE T4 0.90 ng/dL 0.76-1.46 [facility] ID Date Data Source [id number] 02/24/2020 11:22:00 AM EDT [facility] Name Value Range Interpretation Code Description Data Radha rce(s) Supporting Document(s) TSH 1.67 uIU/mL 0.36-3.74 [facility] ID Date Data Source [id number] 02/24/2020 11:03:00 AM EDT [facility] Name Value Range Interpretation Code Description Data Radha rce(s) Supporting Document(s) CHOLESTEROL 135 mg/dL 0-200 [facility] TRIGLYCERIDES 53 mg/dL 0-150 [facility] LDL CHOLESTEROL 66 mg/dL 0-100 [facility] HDL CHOLESTEROL 58 mg/dL 40-60 [facility] CHOL/HDL RATIO 2.3 0.0-5.0 [facility] ID Date Data Source [id number] 02/24/2020 11:03:00 AM EDT [facility] Name Value Range Interpretation Code Description Data [facility] rce(s) Supporting Document(s) GLUCOSE 103 mg/dL 74-106 [facility] BLOOD UREA NITROGEN 10 mg/dL 7-18 [facility] ital CREATININE 0.8 mg/dL 0.6-1.0 [facility] SODIUM 144 mmol/L 136-145 [facility] POTASSIUM 4.4 mmol/L 3.5-5.1 [facility] CHLORIDE 107 mmol/L 98-107 [facility] CO2 29 mmol/L 21-32 [facility] CALCIUM 9.4 mg/dL 8.5-10.1 [facility] ANION GAP 8.0 mmol/L 5-12 [facility] GLOMERULAR FILTRATION RATE 86 mL/min [facility] GFR IS CALCULATED IN mL/min/1.73m2 AMANDA L FUNCTION: >90MILDLY DECREASED: 60-89MILDY TO MODERATELY DECREASED: 45-59 MODERATELY TO SEVERELY DECREASED: 30-44SEVERELY DECREASED: 15-29RENAL FAILURE: <15 AST 22 U/L 15-37 [facility] ALT 51 U/L 12-78 [facility] ALKALINE PHOSPHATASE 112 U/L 46-116 [facility] pital TOTAL BILIRUBIN 0.4 mg/dL 0.2-1.0 [facility] TOTAL PROTEIN 7.1 g/dl 6.4-8.2 [facility] ALBUMIN 4.2 gm/dL 3.4-5.0 [facility] ID Date Data Source [id number] 02/24/2020 10:20:00 AM [facility] Name Value Range Interpretation Code Description Data [facility](s) Supporting Document(s) WHITE BLOOD COUNT 6.4 K/mm3 4.0-10.0 [facility] al RED BLOOD COUNT 4.57 M/mm3 4.00-5.50 [facility] HEMOGLOBIN 14.3 gm/dL 12.0-16.0 [facility] HEMATOCRIT 41.9 % 36.0-48.8 [facility] MEAN CELL VOLUME 91.7 fl 80-96 [facility] MEAN CORPUSCULAR HEMOGLOBIN 31.3 pg 27.0-31.[address] [facility] MEAN CORPUSCULAR HGB CONC 34.1 g/dl 32.0-36.0 [facility] RED CELL DISTRIBUTION WIDTH 12.7 % 10.0-14.5 [facility] PLATELET COUNT 315 K/mm3 172-450 [facility] Procedure Social History Code Duration Value Status Description Data Source(s ) Smoking 02/03/2021 12:00:00 AM EDT Current Smoker completed Curre nt Smoker eCW1 ([facility]) Smoking 09/30/2020 12:00:00 AM EDT Current Smoker completed Curre nt Smoker eCW1 ([facility]) Smoking 09/30/2020 12:00:00 AM EDT Current Smoker completed Curre nt Smoker eCW1 ([facility]) Smoking 06/22/2020 12:00:00 AM EST Current Smoker completed Curre nt Smoker eCW1 ([facility]) Smoking 06/22/2020 12:00:00 AM EST Current Smoker completed Curre nt Smoker eCW1 ([facility]) Smoking 06/22/2020 12:00:00 AM EST Current Smoker completed Curre nt Smoker eCW1 ([facility]) Smoking 06/22/2020 12:00:00 AM EST Current Smoker completed Curre nt Smoker eCW1 ([facility]) 04/24/2020 10:04:44 PM EST Current some day smoker com pleted Current some day smoker [facility] Smoking 04/24/2020 10:04:00 PM EST Current some day smoker com pleted Current some day smoker [facility] Smoking 04/02/2020 12:00:00 AM EST Current Smoker completed Curre nt Smoker eCW1 ([facility]) Smoking 04/02/2020 12:00:00 AM EST Current Smoker completed Curre nt Smoker eCW1 ([facility]) Smoking 04/02/2020 12:00:00 AM EST Current Smoker completed Curre nt Smoker eCW1 ([facility]) Smoking 04/02/2020 12:00:00 AM EST Current Smoker completed Curre nt Smoker eCW1 ([facility]) Vital Signs ID Date Data Source UNK Name Value Range Interpretation Code Description Data Source(s) Systolic blood pressure 124 mm[Hg] 124 mm[Hg] M EDENT ([facility], [facility]) Diastolic blood pressure 84 mm[Hg] 84 mm[Hg] MEDENT ([facility], [facility]) Heart rate 79 /min 79 /min MEDENT ([facility], [facility]) Respiratory rate 18 /min 18 /min MEDENT ( [facility], [facility]) Oxygen saturation in Arterial blood by Pulse oximetry 98 % 98 % MEDENT ([facility], [facility]) Body temperature 98.2 [degF] 98.2 [degF] MEDENT ([facility], [facility]) Body weight 280.00 [lb_av] 280.00 [lb_av] MEDEN T ([facility], [facility]) Body height 68 [in_i] 68 [in_i] MEDENT ([facility], [facility]) 5'8" Body mass index (BMI) [Ratio] 42.6 kg/m2 42.6 k g/m2 MEDENT ([facility], [facility]) Systolic blood pressure 115 mm[Hg] 115 mm[Hg] EDENT ([facility], [facility]) Diastolic blood pressure 78 mm[Hg] 78 mm[Hg] MEDENT ([facility], [facility]) Heart rate 71 /min 71 /min MEDENT ([facility], [facility]) Respiratory rate 20 /min 20 /min MEDENT ( [facility], [facility]) Oxygen saturation in Arterial blood by Pulse [facility]ximetry 99 % 99 % [facility] [place], [facility]) Body temperature 98.2 [degF] 98.2 [facility]degF] [facility], [facility]) Body weight 280.00 [lb_av] 280.00 [lb_av] MEDEN T ([facility] [place], [facility]) Body height 68 [in_i] 68 [in_i] MEDENT ([facility], [facility]) 5'8" Body mass index (BMI) [Ratio] 42.6 kg/m2 42.6 k g/m2 MEDENT ([facility] [place], [facility]) Body height 67 [in_i] 67 [in_i] eCW1 ([facility]) Body weight 292.6 [lb_av] 292.6 [lb_av] eCW1 ([facility]) Body mass index (BMI) [Ratio] 45.82 kg/m2 45.82 kg/m2 W1 ([facility]) Body temperature 98.2 [degF] 98.2 [degF] eCW1 ( [facility]) Heart rate 83 /min 83 /min eCW1 ([facility]) Respiratory rate 18 /min 18 /min eCW1 ([facility]) Oxygen saturation in Arterial blood by Pulse oximetry 98 % 98 % eCW1 ([facility]) Body height 67 [in_i] 67 [in_i] eCW1 ([facility]) Body weight 276.2 [lb_av] 276.2 [lb_av] eCW1 ([facility]) Body mass index (BMI) [Ratio] 43.25 kg/m2 43.25 kg/m2 eCW1 ([facility]) Body temperature 98.1 [degF] 98.1 [degF] eCW1 ( [facility]) Heart rate 89 /min 89 /min eCW1 ([facility]) Respiratory rate 20 /min 20 /min eCW1 ([facility]) Oxygen saturation in Arterial blood by Pulse oximetry 100 % 100 % eCW1 ([facility]) Body height 67 [in_i] 67 [in_i] eCW1 ([facility]) Body weight 271.6 [lb_av] 271.6 [lb_av] eCW1 ([facility]) Body mass index (BMI) [Ratio] 42.53 kg/m2 42.53 kg/m2 eCW1 ([facility]) Body temperature 98.6 [degF] 98.6 [degF] eCW1 ( [facility]) Heart rate 80 /min 80 /min eCW1 ([facility]) Respiratory rate 20 /min 20 /min eCW1 ([facility]) Oxygen saturation in Arterial blood by Pulse oximetry 100 % 100 % eCW1 ([facility]) Body mass index (BMI) [Ratio] 41.50 kg/m2 41.50 kg/m2 eCW1 ([facility]) Body height 67 [in_i] 67 [in_i] eCW1 ([facility]) Body weight 265 [lb_av] 265 [lb_av] eCW1 ([facility]) Body temperature 97.7 [degF] 97.7 [degF] eCW1 ( [facility]) Heart rate 80 /min 80 /min eCW1 ([facility]) Respiratory rate 20 /min 20 /min eCW1 ([facility]) Oxygen saturation in Arterial blood by Pulse oximetry 100 % 100 % eCW1 ([facility]) Body height 67 [in_i] 67 [in_i] eCW1 ([facility]) Body weight 263.4 [lb_av] 263.4 [lb_av] eCW1 ([facility]) Body mass index (BMI) [Ratio] 41.25 kg/m2 41.25 kg/m2 eCW1 ([facility]) Body temperature 97.8 [degF] 97.8 [degF] eCW1 ( [facility]) Heart rate 85 /min 85 /min eCW1 ([facility]) Respiratory rate 20 /min 20 /min eCW1 ([facility]) Oxygen saturation in Arterial blood by Pulse oximetry 98 % 98 % eCW1 ([facility]) Respiratory rate 16 /min 16 /min MEDENT ( [facility] [place], [facility]) Systolic blood pressure 118 mm[Hg] 118 mm[Hg] M EDENT ([facility], [facility]) Diastolic blood pressure 86 mm[Hg] 86 mm[Hg] MEDENT ([facility] [place], [facility]) Oxygen saturation in Arterial blood by Pulse oximetry 99 % 99 % MEDENT ([facility] [place], [facility]) Body temperature 97.9 [degF] 97.9 [degF] MEDENT ([facility], [facility]) Body weight 250.00 [lb_av] 250.00 [lb_av] MEDEN T ([facility], [facility]) Body height 68 [in_i] 68 [in_i] MEDENT ([facility] [place], [facility]) 5'8" Body mass index (BMI) [Ratio] 38.0 kg/m2 38.0 k g/m2 MEDENT ([facility] Heart rate 75 /min 75 /min [facility] Body mass index (BMI) [Ratio] 41.25 kg/m2 41.25 kg/m2 eCW1 ([facility]) Body temperature 98.6 [degF] 98.6 [degF] eCW1 ( [facility]) Heart rate 84 /min 84 /min eCW1 ([facility]) Respiratory rate 18 /min 18 /min eCW1 ([facility]) Oxygen saturation in Arterial blood by Pulse oximetry 100 % 100 % eCW1 ([facility]) Body height 67 [in_i] 67 [in_i] eCW1 ([facility]) Body weight 263.4 [lb_av] 263.4 [lb_av] eCW1 ([facility]) ID Date Data Source [id number] 06/23/2020 03:15:56 PM [facility] Name Value Range Interpretation Code Description Data Source(s) WEIGHT RECORDED 265.5 lb 265.5 lb [facility] Body height Measured 68 in 68 in [facility] WEIGHT RECORDED 260 lb 260 lb [facility] Body height Measured 68 in 68 in [facility] Patient Treatment Plan of Care Planned Activity Planned Date Details Description Data Source (s) Sumatriptan 50 MG Oral Tablet [Imitrex] 09/30/2020 12:00:00 AM EDT eCW1 ([facility]) Sumatriptan 50 MG Oral Tablet [Imitrex] 09/30/2020 12:00:00 AM EDT eCW1 ([facility]) Pseudoephedrine Hydrochloride 60 MG Oral Tablet 03/28/2020 12:00:00 AM EDT eCW1 ([facility])
--- OUTSIDE RECORDS SUMMARY | 2021-04-15 11:40 | CCD ---
Author Author [facility] Organization [facility] Address Unknown Phone Unavailable Care Team Providers Care Learning Services Coordinator Name Role Phone Shaun Farias MD Unavailable [...] Unavailable Amanda, M Lisa PA-C Unavailable Unavailable Maanda, M Lisa PA-C Unavailable Unavailable Amanda, M [...] Unavailable Amanda, M Lisa PA-C Unavailable Unavailable HEEDDY MD Unavailable Unavailable HEEDDY MD Unavailable Unavailable Susan, Antonio Smith Octavia UPSCALE SECURITY OFFICER-C Unavailable Unavailabl e Susan, Antonio Dudley UPSCALE SECURITY OFFICER-C Unavailable Unavailabl e Susan, Antonio W Octavia UPSCALE SECURITY OFFICER-C Unavailable Unavailabl e Susan, Antonio W Octavia UPSCALE SECURITY OFFICER-C Unavailable Unavailabl e Susan, Antonio W Octavia UPSCALE SECURITY OFFICER-C Unavailable Unavailabl e Susan, Maris W Octavia UPSCALE SECURITY OFFICER-C Unavailable Unavailabl e Susan, Maris W Octavia UPSCALE SECURITY OFFICER-C Unavailable Unavailabl e Susan, Antonio W Octavia UPSCALE SECURITY OFFICER-C Unavailable Unavailabl e Susan, Maris W Octavia UPSCALE SECURITY OFFICER-C Unavailable Unavailabl e Susan, Maris Sarah Octavia UPSCALE SECURITY OFFICER-C Unavailable Unavailabl e Susan, Maris Sarah Dudley UPSCALE SECURITY OFFICER-C Unavailable Unavailabl e Susan, Maris W Octavia UPSCALE SECURITY OFFICER-C Unavailable Unavailabl e Susan, Maris W Octavia UPSCALE SECURITY OFFICER-C Unavailable Unavailabl e Susan, Maris W Octavia UPSCALE SECURITY OFFICER-C Unavailable Unavailabl e Susan, Maris W Octavia UPSCALE SECURITY OFFICER-C Unavailable Unavailabl e Susan, Maris W Octavia UPSCALE SECURITY OFFICER-C Unavailable Unavailabl e Susan, Maris W Octavia UPSCALE SECURITY OFFICER-C Unavailable Unavailabl e Susan, Maris W Octavia UPSCALE SECURITY OFFICER-C Unavailable Unavailabl e Susan, Maris W Octavia UPSCALE SECURITY OFFICER-C Unavailable Unavailabl e Susan, Maris W Octavia UPSCALE SECURITY OFFICER-C Unavailable Unavailabl e Susan, Maris W Octavia UPSCALE SECURITY OFFICER-C Unavailable Unavailabl e Susan, Maris W Octavia UPSCALE SECURITY OFFICER-C Unavailable Unavailabl e Susan, Maris W Octavia UPSCALE SECURITY OFFICER-C Unavailable Unavailabl e Susan, Maris W Octavia UPSCALE SECURITY OFFICER-C Unavailable Unavailabl e Susan, Antonio Chapmane UPSCALE SECURITY OFFICER-C Unavailable Unavailabl e Susan, Antonio Dudley UPSCALE SECURITY OFFICER-C Unavailable Unavailabl e Susan, Antonio Dudley UPSCALE SECURITY OFFICER-C Unavailable Unavailabl e Susan, Antonio Chapmane UPSCALE SECURITY OFFICER-C Unavailable Unavailabl e Susan, Antonio Dudley UPSCALE SECURITY OFFICER-C Unavailable Unavailabl e Susan, Antonio Chapmane UPSCALE SECURITY OFFICER-C Unavailable Unavailabl e Susan, Antonio Chapmane UPSCALE SECURITY OFFICER-C Unavailable Unavailabl e Susan, Antonio Chapmane UPSCALE SECURITY OFFICER-C Unavailable Unavailabl e LETTIERE, A LISA PA [...] T Cata PA Unavailable Unavailable Feola, T Acta PA Unavailable Unavailable Feola, T Cata PA [...] PICKERAL JR, J PANCHO PA-C Unavailable Unavailable Hamlin, Brenda Laurie PA Unavailable Unavailable Hamlin, Brenda Laurie PA Unavailable Unavailable Hamlin, Brenda Laurie PA Unavailable Unavailable Hamlin, Brenda Laurie PA Unavailable Unavailable Hamlin, Brenda Laurie PA Unavailable Unavailable Hamlin, Brenda Laurie PA Unavailable Unavailable Hamlin, Brenda Laurie PA Unavailable Unavailable Hamlin, Brenda Laurie PA Unavailable Unavailable Hamlin, Brenda Laurie PA Unavailable Unavailable Hamlin, Brenda Laurie PA Unavailable Unavailable INFO NEEDED, INFO Unavailable Unavailable TURRIN, VARGAS Unavailable Unavailable TURRIN, VARGAS Unavailable Unavailable TURRIN, VARGAS Unavailable Unavailable TURRIN, VARGAS Unavailable Unavailable Judith ARAIZA Unavailable Unavailable Rosa Maria ARROYO MD Unavailable Unavailable Rosa Maria ARROYO MD Unavailable Unavailable Rosa Maria ARROYO MD Unavailable Unavailable Rosa Maria ARROYO MD Unavailable Unavailable Ayse, A Lisa UPSCALE SECURITY OFFICER Unavailable Unavailable Ayse, A Lisa UPSCALE SECURITY OFFICER Unavailable Unavailable Ayse, A Lisa UPSCALE SECURITY OFFICER Unavailable Unavailable Ayse, A Lisa UPSCALE SECURITY OFFICER Unavailable Unavailable Ayse, A Lisa UPSCALE SECURITY OFFICER Unavailable Unavailable Ayse, A Lisa UPSCALE SECURITY OFFICER Unavailable Unavailable Ayse, A Lisa UPSCALE SECURITY OFFICER Unavailable Unavailable Ayse, A Lisa UPSCALE SECURITY OFFICER Unavailable Unavailable Ayse, A Lisa UPSCALE SECURITY OFFICER Unavailable Unavailable Ayse, A Lisa UPSCALE SECURITY OFFICER Unavailable Unavailable Ayse, A Lisa UPSCALE SECURITY OFFICER Unavailable Unavailable Ayse, A Lisa UPSCALE SECURITY OFFICER Unavailable Unavailable Ayse, A Lisa UPSCALE SECURITY OFFICER Unavailable Unavailable Ayse, A Lisa UPSCALE SECURITY OFFICER Unavailable Unavailable Ayse, A Lisa UPSCALE SECURITY OFFICER Unavailable Unavailable Ayse, A Lisa UPSCALE SECURITY OFFICER Unavailable Unavailable Ayse, A Lisa UPSCALE SECURITY OFFICER Unavailable Unavailable Ayse, A Lisa UPSCALE SECURITY OFFICER Unavailable Unavailable Ayse, A Lisa UPSCALE SECURITY OFFICER Unavailable Unavailable Ayse, A Lisa UPSCALE SECURITY OFFICER Unavailable Unavailable Ayse, A Lisa UPSCALE SECURITY OFFICER Unavailable Unavailable Ayse, A Lisa UPSCALE SECURITY OFFICER Unavailable Unavailable Ayse, A Lisa UPSCALE SECURITY OFFICER Unavailable Unavailable Ayse, A Lisa UPSCALE SECURITY OFFICER Unavailable Unavailable Ayse, A Lisa UPSCALE SECURITY OFFICER Unavailable Unavailable Ayse, A Lisa UPSCALE SECURITY OFFICER Unavailable Unavailable Ayse, A Lisa UPSCALE SECURITY OFFICER Unavailable Unavailable Ayse, A Lisa UPSCALE SECURITY OFFICER Unavailable Unavailable Ayse, A Lisa UPSCALE SECURITY OFFICER Unavailable Unavailable Ayse, A Lisa UPSCALE SECURITY OFFICER Unavailable Unavailable Ayse, A Lisa UPSCALE SECURITY OFFICER Unavailable Unavailable Ayse, A Lisa UPSCALE SECURITY OFFICER Unavailable Unavailable Ayse, A Lisa UPSCALE SECURITY OFFICER Unavailable Unavailable Ayse, A Lisa UPSCALE SECURITY OFFICER Unavailable Unavailable Ayse, A Lisa UPSCALE SECURITY OFFICER Unavailable Unavailable Ayse, A Lisa UPSCALE SECURITY OFFICER Unavailable Unavailable Ayse, A Lisa UPSCALE SECURITY OFFICER Unavailable Unavailable Ayse, A Lisa UPSCALE SECURITY OFFICER Unavailable Unavailable Ayse, A Lisa UPSCALE SECURITY OFFICER Unavailable Unavailable Ayse, A Lisa UPSCALE SECURITY OFFICER Unavailable Unavailable Ayse, A Lisa UPSCALE SECURITY OFFICER Unavailable Unavailable Ayse, A Lisa UPSCALE SECURITY OFFICER Unavailable Unavailable Ayse, A Lisa UPSCALE SECURITY OFFICER Unavailable Unavailable Ayse, A Lisa UPSCALE SECURITY OFFICER Unavailable Unavailable Ayse, A Lisa UPSCALE SECURITY OFFICER Unavailable Unavailable Ayse, A Lisa UPSCALE SECURITY OFFICER Unavailable Unavailable Ayse, A Lisa UPSCALE SECURITY OFFICER Unavailable Unavailable Ayse, A Lisa UPSCALE SECURITY OFFICER Unavailable Unavailable Ayse, A Lisa UPSCALE SECURITY OFFICER Unavailable Unavailable Ayse, A Lisa UPSCALE SECURITY OFFICER Unavailable Unavailable Ayse, A Lisa UPSCALE SECURITY OFFICER Unavailable Unavailable Ayse, A Lisa UPSCALE SECURITY OFFICER Unavailable Unavailable Ayse, A Lisa UPSCALE SECURITY OFFICER Unavailable Unavailable Ayse, A Lisa UPSCALE SECURITY OFFICER Unavailable Unavailable Re-disclosure Warning The records that [...] is protected by Article 27-F of the [facility] Public Health law. If you continue you may have access to information: Regarding HIV / AIDS; Provided by facilities licensed or operated by the [facility] Office of Mental Health; or Provided by the [facility] Office for People With Developmental Disabilities. If such information is present, then the following [facility] mandated warning applies: This information has been [...] law may result in a fine or chcf sentence or both. A general authorization for the release of medical or other information is NOT sufficient authorization for further disc losure. Allergies and Adverse Reactions Type Description Substance Reaction Status Data Source(s ) Drug allergy ESOMEPRAZOLE MAGNESIUM ESOMEPRAZOLE MAGNESIUM [facility] Propensity to adverse reactions LATEX Latex Itching [facility] Drug allergy latex Latex Other, not listed U Angioedema [facility] Drug allergy esomeprazole esomeprazole [facility] Family History Family Member Name Family Member Gender Family Member Status Date o f Status Description Data Source(s) Unknown Unknown Problem [facility] ([facility]) Encounters Encounter Providers Location Date Indications Data Source(s ) Emergency Attender: Shaun Farias MDConsultant: Lisa Patel PA-C 04/13/2021 04:18:00 PM EST - 04/13/2021 06:51:00 PM EST [facility] Patient discharged. Outpatient Attender: LISA seals 03/23/2021 10:15:00 AM EDT [facility] Outpatient Attender: MALISSA AARON MD Main office - [facility] 03/11/2021 09:15:00 AM EDT MED[facility] ([facility]) Emergency Attender: Shaun Farias MDConsultant: Lisa Patel PA-C 02/25/2021 04:17:00 PM EDT - 02/25/2021 05:59:00 PM EDT [facility] Patient discharged. Outpatient Attender: PANCHO medellin 02/17/2021 09:10:00 AM EDT [facility] ([facility], [facility]) Outpatient Attender: Lisa Patel PA-C 02/03/2021 03:48 :00 PM [facility] Outpatient [facility] 02/03/2021 12:00:00 AM EDT eCW1 ([facility]) Outpatient Attender: MALISSA AARON MD 12/27/2020 11:00:00 A M [facility] Outpatient Attender: MALISSA AARON MDAttender: CHERISE WARREN DED 12/16/2020 03:02:00 PM EDT - 12/25/2020 10:59:00 AM EDT [facility] Patient discharged. Outpatient Attender: LISA ARROYO MDConsultant: Lisa MORENO-C 11/23/2020 11:03:00 AM EDT - 11/23/2020 12:04:00 PM EDT [facility] Emergency Attender: VARGAS ORTIZConsultant: Lisa Justice PA-C 11/18/2020 07:40:00 PM EDT - 11/18/2020 11:28:00 PM EDT [facility] Patient discharged. Outpatient Attender: MALISSA AARON MD Main office - [facility] 11/02/2020 12:30:00 PM EDT MED[facility] ([facility]) Outpatient Attender: Lisa Patel PA-C 09/30/2020 03:26 :00 PM EDT [facility] Outpatient [facility] 09/30/2020 12:00:00 AM EDT eCW1 ([facility]) Outpatient [facility] 09/29/2020 12:00:00 AM EDT eCW1 ([facility]) Outpatient [facility] 09/22/2020 12:00:00 AM EDT eCW1 ([facility]) Outpatient [facility] 09/09/2020 12:00:00 AM EDT eCW1 ([facility]) Emergency Attender: Shaun Farias MDConsultant: Lisa Patel PA-C 09/06/2020 03:17:00 PM EDT - 09/06/2020 05:30:00 PM EDT [facility] Patient discharged. Outpatient Attender: Cata MORENO 021 05:06:50 PM EDT - 09/05/2020 05:46:54 PM EDT [facility] ([facility] ) Outpatient Attender: Lisa Patel PA-C EMERGENCY ROOM-LA B 06/22/2020 01:32:00 PM EST - 06/22/2020 01:32:00 PM [facility] Outpatient Attender: Lisa Patel PA-C 06/22/2020 12:42 :00 PM [facility] (TCM) TCM/Hospital Follow Up [facility] 06/22/2020 12:00:00 AM EST eCW1 ([facility]) Outpatient [facility] 06/18/2020 12:00:00 AM EST eCW1 ([facility]) Inpatient Attender: YG Whitfield er: Elizabeth Maki MDAttender: RAJNI CAGEAdmitter: YG ARAIZAReferrer: Elizabeth Maki MD [id number] 06/10/2020 12:00:00 AM EST - 06/17/2020 11:04:00 AM [facility] Emergency Attender: EDDY TEE MD 04/24/2020 0 7:01:00 PM EST - 04/25/2020 12:47:00 AM EST PELVIC PAIN [facility] PELVIC PAIN Patient discharged. Outpatient [facility] 04/07/2020 12:00:00 AM EST eCW1 ([facility]) Outpatient Attender: Lisa Patel PA-C EMERGENCY ROOM-LA B REF 04/03/2020 08:45:00 AM EST - 04/03/2020 08:45:00 AM EST [facility] Outpatient Attender: Octavia FORTUNE 04/02/2020 12:05:0 0 PM [facility] Admission cancelled. Disregard status an d admitted date. Outpatient Attender: Octavia FORTUNE 04/02/2020 12:03:0 0 PM [facility] Admission cancelled. Disregard status an d admitted date. Outpatient Attender: Octavia FORTUNE EMERGENCY ROOM-LAB REF 04/02/2020 11:57:00 AM EST - 04/02/2020 11:57:00 AM EST [facility] Outpatient Attender: Octavia FORTUNE 04/02/2020 11:24:0 0 AM EST [facility] Outpatient [facility] 04/02/2020 12:00:00 AM EST eCW1 ([facility]) Outpatient [facility] 04/02/2020 12:00:00 AM EST eCW1 ([facility]) Outpatient [facility] 04/02/2020 12:00:00 AM EST eCW1 ([facility]) Outpatient Attender: ALLYN MORENO 03/28/2020 09:12:00 AM EDT [facility] Outpatient [facility] 03/28/2020 12:00:00 AM EDT eCW1 ([facility]) Outpatient Attender: Laurie seals 03/25/2020 05:30:00 PM EDT [facility] ([facility]) Outpatient Attender: Lisa Patel PA-C EMERGENCY ROOM-LA B 02/24/2020 10:05:00 AM EDT - 02/24/2020 10:05:00 AM EDT [facility] Outpatient Attender: Lisa Patel PA-C 02/24/2020 09:58 :00 AM EDT [facility] 02/24/2020 12:00:00 AM EDT eCW1 ([facility]) Outpatient Attender: Lisa Tavera AMBER 11/13/2019 08:45 :00 AM EDT [facility] Immunizations Vaccine Date Status Description Data Source(s) COVID-19 VACCINE Moderna 04/02/2021 12:00:00 AM EDT completed [facility] Vaccine Series Complete: YESThis Data wa s Submitted to [facility]. COVID-19 VACCINE Pfizer 06/10/2020 12:00:00 AM EST completed [facility] Vaccine Series Complete: YESThis Data wa s Submitted to [facility] [employer]. COVID-19 VACCINE Pfizer 05/20/2020 12:00:00 AM EST completed [facility] Vaccine Series Complete: NOThis Data was Submitted to [facility] [employer]. Medications Medication Brand Name Start Date Product Form Dose Route Admi nistrative Instructions Pharmacy Instructions Status Indications Reaction Description Data Source(s) [facility] 03/11/2021 12:00:00 AM EDT ORAL active [facility] ([facility]) Magnesium Oxide 400 MG Oral Tablet Magnesium Oxide 03/11/2021 12:00 :00 AM EDT ORAL active [facility] ([facility]) zonisamide 25 MG Oral Capsule Zonisamide 11/02/2020 12:00:00 AM EDT ORAL completed [facility] ([facility] ) zonisamide 50 MG Oral Capsule Zonisamide 11/02/2020 12:00:00 AM EDT ORAL completed [facility] ([facility] ) Sumatriptan 50 MG Oral Tablet [Imitrex] Imitrex 50 MG Imitre x 50 MG 09/30/2020 12:00:00 AM EDT active Imitrex 50 MG eCW1 ([facility]) Sumatriptan 50 MG Oral Tablet [Imitrex] Imitrex 50 MG Imitre x 50 MG 09/30/2020 12:00:00 AM EDT active Imitrex 50 MG eCW1 ([facility]) Sennosides-Docusate Sodium (Senna Plus) 8.6-50 mg capsule 04/25/2020 12:27:17 AM EST 1 TAB-CAP active [facility] Acetaminophen 325 MG / Oxycodone Hydroch loride 5 MG Oral Tablet Oxycodone- Acetaminophen (Percocet) 5-325 mg tablet Oxycodone-Acetaminophen (Percocet) 5- 325 mg tablet 04/25/2020 12:26:37 AM EST 1 TAB active [facility] Pseudoephedrine Hydrochloride 60 MG Oral Tablet Pseudo ephedrine HCl 60 MG Pseudoephedrine HCl 60 MG 03/28/2020 12:00:00 AM EDT 1.0 {tablet_as _needed} active Pseudoephedrine HCl 60 MG eCW1 ([facility]) Insurance Providers Payer name Policy type / Coverage type Policy ID Covered democrat ID Covered democrat's relationship to benjamin Policy Benjamin Plan Information [employer] [id number] Luiza VYA [id number] [employer] and Blue [employer] - [place] Blue Cross/B lue Shield [id number] Self [id number] [employer] [place] Blue [place]/B lue Shield [id number] Self [id number] [employer] H [id number] Self [id number] [employer] [place] [id number] S [id number] [id number] [place] PPO 302/307 [id number] SP [id number] EMPLOYEE HEALTH [facility] KADY [place] 18 KADY [place] BLUE CROSS BLUE SHIELD -O/P [id number] 18 [id number] BLUE CROSS BLUE SHIELD -O/P [id number] 18 [id number] [employer] [place] [id number] S VYA [id number] [facility] INSURANCE [facility] [place] [id number] SP [id number] [place] WAT[place] PPO 302/307 [id number] SP [id number] [place]BS [place] PPO 302/307 [id number] SP [id number] [place] PPO 302/307 [id number] SP [id number] [facility] INSURANCE [facility] [place] [id number] SP [id number] [facility] [id number] [facility] [id number] BLUE CROSS BLUE [place] [id number] 18 [id number] [facility] Commercial [id number] Family Dependent [id number] [facility] [id number] SP [id number] [facility] [id number] [facility] [id number] BCBS [place] WATN PPO 302/307 [id number] SP [id number] UMR -O/P [id number] 18 [id number] SELF PAY [id number] S [id number] Problems, Conditions, and Diagnoses Code Display Name Description Problem Type Effective Dates Data Source(s) L26713 Latex allergy status Latex allergy status Diagnosis 02/25/2021 04:17:00 PM [facility] E039 Hypothyroidism, unspecified Hypothyroidism, unspecifie d Diagnosis 02/25/2021 04:17:00 PM [facility] S94315 Unspecified asthma, uncomplicated Unspecified as thma, uncomplicated Diagnosis 02/25/2021 04:17:00 PM [facility] T29231 Chronic migraine without aura, intractab le, without status migrainosus Chronic migraine without aura, intractable, without status migrainosus Diagnosis 02/25/2021 04:17:00 PM [facility] R519 Headache, unspecified Headache, unspecified Diagnosis 02/25/2021 04:17:00 PM [facility] Z71.89 Other specified counseling OTHER SPECIFIED COUNSELING Diagnosis 02/03/2021 03:48:00 PM [facility] Z13.220 Encounter for screening for lipoid disor ders ENCOUNTER FOR SCREENING FOR LIPOID DISORDERS Diagnosis 02/03/2021 03:48:00 PM [facility] Z72.89 Other problems related to lifestyle OTHER PROBLE MS RELATED TO LIFESTYLE Diagnosis 02/03/2021 03:48:00 PM [facility] Z86.69 Personal history of other di seases of the nervous system and sense organs PERSONAL HISTORY OF DIS OF THE NERVOUS SYS AND SEN Diagnosis 02/03/2021 03:48:00 PM [facility] F17.290 Nicotine dependence, other tobacco produ ct, uncomplicated NICOTINE DEPENDENCE, OTHER TOBACCO PRODUCT, UNCOMP Diagnosis 02/03/2021 03:48:0 0 PM [facility] Z68.42 Body mass index (BMI) 45.0-49.9, adult B AAMIR MASS INDEX [BMI] 45.0-49.9, ADULT Diagnosis 02/03/2021 03:48:00 PM [facility] l E66.01 Morbid (severe) obesity due to excess ca lories MORBID (SEVERE) OBESITY DUE TO EXCESS CALORIES Diagnosis 02/03/2021 03:48:00 PM [facility] ital E55.9 Vitamin D deficiency, unspecified VITAMIN D DEFI CIENCY, UNSPECIFIED Diagnosis 02/03/2021 03:48:00 PM [facility] J45.20 Mild intermittent asthma, uncomplicated MILD INTERMITTENT ASTHMA, UNCOMPLICATED Diagnosis 02/03/2021 03:48:00 PM [facility] l E03.9 Hypothyroidism, unspecified HYPOTHYROIDISM, UNSPECIFIE D Diagnosis 02/03/2021 03:48:00 PM [facility] F31.9 Bipolar disorder, unspecified BIPOLAR DISORDER, UNSPEC IFIED Diagnosis 02/03/2021 03:48:00 PM [facility] F43.10 Post-traumatic stress disorder, unspecif ied POST-TRAUMATIC STRESS DISORDER, UNSPECIFIED Diagnosis 02/03/2021 03:48:00 PM [facility] rodrigo F41.8 Other specified anxiety disorders OTHER SPECIFIE D ANXIETY DISORDERS Diagnosis 02/03/2021 03:48:00 PM [facility] Z00.00 Encounter for general adult medical examination without abnormal findings ENCNTR FOR GENERAL ADULT MEDICAL EXAM W/O ABNORMAL FINDINGS Diagnosis 02/03/2021 03:48:00 PM [facility] M54.2 Cervicalgia CERVICALGIA Diagnosis 12/16/2020 07:00:00 AM [facility] Z021 Encounter for pre-employment examination Encounter for pre-employment examination Diagnosis 11/23/2020 11:03:00 AM [facility] N59590 Nicotine dependence, other tobacco produ ct, uncomplicated Nicotine dependence, other tobacco product, uncomplicated Diagnosis 11/18 07:40:00 PM [facility] N809 Endometriosis, unspecified Endometriosis, unspecified Diagnosis 11/18/2020 07:40:00 PM [facility] K5730 Diverticulosis of large inte russ without perforation or abscess without bleeding Diverticulosis of large intestine withou t perforation or abscess without bleeding Diagnosis 11/18/2020 07:40:00 PM [facility] R1084 Generalized abdominal pain Generalized abdominal pain Diagnosis 11/18/2020 07:40:00 PM [facility] G43.909 Migraine, unspecified, not intractable, without status migrainosus MIGRAINE, UNSP, NOT INTRACTABLE, WITHOUT STATUS MIGRAINOSUS Diagnosis 09/30/2020 03:26:00 PM [facility] G43B1 Ophthalmoplegic migraine, intractable Op hthalmoplegic migraine, intractable Diagnosis 09/06/2020 03:17:00 PM [facility] Z13.21 Encounter for screening for nutritional disorder ENCOUNTER FOR SCREENING FOR NUTRITIONAL DISORDER Diagnosis 06/22/2020 12:42:00 PM [facility] Z13.0 Encounter for screening for diseases of the blood and blood-forming organs and certain disorders involving the immune mechanism ENCNTR SCREEN FOR DIS OF THE BLD/BLD-FORM ORG/IMMU Diagnosis 06/22/2020 12:42:00 PM [facility] ospital R03.0 Elevated blood-pressure reading, without diagnosis of hypertension ELEVATED BLOOD-PRESSURE READING, W/O DIAGNOSIS OF Diagnosis 05/30 12:42:00 PM [facility] R45.851 Suicidal ideations SUICIDAL IDEATIONS Diagnosis 12:42:00 PM [facility] F43.10 Post-traumatic stress disorder, unspecif ied Post-traumatic stress disorder, unspecified Diagnosis 06/11/2020 02:27:47 PM [facility] R45.851 Suicidal ideations Suicidal ideations Diagnosis 10:04:37 PM [facility] Z20.822 Contact with and (suspected) exposure to covid-19 Contact with and (suspected) exposure to covid-19 Diagnosis 06/10/2020 07:49:00 PM [facility] F31.9 Bipolar disorder, unspecified Bipolar disorder, unspec ified Diagnosis 06/10/2020 07:49:00 PM [facility] R00.0 Tachycardia, unspecified Tachycardia, unspecified Diag nosis 06/10/2020 07:49:00 PM [facility] G89.29 Other chronic pain Other chronic pain Diagnosis 07:49:00 PM [facility] M54.2 Cervicalgia Cervicalgia Diagnosis 06/10/2020 07:49:00 PM [facility] Psych Eval Psych Eval Diagnosis 06/10/2020 07:49:00 PM [facility] Z20.828 Contact with and (suspected) exposure to other viral communicable diseases CONTACT W AND EXPOSURE TO OT VIRAL COMMUNICABLE DISEASES Di agnosis 04/03/2020 08:45:00 AM [facility] R19.7 Diarrhea, unspecified DIARRHEA, UNSPECIFIED Diagnosis 04/02/2020 11:24:00 AM [facility] J06.9 Acute upper respiratory infection, unspe cified ACUTE UPPER RESPIRATORY INFECTION, UNSPECIFIED Diagnosis 04/02/2020 11:24:00 AM [facility] K29.00 Acute gastritis without bleeding ACUTE GASTRITIS WITHOUT BLEEDING Diagnosis 04/02/2020 11:24:00 AM [facility] J00 Acute nasopharyngitis [common cold] ACUTE NASOPH ARYNGITIS [COMMON COLD] Diagnosis 03/28/2020 09:12:00 AM [facility] Z76.89 Persons encountering health services in other specified circumstances [facility] Diagnosis 09:58:00 AM [facility] Z71.6 Tobacco abuse counseling TOBACCO ABUSE COUNSELING Diag nosis 02/24/2020 09:58:00 AM [facility] Z30.09 Encounter for other general counseling a nd advice on contraception ENCOUNTER FOR [facility] AND ADVICE ON CONTR Diagnosis 09:58:00 AM [facility] Z68.41 Body mass index (BMI) 40.0-44.9, adult B AAMIR MASS INDEX (BMI) 40.0-44.9, ADULT Diagnosis 02/24/2020 09:58:00 AM [facility] F17.200 Nicotine dependence, unspecified, uncomp licated NICOTINE DEPENDENCE, UNSPECIFIED, UNCOMPLICATED Diagnosis 02/24/2020 09:58:00 AM [facility] Z68.42 Body mass index 40+ - severely obese BMI 45.0-49.9, ad ult Problem 02/03/2021 12:00:00 AM EDT eCW1 ([facility]) E66.01 Morbid obesity Morbid (severe) obesity due to excess c alories Problem 02/03/2021 12:00:00 AM EDT eCW1 ([facility]) E55.9 [id number] Vitamin D deficiency Problem 02/03/2021 12:0 0:00 AM EDT eCW1 ([facility]) F31.9 [id number] Bipolar affective disorder, remission sta tus unspecified Problem 06/22/2020 12:00:00 AM EST eCW1 ([facility]) E03.9 [id number] Acquired hypothyroidism Problem 02/24/2020 1 2:00:00 AM EDT eCW1 ([facility]) J45.20 [id number] Mild intermittent asthma without complica tion Problem 02/24/2020 12:00:00 AM EDT eCW1 ([facility]) F41.8 [id number] Depression with anxiety Problem 02/24/2020 1 2:00:00 AM EDT eCW1 ([facility]) F43.10 14881380 PTSD (post-traumatic stress disorder) Pro blem 02/24/2020 12:00:00 AM EDT eCW1 ([facility]) Z86.69 [id number] History of migraine Problem 02/24/2020 12:00 :00 AM EDT eCW1 ([facility]) F17.200 27224638 Tobacco dependence Problem 02/24/2020 12:00: 00 AM EDT eCW1 ([facility]) Z68.41 283156934 Body mass index (BMI) 40.0-44.9, adult Pr oblem 02/24/2020 12:00:00 AM EDT eCW1 ([facility]) Surgeries/Procedures Procedure Description Date Indications Data Source(s) OFFICE OUTPATIENT VISIT 15 MINUTES 03/23/2021 12:00:00 AM EDT MEDENT ([facility]) OFFICE OUTPATIENT VISIT 25 MINUTES 03/11/2021 12:00:00 AM EDT MEDENT ([facility]) OFFICE OUTPATIENT VISIT 15 MINUTES 02/17/2021 12:00:00 AM EDT [facility]ENT ([facility]) MRI BRAIN BRAIN STEM W/O CONTRAST MATERIAL 11/17/2020 12:00:00 AM EDT MEDENT ([facility], ) MRI BRAIN BRAIN STEM W/O CONTRAST MATERIAL 11/17/2020 12:00:00 AM EDT MEDENT ([facility] ) OFFICE OUTPATIENT NEW 45 MINUTES 11/02/2020 12:00:00 A M EDT MEDENT ([facility] ) Pelvic echography (procedure) 04/24/2020 11:12:00 PM E [facility] Computed tomography of abdomen and pelvis with contrast (pro cedure) 04/24/2020 07:24:[facility] 04/24/2020 12:00:00 AM [facility] Results ID Date Data Source [id number] 04/14/2021 09:19:00 AM [facility] [address] [place] [address] PHONE: [phone] FAX: [phone] Name .................. : EMI Wong Acct Number.................. : [id number] ROOM. ................. : VT-02 MR Number ................... : [id number] Stay type ............. : E/R Discharge Date......... ... : 04/13/21 Admit Date ....... .. : 04/13/21 Admit Phys .................... : JOSE Espinoza Date of ....... : 1990 Family Phys ................... : MAANDA PURVIS Phone .................. : [phone] Age ................................ : 30 Film# .................. .:[id number] Sex ................................. : F Unsigned transcriptions are preliminary reports and do not represent a medical or legal document [place] [address] COMPLETE:04/13/21 17:53 ADB 09173 Reason(s): left pelvic pain ULTRASOUND PELVIS INDICATION: [...] 21:01, Dictation Date: Page 1 of 2 [facility] [address] [place] [address] PHONE: [phone] FAX: [phone] Name .................. : EMI Wong Acct Number.................. : [id number] ROOM. ................. : VT-02 MR Number ................... : [id number] Stay type ............. : E/R Discharge Date......... ... : 04/13/21 Admit Date ......... : 04/13/21 Admit Phys .................... : JOSE Espinoza Date of ....... : 1990 Family Phys ................... : AMANDA PURVIS Phone .................. : [phone] Age ................................ : 30 Film# .................. .:[id number] Sex ................................. : F Unsigned transcriptions are preliminary reports and do not represent a medical or legal document [place] [address] COMPLETE: 17:53 ADB 63464 Reason(s): left pelvic pain Copy for: EMERGENCY DEPT via modem Copy for: 710 MED REC DISCHARGED Page 2 of 2 Name Value Range Interpretation Code Description Data Radha rce(s) Supporting Document(s) ID Date Data Source [id number] 04/13/2021 04:18:00 PM EST [facility] 1 OrderSheet [facility] Emergency Department [address] [place] [address] Phone #: ext- [phone] 04/13/2021 16:15 Patient: KADY MIDDLETON Sex: F : 1990 Age: 30yWEIGHT:131.5 kg (S) HEIGHT:68 inches (S) BMI:44.1ALLERGIES: Latex, NexIUMCHIEF COMPLAINT: abdominal painDIAGNOSIS: Cyst of ovaryLAB ORDERSOrder Description Priority Entered Acknowledged InitialedUA Reflex to UA STAT 16:31 04/13/2021 16:31 Babs SheltonCulture Babs Shelton R.N.; R.N. Verbal order per; Tapan Louis [facility] Urine Qual STAT 16:31 04/13/2021 16:31 Babs [...] Description Priority Entered Acknowledged Initialed 2 OrderSheet [facility] Emergency Department [address] [place] [address] Phone #: ext- [phone] 04/13/2021 16:15 Patient: KADY MIDDLETON Sex: F : 1990 Age: 30y[Electronically signed by Marielle Sarabia RN (18:53 04/13/2021)][Electronically signed by Shaun Farias (18:54 03/29)][Electronically locked by Marielle Sarabia RN (18:53 04/13/2021)] Name Value Range Interpretation Code Description Data Radha rce(s) Supporting Document(s) ID Date Data Source [id number] 04/13/2021 04:18:[address] [facility] 1 Medication Reconciliation Report [facility] Emergency Department [address] [place] [address] Phone #: ext- [phone] 04/13/2021 16:15 Patient: [...] rce(s) Supporting Document(s) ID Date Data Source [id number] 04/13/2021 04:18:[address] [facility] 1 Medication Administration Record [facility] Emergency Department [address] [place] [address] Phone #: ext- [phone] 04/13/2021 16:15 Patient: KADY MIDDLETON Sex: F [...] rce(s) Supporting Document(s) ID Date Data Source [id number] 04/13/2021 04:18:00 PM EST [facility] 1 General Instructions [facility] Emergency Department [address] [place] [address] Phone #: ext- [phone] 04/13/2021 16:15 Patient: KADY MIDDLETON Sex: F [...] the discharge instructions verbalized by patient.[facility], , , [address], ,[place], [address] Follow up in three days even if well. Call for an appointment. Reason for referral: evaluation. ADDITIONAL INFORMATIONOvarian Cysts 2 General Instructions [facility] Emergency Department [address] [place] [address] Phone #: ext- [phone] 04/13/2021 16:15 Patient: KADY MIDDLETON Sex: F [...] pain, your healthcare provider may recommend using [id number] pain medicine. If needed, your provide may [...] provider, or as advised. 3 General Instructions [facility] Emergency Department [address] [place] [address] Phone #: ext- [phone] 04/13/2021 16:15 Patient: [...] Weakness, dizziness, or fainting Abnormal vaginal bleeding [phone] [employer]. [address] [place] [address]. All rights reserved. This information is not intended as asubstitute for professional medical care. Always follow your healthcare professional's instructions. You have been given the following additional information: Ovarian Cyst(Electronica lly signed by Shaun Farias 04/13/2021 18:54) Name Value Range Interpretation Code Description Data Radha rce(s) Supporting Document(s) ID Date Data Source [id number] 04/13/2021 04:18:00 PM EST [facility] 1 Clinical Report - Nurses [facility] Emergency Department [address] [place] [address] Phone #: ext- [phone] 04/13/2021 16:15 Patient: KADY MIDDLETON Sex: F : 1990 Age: 30yTRIAGEArrived by private vehicle. Historian: patient. ( pelvic pain that radiates down legs more on left).Acuity: LEVEL 3.Chief Complaint: PELVIC PAIN and ABDOMINAL CRAMPS (menses light).Alert.Onset. (2 days ago). 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 (midal 1200, motrin 900).SEPSIS SCREEN: SIRS [...] Pain.Asthma.Bipolar Disorder.Hypothermia. 2 Clinical Report - Nurses [facility] Emergency Department [address] [place] [address] Phone #: ext- [phone] 04/13/2021 16:15 Patient: [...] Shaun Farias.Interventions 3 Clinical Report - Nurses [facility] Emergency Department [address] [place] [address] Phone #: ext- [phone] 04/13/2021 16:15 Patient: [...] Shelton R.N. 17:09 04/13/21. Patient transported to [facility] by wheelchair with electrical power station technician. --17:14 04/13/21 Babs Shelton R.N. 17:52 04/13/21. BP: 105/61. HR: 77. RR: 18. O2 saturation: 100%. --17:52 04/13/21 [facility].DISPOSITION / DISCHARGE 18:49 04/13/21. BP: 98/64. HR: 72. RR: 18. O2 saturation: 99%. Temp: 98.9 F. Pain level now 7/10. --18:50 04/13/21 [facility] 18:51 04/13/21. Condition at departure: stable. No learning barriers present. Discharge instructions provided and reviewed with the patient. Patient verbalized understanding. Written instructions provided in Cambodian. The patient was discharged home. She left ambulatory and via private vehicle. Patient driving. --18:52 04/13/21 Marielle Sarabia RN. 4 Clinical Report - Nurses [facility] Emergency Department [address] [place] [address] Phone #: ext- [phone] 04/13/2021 16:15 Patient: KADY MIDDLETON Sex: F : 1990 Age: 30yLocked/Released at 04/13/2021 18:53 by Marielle Sarabia RN Name Value Range Interpretation Code Description Data Radha rce(s) Supporting Document(s) ID Date Data Source [id number] 04/13/2021 04:18:00 PM EST [facility] 1 Clinical Report - Physicians/Mid Levels [facility] Emergency Department [address] [place] [address] Phone #: ext- [phone] 04/13/2021 16:15 Patient: [...] Laparoscopy. 2 Clinical Report - Physicians/Mid Levels [facility] Emergency Department [address] [place] [address] Phone #: ext- [phone] 04/13/2021 16:15 [id number] Sex: F : 1990 Age: 30y Tonsillectomy. [...] Elif 3 Clinical Report - Physicians/Mid Levels [facility] Emergency Department [address] [place] [address] Phone #: ext- [phone] 04/13/2021 16:15 Patient: KADY MIDDLETON Sex: F : 1990 Age: 30y UA REFLEX TO UA CULTURE: ([facility]ULU: 04/13/2021 16:30) [facility] 04/13/[facility] 16:40) Final results Test Result Flag [...] Beta-HCG, Qual Urine: ([facility]UL[facility]: 04/13/2021 16:30) ( [facility] 04/13/2021 16:42) Final results Test Result Flag Units (Reference) HCG URINE QUAL NEGATIVE (NORMAL: NEGAT HCG URINE QL REENTER NEGATIVE (NORMAL: NEGAT { KIT LOT # [id number] ){ KIT EXP DATE 06.28.22 ){ PROCEDURAL CONTROL VALID ).PROGRESS AND PROCEDURESCourse of Care: 17:00 04/13/21. Non-surgical abdomen. No fever, diarrhea or bowel changes to suggestdiverticulitis. No signs of UTI. 18:45 04/13/21. Patient made aware of findings on ultrasound. She was given choice to follow up with her lens grinder or [facility]. NSAID's for pain. No signs of ovarian torsion. Patient/family counseled. Disposition: Discharged. Condition: stable.CLINICAL IMPRESSION Single follicular right ovarian cyst. No simple ovarian cyst.INSTRUCTIONS 4 Clinical Report - Physicians/Mid Levels [facility] Emergency Department [address] [place] [address] Phone #: ext- [phone] 04/13/2021 16:15 Patient: KADY MIDDLETON Sex: F [...] discharge instructions verbalized by patient. Follow-up with: [facility], , , [address] [place] [address], [address] Follow up in three days even if well. Call for an appointment. Reason for referral: evaluation.(Electronically signed by Shaun Farias 04/13/2021 18:54) Name Value Range Interpretation Code Description Data Radha rce(s) Supporting Document(s) ID Date Data Source [id number] 04/13/2021 04:41:00 PM EST [facility] Name Value Range Interpretation Code Description Data Radha rce(s) Supporting Document(s) HCG URINE QUAL NEGATIVE NORMAL: NEGATIVE [facility] HCG URINE QL REENTER NEGATIVE NORMAL: NEGATIVE [facility] { KIT LOT # [id number] ){ KIT EXP DATE 06.28.22 ){ PROCEDURAL CONTROL VALID ) ID Date Data Source [id number] 04/13/2021 04:40:00 PM EST [facility] Name Value Range Interpretation Code Description Data Radha rce(s) Supporting Document(s) UA REFLEX TO UA CULTURE [facility] yellow NORMAL: Yellow [facility] CLARITY clear NORMAL: Clear [facility] spital Specific gravity of Urine by Test strip 1.025 1.001 - 1.030 [facility] pH 6 5 - 9 [facility] Glucose [Mass/volume] in Urine by Test strip NORM NORMAL: Negat [facility] Bilirubin.total [Presence] in Urine by Test strip NEG NORMAL: Negative [facility] Ketones [Presence] in Urine by Test strip NEG NORMAL: Negative [facility] Protein [Mass/volume] in Urine by Test strip NEG NORMAL: Negat [facility] Nitrite [Presence] in Urine by Test strip NEG NORMAL: Negative [facility] BLOOD NEG NORMAL: Negative [facility] Leukocyte esterase [Presence] in Urine by Test strip NEG AMANDA L: Negative [facility] Urobilinogen [Mass/volume] in Urine by Test strip NOR less antonio n 1.0 mg/dL [facility] MICROSCOPIC Not Indicate [facility] ID Date Data Source [id number] 03/23/2021 12:00:00 AM EDT [facility] Name Value Range Interpretation Code Description Data Radha rce(s) Supporting Document(s) SARS-CoV2 Rapid Antigen Negative [facility] This lab was ordered by [facility] and reported by [facility]. ID Date Data Source [id number] 02/25/2021 04:17:00 PM EDT [facility] 1 OrderSheet [facility] Emergency Department [address] [place] [address] Phone #: ext- [phone] 02/25/2021 15:58 Patient: [...] rce(s) Supporting Document(s) ID Date Data Source [id number] 02/25/2021 04:17:00 PM EDT [facility] 1 Medication Reconciliation Report [facility] Emergency Department [address] [place] [address] Phone #: ext- [phone] 02/25/2021 15:58 Patient: KADY MIDDELTON Sex: F : 1990 Age: 30yWeight: 127.0 [...] rce(s) Supporting Document(s) ID Date Data Source [id number] 02/25/2021 04:17:00 PM EDT [facility] 1 Medication Administration Record [facility] Emergency Department [address] [place] [address] Phone #: ext- [phone] 02/25/2021 15:58 Patient: [...] rce(s) Supporting Document(s) ID Date Data Source [id number] 02/25/2021 04:17:00 PM EDT [facility] 1 General Instructions [facility] Emergency Department [address] [place] [address] Phone #: [phone] tpz- [phone] 02/25/2021 15:58 Patient: KADY MIDDLETON Sex: F [...] or too much sleep. 2 General Instructions [facility] Emergency Department [address] [place] [address] Phone #: ext- [phone] 02/25/2021 15:58 Patient: [...] Avocados Bananas Figs Raisins 3 General Instructions [facility] Emergency Department [address] [place] [address] Phone #: ext- [phone] 02/25/2021 15:58 Patient: [...] healthcare provider Stiff neck 4 General Instructions [facility] Emergency Department [address] [place] [address] Phone #: ext- [phone] 02/25/2021 15:58 Patient: KADY MIDDLETON Sex: F : 1990 Age: 30y Extreme drowsiness, confusion, or fainting Dizziness, or dizziness with spinning sensation (vertigo) Weakness or trouble feeling in an arm or leg, or on one side of your face Trouble talking or seeing [phone] [employer]. [address] [place] [address], [place] [address]. All rights reserved. This information is not intended as asubstitute for professional medical care. Always follow your healthcare professional's instructions. You have been given the following additional information: Headache, Migraine, Classic Do not work tomorrow.(Electronically signed by Shaun Farias 02/25/2021 20:53) Name Value Range Interpretation Code Description Data Radha rce(s) Supporting Document(s) ID Date Data Source [id number] 02/25/2021 04:17:00 PM EDT [facility] 1 Clinical Report - Nurses [facility] Emergency Department [address] [place] [address] Phone #: ext- [phone] 02/25/2021 15:58 Patient: [...] statesshe has that sometimes from her neck).Treatment PARTS ORDER AND STOCK CLERK:(imitrex 0800, tordol 1200).SEPSIS SCREEN: SIRS SCREEN NEGATIVE. [...] Shelton R.N. 2 Clinical Report - Nurses [facility] Emergency Department [address] [place] [address] Phone #: ext- [phone] 02/25/2021 15:58 Patient: [...] within normal 3 Clinical Report - Nurses [facility] Emergency Department [address] [place] [address] Phone #: ext- [phone] 02/25/2021 15:58 Patient: KADY MIDDLETON Sex: F [...] Shelton R.N. 4 Clinical Report - Nurses [facility] Emergency Department [address] [place] [address] Phone #: ext- [phone] 02/25/2021 15:58 Patient: KADY MIDDLETON Sex: F : 1990 Age: 30yDISPOSITION / DISCHARGE Condition at departure: improved. No learning barriers present. Work note given. Patient verbalized understanding. Written instructions provided in Cambodian. The patient was discharged home and unaccompanied [...] rce(s) Supporting Document(s) ID Date Data Source [id number] 02/25/2021 04:17:00 PM EDT [facility] 1 Clinical Report - Physicians/Mid Levels [facility] Emergency Department [address] [place] [address] Phone #: ext- [phone] 02/25/2021 15:58 Patient: [...] health care provider. ( Treated in ED twice([facility]) in last 5 months).REVIEW OF SYSTEMSThe patient [...] Tonsillectomy. 2 Clinical Report - Physicians/Mid Levels [facility] Emergency Department [address] [place] [address] Phone #: ext- [phone] 02/25/2021 15:58 Patient: [...] stable. 3 Clinical Report - Physicians/Mid Levels [facility] Emergency Department [address] [place] [address] Phone #: ext- [phone] 02/25/2021 15:58 Patient: KADY MIDDLETON Sex: F [...] rce(s) Supporting Document(s) ID Date Data Source [id number] 02/17/2021 12:00:00 AM EDT [facility] Name Value Range Interpretation Code Description Data Radha rce(s) Supporting Document(s) SARS-CoV2 Rapid Antigen Not Detected [facility] This lab was reported by Becky Waite. ID Date Data Source [id number] 11/24/2020 08:25:00 AM EDT [facility] Name Value Range Interpretation Code Description Data Radha rce(s) Supporting Document(s) Mumps virus IgG Ab [Units/volume] in Serum by Immunoassay <9 .0 AU/mL Immune >10.9 L [facility] Negative <9.0 Equivocal 9.0 - 10.9 Positive >10.9 A positive result generally indicates past exposure to Mumps virus or previous vaccination. ID Date Data Source [id number] 11/24/2020 08:25:00 AM EDT [facility] Value Range Interpretation Code Description Data Radha rce(s) Supporting Document(s) Hepatitis B virus surface Ab [Presence] in Serum Non Reactive [facility] Non Reactiv e: Inconsistent with immunity, less than 10 mIU/mL Reactive: Consistent with immunity, greater than 9.9 mIU/mLVerified by repeat analysis ID Date Data Source [id number] 11/24/2020 08:24:[address] [facility] Value Range Interpretation Code Description Data Radha rce(s) Supporting Document(s) Varicella zoster virus IgG Ab [Units/volume] in Serum by Imm unoassay 1686 index Immune >165 [facility] Negative <135 Equivocal 135 - 165 Positive >165 A positive result generally indicates exposure to the pathogen or administration of specific immunoglobulins, but it is not indication of active infection or stage of disease. ID Date Data Source [id number] 11/24/2020 08:24:[address] [facility] Value Range Interpretation Code Description Data Radha rce(s) Supporting Document(s) Measles virus IgG Ab [Units/volume] in Serum by Immunoassay >300.0 AU/mL Immune >16.4 [facility] Negative <13.5 Equivocal 13.5 - 16.4 Positive >16.4 Presence of antibodies to Rubeola is presumptive evidence of immunity except when acute infection is suspected. ID Date Data Source [id number] 11/23/2020 12:32:00 PM EDT [facility] Value Range Interpretation Code Description Data Radha rce(s) Supporting Document(s) Rubella virus IgG Ab [Units/volume] in Serum 52.190 IU/ml [facility] REACTI VE \\BLDo\\Rubella Immunity Interpretation\\BLDx\\ Non-reactive: <10 IU/mL Reactive: greater than or equal to 10 IU/mL A reactive result is presumptive evidence of immunity to Rubella, except when acute infection is suspected. ID Date Data Source [id number] 11/19/2020 10:04:00 AM EDT [facility] [address] [place] [address] PHONE: [phone] FAX: [phone] Name .................. : EMI HILLMAN Acct Number.................. : [id number] ROOM. ................. : VT-19 Number ................... : [id number] Stay type ............. : E/R Discharge Date......... ... : Admit Date ......... : 11/18/20 Admit Phys .................... : DIANA KEYS Date of ....... : 1990 Family Phys ................... : AMANDA PURVIS Phone .................. : [phone] Age ................................ : 30 Film# .................. .:[id number] Sex ................................. : F Unsigned transcriptions are preliminary reports and do not represent a medical or legal document CT ABD & PELVIS W/ IV ONLY [id number] COMPLETE:11/18/20 22:45 DLA 25300 Reason(s): diffuse abdominal pain, nausea, IUD removed [...] administra tion: Intravenous Page [address] [place] [address] PHONE: [phone] FAX: [phone] Name .................. : EMI HILLMAN Acct Number.................. : [id number] ROOM. ................. : VT-19 Number ................... : [id number] Stay type ............. : E/R Discharge Date......... ... : Admit Date ......... : 11/18/20 Admit Phys .................... : DIANA KEYS Date of ....... : 1990 Family Phys ................... : AMANDA PURVIS Phone .................. : [phone] Age ................................ : 30 Film# .................. .:[id number] Sex ................................. : F Unsigned transcriptions are preliminary reports and do not represent a medical or legal document CT ABD & PELVIS W/ IV ONLY [id number] COMPLETE:11/18/20 22:45 DLA 47855 Reason(s): diffuse abdominal pain, nausea, IUD removed 11-13-20, no bleeding Electronically Reviewed and Signed By Juwan Anaya M.D. , 11/19/20 10:04, [place] [facility] Transcribe Initials: LEV , Transcribe Date: 11/18/20 23:03, Dictation Date: Copy for: EMERGENCY DEPT via modem Copy for: 710 MED REC DISCHARGED Page 2 of 2 Name Value Range Interpretation Code Description Data Radha rce(s) Supporting Document(s) ID Date Data Source [id number] 11/18/2020 07:40:00 PM EDT [facility] 1 OrderSheet [facility] Emergency Department [address] [place] [address] Phone #: ext- [phone] 11/18/2020 19:39 Patient: KADY MIDDLETON Sex: F [...] removed 11-13-, no bleedingMEDICATION/IV/DRIP/FLUID ORDERS 2 OrderSheet [facility] Emergency Department [address] [place] [address] Phone #: ext- [phone] 11/18/2020 19:39 ---- Patient: KADY MIDDLETON Sex: [...] rce(s) Supporting Document(s) ID Date Data Source [id number] 11/18/2020 07:40:00 PM EDT [facility] 1 Medication Reconciliation Report [facility] Emergency Department [address] [place] [address] Phone #: ext- [phone] 11/18/2020 19:39 Patient: [...] administered: 20:37 11/18/2020 2 Medication Reconciliation Report [facility] Emergency Department [address] [place] [address] Phone #: ext- [phone] 11/18/2020 19:39 Patient: KADY MIDDLETON Sex: F : 1990 Age: 30yOfirmev IVPB bolus 0, then 1 gm, administered: 21:54 11/18/2020The following Medications were prescribed to the patient:None. Name Value Range Interpretation Code Description Data Radha rce(s) Supporting Document(s) ID Date Data Source [id number] 11/18/2020 07:40:00 PM EDT [facility] 1 Medication Administration Record [facility] Emergency Department [address] [place] [address] Phone #: ext- [phone] 11/18/2020 19:39 Patient: KADY MIDDLETON Sex: F : 1990 Age: 30yWeight: 122.4 kgHeight/Length: 68 inBMI: 41ALLERGIES: Latex, NexIUM Date/Time Medication Administered Medication OrderedStart SODIUM CHLORIDE [IV] NS IV 1000 mL Bolus: : Bolus [id number] 11/18/2020 Dose: IV Fluids mL (X1)Rose Kelly, [...] Name Value Range Interpretation Code Description Data [facility]) Supporting Document(s) ID Date Data Source [id number] 11/18/2020 07:40:00 PM EDT [facility] 1 General Instructions [facility] Emergency Department [address] [place] [address] Phone #: ext- [phone] 11/18/2020 19:39 Patient: KADY MIDDLETON Sex: F : 1990 Age: 30yAcute generalized abdominal pain of unknown cause.Chronic diverticulosis of the colon. No perforation, bleeding or abscess.Endometriosis.INSTRUCTIONSDrink plenty of fluids. Avoid alcohol. Avoid fatty, fried/greasy, lactose-containing (such as milk, cheeseand ice cream), salty and spicy foods. No alcohol. Do not smoke.(PLEASE FOLLOW UP WITH YOUR WIRE TECHNICIAN IN [place] WITHIN 2 DAYS).Warnings: Further evaluation is necessary in order to conduct further tests (WIRE TECHNICIAN). It is very importantto follow up with [...] department as needed. Follow up with a roll operator in two days even if well.Call for an appointment. Reason for referral: evaluation and treatment. Summary of care provided topatient via paper.Understanding of the discharge instructions verbalized by patient. Expected course of illness, dischargeinstructions, activity level, diet, follow-up appointment and risks and benefits of treatment reviewed withpatient and understanding verbalized. Agrees to plan of care. 2 General Instructions [facility] Emergency Department [address] [place] [address] Phone #: ext- [phone] 11/18/2020 19:39 Patient: [...] may also be needed. 3 General Instructions [facility] Emergency Department [address] [place] [address] Phone #: ext- [phone] 11/18/2020 19:39 Patient: KADY MIDDLETON Sex: F : 1990 Age: 30[facility] healthcare provider may prescribe medicine for pain, [...] begin to improve in thenext 24 hours.Call [phone] if any of these occur: Trouble breathing Confusion 4 General Instructions [facility] Emergency Department [address] [place] [address] Phone #: ext- [phone] 11/18/2020 19:39 Patient: [...] or water and you are getting dehydrated [id number] [employer]. [address] [place] [address]. All rights reserved. This information is not intended as asubstitute for professional medical care. Always follow your healthcare professional's instructi ons.Diverticulosis 5 General Instructions [facility] Emergency Department [address] [place] [address] Phone #: ext- [phone] 11/18/2020 19:39 Patient: [...] Constipation Lack of exercise 6 General Instructions [facility] Emergency Department [address] [place] [address] Phone #: ext- [phone] 11/18/2020 19:39 Patient: KADY MIDDLETON Sex: F [...] Regular visits may be needed to check [facility]. Sometimes special procedures such as colonoscopy, are [...] by your healthcare provider 7 General Instructions [facility] Emergency Department [address] [place] [address] Phone #: ext- [phone] 11/18/2020 19:39 Patient: [...] of consciousness Rapid heart rate Chest pain [id number] [employer] [place] [address]. All rights reserved. This information is not intended as asubstitute for professional medical care. Always follow your healthcare professional's instructions.EndometriosisEndometriosis is a condition that occurs when the tissue that lines the uterus starts to grow where it 8 General Instructions [facility] Emergency Department [address] [place] [address] Phone #: ext- [phone] 11/18/2020 19:39 Patient: [...] hot water bottle.Follow-up care 9 General Instructions [facility] Emergency Department [address] [place] [address] Phone #: ext- [phone] 11/18/2020 19:39 Patient: [...] talk with you about i nfertility testing. [id number] [employer]. [address] [place] [address], [place] [address]. All rights reserved. This information is not intended as asubstitute for professional medical care. Always follow your healthcare professional's instructions. You have been given the following additional information: Abdominal Pain, Unknown Cause, (Female) Diverticulosis Endometriosis(Electronically signed by Vargas Ortiz M.D. 11/19/2020 01:23) Name Value Range Interpretation Code Description Data Radha rce(s) Supporting Document(s) ID Date Data Source [id number] 11/18/2020 07:40:00 PM EDT [facility] 1 Clinical Report - Nurses [facility] Emergency Department [address] [place] [address] Phone #: ext- [phone] 11/18/2020 19:39 Patient: KADY MIDDLETON Sex: F [...] since then. Pt denies any urinary symptoms.).Treatment PARTS ORDER AND STOCK CLERK:(zofran last dose 11 am, midol last dose [...] R.N.PROBLEMS:Bipolar Disorder.Asthma.Endometriosis. 2 Clinical Report - Nurses [facility] Emergency Department [address] [place] [address] Phone #: ext- [phone] 11/18/2020 19:39 -------- [...] Patient gowned. 3 Clinical Report - Nurses [facility] Emergency Department [address] [place] [address] Phone #: [phone] ext- [phone] 11/18/2020 19:39 Patient: KADY MIDDLETON Sex: F [...] hazard. --21:42 11/18/20 Yanet Plascencia 21:54 11/18/2020 [facility] * IVPB 1 gm --21:54 11/18/20 [facility]ascencia 22:17 [facility]. Total amount infused: 100 mL. IV patency 4 Clinical Report - Nurses [facility] Emergency Department [address] [place] [address] Phone #: ext- [phone] 11/18/2020 19:39 Patient: KADY MIDDLETON Sex: F [...] --22:20 11/18/20 Yanet Plascencia Patient transported to [place] by wheelchair with mask and tech. --22:24 11/18/20 Yanet Plascencia.DISPOSITION / DISCHARGE 23:28 11/18/2020 Site #1 removed upon discharge. Catheter intact. Bandaid applied. --23:28 11/18/20 Yanet Plascencia Departure time: 23:28 0 11/18/2020. Condition at departure: improved. No learning barriers present. Discharge instructions provided and reviewed with the patient. Reviewed warnings. Reviewed medication(s). Treatments reviewed. Reviewed referrals. Patient verbalized understanding. Written instructions provided in Cambodian. The patient was discharged by the physician. [...] rce(s) Supporting Document(s) ID Date Data Source [id number] 11/18/2020 07:40:00 PM EDT [facility] 1 Clinical Report - Physicians/Mid Levels [facility] Emergency Department [address] [place] [address] Phone #: ext- [phone] 11/18/2020 19:39 Patient: [...] have LSC surgery in the future at [facility]). No recent travel. Similar symptoms previously. None. Recent medical care: The patie nt was seen recently by a health care provider. ( had Mirena IUD removed 11/13 by WIRE TECHNICIAN at [facility], had it x 2-3 yrs).REVIEW OF [...] Tonsillectomy. 2 Clinical Report - Physicians/Mid Levels [facility] Emergency Department [address] [place] [address] Phone #: ext- [phone] 11/18/2020 19:39 Patient: [...] Progress 3 Clinical Report - Physicians/Mid Levels [facility] Emergency Department [address] [place] [address] Phone #: ext- [phone] 11/18/2020 19:39 Patient: KADY MIDDLETON Sex: F : 1990 Age: 30yCT ABDReason(s): diffuse abdominal pain, nausea, IUD removed 6-18-21, no bleedingTRANSPORTATION: WC IV? IV?(Yes) O2? Oxygen?(No) Ro Exam CT ABD //T// PELVIS W/ IV ONLY [facility] [address] [place] [address] PHONE: [phone] FAX: [phone] Name .................. : EMI HILLMAN Acct Number....... ........... : [id number] ROOM. ................. : [facility] MR Number ................... : [id number] Stay type ............. : E/R Discharge Date......... ... : Admit Date ......... : 11/18/20 Admit Phys .................... : DIANA KEYS Date of ....... : 1990 Family Phys ................... : AMANDA YANIV Phone .................. : [phone] Age ................................ : 30 Film# .................. .:[id number] [...] Method of administration: Intravenous Page 1of 2 [facility] 4 Clinical Report - Physicians/Mid Levels [facility] Emergency Department [address] [place] [address] Phone #: ext- [phone] 11/18/2020 19:39 Patient: KADY MIDDLETON Sex: F : 1990 Age: 30y [address] [place] [address] PHONE: [phone] FAX: Name .................. : EMI HILLMAN Acct Number.................. : [id number] ROOM. ................. : VT-19 MR Number ................... : [id number] Stay type ............. : E/R Discharge Date......... ... : Admit Date ......... : 11/18/20 Admit Phys .................... : DIANA KEYS Date of ....... : 1990 Family Phys ................... : AMANDA PURVIS Phone .................. : [phone] Age ........................ ........ : 30 Film# .................. .:[id number] Sex ................................. : F Unsigned transcriptions are preliminary reports and do not represent a medical or legal document CT ABD Reason(s): diffuse abdominal pain, nausea, IUD removed 11-13-20, no bleeding Electronically Reviewed and Signed By DCTNAME , SIGNDATE, NHAngelia Transcribe Initials: LEV , Transcribe Date: 11/18/20 23:03, Dictation Date: <<REPDIST>> Page 2of 2CBC w Diff: (LULU: 11/18/2020 20:23) ( MsgRcvd 11/18/2020 21:14) Final [...] 0.20) 5 Clinical Report - Physicians/Mid Levels [facility] Emergency Department [address] [place] [address] Phone #: ext- [phone] 11/18/2020 19:39 Patient: [...] Male GFR Interprentation 20-49 yrs >60 mL/min Vtvozx83-12 yrs >56 mL/min Normal 60-69 yrs >49 mL/min Normal 70-79yrs>42 mL/min Normal 80 and above >35 mL/min Normal Female GFRInterpretation 20-39 yrs >60 mL/min Normal 40-49 yrs >58 mL/minNormal 50-59 yrs >51 mL/min Normal 60-69 yrs >45 mL/min Orvdmu44-42 yrs >39 mL/min Normal 80 and above >32 mL/min NormalLipase: (LULU: 11/18/2020 20:23) ( [facility] 11/18/2020 21:29) Final results Test Result Flag [...] Negat 6 Clinical Report - Physicians/Mid Levels [facility] Emergency Department [address] [place] [address] Phone #: ext- [phone] 11/18/2020 19:39 Patient: KADY MIDDLETON Sex: F : 1990 Age: 30y LEUK EST NEG (NORMAL: Negat UROBILINOGEN NOR (less than 1.0 MICROSCOPIC See Below WBC 0 - 1 (NORMAL: NONE RBC 1 - 3 (NORMAL: NONE EPITHELIAL MODERATE A (NORMAL: NONE BACTERIA 1+ SMALL (NORMAL: NONE MUCOUS Trace (NORMAL: NONE Lactic Acid: (LULU: 11/18/2020 20:23) ( NmgRcvd 11/18/2020 21:11) Final results Test Result Flag Units (Reference) LACTIC ACID 1.5 MMOL/L (0.2 - 2.2) Beta-HCG, Qual Urine: (LULU: 11/18/2020 20:23) ( [facility] 11/18/2020 21:46) Final results Test Result Flag Units (Reference) HCG URINE QUAL NEGATIVE (NORMAL: NEGAT HCG URINE QL REENTER NEGATIVE (NORMAL: NEGAT { KIT LOT # [id number] ){ KIT EXP DATE 04.27.22 ){ PROCEDURAL [...] w instructions, advised to f/u w her WIRE TECHNICIAN within 2 days; pt agrees; probable abdominal [...] or abscess. Endometriosis. 7 Clinical Report - Physicians/[facility] Emergency Department [address] [place] [address] Phone #: ext- [phone] 11/18/2020 19:39 Patient: KADY MIDDLETON Sex: F : 1990 Age: 30yINSTRUCTIONS Drink plenty of fluids. Avoid alcohol. Avoid fatty, fried/greasy, lactose-containing (such as milk, cheese and ice cream), salty and spicy foods. No alcohol. Do not smoke. (PLEASE FOLLOW UP WITH YOUR WIRE TECHNICIAN IN [place] WITHIN 2 DAYS). Warnings: Further evaluation is necessary in order to conduct further tests (WIRE TECHNICIAN). It is very important to follow up [...] department as needed. Follow up with a roll operator in two days even if well. Call [...] Name Value Range Interpretation Code Description Data [facility]) Supporting Document(s) ID Date Data Source [id number] 11/18/2020 10:00:00 PM EDT [facility] Name Value Range Interpretation Code Description Data [facility]) Supporting Document(s) URINALYSIS [facility] URINALYSIS SOURCE R [facility] COLOR yellow NORMAL: Yellow [facility] CLARITY clear NORMAL: Clear [facility] Specific gravity of Urine by Test strip 1.015 1.001 - 1.030 [facility] pH 6 5 - 9 [facility] Glucose [Mass/volume] in Urine by Test strip NORM NORMAL: Negat [facility] Bilirubin.total [Presence] in Urine by Test strip NEG NORMAL: Negative [facility] Ketones [Presence] in Urine by Test strip NEG NORMAL: Negative [facility] Protein [Mass/volume] in Urine by Test strip NEG NORMAL: Negat [facility] Nitrite [Presence] in Urine by Test strip NEG NORMAL: Negative [facility] BLOOD 25 NORMAL: Negative [facility] LEUK EST NEG NORMAL: Negative [facility] Urobilinogen [Mass/volume] in Urine by Test strip NOR less antonio n 1.0 mg/dL [facility] MICROSCOPIC See Below [facility] ital WBC 0 - 1 NORMAL: NONE SEEN [facility] Erythrocytes [#/volume] in Urine by Test strip 1 - 3 NORMAL: NON E SEEN [facility] EPITHELIAL MODERATE NORMAL: NONE SEEN A [facility] Bacteria [Presence] in Urine sediment by Light microscopy 1+ SMALL NORMAL: NONE SEEN [facility] Mucus [Presence] in Urine sediment by Light microscopy Trace NORMAL: NONE SEEN [facility] ID Date Data Source [id number] 11/18/2020 09:45:00 PM EDT [facility] Name Value Range Interpretation Code Description Data Radha rce(s) Supporting Document(s) HCG URINE QUAL NEGATIVE NORMAL: NEGATIVE [facility] HCG URINE QL REENTER NEGATIVE NORMAL: NEGATIVE [facility] { KIT LOT # [id number] ){ KIT EXP DATE 04.27.22 ){ PROCEDURAL CONTROL VALID ) ID Date Data Source [id number] 11/18/2020 09:29:00 PM EDT [facility] Name Value Range Interpretation Code Description Data Radha rce(s) Supporting Document(s) Lipase [Enzymatic activity/volume] in Serum or Plasma 24 U/L 13 - 60 [facility] ID Date Data Source [id number] 11/18/2020 09:29:00 PM EDT [facility] Name Value Range Interpretation Code Description Data Radah rce(s) Supporting Document(s) COMPREHENSIVE METABOLIC PANEL [facility] COMPREHENSIVE METABOLIC PANEL Sodium [Moles/volume] in Serum or Plasma 137 mEq/L 134 - 153 [facility] Potassium [Moles/volume] in Serum or Plasma 4.0 mEq/L 3.6 - 5.0 [facility] Chloride [Moles/volume] in Serum or Plasma 101 mEq/L 98 - 107 [facility] Carbon dioxide, total [Moles/volume] in Serum or Plasma 26 MEQ/L 22 - 30 [facility] Glucose [Mass/volume] in Serum or Plasma 89 MG/DL 70 - 99 [facility] BUN 13 MG/DL 7 - 21 [facility] Creatinine [Mass/volume] in Serum or Plasma 0.7 MG/DL 0.7 - 1.5 [facility] BUN/CREAT 19 8 - 27 [facility] Protein [Mass/volume] in Serum or Plasma 7.3 G/DL 6.3 - 8.2 [facility] Albumin [Mass/volume] in Serum or Plasma 4.3 G/DL 3.9 - 5.0 [facility] Globulin [Mass/volume] in Serum by calculation 3.0 GM/DL 2.4 - 3.2 [facility] A/G RATIO 1.4 0.8 - 2.0 [facility] Calcium [Mass/volume] in Serum or Plasma 9.3 MG/DL 8.4 - 10.2 [facility] Bilirubin.total [Mass/volume] in Serum or Plasma <0.7 MG/DL 0.2 - 1.3 [facility] Alkaline phosphatase [Enzymatic activity/volume] in Serum or Plasma 118 U/L 38 - 126 [facility] Aspartate aminotransferase [Enzymatic activity/volume] in Serum or Plasma 27 U/L 5 - 40 [facility] Alanine aminotransferase [Enzymatic activity/volume] in Seru m or Plasma 38 U/L 7 - 56 [facility] Anion gap 3 in Serum or Plasma 10.0 mmol/L 8.0 - 16.0 [facility] AGE 30 yrs [facility] NON-AA GFR >60 mL/min [facility] ital AFR AMER GFR >60 mL/min [facility] Male GFR In terprentation [...] >32 mL/min Normal ID Date Data Source [id number] 11/18/2020 09:13:00 PM EDT [facility] Name Value Range Interpretation Code Description Data Radha rce(s) Supporting Document(s) CBC W/AUTOMATED DIFF [facility] COMPLETE BLOOD COUNT Leukocytes [#/volume] in Blood by Automated count 8.6 10^3/uL 4.2 - 1 1.0 [facility] Erythrocytes [#/volume] in Blood by Automated count 4.36 10^6/uL 4. 20 - 5.40 [facility] Hemoglobin [Mass/volume] in Blood 13.7 g/dL 12.0 - 16.0 [facility] Hematocrit [Volume Fraction] of Blood by Automated count 41.3 % 3 7.0 - 47.0 [facility] Erythrocyte mean corpuscular volume [Entitic volume] by Auto mated count 94.7 fL 81.0 - 101 [facility] Erythrocyte mean corpuscular hemoglobin [Entitic mass] by Automated count 31.4 pg 27.0 - 34.0 [facility] Erythrocyte mean corpuscular hemoglobin concentration [Mass/volume] by Automated count 33.2 g/dL 31.0 - 36.0 [facility] Erythrocyte distribution width [Ratio] by Automated count 12.3 % 11.5 - 14.5 [facility] Platelets [#/volume] in Blood by Automated count 334 10^3/uL 150 - 45 0 [facility] Platelet mean volume [Entitic volume] in Blood by Automated count 9.7 fL 7.4 - 10.4 [facility] Neutrophils/100 leukocytes in Blood by Automated count 60.7 % 37. 0 - 80.0 [facility] Lymphocytes/100 leukocytes in Blood by Manual count 28.7 % 25.0 - 40.0 [facility] Monocytes/100 leukocytes in Blood by Automated count 8.7 % 3.0 - 8.0 H [facility] Eosinophils/100 leukocytes in Blood by Automated count 1.4 % 0.0 - 7.0 [facility] Basophils/100 leukocytes in Blood by Automated count 0.3 % 0.0 - 2.5 [facility] %IG 0.2 % 0.0 - 0.0 [facility] %NRBC 0.0 % 0.0 - 0.0 [facility] Neutrophils [#/volume] in Blood by Automated count 5.24 10^3/uL 2.00 - 6.90 [facility] Lymphocytes [#/volume] in Blood by Automated count 2.48 10^3/uL 0.60 - 3.40 [facility] Monocytes [#/volume] in Blood by Automated count 0.75 10^3/uL 0.00 - 0.90 [facility] Eosinophils [#/volume] in Blood by Automated count 0.12 10^3/uL 0.00 - 0.70 [facility] Basophils [#/volume] in Blood by Automated count 0.03 10^3/uL 0.00 - 0.20 [facility] #IG 0.02 10^3/uL 0.00 - 0.10 [facility] #NRBC 0.00 10^3/uL 0.00 - 0.00 [facility] MANUAL DIFF NOT INDICATED [facility] RBC MORPH NOT INDICATED [facility] spital ID Date Data Source [id number] 11/18/2020 09:11:00 PM EDT [facility] Name Value Range Interpretation Code Description Data Radha rce(s) Supporting Document(s) Lactate [Moles/volume] in Serum or Plasma 1.5 MMOL/L 0.2 - 2.2 [facility] ID Date Data Source [id number] 09/07/2020 09:12:00 AM EDT [facility] [address] [place] [address] PHONE: [phone] FAX: [phone] Name .................. : EMI TANN Acct Number.................. : [id number] ROOM. ................. : TR-1A MR Number ................... : [id number] Stay type ............. : E/R Discharge Date......... ... : Admit Date ......... : 09/06/20 Admit Phys .................... : JOSE Espinoza Date of ....... : 1990 Family Phys ................... : AMANDA PURVIS Phone .................. : [phone] Age ................................ : 30 Film# .................. .:[id number] Sex ................................. : F Unsigned transcriptions are preliminary reports and do not represent a medical or legal document CT HEAD W/O CONTRAST [id number] COMPLETE:09/06/20 15:16 [id number] Reason(s): Headache CT OF [...] rce(s) Supporting Document(s) ID Date Data Source [id number] 09/06/2020 03:17:00 PM EDT [facility] 1 OrderSheet [facility] Emergency Department [address] [place] [address] Phone #: ext- [phone] 09/06/2020 14:58 Patient: KADY MIDDLETON Sex: F [...] Head W/O Cont STAT 15:14 09/06/2020 15:49 Bhavana,(Oxygen?(No)) Tapan Hart R.N. PA; Reason for Study: [...] Hess R.N.(NOW x1) TIFFANIE; ROmairaNOmaira 2 OrderSheet [facility] Emergency Department [address] [place] [address] Phone #: ext- [phone] 09/06/2020 14:58 Patient: [...] rce(s) Supporting Document(s) ID Date Data Source [id number] 09/06/2020 03:17:00 PM EDT [facility] 1 Medication Reconciliation Report [facility] Emergency Department [address] [place] [address] Phone #: ext- [phone] 09/06/2020 14:58 Patient: [...] administered: 16:04 09/06/2020 2 Medication Reconciliation Report [facility] Emergency Department [address] [place] [address] Phone #: ext- [phone] 09/06/2020 14:58 Patient: KADY MIDDLETON Sex: F : 1990 Age: 30yHaloperidol [IVP] IVP 5 mg diluted in NS 10 mL, administered: 16:12 09/06/2020Ofirmev IVPB bolus 0, then 1000 mg, administered: 16:13 09/06/2020The following Medications were prescribed to the patient:None. Name Value Range Interpretation Code Description Data Radha rce(s) Supporting Document(s) ID Date Data Source [id number] 09/06/2020 03:17:00 PM EDT [facility] 1 Medication Administration Record [facility] Emergency Department [address] [place] [address] Phone #: ext- [phone] 09/06/2020 14:58 Patient: KADY MIDDLETON Sex: F : 1990 Age: 30yWeight: 117.9 kgHeight/Length: 68 inBMI: 39.5ALLERGIES: Latex, NexIUM Date/Time Medication Administered Medication OrderedStart NS [IV] NS IV 1000 mL Bolus: : Bolus 344148:00 09/06/2020 Dose: IV Fluids mL (X1)Hailey Bateman [...] rce(s) Supporting Document(s) ID Date Data Source [id number] 09/06/2020 03:17:00 PM EDT [facility] 1 General Instructions [facility] Emergency Department [address] [place] [address] Phone #: ext- [phone] 09/06/2020 14:58 Patient: [...] certain factors called triggers 2 General Instructions [facility] Emergency Department [address] [place] [address] Phone #: ext- [phone] 09/06/2020 14:58 Patient: KADY MIDDELTON Sex: F : 1990 Age: 30ycan raise [...] and salami Liver Avocados 3 General Instructions [facility] Emergency Department [address] [place] [address] Phone #: ext- [phone] 09/06/2020 14:58 Patient: [...] liquids down (repeated vomiting) 4 General Instructions [facility] E mergency Department [address] [place] [address] Phone #: cgr- [phone] 09/06/2020 14:58 Patient: KADY MIDDLETON Sex: F [...] of your face Trouble talking or seeing [phone] [employer]. [address] [place] [address]. All rights reserved. This information is not intended as asubstitute for professional medical care. Always follow your healthcare professional's instructions. You have been given the following additional information: Headache, Migraine, Classic(Electronically signed by TIFFANIE Dave 09/06/2020 22:07) Name Value Range Interpretation Code Description Data Rdaha rce(s) Supporting Document(s) ID Date Data Source [id number] 09/06/2020 03:17:00 PM EDT [facility] 1 Clinical Report - Nurses [facility] Emergency Department [address] [place] [address] Phone #: ext- [phone] 09/06/2020 14:58 Patient: KADY MIDDLETON Sex: F [...] and was giventoradol shot. Pt went to [facility] later on yesterday and was given tylenol, reglan, dexamethasone andbenadryl IV.). The patient has had nausea. The patient has had vomiting (once today). (Photosensitivity).Treatment PARTS ORDER AND STOCK CLERK:(8mg Zofran, tylenol, imitrex all at 0815, at [...] Bateman R.N. 2 Clinical Report - Nurses [facility] Emergency Department [address] [place] [address] Phone #: rmn- [phone] 09/06/2020 14:58 Patient: KADY MIDDLETON Sex: F [...] no barriers. 3 Clinical Report - Nurses [facility] Emergency Department [address] [place] [address] Phone #: ext- [phone] 09/06/2020 14:58 Patient: [...] equal, round, and reactive to light. Right lnulc1ce. Left pupil: 7mm.HEENT: No facial asymmetry noted. [...] entry - 15:39 09/06/20. Patient transported to [place] by wheelchair with mask and electrical power station technician. --15:44 09/06/20 Hailey Bateman R.N. Patient returned from CT by wheelchair with mask and electrical power station technician. --15:44 09/06/20 Hailey Bateman R.N. 15:50 [...] with patient 4 Clinical Report - Nurses [facility] Emergency Department [address] [place] [address] Phone #: ext- [phone] 09/06/2020 14:58 Patient: KADY MIDDLETON Sex: F [...] patient feels 5 Clinical Report - Nurses [facility] Emergency Department [address] [place] [address] Phone #: ext- [phone] 09/06/2020 14:58 Patient: KADY MIDDLETON Sex: F : 1990 Age: 30y better. --17:28 09/06/20 Hailey Bateman R.N. 16:45 09/06/2020 Reglan IVP Response: no adverse reaction symptoms are the same. The patient feels the same. --17:28 09/06/20 Hailey Bateman R.N. 16:45 09/06/2020 Haloperidol IVP Response: no adverse reaction symptoms are the same. The patient feels the same. Physician medical office assistant notified. --17:29 09/06/20 Hailey Bateman R.N. [...] Patient verbalized understanding. Written instructions provided in Cambodian. The patient was discharged by the physician medical office assistant. She was discharged home and accompanied by walking dragline operator. She left ambulatory and via private vehicle. Development Advisor driving. --17:31 09/06/20 Hailey Bateman R.N. 17:30 [...] Bateman R.N. 6 Clinical Report - Nurses [facility] Emergency Department [address] [place] [address] Phone #: ext- [phone] 09/06/2020 14:58 Patient: KADY MIDDLETON Sex: F : 1990 Age: 30y Name Value Range Interpretation Code Description Data Radha rce(s) Supporting Document(s) ID Date Data Source [id number] 09/06/2020 03:17:00 PM EDT [facility] 1 Clinical Report - Physicians/Mid Levels [facility] Emergency Department [address] [place] [address] Phone #: ext- [phone] 09/06/2020 14:58 Patient: KADY MIDDLETON Sex: F [...] was given toradol shot. Pt went to [facility] later on yesterday and was given [...] Surgery. 2 Clinical Report - Physicians/Mid Levels [facility] Emergency Department [address] [place] [address] Phone #: [phone]- [phone] 09/06/2020 14:58 Patient: KADY MIDDLETON Sex: F [...] (Reference) 3 Clinical Report - Physicians/Mid Levels [facility] Emergency Department [address] [place] [address] Phone #: ext- [phone] 09/06/2020 14:58 Patient: KADY MIDDLETON [facility] [id number] Sex: F : 1990 Age: 30y CBC [...] 1.3) 4 Clinical Report - Physicians/Mid Levels [facility] Emergency Department [address] [place] [address] Phone #: ext- [phone] 09/06/2020 14:58 Patient: KADY MIDDLETON Sex: F : 1990 Age: 30y ALKALINE PHOS 93 U/L (38 - 126) SGOT/AST 15 U/L (5 - 40) SGPT/ALT 20 U/L (7 - 56) ANION GAP 9.0 mmol/L (8.0 - 16.0) AGE 30 yrs NON- AA GFR >60 mL/min AFR AMER GFR >60 mL/min Male GFR Interprentation 20-49 yrs >60 mL/min Gvbjnr59-18 yrs >56 mL/min Normal 60-69 yrs >49 mL/min Normal 70-79yrs>42 mL/min Normal 80 and above >35 mL/min Normal Female GFRInterpretation 20-39 yrs >60 mL/min Normal 40-49 yrs >58 mL/minNormal 50-59 yrs >51 mL/min Normal 60-69 yrs >45 mL/min Anjrib03-32 yrs >39 mL/min Normal 80 and above [...] VenousThrombosis, Pulmonary Embolus, Tissue heart valves, Acute [place] Atrial Fibrillation, Valvular heart diseaseand recurrent Systemic Embolism. -International Normalized Ratio (INR): 2.5 - 3.5 forMechanical Prosthetic valve.CT Head W/O Cont: (LULU: 09/06/2020 15:16) ( MsgRcvd 09/06/2020 16:18) In Progress Exam [place] HEAD W/[place] [address] PHONE: [phone] FAX: [phone] Name .................. : EMI HILLMAN Acct Number.................. : [id number] ROOM. ................. : TR-1A MR Number ................... : [id number] Stay type ............. : E/R Discharge Date......... ... : Admit Date ......... : 09/06/20 Admit Phys .................... : JOSE Espinoza Date of ....... : 1990 Family Phys .............. ..... : AMANDA MER Phone .................. : [phone] Age ................................ : 30 Film# .................. .:[id number] Sex ................................. : F Unsigned transcriptions are preliminary reports and do not represent a medical or legal document CT HEAD W/O CONTRAST [id number] COMPLETE:09/06/20 15:16 8494 Reason(s): Headache CT OF THE HEAD WITHOUT CONTRAST: COMPARISON: None. FINDINGS: No intra-axial or extra-axial collections of fluid. Ventricles and sulci unremarkable. No midline shift or mass effect. Visualized paranasal sinuses and mastoid air cells unremarkable. 5 Clinical Report - Physicians/Mid Levels [facility] Emergency Department [address] [place] [address] Phone #: ext- [phone] 09/06/2020 14:58 Patient: KADY MIDDLETON Sex: F [...] MEDICATIONS: 6 Clinical Report - Physicians/Mid Levels [facility] Emergency Department [address] [place] [address] Phone #: ext- [phone] 09/06/2020 14:58 Patient: [...] rce(s) Supporting Document(s) ID Date Data Source [id number] 09/06/2020 04:21:00 PM EDT [facility] Name Value Range Interpretation Code Description Data Radha rce(s) Supporting Document(s) CBC W/AUTOMATED DIFF [facility] COMPLETE BLOOD COUNT Leukocytes [#/volume] in Blood by Automated count 14.5 10^3/uL 4.2 - 11.0 H [facility] Erythrocytes [#/volume] in Blood by Automated count 4.36 10^6/uL 4. 20 - 5.40 [facility] Hemoglobin [Mass/volume] in Blood 13.8 g/dL 12.0 - 16.0 [facility] Hematocrit [Volume Fraction] of Blood by Automated count 40.4 % 3 7.0 - 47.0 [facility] Erythrocyte mean corpuscular volume [Entitic volume] by Auto mated count 92.7 fL 81.0 - 101 [facility] Erythrocyte mean corpuscular hemoglobin [Entitic mass] by Automated count 31.7 pg 27.0 - 34.0 [facility] Erythrocyte mean corpuscular hemoglobin concentration [Mass/volume] by Automated count 34.2 g/dL 31.0 - 36.0 [facility] Erythrocyte distribution width [Ratio] by Automated count 13.1 % 11.5 - 14.5 [facility] Platelets [#/volume] in Blood by Automated count 326 10^3/uL 150 - 45 0 [facility] Platelet mean volume [Entitic volume] in Blood by Automated count 9.4 fL 7.4 - 10.4 [facility] Neutrophils/100 leukocytes in Blood by Automated count 78.5 % 37. 0 - 80.0 [facility] Lymphocytes/100 leukocytes in Blood by Manual count 12.6 % 25.0 - 40.0 L [facility] Monocytes/100 leukocytes in Blood by Automated count 8.4 % 3.0 - 8.0 H [facility] Eosinophils/100 leukocytes in Blood by Automated count 0.1 % 0.0 - 7.0 [facility] 0.1 %IG 0.3 % 0.0 - 0.0 H [facility] %NRBC 0.0 % 0.0 - 0.0 [facility] Neutrophils [#/volume] in Blood by Automated count 11.37 10^3/uL 2. 00 - 6.90 H [facility] Lymphocytes [#/volume] in Blood by Automated count 1.83 10^3/uL 0.60 - 3.40 [facility] Monocytes [#/volume] in Blood by Automated count 1.21 10^3/uL 0.00 - 0.90 H [facility] Eosinophils [#/volume] in Blood by Automated count 0.01 10^3/uL 0.00 - 0.70 [facility] Basophils [#/volume] in Blood by Automated count 0.01 10^3/uL 0.00 - 0.20 [facility] #IG 0.05 10^3/uL 0.00 - 0.10 [facility] #NRBC 0.00 10^3/uL 0.00 - 0.00 [facility] MANUAL DIFF SEE BELOW [facility] ital Segmented neutrophils/100 leukocytes in Blood by Manual count 74 % 37 - 80 [facility] BAND 0 % 0 - 5 [facility] %LYMPH 14 % 25 - 40 L [facility] %MONO 12 % 3 - 8 H [facility] %EOS 0 % 0 - 7 [facility] 0 Metamyelocytes/100 leukocytes in Blood by Manual count 0 % [facility] Myelocytes/100 leukocytes in Blood by Manual count 0 % [facility] Promyelocytes/100 leukocytes in Blood by Manual count 0 % [facility] Blasts/100 leukocytes in Blood by Manual count 0 % [facility] LUNA LYM 0 % [facility] Nucleated erythrocytes/100 erythrocytes in Blood by Manual count 0 % [facility] RBC MORPH NOT INDICATED [facility] ID Date Data Source [id number] 09/06/2020 03:49:00 PM EDT [facility] Name Value Range Interpretation Code Description Data Radha rce(s) Supporting Document(s) COMPREHENSIVE METABOLIC PANEL [facility] COMPREHENSIVE METABOLIC PANEL Sodium [Moles/volume] in Serum or Plasma 139 mEq/L 134 - 153 [facility] Potassium [Moles/volume] in Serum or Plasma 3.9 mEq/L 3.6 - 5.0 [facility] Chloride [Moles/volume] in Serum or Plasma 105 mEq/L 98 - 107 [facility] Carbon dioxide, total [Moles/volume] in Serum or Plasma 25 MEQ/L 22 - 30 [facility] Glucose [Mass/volume] in Serum or Plasma 79 MG/DL 70 - 99 [facility] BUN 10 MG/DL 7 - 21 [facility] Creatinine [Mass/volume] in Serum or Plasma 0.7 MG/DL 0.7 - 1.5 [facility] BUN/CREAT 14 8 - 27 [facility] Protein [Mass/volume] in Serum or Plasma 6.7 G/DL 6.3 - 8.2 [facility] Albumin [Mass/volume] in Serum or Plasma 4.0 G/DL 3.9 - 5.0 [facility] Globulin [Mass/volume] in Serum by calculation 2.7 GM/DL 2.4 - 3.2 [facility] A/G RATIO 1.5 0.8 - 2.0 [facility] Calcium [Mass/volume] in Serum or Plasma 9.0 MG/DL 8.4 - 10.2 [facility] Bilirubin.total [Mass/volume] in Serum or Plasma <0.7 MG/DL 0.2 - 1.3 [facility] Alkaline phosphatase [Enzymatic activity/volume] in Serum or Plasma 93 U/L 38 - 126 [facility] Aspartate aminotransferase [Enzymatic activity/volume] in Serum or Plasma 15 U/L 5 - 40 [facility] Alanine aminotransferase [Enzymatic activity/volume] in Seru m or Plasma 20 U/L 7 - 56 [facility] Anion gap 3 in Serum or Plasma 9.0 mmol/L 8.0 - 16.0 [facility] AGE 30 yrs [facility] NON-AA GFR >60 mL/min [facility] ital AFR AMER GFR >60 mL/min [facility] Male GFR In terprentation [...] >32 mL/min Normal ID Date Data Source [id number] 09/06/2020 03:40:00 PM EDT [facility] Name Value Range Interpretation Code Description Data Radha rce(s) Supporting Document(s) Prothrombin time (PT) 13.8 SECONDS 11.0 - 15.5 [facility] INR in Platelet poor plasma by Coagulation assay 1.01 0.93 - 1. 23 [facility] aPTT in Blood by Coagulation assay 27.5 SECONDS 24.8 - 36.7 [facility] \\BLDo\\INR INTERPRETATION\\BLDx\\ Therapeutic range for Coumadin and related oral anticoagulants. - International Normalized Ratio (INR): 2.0 - 3.0 for Venous Thrombosis, Pulmonary Embolus, Tissue heart valves, Acute [place] Atrial Fibrillation, Valvular heart disease and recurrent Systemic Embolism. - International Normalized Ratio (INR): 2.5 - 3.5 for Mechanical Prosthetic valve. ID Date Data Source [id number] 06/23/2020 08:06:00 AM EST [facility] Name Value Range Interpretation Code Description Data Radha rce(s) Supporting Document(s) Folate (Folic Acid), Serum 9.8 ng/mL >3.0 [facility] A serum folate concentration of less antonio n 3.1 ng/mL isconsidered to represent clinical deficiency. ID Date Data Source [id number] 06/23/2020 08:06:00 AM EST [facility] Name Value Range Interpretation Code Description Data [facility] rce(s) Supporting Document(s) Vitamin D, 25-Hydroxy 19.5 ng/mL 30.0-100.0 Below low normal [facility] Vitamin D deficiency has been defined by the [place] ofMedicine and an Endocrine Society practice guideline as alevel of serum 25-OH vitamin D less than 20 ng/mL (1,2).The Endocrine Society went on to further define vitamin Dinsufficiency as a level between 21 and 29 ng/mL (2).1. IOM ([place] of Medicine). 2010. Dietary reference intakes for calcium and D. [place]: The National Academies Press.2. Saloni Guillory, Chacorta [place], et al. Evaluation, treatment, and prevention of vitamin D deficiency: an Endocrine Society clinical practice guideline. JCEM. 2010; 96(7):1911-30. ID Date Data Source [id number] 06/23/2020 08:06:00 AM EST [facility] Name Value Range Interpretation Code Description Data [facility] rce(s) Supporting Document(s) Vitamin B12 900 pg/mL 232-1245 [facility] ID Date Data Source [id number] 06/23/2020 08:06:00 AM EST [facility] Name Value Range Interpretation Code Description Data [facility] rce(s) Supporting Document(s) VITAMIN D, 25-HYDROXY 19.5 ng/mL 30.0-100.0 [facility] Vitamin D deficiency has been defined by the [place] ofMedicine and an Endocrine Society practice guideline as alevel of serum 25-OH vitamin D less than 20 ng/mL (1,2).The Endocrine Society went on to further define vitamin Dinsufficiency as a level between 21 and 29 ng/mL (2).1. IOM ([place] of Medicine). 2010. Dietary reference intakes for calcium and D. [place]: The National Academies Press.2. Saloni Guillory, Chacorta [place], et al. Evaluation, treatment, and prevention of vitamin D deficiency: an Endocrine Society clinical practice guideline. JCEM. 2010; 96(2):1911-30. ID Date Data Source [id number] 06/23/2020 08:06:00 AM [facility] Name Value Range Interpretation Code Description Data Radha rce(s) Supporting Document(s) VITAMIN B12 900 pg/mL 232-1245 [facility] Performed at: RN - [facility] [place] [id number] Director: Jerilyn Sainz MD, Phone: [phone] ID Date Data Source [id number] 06/23/2020 08:06:00 AM [facility] l Name Value Range Interpretation Code Description Data Radha rce(s) Supporting Document(s) FOLATE (FOLIC ACID), SERUM 9.8 ng/mL >3.0 [facility] A serum folate concentration of less antonio n 3.1 ng/mL isconsidered to represent clinical deficiency. ID Date Data Source [id number] 06/22/2020 02:59:00 PM [facility] l Name Value Range Interpretation Code Description Data Radha rce(s) Supporting Document(s) FERRITIN 88 ng/mL 8-252 [facility] ID Date Data Source [id number] 06/22/2020 02:59:00 PM [facility] l Name Value Range Interpretation Code Description Data Radha rce(s) Supporting Document(s) IRON 40 ug/dL 50-170 [facility] TIBC 290 ug/dL 250-450 [facility] % SATURATION 14 % 20-50 [facility] ID Date Data Source [id number] 06/22/2020 02:04:00 PM [facility] l Name Value Range Interpretation Code Description Data Radha rce(s) Supporting Document(s) WHITE BLOOD COUNT 6.4 K/mm3 4.0-10.0 [facility] al RED BLOOD COUNT 4.44 M/mm3 4.00-5.50 [facility] HEMOGLOBIN 13.7 gm/dL 12.0-16.0 [facility] HEMATOCRIT 40.3 % 36.0-48.8 [facility] MEAN CELL VOLUME 90.8 fl 80-96 [facility] MEAN CORPUSCULAR HEMOGLOBIN 30.9 pg 27.0-31.0 [facility] MEAN CORPUSCULAR HGB CONC 34.0 g/dl 32.0-36.0 [facility] RED CELL DISTRIBUTION WIDTH 12.3 % 10.0-14.5 [facility] PLATELET COUNT 305 K/mm3 172-450 [facility] MEAN PLATELET VOLUME 9.4 fl 9.0-13.0 [facility] pital GRAN % 68.6 % 50-80.0 [facility] IG% 0.2 % 0.0-0.2 [facility] LYMPH % 22.2 % 25.0-50.0 L [facility] MONO % 7.3 % 2.0-10.0 [facility] EOS % 1.2 % 0-5.0 [facility] BASO % 0.5 % 0.0-2.0 [facility] GRAN # 4.4 K/mm3 2.0-8.00 [facility] IG# 0.0 K/mm3 0.0-0.2 [facility] LYMPH # 1.4 K/mm3 1.0-5.0 [facility] MONO # 0.5 K/mm3 0.10-1.20 [facility] EOS # 0.1 K/mm3 0.0-0.5 [facility] BASO # 0.0 K/mm3 0.0-0.2 [facility] ID Date Data Source VITAMIN D, 25-HYDROXY 06/22/2020 12:00:00 AM EST eCW1 ([facility]) Name Value Range Interpretation Code Description Data Radha rce(s) Supporting Document(s) 19.5 30.0-100.0 VITAMIN D, 25-HYDROXY eCW 1 ([facility]) ID Date Data Source FERRITIN 06/22/2020 12:00:00 AM EST eCW1 ([facility]) Name Value Range Interpretation Code Description Data Radha rce(s) Supporting Document(s) 88 8-252 FERRITIN eCW1 ([facility]) ID Date Data Source IRON PROFILE 06/22/2020 12:00:00 AM EST eCW1 ([facility]) Name Value Range Interpretation Code Description Data Radha rce(s) Supporting Document(s) 290 250-450 TIBC eCW1 ([facility]) 40 50-170 IRON eCW1 ([facility]) 14 20-50 % SATURATION eCW1 ([facility]) ID Date Data Source CBC W/DIFF 06/22/2020 12:00:00 AM EST eCW1 ([facility]) Name Value Range Interpretation Code Description Data Radha rce(s) Supporting Document(s) 4.44 4.00-5.50 RED BLOOD COUNT eCW1 ([facility]) 6.4 4.0-10.0 WHITE BLOOD COUNT eCW1 ([facility]) 90.8 80-96 MEAN CELL VOLUME eCW1 ([facility]) 13.7 12.0-16.0 HEMOGLOBIN eCW1 ([facility]) 40.3 36.0-48.8 HEMATOCRIT eCW1 ([facility]) 30.9 27.0-31.0 MEAN CORPUSCULAR HEMOGLOB IN eCW1 ([facility]) 305 172-450 PLATELET COUNT eCW1 ([facility]) 34.0 32.0-36.0 MEAN CORPUSCULAR HGB CONC eCW1 ([facility]) 12.3 10.0-14.5 RED CELL DISTRIBUTION WID TH eCW1 ([facility]) 22.2 25.0-50.0 LYMPH % eCW1 ([facility]) 9.4 9.0-13.0 MEAN PLATELET VOLUME eCW1 ([facility]) 68.6 50-80.0 GRAN % eCW1 ([facility]) 7.3 2.0-10.0 MONO % eCW1 ([facility]) 1.4 1.0-5.0 LYMPH # eCW1 ([facility]) 0.5 0.0-2.0 BASO % eCW1 ([facility]) 4.4 2.0-8.00 GRAN # eCW1 ([facility]) 1.2 0-5.0 EOS % eCW1 ([facility]) 0.1 0.0-0.5 EOS # eCW1 ([facility]) 0.5 0.10-1.20 MONO # eCW1 ([facility]) 0.0 0.0-0.2 BASO # eCW1 ([facility]) ID Date Data Source [id number] 06/18/2020 04:22:59 PM EST [facility] Name Value Range Interpretation Code Description Data Radha rce(s) Supporting Document(s) Discharge Summary [facility] MUDVNq4tTmUDPjQp02/RMRbkQZCwg5BpQKidTWo6QZlbJNXkT6FkWSW6bA2qIBQ1RGcLOxYxFuHjSXXa lbm [file] UV+ENhU3mA2dtzQr4GNvec7gHiv0Gz1cMGJI2J9boCKEMpRHvLh/Richard+tZaUjoxZDGSbQnaxKjTc28YuQ le7uOY4npJmKtTqXomZKJDhezXF3JC8jw2uSmP0eCCG1xSjVR0+FQyq+w9vPtsc0ozdUEyl3UDyzbJF1 Do4yl6DeXB31BdRkISWNYFYDwtquqNUCX2hDFWmXa/ zBEjtiz5hhUMnBY/3QmzpXQcG+xu510/Lg0W7cCuBmCPgfzhIrSONyplgBaiqOqtpDkc4fRv4wfqpbyH W7Q1kkdcTX7ZuAeDlFCW+QRLVxdtA8kGNkiWzhKaoJGAdrdqLOKokc1sdvJxhr5g5/+8pnQ/TuJOorWX AYD5I0bN1fbEY0LKrFd54wFAcIyABixMbcyJB0UUS2 ggEuEXacspCH2NHGXlGqnKcgLtR6AWLi5v4/qdvxgc03eKb5hObvwwhIdvRBI9Kml9JgeFzBtHpd6mBa 41EpXWrGWXsJjFlFO6rc0dsYX4IduUx2XnDi/9ZZUQ0udpl7MrSTkc5O1CYf15cx2ouvU1pUtpVedKc8 GqnIDzYkD4nd7m0jUYwjG4OXYDoVqK9qddtBa7Jc8w Q4Zs0Vu6gH45QpyMNbdunkNoDZxhuzxAp8awMpqAMeC3mik/hYsSQwqkjkegnuaat5Fwn9I9yvUcqd0D PtNGF03WqOqUGEfJuvIlyPArdMayQyCB15gqZzPiLjXDpAof1UmKqOK3SE+EqhSqM1jUOLjugP6GnBr3 7+lAuU2J+5KG44khH/QLeDHlcdHag2JlyeDWHY0MzH QgBvur4nugvbKPtfIXT6qKvM4B+Bv66uQsV4EswmIUT2MiM3pfkKHxhRTvJHVnL37kOZ8d/a+j7hflBh bYe/oEahyH7uiYwlPOB+Jh3zuyZ8Og/Pest Control Applicator/shQsrr7RO1X73+qKtjUwuflPoikJXnu+bqK45ztWB3TUf /phuFz5RZqFJ6X6HxKzRKxX6c/MdtjHHVh8A+kw+/g 5ZffYNGIsuykSxoJXbLW1GUuDvMG8cxe7JCKRjTFAtAzzQUiPdHHiMNnRdYKHyJUvmRP4QWBwaLUdyGZ NnG4FybuScyQCbCMGoKn5GYSCyYS0THKYjcPBsZQBpFsTaVMLTUfHdZILxWSQxqFXRx2foSeZsDFA8TJ FlNmlyID7RJVTsWT0Qz915KY91inTzMPOsGADZQwZz GZRnA9VvtHFgVZcvS2VkW4HrBT2wnHRoJD4nyXBhJ3OrA6VmgdwaBZPNKlBoNELlMSwjCWQeAxXiMJvy ZSA+Nb0OTQK+Ef2AEJ4yd7KeAQyaNyKlWE8vtl3NPFV6PR1XyZx6WMNwS8XmSJLySDYno1ZuMX9JZB7h dGggNDEwMT4+XOloRWB0lfZogX7NHUIjcYcv9ZMOlM 0I8M2e5nAJnHk0LRczIKGylo5Zuhx9uL0PXNmghbWaBPuX9Vq04+5rkOMiSixJCIjDK1GTY6RfMT+qqu td3UnS/qsIHLzVAC0Qq7/Uc5ODtfw/Sv7+t+TmtSK/fu3mT/XSzd+9X83Id5jc/YBn0Ek3ZmuQ5t5u17 Lem28517Chv/mvbx71c3oCio5wd+NAx64gi69hCj/r 0Xx2MD///PPki6++iVXqtA1Z6oCEG5hxi8S/cOfgehTcm7zad0pVx8bZLD3dsiSnWCu96Hi4+8e1blqn ND/5OPlutv/c0DrsPAx+8/bc57hDNWL6ht6/4OIi55fw450th+dVc5ZY1Jp6IEu72uu3stpQaYmmP19M Ls3bbu353Ra3Sblv222lb6wmx6EII7h9pME60/wK9c [file] 1nw0WsvDg/Ne+TwT+RwbR6l4Fl4rT+jSklAAs3WmiuB0s9hx2YzlXGkp/Counseling Program Leader/IoA1CZxApju1fhCjEyyt [file] ICAgICAgICAgICAgICAgICAgICAgICAgICAgICAgICAgICAgICAgICAgICAgICAgICAgICAgICAgICAg ICAgICAgICAgICAgICAgICAgICAgICAgICAgICAgIC AgICAgDQogICAgICAgICAgICAgICAgICAgICAgICAgICAgICAgICAgICAgICAgICAgICAgICAgICAgIC AgICAgICAgICAgICAgICAgICAgICAgICAgICAgICAgICAgICAgICAgICAgICAgDQogICAgICAgICAgIC AgICAgICAgICAgICAgICAgICAgICAgICAgICAgICAg ICAgICAgICAgICAgICAgICAgICAgICAgICAgICAgICAgICAgICAgICAgICAgICAgICAgICAgICAgDQog ICAgICAgICAgICAgICAgICAgICAgICAgICAgICAgICAgICAgICAgICAgICAgICAgICAgICAgICAgICAg ICAgICAgICAgICAgICAgICAgICAgICAgICAgICAgIC AgICAgICAgDQogICAgICAgICAgICAgICAgICAgICAgICAgICAgICAgICAgICAgICAgICAgICAgICAgIC AgICAgICAgICAgICAgICAgICAgICAgICAgICAgICAgICAgICAgICAgICAgICAgICAgDQogICAgICAgIC AgICAgICAgICAgICAgICAgICAgICAgICAgICAgICAg ICAgICAgICAgICAgICAgICAgICAgICAgICAgICAgICAgICAgICAgICAgICAgICAgICAgICAgICAgICAg DQogICAgICAgICAgICAgICAgICAgICAgICAgICAgICAgICAgICAgICAgICAgICAgICAgICAgICAgICAg ICAgICAgICAgICAgICAgICAgICAgICAgICAgICAgIC AgICAgICAgICAgDQogICAgICAgICAgICAgICAgICAgICAgICAgICAgICAgICAgICAgICAgICAgICAgIC AgICAgICAgICAgICAgICAgICAgICAgICAgICAgICAgICAgICAgICAgICAgICAgICAgICAgDQogICAgIC AgICAgICAgICAgICAgICAgICAgICAgICAgICAgICAg ICAgICAgICAgICAgICAgICAgICAgICAgICAgICAgICAgICAgICAgICAgICAgICAgICAgICAgICAgICAg ICAgDQogICAgICAgICAgICAgICAgICAgICAgICAgICAgICAgICAgICAgICAgICAgICAgICAgICAgICAg ICAgICAgICAgICAgICAgICAgICAgICAgICAgICAgIC OoWTGbMTZuQVHtGLHlHXi2L9obMEGkCOJrHN1eRBy1Sa2+XDrWSiOxIPI6eiHyaI6NKX4gz2ShCDxvRM Pgz8EnUFm8YI1XEPDdKFlsOJ9KHMowwd8XGOKrCCCrbAWWb2hqZyQbCWZ2OFIkMjrjQN3RIEJiY3odez BbIDUgMCBSIDcgMCBSIDkgMCBSIDExIDAgUiAxMyAw LPDmLPMsCRRAVWA9RZGtKiGpDEKaBIQiGkOwOHVJHEAuUFUwLyPfNWZaQZUuHrhsEXOWMKN4FNMrHfCc WPCcQGIaHN1OWGNnO633zmAvGEGWOq9+YTqxniWjYumHPaQzQCFsb9QtUNf4CL3AQXZfJbnkh5FiFnSz YEPWKTfvLC4UBKU8BDOjTWKcAh0NMBKfA255ifBuFC 0KMh7ZVsWlAY5cla7ZAxWhQJHyMvzVJjy0RCzpQB9WnKMeYHiUqLUiaYPaI5GnU3KihFVlpTKxkCNDSL SyMJ3eFCfkqPxkDD7VYpTjCTBmAO7uLH1aAXZaJYC7OlJnPRKNDZ3WQWKhIXZleNMrDNCoWYFLKN2KUV osKVD0WHBzleIwhAFjPDvhGN2MJJQibiZpYdNbEDJY DQo+Yj2STN1nl3IuIIt5LEDfLS6nkb3DWCfPNuEoH7J4wBGwM1B6MDfvIy2VSMIkTBAlJoElVZBXWKwi RC4ZAD6tccP0NQ5KjALiJXZlPHTjnVSqPUb4E62kwUVoECvaYN2ZFZK+Jenny+Fq1AUENaBWCjWOGrDbBp CPSKQcAoL3BuB0QJt1QjM0IgSO55oZbabzPySKepNH 2TZO0xHVXuDGTLNK1ZzHVpeS6lcbD3JjMcAJTZOsAhJ82vvLAtTJKdUZDfUYEjXd6WNYKtV4CcwuSapW nxhiQuPGSwLRWNWV5QNBepyxVaeSJswLjbXY20aPikGZ3PXg5ECyQdKB1mor2QqFIkQo3LGTY9YP7HIZ UrXPFkPHVkZGQ3SZDkPsGfKQjnRSRiJMSsSMX9OWXx PVLtOQ5SGkNdPSBoNsU5GgPxXBUxNBXtag8CKOUzUKU9DaH2RDPjHZVrZELyMVfgQEEzYPMyALQ6XXFv UDYdHR2OIcTeZYVnHUU9IdlsFDCaNJAziw3HYWGjIMXxORh8UsPoNJItLQVoMRhdCDKiDQA2IEI2JDNk CEPjDI7ZPwUcCFBsCNs2VoXsSUYbJQRlrz2FHDElRX ZeTsF8JZCtAOOkXBWbRDvfYOKnVEYnFzr2UDSiGERsBA6YXfVyRBOnLMH2SBAlDUKhHAWurs7FXMRkHB DbWrW6ACDhTAFiAZTlGYtaXXKlKEQjEuSaKXKiHYOoQO6YBgQpQEUmDdH7ViyjWBBtHVXvit0NNJUsKO EaXuW0WXWsHUEcXFOrSEkcHUCpRTCeReXmTBJhNGPe VF7YHsTzMVPbVsA3GIQxUSMjNJQypm0AQVEpFLFfCcE7PLYcONQaZKMvOZqvVRVhYCZ7CYB5ZUSkPJVk JU3ZGeRxCXGkJkd2VvNrDNJrRTJmqb1KZZQjVLCpXcD3PnHbHCOcZMXvSKigYDMxRUXyBtHsBFDyFKZp JX0PKiHnMRAdOoA6SBYpCSSnDGGrmb1MMVUoHEQwOe R5AdFoHTSjFEZzWHztJZCsLOGsRDb3ZOUtHEXfRI1YVnHhNNDnXZXlOHCtXIGdMPWuoe4OULYtNND9LO hvNwZpJINiISBgBRkeGZVtXXJ4XZM3CGPzCUTvNT5CQjKtACKmFOp0CMyaDVEtDVRtwx4QNWGlWPT3Me fkQAGmFGUsMRTkKMgoYOXxCEV1HQs5YYKwNGEvRP6V SlJsBGOgCOy4WABvZYMbFZBazn6TTJTcJSB1LHH8YqSgMBFiIMFjWVxfWLSoSBEcQBQ9ZEPhEFNeTL5T WxRzMNQoBUO9GPLkTERmWMSzzp2FLAWlQVH2YIclSKMlFAEzIOLlRMunPJSpHXQqZQAyLUKxISZcVE2X YbFpSBArODSoHRYtYFJqWXCbtg7UTNQlPHB0TtW8LX PwHRLfIGBsEJxtGNIfXFEwMqT2PFZsBEZlBQ4SCtRuTTXhRDH0RiRlZSNnYTCfnz8LXGOuUDT3MPfjBq BsFAQpXAIeVZcaBCOvWTT1OPC2GWUqLDKjWZ8SJeKnZLJrYrXfGUKzDUEtZPLizx9CVEJaDYZ2PFG2Ve KiKUPiHXDtWZttSGJcGOW2AnL0LLTdMDOyVN0ZBxRt VJNuBlU7UCHeBYOyUMKrki7DKSKkZQA5VOwcCoTxDXGmTXKeATiyOWCpIVmfYQM4FWGaYMRpJG6JZyOx NLJfQwWcEUTqFYNwQBZgfk1IUZYlIHU8JNUxAGTfHVYjVQAbRNnwIFQvJMkjQXX4YYAeDWKsCP1KRkVz JQLiGoW3PcFsYHZhHKRwqr1HRSMdARN7DrelFRUaFN FjOMRmBZcyNAVpVMcbYoI4UVGtTUBmXX0RMyKiUCKrZwP7VTwxMXRmXIUlrk1NOSJzHUU0VRDhQKIsJR WwYRTgAGmpFXFpYVr9PqP1AUTwRKBoRB2BLrTmOBAeVgY4HROsDQAbIPImdb4DEYNjNJK0YWq7HBMcJI IaOFBcLMdwHMCvSJu9HtD9BZOfMLOoXC2ASpJbDSSm OmJ3ZLPrSQBuLUBsdu5XTWYyWJP6RddaOYJvPABqUVCrMPmgQTZySIh7GIe5SYLfERFqUN8OCtOyTVtc MTGBPgi5HRpeS0y5VIJ9VY3OA9Pov5NjBdHvFFPTTLsfJN3oluXtYBLvAi4RK6yVCgmgZ1QwCbH8KgC2 CCIeTdT5XNSfXJBcIjOtHRYgNjltQq3rHUM0DKMlTO ChPZUqFDGvThjuCqD0AmX9LzMfFQAnC4A0HfRoJA7GUn2FFmH7MFP1cTAhJu4GOemzKrLCIcKqZO5BLL o= ID Date Data Source [id number] 06/11/2020 02:29:00 PM [facility] Name Value Range Interpretation Code Description Data Radha e(s) Supporting Document(s) History and Physical [facility] OMBPZq0gDyZZSbYl79/TMDsgSQRmh4CfKYoeQIj0JGodGMZcB8WyYTF0xB5bIOD4QLvOQfSiYqRaATY0 lbm [file] osDl6nhpjBISN1poKDpTRFdGX/vgyYnlV3cXgi/[employer] SALESPERSON iQY9QO4bCodqYMnlh09jtRowyThp4SKy6zG/hsEA7l0d8S2shZgaf+oNIjx9gvW1Pli5HK8jhHk14N88 6cGZgHo3E2LOxezlVaiZlch6cNM9GdnNH1TuViUFpwxV+A50AJ1q1Ch2FxuIOV/yHJ7x2uc5K0T9Ryyw 9uo2j2sme2zew80X0osfn9fLaX4usRZ5K70zdeuhi8 oIN/MdrN4pP3C90HgbRdQH+/IMqcSqMRBsDvIcDOEBhWa1WmesfRW4T+6dF9YP3F/f4AZ7f0K2TsGtdu pbSlta3sbnORaaM/m++oBsLTrXRyzmhsKBwTzoNWVNnmdQa3jMqxEw7w1r3k2++8y1N3Ix0rnEkE76hS BjOqZPS5VBSOjkF/r8s1wfav66tW1wSO5V5dthBAU/ J55OJR3qVVjk2pOp7IoU/JIWo9RbFCr8dIlSs8rPfxD2ukp/EDPWRkUztzBOaxZ+c11EyYzD9I5ZA+bB 77681puPMLK/UqDUAbEt/fcKncTPZvmcao+cj+yYpZS8UZsqIod4rAaoYoAZj0YED8VQya0AsoEh+PwQ jE1UUfu4sb1LoeDMEB7cvkQzXg8Nqczz5e40tiwqbn cG36guItzI/Eh6oyX3rChG3vNFAq9x0ov8nj3x4+BHM2i7bFvr3DJt5pz0/SaBGug87Q6Mo8x118Oqo8 f+WZSuTdjfructTrjzhzqe+5RT4SnxUVnXq0lG6VMidiQC4Xmr0jiCUkwy9H872gzsCS3M4KYpwxouIl ifI+qXknc3e3BaSyc6IHp7gYL+XYe/MTewp1Xbn/lf im6B7WBhSdDIOk4wDa/oOd/Nu1t0l9hjvOgLlbBwlktx1mu52Et5EnxXFnxubpyvnq0dZfNLTIX6m0sI wOeTMmwieNqx9QySpJZy9vqb6dciyaqONlT7iwwFvfAJ2r/xU4ZRggsbEz7c2pM0gPnUQoX+JzGdtv3t Oliver/Qg7Ce6C/4y54bzO1vpRi83yvM5/RTDY5B/B1Of [file] AgICAgICAgICAgICAgICAgICAgICAgICAgICAgICAgICAgICAgICAgICAgICAgICAgICAgICAgICAgIC AgDQogICAgICAgICAgICAgICAgICAgICAgICAgICAg ICAgICAgICAgICAgICAgICAgICAgICAgICAgICAgICAgICAgICAgICAgICAgICAgICAgICAgICAgICAg ICAgICAgICAgICAgDQogICAgICAgICAgICAgICAgICAgICAgICAgICAgICAgICAgICAgICAgICAgICAg ICAgICAgICAgICAgICAgICAgICAgICAgICAgICAgIC AgICAgICAgICAgICAgICAgICAgICAgDQogICAgICAgICAgICAgICAgICAgICAgICAgICAgICAgICAgIC AgICAgICAgICAgICAgICAgICAgICAgICAgICAgICAgICAgICAgICAgICAgICAgICAgICAgICAgICAgIC AgICAgDQogICAgICAgICAgICAgICAgICAgICAgICAg ICAgICAgICAgICAgICAgICAgICAgICAgICAgICAgICAgICAgICAgICAgICAgICAgICAgICAgICAgICAg ICAgICAgICAgICAgICAgDQogICAgICAgICAgICAgICAgICAgICAgICAgICAgICAgICAgICAgICAgICAg ICAgICAgICAgICAgICAgICAgICAgICAgICAgICAgIC AgICAgICAgICAgICAgICAgICAgICAgICAgDQogICAgICAgICAgICAgICAgICAgICAgICAgICAgICAgIC AgICAgICAgICAgICAgICAgICAgICAgICAgICAgICAgICAgICAgICAgICAgICAgICAgICAgICAgICAgIC AgICAgICAgDQogICAgICAgICAgICAgICAgICAgICAg ICAgICAgICAgICAgICAgICAgICAgICAgICAgICAgICAgICAgICAgICAgICAgICAgICAgICAgICAgICAg ICAgICAgICAgICAgICAgICAgDQogICAgICAgICAgICAgICAgICAgICAgICAgICAgICAgICAgICAgICAg ICAgICAgICAgICAgICAgICAgICAgICAgICAgICAgIC AgICAgICAgICAgICAgICAgICAgICAgICAgICAgDQogICAgICAgICAgICAgICAgICAgICAgICAgICAgIC AgICAgICAgICAgICAgICAgICAgICAgICAgICAgICAgICAgICAgICAgICAgICAgICAgICAgICAgICAgIC XuZPPzFOBmXXTgHTc1V2trOBDoHDGbTJ5aDVw8An0+ UXvJPqSzLLD0xdBmvK0YLL5lv1UrVNqsLQJom2JxLNi9XV9SCZXoVRtxAY2CHUzufd3ZXXBxGYFaqTSX u8wnTxWnXVW9GEBxMjirVE4ACYSuX6gmgyOfGOKqFOHJAFroKHOKZTyvXQNMEZCdEXSvMsVbHcMzNAAo OTPwPQYEUO6BAuWyI7DysD53PKEPKp7+DQplbmRvYm uDDvW4BJHso3VuLRd2KZ8FMCCoPtcvy4RfGslpDVHUFYghUU4RHWS3UEI6HHYsBw4BQABfM320dlDqBH 6DBr1MGfSoGU8gep9MCrcwIMCiOqaDMhg7DSgmSL2DpAAwYGsSWdLhDalnKGVtgOCLEXLdYLKikAdbNU IgQROyIV3qEX2qHFVgWCZsYsW4BMEUMK7JWRZaFDJl sKFrUVAyFEERHS6NMQlkXHL9YZEjgoJgcAClBNnkYR4XRDYaswUgBfmcFYDBODg+Bn6SQL2jl7HpSOd2 AOSeQE5dvh8ZTNvVXpKlA4Q8eUQqC4B3TEsaDd5WTIYlHFBiEyTgTGEYGHmkYN9PKZ9jedV6LR2RaCFt IKTtKMLueQZcMMf0M77xgLVkHOxbLO4CTPV+Jenny+Pg 9XSEAvQAQiFFFiQyAhDZZVPgVnK3AbY9DLt5AcA8AgBK79xTdlbeTgSUsuYH2FHW2yBBCsMAHAFT9NiH HyuT2nvwJhVBBqCAYQPxDgL17jrFQfVMHgZEY0RVWwKb3RXVKfV4HfokZaiYyhwaPcWAQeDJUXRY0DPH wudsMlxHIivFytAZ29mBihTZ3NPk2DKvCpIM6srl1C tXQbEt6DRHT0MG8BTYVxEIMvUEImGPH3XZJyJaMaMScdSYWbXQRtRBV2NJRvEVBzCL4FBwXzIJQjHlCx QoUgFERsKEQwst1VQHOlHLAjFau6FPEbIAPiZLLmMWhdCCIyQGTtGTO0WQDjVBBrAA5YVvWrJFFvLLF8 EzUnGATbYFZphz0MEIIqUIRfKjRiMBToQOEaZMDmAY gtVITpGXY8OID5GUFtRYNsPR5MHdEmNDSpQGR8USWqMIOlYMDidh3GNQLmHNBeFAVpStCqZXEoIJStWQ tmOTJbDQC4DVR5DUPkJYDvFK9VTrQgKUQxIXW3EYPvVAIqLQUrjb5BJOIcGOWxWfHvLAUqGUYdAFPcTU wgEKKqDPM7RCNvSTIgSXAtUK5HQuPeULWqRLNfPRTr UZGhDPDuxb1QTKBpADThUur4XDEyQCDsPXNwFLyqPHLkGIH7ZCD0EGIrJXCtXG7MCcLsEDEkBHjcWKRi VQFdSNDaso3LERQtSSIxUWCrZQNzGCSbLLMvDCrjAZMeSNR7ZXc5YWPhIWJmUP1YFtXcFNEbVEs7LJZj TUSmHZHbpi5RXTEuUNRtVGA3UGUqJJHqZQWxMUxaRU XfYPF4LJSaWMVnGXPtFK8OYkSeWWRnNnV5JBVsGAPsUCBuzb9QYTQfWJHjOURyJIEkKGRyJSVwKCpyYH EyQIMiHRlfKEEkQNMjVT9ZTuBqSPFrXzK3IxfuTFLwNTRvij5WBCPpLBFqImw6XlYtPLVxNDXmFRboIJ XvBPOgIRq9HIYzORFdBB6TUiSpOFSuXsNvSwInUYJq GUKkky9SXUAsLYFoHsR6KMFyPUAuXBOoSLhgUANxMSO2TEX1ZLOxKWVfPG2LKnRcLHOoUnD6COOuDHQq XTSnql4NSKQzZBCeFYf9LEGoRRXtDFIvOEvhAOXhQRF5QeZtNDRvYTEgXW1QRlBnWPGhKzA8UoVjNUJu CFPaxx1QKIJwVRJmHoVkEKZeNXUxAYPeFTlgKSJjBR D1PHX9FNUrQYKfDV0LLtFmLNVeXqwvGsdxHJRuXNAhem1HUIRxLVAbXCAyPRQlCNDoYKFbMZsnJEUvEK P1AsY8VPPlZBJsOC3ZVkEuQEltQVJUFtb6CMwaB2l7QCX2NA7GJ1Cvh6MtSEHkTEYLUOfhVP6fkiFuUA ZiIt1OV4iJYrmnLdEsGUNpRFI7D8DwQFN5AjdwAtPk WGvoAlz0HHJvUz6bCXXgREZrJFX1SDexBdAhCHr9U4WmVuVsCYSkFnN6IMX1DbGxPM2UIp3OOvS2XIR7 dZJiSb2SRck6TMWNYmGkQD1DFQt= ID Date Data Source [id number] 06/11/2020 09:12:21 AM [facility] Name Value Range Interpretation Code Description Data Radha rce(s) Supporting Document(s) [facility] XHTURl5vRjVJNxZmy6AfCdYoJKFuLF2pkzi3N2Q3dKRbU9OqbCLfa6drW5KgF9CaWPYfYHRFSG1CiNXh jb2 [file] eCaFAP6hyC/Slb8V9dARobaEDG9Ia3/richard/lzG5JG20cqjuivevYWylxWmA8EfkVGQufzEqHoCCKPPGFH Zzg8+x8LcDCg93I6SVPuPXmRRrTxUmRqZkqbDRdT1/o6HkyuJg+1XAwHq5NX5FF4coQlx7UwiFaw6iv0 mIbNm4IzJiXX9GSS5H4YbBDJigyo9Kn17iwWJEgn10 5tZZTmcN/GCzLh0kUisuCKEFiSPCYtonEo+QFhK4emp6YIAiShZ/kFVr3NRmI68QAvf7NRSrnMlDvDY1 NAAuAEPEpNUQZf8dbsorHmRACtkEiZUPJbKDlLRSj5sz7ffnGi46hp4nJsMgXvuCIlLhC45sfdzVeA4C jaOVIZLXZV8c+6270pg2/6a9L59Ap9O+N129p6m7b3 4Mk4Jfr1LahP4Hbim41rlNHxoj4rV+c1FcP+lb1/1J37q/I93P/Hk9h00J1FZGShC/RD5H3/ca6Rvp+6 BzFcnYcw46fK88P65E+rQzEpH05q3wHxCL8M8k+48kgY717v/gHyAn38kslMW8A6t+mTWV/mlht4XZWB k9bnV18p0FwE41ptdxjhULaPJE0/XN//VH4wnz2Mq7 e6mh2kqLT6Q5nezsD+u4H/d9G5uynPq7bXVz5nfxN84z4P5T7w/Q6+ir8Md+7W5cgk9X/b1e+/R669Pt erlx9586skoSE6kjbnQg3o2U32t43Ut848aQHxEdkC5urzJ+ct9d90Yqr/o78GmFP4C++qL2gm3zxW7L 3DwnqhIWnAt4/bzfpWfP+560Mr81HJ+UfVo2mtyF0z /6xvVE+zX6QumKKyl923nhCQb+Q/svzaP1Jp6Ayuls6HzmD16uGeoLSs4+2NaDkw750ylWQ9YA3dthaS Dy3D0br3u0zMKtHurN2313y7/vqzJ50z1wKM8M10cS+46B1PTdx61p3+q8JuY8YH5t/ni/E/tdrt3qep X/Juap4LfLhl+ym/6qSR8C06feCPdaT3WOir7t/nl/ X8xHaI91nhp+0iM8/cE5Zvs3x+97vU+13qe1OFRtzRptCmu2GuYtSxW7W9/zSlQI9It7ajULg5Hx4cq7 2WADerQpdWfr76bMd90eey98hhBPL/26RIM0Rq9K8km3zp0DCxR/DIEKXn/0/D72qIrb+5W+v/mcGPJ7 vyC6uf3YcDkkP407ac56/aQ3pT/6yaMtViM9q90zb6 f+R9+k1aseL6gqoPD9SmhgQH0xdSiyN7NG39y8nXuc5AOkVWlO4xEySrWzHVtDwwqCy24dxRx1/+FXmq qKsTt92r9z8QwOogbnCOkEvNGgdVN+CeNx29ji9237/54Y8W+eA/WZqOdE+vY6Ha61y78r5JyU9z6kFM GrCLg+/ZrPju35UAJ32VAg4NAeblO3/lKcy4qeyrm7 +NWnCt+I8I+Hkbdf96wY9igpuneYTEbW1/pnK081G/0XB0Ock4nTEx/0XRb1/Yp23hIx+kff1eP+j77L 9SPDD7+615/0rnwefvUZEiIi/Ml/6tqecntcf+tNNcg57zBe9DqXtcIx2j91Q01L8u/5PmP62355sJPr 9ub29CvvBC/+p9uh4JaRCYyG3D14rsJx9F1Gr8H+xK 8i+Bo6qdmB+X7fUb/8+ST8W5d47d5N56+49/o4Zu6mvMN747H6+IOVZtta51RynS+113tv1b8OF4jipA d//JcR5O37VVp7fogB743Jp+CLu91cD6i+h1+FHbwVXCMd+jr0dUf+wzagvFT2RS68Nu/Uc6Keq+D66n w75Bae2F/Im32PLS/3/gF9D7/6XuN+mP2Unsx6P65T 1vuaXC0m5+FXodeQvro++yohP63U89mqD36gx/ccfePZffM5/CrumeXef/rB3ja048O/7VpNj1Exyx0W U62DYqzz8T59Qwf1iPj/s385e6GdpQfS03Unsy6OV9O8ThTXJJ/2LmIe3OismW++EWY14D8yw1/c05BP v3Ze/hcwhG9pa+1njYJrpM/bHg6/wsv50o1/h1/FuL QwXh1+JV/thZXq7iu+QO91dc7p6p8+4AnFfvM//Om1iaeOsu40C7a9paYibKq1UGb9j34BEGGo+NV7PZ E+wA1DH7WBr5+CG+yN/Nv86TC1PrO8bhuNhyT1fg+Rbrj/+oxv4hgtN//+kpdYwH28nWqro+84hgP5pz eerVz/7fJylqxf0d7eWu1X00t+0cSvVH/tA0pqP124 6XbKkXK7Fx4cnD13mC2TQGs+6MXeMgjRW4h/IJ+J/Oe1s/oS6SEb936XI2x0stJkazbx5cTrIhK6kGav 2fh7fn7jwD94jxB52LuJKf1xqap+7q8t9ObLu1r8HdBfJ/1KHOOEUQd/UmDT4FFbQGkf7VnPQlmzJ5My XOVEUN/xe88so0DPo6/CLqaW9hq/OqHT3+lzZ25M9e QFDzy74B4ePTyw0tIT/Ept7/Cr91r+ir5BI448Zyw/+Ph798gd/lcpbNqXe82Z6/7SjgXTh3+taNLw6u SK++3mc/rB6WJ1mKlGSaN84ksqj7hel1+tiLe+/l5ne18dgr9Shpjfj5K6a90JcF0f4ca6B/XHfvlki/ WruL73+r1vc1wigAjx4smr0ucKm+mWds50sCT5Dznn V6W6E3rM+l2va+UEobD2ynrpll1l6voxC+JXpoDtR9+Imj/1tsFBa999zuXOkm2ghxT+BgMl1oznA+n+ w6/iXT/8auqcqhP+fHY9/dh2iSXo9fZlcq3JSADKohKe//gLcyvPxz+X00sBy4nSq6Z//GpZ1/3j8Xci nHk+/h7GfRLlU7e8LUMUd8rr+fhHH+/gXD/+UYlyP/ rOVRUSXB7/S3k+/GrKnzrRzjPCrR9+MM8kqDH+m3p/Dalh6fCk6siVGU8x85nDJ//onkZCFfGGkIm2Wc tXCtzV+rAA3om2VLY+X0fS112TOtVf7II4soB4hJjeE+808nmTgnLlx6v60Z+3PYhfqf+HX9H9J0vWdq YkxQ5ExCXt/2u5iQubc6ayC+044W28A+XEMd/re/++ /lMZHv0hy0CG82T09f2ydwa42CahlvpeaxgkgC1/df96M988+qXOSy3tN2Al/+bISi0u6WWg51Sdo4Ob pqSsD2Ry56+I5qduNVn/063cZ6//a7FFh75cTPq10EFcwd7Ro0HQdL/iB8WBx27cX/Vcfu+577drf/C0 8y5+aIF3jzstQ72JOBp1/VnQg147tirdyr98eN14tC 6v/1t7BjhM2s/s2B/ssT+ny7Tc0yzvf0h4A5SE9u/If9/3hfWrrvUrj+Djgmu/19m8z96/txver/iV7G K7ux2NO1gujpgFkh5+3M9hk4ZjV5i4qH2U+Syk3/O4rva7tfezC+sgV9Z1E3l7W71b/ZSu/cGpdPvyw9 7u/vHgv119d2ow3jiJesa0i6/58jipSX8Eg1jgaS3o /1F3crC09+s6o6Q9k3/HnZ3m5sU/GNd3/6axu9U393nwteBY09Y18M5k1X40P/pA+u3W3s6qi4XqG1WZ il+5471wng8m+vrdP+p+94+6+FWk4/176ZXiG0Z//lB28w13f/jaYrhBGazkkZx7BRrN+vruCqjVkz7g /0K5G/EFX06AU+7Kxn4HW2lvuwNwaguZw7bcuH+vOF AFeLWS9VT2hfH77ZyUyd34T/z2H4A1hMmLLmaw+1TArk5ckoPZIisZgjAIU3nbnyU1jz520D8kQikFmn 3Ww1sgw/qV+NIJEg6/4MQIh+/Kni08Ki0+un1nXyMnd+wtOlr9Aq973Lszim0Tn/HhGsuDb0hg0Cl/KM KZz/5RXC+kL9y/jeffrey/GZ2R1cnwL2LWu/aMTERyc+QQE t92QoIn+1US5ZpdAzrzfOOqogvC7Io6Yzfm7yjQO8keAswos06C4HjCzy//3xAC/Y++41iq65d01+rr7 A46n5sd64b/bMxbZwnic2FivV+810hvST/+NZ7W+wKjmI7ofso1iy58l04w+3MWvZE/xqxbX/s4RszHf 9S/hl3zphv/KoF4ieMto3+8C7Z54kwExnz6z+qtA36 kPpE+a41CmglO2r/r6Ug3gOoYx1n6NWJ5Oyt6+j+7vj/8SgcB+/Bo9+/hH+pz7xPd+um/E+s30zlKm+/ O2HpJ30hk5lhvyccAarSrzt8koNDH8oh4kKhtuFFU33VhpBpPyS+mPvvrU+zA9Ae75Pu9Oe78Vl2bqO0 B7rrQlm6/A864YIl/86/W2Z6/R37lvN7nis7lPj/1K 8cvYH/G1229j40cTaMf/F6JtS3oaN6Dg+40uWM5Nf2+/qC5xxRXUxlE4t/M5n73v7gkhmaV/hQUT0j5/ 6DZR/3ti6F05qjzdz4T346JjoiLun/uXt7v+7O1+j+T4/srx/ZXj+uexDbrm9E6xomXW/pdPerv+rze8 X+tLgyqKn42b5k395cXTltz/2oaq86y6u+iL76+8G+ 150LX4G36fjrEmRQ/eN1AL0uj0+ta/X3/fxa/dOjvGV9F6Bqt89qY8Q4+sX7nj/dadl2mqj9ckJxJntR F06MF11Hv12kEd2tama9oab3Bc55mG0aNzwu+p0DXynu/1Zxe/eq+vXuOut/vA+z69at3GYS31dY+luis alberto k1T2jl1ZuO4y3WN+z1fm/m486/Pq6/1OP5Ij3W2fzB 3/q4/YnC4m6tawLqLfoKM5p9YyR9+8wMYjdWuetgN1TtaW8/OPHYa52dtYuoG5N9zWgWQe/LM24Y1zl4 QE7uo9w6DXXbNE7vcZL49/HGtCj8PnBF/Gq7Ra24t1DmiF3G0iRaen8Ui6UJgLl94i0Cr8510Kwli/RO M51czmnj6IgM9a549k5OFCnALcxM9R5mWtnr3uM9Y5 99f/WmX22eBg791+/UAyyg83gg/c6fIoZ9i8/j9wUYTgn5YmTdI3u67WeU4Kp91vQCAnyo+Y9mCRv8Rk a+v9px/yD1LkayaUyGKngPC/uxnE0882azeRB0P/6pv1Qv0B040wGm/rV+mnNGssEYzU58fpRTR84EtL Q90Sp/MKh7no5A10f/+Antonio+R99I8+ox9S9IUiUI3WB [file] 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/HJbxMNu/MqNnYOg0ns8gDZAXM8j2fLP2szMmpOHCJq0ty+qg3N1kH4QsrmyLkYHawQA9fL4sq/6/ qTSf5Ah7ws4TndJ3OdSvQxwOy6YM/l23pzTnivUO2Vac++/r4W09EGL1wg3Oxmekq66iWp53BHh65wB0 jv+Arxvws89ck1/pPs+NXWUnhlcDnoIfuv88Z8Pted r4PW+0b3/sK8Kne4RnaFgv9Eb2uf3eLTVwnsn/PO/2/tvfd/dzdxSO//3v7/7693/PuyfK/Ctik7vwqS /+nvdUhH+sEmSudH4z0Ql0I/WuK2Xfk1zy1Wkrl7bv//13/Nfo/3UyhfTReQr+jxtiSd6W5/Om7T53/X 7vffzvec++7X+rWwYn4r7+TgEeaH5o6d63/yoLkif8 Ftsew60F6o+Px7e/QGKPrmO/LJOd0UQeemm+9VN0zgGtl78vtk4GBT//Tud0gblBcmtb8/0n1hT97wxy +tzPW6c+L/z91Z+yr/6UffWn/Ks/1e+3/z7vF7+h+lxdn/s3+6v/oPM08MdK1e4+n2wJuJ+YQMR5j6Ec Qb+fD/39ln/lTRU2C7pO45+j40a/94f+zyNUh1DQyb q+6AqA5fHdHap0i8q0njGA4xbbhk44Qqv6/AoV40liGk80Iu1+PK/2hNc3vPTX8ircdmcxTay+6fh++7 2TCeEtP/37u+h4fb+fd2aPqA9+9xMBIT30PqJqeg5NSFLTo+26BsU5n2/n+60k8cfaGfhbdHi93+5yvv 7qJD54/755dLGbpKSNu1cX01y2Ml514/Pd/xoP/U3H 7RqUEo8jiNs277GN3DQ3vmy14L8yr7i/zJpneHffqpe8izKgpGSEk1ahV65Nj7RKfH9d+Pf3eL/L2fpq 9N/z1WnZ+gq5EI6+un/TcaPjR1/DY5vAP3SU+CES67He8bde/s1Pn51mZG97Ff9j//TGSWRwn/Geronimo/jk [file] ++++bLT7/9/Tyron/qwDa8V7IbsEvqw2p6e1iu/rNtx/ktp2FY220fgri/PzLz/+dZ++V+H726+9+8emb// Llt58+vvr6m1+9yvTpi//78cpphfzngp8h872+/fbL l31udE946fplj/38y19+/rNffvrxS+EZ268bi1/8+V/+8Nc//fDPH//5s3665e+///N/++P3f/iPHz/7 6x++//PHP/2HOxrvP/39x1/+/NF+1lMBj2iPD91+e/XEz3/1bxogLgLdmYr+6U8//Ru/jyA0vDbt6L3+ W2gpbyUmnYv/+X4AqmvliVnxxc8fnDEU2hQu5/6SPc 0Xq0OolT4u/BzwbCzXF6/e9dF+3FgRcOZ+4Jsf/uWHv/954iczp0//+9Mvf/npdx/eerrz81esoqA8y4 79znle02xVcEop+Q0sMZ4a3Oq/MnLO34iLcqlsy2x0jnIz/vDnf/2Hj79+/68/vGX/Wq8+0nvN/dCf/v bj3DfW+krp2ra11Pkml/jzv/7w1//3+z/+B2mjpglN 3gZv6cS7/us6iw6gB49+/PP/eJX9D3/584+eG82rE5q+s3iwf/zup//43e/1v4agjA+6w0/TqMjD6k4r embMHvijwj+Uu0tDj9n/BqtSbezXP/unK157qE2/f/corq8048bPn/z80xc/iD12xPpws0h5F6/9p7// 0dP7P/xfP/zp+z++/eH1hn/x/f/4/fd/e3W2H+Ww29 rmH/784/mp1LILO//hb515mmLf/pATM2245i++/dEDu76//MvvP+N/DpOWdP5/w9/98Pv//uc//P5VvN aKlg9J6j+ejUAb+ezf/vXV5/75s19/+6uvyjRc92s5MDYaea32c5973noosk3Xu6j59/g/PnKrIvLhNS v++vv/9sNH+/jJa1oIQiN3HNPVu3jl30Ywa1Yik82+ 8Zay9p7vtue+6xN1qN2Jvx9978dsT+C9y1H87/Colrg9D6+9nu1XH/8VsC1f1D2UXT5P1zclarQciJUx GP7IHB5mn6KhLbY0VQJzt4AnRWlmRDh6nBTsCEtmmaElt7BzwcwgR5Kqd1ZpEsGyNPKmFtUmBob1IYGp DcF2vYTyCmPuAZPiV5FiEHTrDtO8XhKzVZDDFM4RXT JlbnQgMiAwIFI+XbIlLG6tdaksOTEqb8CrPApyQSfxJHRjX5V8lXjvTPJlX1YklG08YFZhU7WasmB9MS Y1QEShAcOoYSLqpVIsBXJoYKR+UzWbZO1whbkrXAEex9JyNUgyYBQ6eA1uOMvOGJMALToXRLzfGaZ9d9 9bqiYSWXDnTPOiVQ3GabAdaIrrgdClmIPfHLP0DyYy CZUyPYXoDPOlGFXWQIDjBHArCFToQYBtE0VyvOzzADwFQQRYTJzICWjePnOlw5R6GZPkfdPBG6LZWddE K1BSSDWJVMLOMB9wIjarWhVlHemmG1D1OozzP4VcYZ6PJ8JdVIUoANJGHJZdhzZpBL8QtkGvmX6hBCfZ UNBQSDcAHPuuXcA3c07tikIPXGSoITVrHGlhUYJaPM XxSJNsHMJgFPYiTOEiUHDvPD0YB2QaHKShBCFGTCT3a8WvQPIcfnjvghssVf6uegHlTbh+PgoxIDAgb2 NaZWxyW0Y3pNWyJ0IaZ3HoEG5LvDFsXRsfPCZtEDDnFWCxA619olQnPU6+GS7sn7MxAwbkDGTGCOBiQL ZrIEPkTUC0BcCdBXCfCBDgDHPnJvD6SoYpKdSXYRLj ZDA8WCF9TVYtHUOmLBNbFPmjXXRgREQ5HbH1KPViDLNdED5bCfBrIFRuOwu7RNchZEOkEBXcdkYJQDFh TLRcQYJrKQW3BYPaRDWnWCfyXWGjMUMvGPA8FXEqUGPcDP2pKiZeTBEiAJShGpjrXZOmKKHcrzBNDTEx UBMxRSF5UlTaWYKlFBLxKZfvZZTaHZYwLmk1ZCZwWU ZbOK9xOsOjIVPyZWT4XLydCQItXSUxwnFBADPbGLRoXRZvVyHbIAXyPTNhUNiuKHWuIPIlXjDoKFTtVV RnLZ4pJwIxROMxONX5FGFiVBDcLERqakQKWVTyTZGuCRn6BASwCHTlXEWuEMcxWRGsEEQaDNQ6JNWbWK VbYK6cWuDmPMNpHRJbKQNaQLAdMMLtczTTIBSkXBIs ZLJ7ONPnUSIhOJGlCBskLAGlEPNtWpd5VOAcXQDdQB0dAqIoHCRdLCN9QQLtCANgYWDduwWSYWOgKVG4 HaUcSXSzAXXrOBJaLKcsMYZfBGLrFbK5CNGrQEPuYO1qImQhUZWgUAU0ZyTaTPLsAJQeyrYCWDOnUZCn ZCF7OoWiENDzBDRsWKzqDCBoQSZcYBUhMHK3IWV3HK NeLaPoPZfwDYKZGFvCY9NxqqDjLpNAJ8hlCq1uPhUxIXKSG5Gbw8ZmIPZlDNCHFi7+KjR9WNO5hJIqEz t8AWTxYNehWHPQZm== ID Date Data Source [id number] 06/10/2020 10:48:15 PM EST [facility] Name Value Range Interpretation Code Description Data Radha rce(s) Supporting Document(s) History and Physical [facility] WHVKCe3xZlIIQjBi19/YZSffTXNic0EiIYkqKNk6HEjqEROeX1ZiQFE5eG1fNOH6LRgYRmGoSzReEHYf lbm [file] AgICAgICAgICAgICAgICAgICAgICAgICAgICAgICAgICAgICAgICAgICAgICAgICAgICAgICAgICAgIC AgICAgICAgICAgICAgICAgICAgICAgICAgICAgICAg LLQjULXhKJ1KZIDwIRJeXPFiECXvFKGiYTUyVKDyEFAvZEQeGORgSNTzUHRyJGErPUPpETQePNPlVUNc MODfAELbMOGtWBWfLGJrIMPjQONiBTGaSCAhFPRyLAZeBHZiZTBsSEZyUBXbLSGuFR6SGIObFPDpDHKq ICAgICAgICAgICAgICAgICAgICAgICAgICAgICAgIC AgICAgICAgICAgICAgICAgICAgICAgICAgICAgICAgICAgICAgICAgICAgICAgICAgICAgICAgICAgIA 0KICAgICAgICAgICAgICAgICAgICAgICAgICAgICAgICAgICAgICAgICAgICAgICAgICAgICAgICAgIC AgICAgICAgICAgICAgICAgICAgICAgICAgICAgICAg RRNhMZFaZIYwDV7MBWTrXZZpVNWoRUSxGLHfMOSaYHSnWOJaWTGxUUGvJNBbOQOsJKZpSUMiWSExSFGs XYJcRPQaDKLjZQIvROEqYSNgOWAtUIDeHLJiUQCjTKQeGHOnDJNkGPBtLRJeBYQbVCOkOU8PVDYzYKXx ICAgICAgICAgICAgICAgICAgICAgICAgICAgICAgIC AgICAgICAgICAgICAgICAgICAgICAgICAgICAgICAgICAgICAgICAgICAgICAgICAgICAgICAgICAgIC PiUS0CGWTaVXXqKWNzGTZpSABtGZEnORSyMCDnBWKyLWKkYWGfTJWtDCNrUVEaPOZjBQSqCTDkXADjJZ AgICAgICAgICAgICAgICAgICAgICAgICAgICAgICAg SXFfIATwFJXzMTOsJU8MJYBxKFPsDFYxNQTiGHTuNRUbOHEkLOPcVTLpMQHoLNLsLJPbGAAwGWHnTJBo BJCePUFkNBFsQEOtQWBsSGNpRNHnNLElOXAnKFUuDDYzVUTvWKAjTKNgZUBqYECqMEVbQYNiJS0JYIWk ICAgICAgICAgICAgICAgICAgICAgICAgICAgICAgIC AgICAgICAgICAgICAgICAgICAgICAgICAgICAgICAgICAgICAgICAgICAgICAgICAgICAgICAgICAgIC WiGMBdUW0FUWPpFIOgJUVoNSIdNPWjSKJsRKDzOJYyVQMdARMcAXYnWJQgLEFiZQYhZBJiTKGxBEKfNB AgICAgICAgICAgICAgICAgICAgICAgICAgICAgICAg HRUdXCReZLIoMKYiOWWhTI2LLY68oFArl8U8FEBvTY9kjpd/Mz8POCjtqrQdnIMwFH0YAuJiCB8xaz8C XlCuPE7eqo6BYXiQYiNaN2U8xSBoPFQrMQRLAkMiJ02iSAolTq32BYcrDVKcZkOcIHy4Sl2BZcTrT3bw ODJvFjJ1IGIuOfE5QJGwKnB6OUKjSxWeBSMoNOXsAH KeFZVPGFN9BYAiJwIfWMwgDW8Rx7KzeQN1AGm+Yq0COO8lk2HzKRgqBZCiMQ5njj0KENuZWcXtI3Zuhu W2GEE1UQDtKv0XUDStBMUdsZXrTRLbZVHHJfJcA7WpnX40TYYZAw5+ILxoniWoOtsPFcJ0FFDrq8VdYQ l2OI3PNEBiNIf9sRUnJEPKZFB4XKbzsjXcLEMNfbUt PGXqB1FavQbmTmJdJIJyAP3nTw7hWOBfVFJuDhK2CDVNDQ2CYFKiBSRarVQkNEStMACJMD5VMQzvASV3 ELUaguKvkEAjTJoyIH6ZGJLaqoJoRcavGPLQPJl+Pn6XVT6sw1FxXTa1LRGsJS1ncw5UZFjMEnKzH8U7 iTLdO3C9VZteJf0NGQErYZDkMzYkFTNPCVvzUX0XOQ 8fnvX2LO0EdVKnKMLuAVNygJNeOEg5W54cgQHqHFtwDT8IZMK+Jenny+Js0DTXDgUHLlTAAjVqCyRFDWKu QvQ9WjM8TQr0RiN3GbDC86nWujhfYaTNveHK5QTI7xLPQuBBTYFX1YlWSkvH6eaqHrUNHfBDVVByWbY6 1wwUSqBIKyMBD3ONOuJq6PTTTfA5QuqdBimLxqknWo VTOkHTNNDP8JZHiayyWyrLOqmIvoVK94uZxiOF6QVf6HAgPsYK4ypc2TkQTvTo4CBBF5ZJ4QBBDiMDNs CSQmVGT0BPPrKaNwCBuuDUJiXVApYJC2GWTwZJCzZU2DYwNtFXOhQlH5YtLdJKAmLCJljc3ZEAHnHUMc WSPvPoKpCLQwFTWaZJxrJVMwNCUeCFW3CZAwGRNdEA 3ENqHwDOAmOEX3QMEdMIZuJVRmvx1PMYMmVYFpCzy8ErVeLEFaOKNaNZkwHANmOZL2GXE6NUMgSSKxEQ 1QMrPmOHIoZZzzFeYqJVYcOPBgxw5IDRDySOKtOJm0RMDbQDBqVWUdMGjgLIMsGYLsQUm5KUTlGIXkNR 1ESoSgXSJyTMV9LwZaXORrNJHvdo2HAVOnEHBkRZd2 DbIdHFYtHXYgGTdzKZLkONV1MTJcRYPePRRzKF6XGmBcBIWqKEybArmnQDWdXZFgag4KBCLiSVDfGAjj EHHpVHDzUETeIKujTDAvFEZcAKP8DKQlXQIiYK7EXgCwRMTfUcU9RuvhJOHrICBcqo4YBJQkSYIvSeW5 EDIsNNLmUARmKZfyLTGmLDHoYvF3FWZsNYBjRO6JJw JuLOOlWqCbVZRbEEWuGFVotz8EMFDeMKPmEhMkLXXsCSDyTQKmWNpbYEEzOXXmBhB3QHUlKNRaYD6LPh IuUXBsRtX0ZaIqCHNtKFJrsk8JQSMdPPTmANy0PHBmNHBfSFQvSXxyKHWpDXS2HGHvBTNxGWUfYA6XAm QaTQCjSjOhDQhgVWWgJERlek8HRTBmICWzPoOsWLQt VBUgOQBtFQtaVCUxVLR2XMUyVLMoDENdLU7HTlGpXEDxNxWxKeqmTCCkWTDcdq3MKVHmNAZzQOQfKVEs WNDaPSLuJGirWVApLJHrOIN6MVKlIJJiFK1EHgUmYJCdFnAoOeFgYWJnEOHsqf4NJPDtMXXjWrNzUULg WDGbAEKeFHwrKFTbFPKmRYT5KTXaLUNeDH9KDaOlPB BkBoL7HxLyRHNqGSQghq4HRXIjXSKrZzahDvBcDUKfSESeHDtsOWBcRYDhZaOfKBJxWWSvFX9BEyPmJL JoHuH4KpIcWPIpDZLplo5YFDJiQXYnAIxoBOXeQHCgPHRpZJnxZGSsRNE1UFQ3MSJcCHMvMK0FYcAtIP jxIQEWEoy5ENvcI0n6UHE5HJ1DG2Gtf6QoAAHgWRND ILdfVZ4fuzSvGJTlEo1RI9oCAuacKTNxZKX8ZBTmV9W8Ptl7PXQ2YRFuYCZuCkY0W4ZkQU1xVITfG5Xy ElY8FCCcFcZoEMl6MWBdNLX7IXVtVtduQSB9LiFtXR7KGm7TRqP4VWN0rFYnCa3ZLvXgBXNYKjJdAJ5M DQo= ID Date Data Source [id number] 06/10/2020 10:13:00 PM EST [facility] Name Value Range Interpretation Code Description Data Radha rce(s) Supporting Document(s) SARS-CoV-2 RNA 2019 nCoV Real-Time RT-PCR: NOT DETECTED [facility] This lab was ordered by [facility] and reported by [facility]. ID Date Data Source [id number] 06/11/2020 02:13:51 PM [facility] Name Value Range Interpretation Code Description Data Radha rce(s) Supporting Document(s) Specimen source [Identifier] of Unspecified specimen [facility] SARS-CoV-2 RNA 2019 nCoV Real-Time RT-PCR: NOT DETECTED [facility] Assay Performed [facility] Patients first test for [facility] Patient employed in healthcare setting [facility] Patient has symptoms related to [facility] When did you start to experience these symptoms [Date and time] [Phen X] [facility] Patient was hospitalized because of this condition [facility] patient was admitted to ICU for [facility] Patient resides in a congregate care setting [facility] status [facility] ID Date Data Source [id number] 06/11/2020 06:48:12 AM EST [facility] Service Cmnt XXX-Imp : NoneRespiratory P CR Panel : PCR ResultsMicroorganism XXX Cult : This test does NOT include the virus that causes COVID-19. See separate test for this result.HAdV DNA QI RAULITO+non-probe : Not DetectedHCoV [id number] Nph QI RAULITO+non-probe : Not DetectedHCoV [id number] Nph QI RAULITO+non-probe : Not LombbjiyNUtZJY44 RNA Nph QI RAULITO+non-probe : Not GucdmslwNIrIES51 RNA Upper resp QI RAULITO+probe : Not [...] rce(s) Supporting Document(s) ID Date Data Source [id number] 06/10/2020 10:12:38 PM EST [facility] Name Value Range Interpretation Code Description Data Radha rce(s) Supporting Document(s) ED Provider Note [facility] JWCSGy9oNjRKDnUu46/ALHuuJJFtd9IzECrkHLu1QKkoRYCjI9NlRCJ7mF2eICV0HJpKUxFfBgArATFn lbm [file] nvFRsA2ipaZCaSUfH0QykV/+Jose D+96/ylgoUu2ScGRYw88X0rR88p2Rt/30SltwWR1vLJX+9Ht/E86lu [file] FoIAW1LSzpSFVRDr3D ID Date Data Source [id number] 06/10/2020 10:05:33 PM EST [facility] Name Value Range Interpretation Code Description Data Radha rce(s) Supporting Document(s) Consultation [facility] EXIXLt5uCnDXVrEj81/VNUmrERImf2QjGRyvJLs9RWorSADsY5CzEML4bP7uNDW3BAuYNfKoObLxJBKy lbm [file] AgICAgICAgICAgICAgICAgICAgICAgICAgICAgICAgICAgICAgICAgICAgICAgICAgICAgICAgICAgIC AgICAgICAgICAgICANCiAgICAgICAgICAgICAgICAg ICAgICAgICAgICAgICAgICAgICAgICAgICAgICAgICAgICAgICAgICAgICAgICAgICAgICAgICAgICAg ICAgICAgICAgICAgICAgICAgICAgICANCiAgICAgICAgICAgICAgICAgICAgICAgICAgICAgICAgICAg ICAgICAgICAgICAgICAgICAgICAgICAgICAgICAgIC AgICAgICAgICAgICAgICAgICAgICAgICAgICAgICAgICANCiAgICAgICAgICAgICAgICAgICAgICAgIC AgICAgICAgICAgICAgICAgICAgICAgICAgICAgICAgICAgICAgICAgICAgICAgICAgICAgICAgICAgIC AgICAgICAgICAgICAgICANCiAgICAgICAgICAgICAg ICAgICAgICAgICAgICAgICAgICAgICAgICAgICAgICAgICAgICAgICAgICAgICAgICAgICAgICAgICAg ICAgICAgICAgICAgICAgICAgICAgICAgICANCiAgICAgICAgICAgICAgICAgICAgICAgICAgICAgICAg ICAgICAgICAgICAgICAgICAgICAgICAgICAgICAgIC AgICAgICAgICAgICAgICAgICAgICAgICAgICAgICAgICAgICANCiAgICAgICAgICAgICAgICAgICAgIC AgICAgICAgICAgICAgICAgICAgICAgICAgICAgICAgICAgICAgICAgICAgICAgICAgICAgICAgICAgIC AgICAgICAgICAgICAgICAgICANCiAgICAgICAgICAg ICAgICAgICAgICAgICAgICAgICAgICAgICAgICAgICAgICAgICAgICAgICAgICAgICAgICAgICAgICAg ICAgICAgICAgICAgICAgICAgICAgICAgICAgICANCiAgICAgICAgICAgICAgICAgICAgICAgICAgICAg ICAgICAgICAgICAgICAgICAgICAgICAgICAgICAgIC AgICAgICAgICAgICAgICAgICAgICAgICAgICAgICAgICAgICAgICANCiAgICAgICAgICAgICAgICAgIC AgICAgICAgICAgICAgICAgICAgICAgICAgICAgICAgICAgICAgICAgICAgICAgICAgICAgICAgICAgIC AgICAgICAgICAgICAgICAgICAgICANCjw/gCWyP2uq nJVbjvZ2J7ezBd0AGj0BZE4en9ZoDROeZYofhfKyJntYCkQvNBGkCtzCZil2EYchNF7UfVDhX3ZaA1Yv OYgnZG9OFUWeSQDykSMcPYWyETHrFlL7SXTeUGbpPX6CxGWfJLqxNVGoYFQvLY0ZBMEgO171fyLxAY3A Pe1ICyJqMI6rjt1PHLQyKJTpCugZPdr8FJnkIP7WrL JyfDSlSQBvTCSJJjRuF9wkq4JpVOUcNFADPOpeXE8Pj6HuwCHuVOd+St6JTK5be4DkTBuaVXRcPB9kdg 0TKVbNZxQeZ5ZqkHwdFKCmpsC5lKGdTSP3VDlznyKrMUDYcnZtTPPzS5KtaOscRpDrEQGsTO8jQd4aYH YgSCC0UnRjMQFKYE5WBTTvWXVvjYOuHBUiICIHBU6B AMwyDCU4NGGibyVhkSWeASgvNN7ZDUOybaGdKPLqNFRZBIo+Kn2EWM4fz2IqVRscVhJgIV3ckl0MEPfW QyMkX0G5tSPhC0M0UYwoIj2TFTJbXUBcZBEfOLXSCUdwIO3VVB3scpS6ES6KoZShKGOkKJHnyOSqKNe4 B37syYMpNCocWH0VSVA+Jenny+Kc1WAVCmAWBoXWNiLj SvVBDDVsDzS3AyS4KRw1OuG8CdTL31tJnelwYyFRgiRU1LPY5kZIGqIFRXOI8RcWHetT8ymvXiRCFaFO KGBeWfA60gkQCiGSYqZYTcKYJqTt9CNFOkT9OqrcOatHsmejRyAPKaWVSPLY0UDXuehwFehEKddPfzGM 42cBggNT9ILf2IJbFcIK5jsm0MxDMsNf3QBWSuEp1K NTUwPVTbKFTkBQB3UMSzQyOpGUkcMKMxQLIoDZC2XLOoODPmIX9MAbMtGPBvKYM8GwpxVHIjFZKzvb9Y HZCqKNXqQiE7GhWrOWTsBYXkDZetQMQgVUEhNXJ5LVUkHTToTC2JJqVoETJcINJ1PgzmHDUhMCYgnf4X RIMuGGFkSEw3TWNnKLTwLYYdXWpnCPNxBQFwVRXtMI QjNYVwDI0OByFyKLUqVYOxKlGyNUXmODXtzy7NFQYkVIGuJlQhMnQsOOAmZUUkNIiaHNQpDTH5RdP9VQ OaKJEaLE8FJwRtNDYrKEL1XpWhZNZvEZWpnd6QVPKkEHJuKOE1VnBsBFAnQMPlUQcdYDOpVGA2VOR2MH DgHFNfFH6QSpBbJEMuHAM0DVOeDMRkBYQvie8VSJTj MHUyBtB0RyUkQRMoOXMlQEwwHMEzRWB4CzRzRPZhXZMcZL5QPmGjBVzcMYBSTcy1PQmtA6x3BCJwTf2N O6Kze1WjDVNlLRBHILvvRX5evlKmIVKzQr7LB3fDWumlPGKgUbWvMXzpN1P6FTfjPhIgHWH7DrT9ECA9 X3KxBh9bMEChNoXgIUNqJIZzOfl2FKEwVuEbOOm8Xm A5Yer1KZCcTqBqAC2BAr2TXoQ2CXO5wCAxYe1PBun3Ge5IBAZHU2YZXp== ID Date Data Source [id number] 06/10/2020 09:16:00 PM EST [facility] Name Value Range Interpretation Code Description Data Radha rce(s) Supporting Document(s) SARS coronavirus 2 RdRp gene https://www.fda.gov/media/252747/del beck [facility] This lab was ordered by [facility] and reported by [facility]. ID Date Data Source [id number] 06/10/2020 09:27:37 PM [facility] Name Value Range Interpretation Code Description Data Radha rce(s) Supporting Document(s) SARS coronavirus 2 RdRp gene Negative [facility] Test performed using the [employer] NOW C OVID-19 assay. This test is only for use under the Food and Drug Administration's Emergency Use Authorization. Additional information is available on the following FDA websites for health care providers and patients.https://www.fda.gov/media/434558/downloadhttps://www.fda.gov/media/1365 24/download Patients first test for [facility] Patient employed in healthcare setting [facility] Patient has symptoms related to [facility] When did you start to experience these symptoms [Date and time] [Phen X] [facility] Patient was hospitalized because of this condition [facility] patient was admitted to ICU for [facility] Patient resides in a congregate care setting [facility] status [facility] ID Date Data Source [id number] 06/10/2020 08:49:13 PM [facility] Name Value Range Interpretation Code Description Data Radha rce(s) Supporting Document(s) Choriogonadotropin.beta subunit free [Units/volume] in Serum or Plasm a <5 [facility] (NOTE)Levels between 5 and 25 [IU]/L may indicate earlypregnancy and should be repeated after 48 hours. ID Date Data Source [id number] 06/10/2020 08:33:[address] [facility] Name Value Range Interpretation Code Description Data Radha rce(s) Supporting Document(s) Leukocytes [#/volume] in Blood by Automated count 10.7 10*3/uL 4-10 H [facility] Erythrocytes [#/volume] in Blood by Automated count 4.59 10*6/uL 4.1- 5.3 [facility] Hemoglobin [Mass/volume] in Blood 14.3 g/dL 11.5-15.5 [facility] Hematocrit [Volume Fraction] of Blood by Automated count 42.7 % 3 6-45 [facility] Erythrocyte mean corpuscular volume [Entitic volume] by Auto mated count 93.1 fL 80-96 [facility] Erythrocyte mean corpuscular hemoglobin [Entitic mass] by Automated count 31.1 pg 27-33 [facility] Erythrocyte mean corpuscular hemoglobin concentration [Mass/volume] by Automated count 33.5 g/dL 32.0-[facility].[address] [facility] distribution width [Ratio] by Automated count 13.5 % 11.5-14.5 [facility] Platelets [#/volume] in Blood by Automated count 336 10*3/uL 150-400 [facility] Differential cell count method - Blood [facility] Neutrophils/100 leukocytes in Blood by Automated count 66 % [facility] Lymphocytes/100 leukocytes in Blood by Automated count 23 % [facility] Monocytes/100 leukocytes in Blood by Automated count 9 % [facility] Eosinophils/100 leukocytes in Blood by Automated count 1 % [facility] Basophils/100 leukocytes in Blood by Automated count 1 % [facility] Neutrophils [#/volume] in Blood by Automated count 7.21 10*3/uL 1.8-7 .0 H [facility] Lymphocytes [#/volume] in Blood by Automated count 2.40 10*3/uL 1.2-4 .0 [facility] Monocytes [#/volume] in Blood by Automated count 0.93 10*3/uL 0-0.8 H [facility] Eosinophils [#/volume] in Blood by Automated count 0.08 10*3/uL 0-0.5 [facility] Basophils [#/volume] in Blood by Automated count 0.07 10*3/uL 0-0.2 [facility] Nucleated erythrocytes/100 leukocytes [Ratio] in Blood by Automated count 0 /100{WBCs} 0-0 [facility] ID Date Data Source [id number] 06/10/2020 09:11:44 PM [facility] Name Value Range Interpretation Code Description Data Radha rce(s) Supporting Document(s) Acetaminophen [Mass/volume] in Serum or Plasma 10.0-30.0 L [facility] ID Date Data Source [id number] 06/10/2020 09:11:[address] [facility] Value Range Interpretation Code Description Data Radha rce(s) Supporting Document(s) Bicarbonate [Moles/volume] in Serum 26 mmol/L 22-29 [facility] Chloride [Moles/volume] in Serum or Plasma 103 mmol/L 98-107 [facility] Creatinine [Mass/volume] in Serum or Plasma 0.69 mg/dL 0.50-0.90 [facility] Glucose [Mass/volume] in Serum or Plasma 99 mg/dL 70-140 [facility] Potassium [Moles/volume] in Serum or Plasma 3.7 mmol/L 3.4-5.1 [facility] Sodium [Moles/volume] in Serum or Plasma 139 mmol/L 136-145 [facility] Urea nitrogen [Mass/volume] in Serum or Plasma 9 mg/dL 6-20 [facility] Anion gap 3 in Serum or Plasma 9 mmol/L 8-15 [facility] Osmolality of Serum or Plasma by calculation 287 mosm/kg 275-300 [facility] Creatinine/Urea nitrogen [Mass Ratio] in Serum or Plasma 13 [facility] Calcium [Mass/volume] in Serum or Plasma 9.5 mg/dL 8.6-10.0 [facility] Glomerular filtration rate/1.73 sq M pre dicted among non-blacks [Volume Rate/Area] in Serum or Plasma by Creatinine-based formula (MDRD) >6 0 [facility] Glomerular filtration rate/1.73 sq M pre dicted among blacks [Volume Rate/Area] in Serum or Plasma by Creatinine-based formula (MDRD) >60 [facility] ID Date Data Source [id number] 06/10/2020 09:11:[address] [facility] Value Range Interpretation Code Description Data Radha rce(s) Supporting Document(s) Thyroxine (T4) [Mass/volume] in Serum or Plasma 4.6 ug/dl 4.5-11.7 [facility] ID Date Data Source [id number] 06/10/2020 09:11:[address] [facility] Value Range Interpretation Code Description Data Radha rce(s) Supporting Document(s) Salicylates [Mass/volume] in Serum or Plasma 3.0-30.0 L [facility] ID Date Data Source [id number] 06/10/2020 09:11:[address] [facility] Value Range Interpretation Code Description Data Radha rce(s) Supporting Document(s) Ethanol [Mass/volume] in Serum or Plasma Negative [facility] ID Date Data Source [id number] 06/10/2020 09:11:[address] [facility] Value Range Interpretation Code Description Data Radha rce(s) Supporting Document(s) Albumin [Mass/volume] in Serum or Plasma by Bromocresol green (BCG) dye binding method 4.5 g/dL 3.5-5.2 [facility] Bilirubin.total [Mass/volume] in Serum or Plasma 0.3 mg/dL <1.2 [facility] Bilirubin.direct [Mass/volume] in Serum or Plasma <0.3 [facility] Alkaline phosphatase [Enzymatic activity/volume] in Serum or Plasma 110 U/L 35-104 H [facility] Aspartate aminotransferase [Enzymatic activity/volume] in Serum or Plasma 19 U/L <32 [facility] Alanine aminotransferase [Enzymatic activity/volume] in Seru m or Plasma 21 U/L <33 [facility] Protein [Mass/volume] in Serum or Plasma 7.5 g/dL 6.4-8.3 [facility] ID Date Data Source [id number] 06/10/2020 09:11:[address] [facility] Value Range Interpretation Code Description Data Radha rce(s) Supporting Document(s) Thyrotropin [Units/volume] in Serum or Plasma 1.040 u[IU]/mL 0.270-4. 200 [facility] ID Date Data Source [id number] 06/10/2020 08:56:[address] [facility] Value Range Interpretation Code Description Data Radha rce(s) Supporting Document(s) Amphetamine [Presence] in Urine by Screen method Negative [facility] Benzodiazepines [Presence] in Urine by Screen method Negat grisel [facility] Cannabinoids [Presence] in Urine by Screen method Negative [facility] Benzoylecgonine [Presence] in Urine by Screen method Negat [facility] Methadone [Presence] in Urine by Screen method Negative [facility] Opiates [Presence] in Urine by Screen method Negative [facility] Oxycodone [Presence] in Urine by Screen method Negative [facility] Fentanyl+Norfentanyl [Presence] in Urine by Screen method Negative [facility] Service comment [facility] Results below the indicated cutoff (ng/m L), are reported as"Negative." Note: for medical purposes only; not valid for legalor employment testing. ID Date Data Source [id number] 04/25/2020 12:16:00 AM EST [address] [address] [phone] NAME SEX PT STATUS ACCOUNT NUMBER EMIKADY Lea [facility] ER [id number] ORDERING PHYSICIAN LOCATION MEDICAL RECORD NO. Eddy Tee MD ER [id number] ATTENDING PHYSICIAN DATE OF DATE OF EXAM/TIME Doctor Provided,No Family 1990 04[birth year]24/202311 TYPE / EXAM US Transvaginal non-OB REASON FOR EXAM LLQ PAIN [address] [address] [phone] NAME SEX PT STATUS ACCOUNT NUMBER LAKSHMI MIDDLETONLUIS A Lea [facility] ER [id number] ORDERING PHYSICIAN LOCATION MEDICAL RECORD NO. Eddy Tee MD ER [id number] ATTENDING PHYSICIAN DATE OF DATE OF EXAM/TIME [...] distended to 8 mm in overall thickness. [facility] [employer] [facility] correlation and follow-up is recommended. There is [...] fluid suggesting hemorrhage. Etiology not certain. Recommend [facility] correlation and follow-up. 3. Normal ovaries. REPORT SIGNATURE ON FILE 04/25/2020 (00:14 Eastern Time ) Signed by: Jose D Sneed M.D. Reported By Jose D Sneed MD on 04/25/2013 Signed By Jose D Sneed MD on 04/25/2013 Date Time CC: Jose D Sneed MD; No Family PHYS Provided Techn: FANTASMA Trans Dt/Tm: Trans by: DT Prt Dt/Tm: : Total DLP = 0.00 mGy-cm 4704-3436: Total Radiation Dose = 0.0000 mSv Lifetime Dose: 21.0750 mSv Reported By Jose D Sneed MD on 04/25/2015 Signed By Jose D Sneed MD on 04/29/20 1100 Date Time CC: Jose D Sneed MD; No Family PHYS Provided Techn: CARAI Trans Dt/Tm: Trans by: DT Prt Dt/Tm: [id number]: Total DLP = 0.00 mGy-cm 5874-5162: Total Radiation Dose = 0.0000 mSv Lifetime Dose: 21.0750 mSv Name Value Range Interpretation Code Description Data Radha rce(s) Supporting Document(s) ID Date Data Source [id number] 04/25/2020 12:14:00 AM [facility] [address] [place] [address] [phone] NAME SEX PT STATUS ACCOUNT NUMBER KADY MIDDLETON [facility] ER [id number] ORDERING PHYSICIAN LOCATION MEDICAL RECORD NO. Eddy Tee MD ER [id number] ATTENDING PHYSICIAN DATE OF DATE OF EXAM/TIME [...] distended to 8 mm in overall thickness. [employer] correlation and follow-up is recommended. There is [...] fluid suggesting hemorrhage. Etiology not certain. Recommend [employer] correlation and follow- up. 3. Normal ovaries. REPORT SIGNATURE ON FILE 04/25/2020 (00:14 Eastern Time ) Signed by: Jose D Sneed M.D. Reported By Jose D Sneed MD on 04/25/2013 Signed By Jose D Sneed MD on 04/25/2013 Date Time CC: Jose D Sneed MD; No Family PHYS Provided Techn: CARSAIDA Trans Dt/Tm: Trans by: REINIER Prt Dt/Tm: : Total DLP = 0.00 mGy-cm 6577-9181: Total Radiation Dose = 0.0000 mSv Lifetime Dose: 21.0750 mSv Name Value Range Interpretation Code Description Data Radha rce(s) Supporting Document(s) ID Date Data Source [id number] 04/24/2020 10:13:00 PM EST [facility] [address] [place] [address] [phone] NAME SEX PT STATUS ACCOUNT NUMBER KADY MIDDLETON [facility] ER [id number] ORDERING PHYSICIAN LOCATION MEDICAL RECORD NO. Eddy Tee MD ER [id number] ATTENDING PHYSICIAN DATE OF DATE OF EXAM/TIME [...] rce(s) Supporting Document(s) ID Date Data Source [id number] 04/24/2020 09:56:00 PM [facility] ED Physician Documentation NAME: KADY MIDDLETON : 1990 AGE: 29 MR#: [id number] SERVICE DATE: 04/24/[address]: Eddy Tee MD PRIMARY CARE DR: No Family PHYS Provided ROOM#: [facility] (Adult, General) General Chief Complaint: Multi system [...] left leg. Reported increased vaginal discharge, whitish, [id number]. Stated it was her normal vaginal discharge [...] % (Auto) 63.3, Lymph % (Auto) 27.9, [place] % (Auto) 7.1, Eos % (Auto) 1.2, [...] Appearance Clear, Urine pH 6.0, Ur Specific [place] 1.019,Urine Protein Negative, Urine Ketones Negative, Urine [...] follow-up in the next 5 days with [facility]. Plan Plan Plan: Pelvic pain, follow-up GC, chlamydia as outpatient. UA negative. Work-up does not suggest infectious etiology. Follow-up with [facility] as outpatient in the next 5 days. [...] care provider in 5 days. Please see [facility] LEVERMAN in 5 days. Return to the hospital symptoms worsen. Or if develop fevers. Purulent vaginal discharge. Follow-up ALLI, chlamydia resu lts as outpatient. Assessment: Patient work-up negative for acute infectious etiology. Intrauterine fluids detected on pelvic ultrasound with no signs of active bleeding. Need further evaluation by [employer] [employer] [facility]. GC chlamydia sent. No leukocytosis, afebrile. UA [...] rce(s) Supporting Document(s) ID Date Data Source [id number] 04/24/2020 08:31:00 PM [facility] Reason for ordering culture: Abnormal fi ndings UAMethod of Collection:: Voided Name Value Range Interpretation Code Description Data Radha rce(s) Supporting Document(s) Color of Urine [facility] Appearance of Urine CLEAR [facility] pH of Urine by Test strip 6.0 5-8 [facility] Specific gravity of Urine by Refractometry 1.019 1.005-1.030 [facility] Leukocyte esterase [Presence] in Urine by Test strip NEGAT GRISEL [facility] Nitrite [Presence] in Urine by Test strip NEGATIVE [facility] Protein [Presence] in Urine by Test strip NEGATIVE [facility] Glucose [Mass/volume] in Urine by Automated test strip NEGATIVE NEG ATIVE [facility] Ketones [Presence] in Urine by Test strip NEGATIVE [facility] Urobilinogen [Presence] in Urine 0.2-1 EU/dl [facility] Bilirubin.total [Presence] in Urine by Automated test strip NEGATIVE [facility] Erythrocytes [#/volume] in Urine by Test strip NEGATIVE NEGATIVE [facility] URINE MICROSCOPIC? (CIF) NO [facility] ID Date Data Source [id number] 04/28/2020 01:37:00 PM EST [facility] Name Value Range Interpretation Code Description Data Radha rce(s) Supporting Document(s) Chlamydia trachomatis rRNA [Presence] in Unspecified specimen by Probe and target amplification method NOT DETECTED [facility] Neisseria gonorrhoeae rRNA [Presence] in Unspecified specimen by Probe and target amplification method NOT DETECTED [facility] Chlamydia/GC DNA Note SEE NOTE [facility] The analytical performance characteristi cs of thisassay, when used to test SurePath(TM) specimens have beendetermined by [employer]. The modifications havenot been cleared or approved by the FDA. This assay hasbeen validated pursuant to the CLIA regulations and isused for clinical purposes.For additional information, please refer tohttps://education.[employer]/faq/RDB980(This link is being provided for information/educational purposes only.)THIS TEST WAS PERFORMED AT:[employer] [address]MARQUEZ ABRAHAM MD ID Date Data Source [id number] 04/26/2020 03:16:00 PM EST [facility] Name Value Range Interpretation Code Description Data Radha rce(s) Supporting Document(s) Trichomonas DNA Probe NOT DETECTED NOT DETECTED [facility] Gardnerella DNA Probe NOT DETECTED NOT DETECTED [facility] Esther species DNA Probe NOT DETECTED NOT DETECTED [facility] THIS TEST WAS PERFORMED AT:[employer] [address] [id number] MERATI,MD ID Date Data Source [id number] 04/24/2020 08:31:00 PM [facility] @ DID THE CONTROL BAND APPEAR? YES@ DID THE BACKGROUND CLEAR? YES Special Instructions: Lab may order repe at test if initial test elevatedPhysician If elevated, reflex second test in 4-6 hrs Name Value Range Interpretation Code Description Data Radha rce(s) Supporting Document(s) Choriogonadotropin [Moles/volume] in Urine NEGATIVE NEGATIVE [facility] @Reenter manual test result: NEGATIVE@by Rae Marquez at 04/24/202030. ID Date Data Source [id number] 04/24/2020 08:26:00 PM [facility] @ DID THE CONTROL BAND APPEAR? YES@ DID THE BACKGROUND CLEAR? YES Special Instructions: Lab may order repe at test if initial test elevatedPhysician If elevated, reflex second test in 4-6 hrs Name Value Range Interpretation Code Description Data Radha rce(s) Supporting Document(s) Urea nitrogen [Mass/volume] in Serum or Plasma 12 mg/dL 9-23 N [facility] Sodium [Moles/volume] in Serum or Plasma 141 mmol/L 132-146 [facility] Potassium [Moles/volume] in Serum or Plasma 4.1 mmol/L 3.5-5.5 [facility] Chloride [Moles/volume] in Serum or Plasma 109 mmol/L 99-109 N [facility] Carbon dioxide, total [Moles/volume] in Serum or Plasma 28 mmol/L 20 -31 N [facility] Anion gap in Serum or Plasma 8 mmol/L 8-16 [facility] Glucose [Mass/volume] in Serum or Plasma 88 mg/dL 74-106 [facility] Creatinine 0.9 mg/dL 0.5-1.1 [facility] Glomerular filtration rate/1.73 sq M.pre dicted [Volume Rate/Area] in Serum or Plasma Greater Than 60 ABOVE 60 [facility] Alanine aminotransferase [Enzymatic acti vity/volume] in Serum or Plasma by With P-5'-P 35 U/L 10-49 [facility] ital Aspartate aminotransferase [Enzymatic ac tivity/volume] in Serum or Plasma by With P-5'-P 13 U/L 0-33 [facility] pital Alkaline phosphatase [Enzymatic activity/volume] in Serum or Plasma 105 U/L 45-129 [facility] Calcium [Mass/volume] in Serum or Plasma 8.7 mg/dL 8.5-10.1 [facility] Bilirubin.total [Mass/volume] in Serum or Plasma 0.3 mg/dL 0.3-1.2 [facility] Albumin [Mass/volume] in Serum or Plasma by Bromocresol purple (BCP) dye binding method 3.5 g/dL 3.2-4.8 [facility] ital Protein [Mass/volume] in Serum or Plasma 7.0 g/dL 5.7-8.2 [facility] ID Date Data Source [id number] 04/24/2020 08:31:00 PM [facility] @ DID THE CONTROL BAND APPEAR? YES@ DID THE BACKGROUND CLEAR? YES Special Instructions: Lab may order repe at test if initial test elevatedPhysician If elevated, reflex second test in 4-6 hrs Name Value Range Interpretation Code Description Data Radha rce(s) Supporting Document(s) Lactic w Rfx (if elevated) 0.9 mmol/L 0.5-2.2 N [facility] ID Date Data Source [id number] 04/29/2020 07:52:00 PM [facility] @ DID THE CONTROL BAND APPEAR? YES@ DID THE BACKGROUND CLEAR? YES Special Instructions: Lab may order repe at test if initial test elevatedPhysician If elevated, reflex second test in 4-6 hrs Name Value Range Interpretation Code Description Data Radha rce(s) Supporting Document(s) Bacteria identified in Blood by Culture [facility] NO GROWTH AFTER 5 DAYS ID Date Data Source [id number] 04/24/2020 08:26:00 PM [facility] @ DID THE CONTROL BAND APPEAR? YES@ DID THE BACKGROUND CLEAR? YES Special Instructions: Lab may order repe at test if initial test elevatedPhysician If elevated, reflex second test in 4-6 hrs Name Value Range Interpretation Code Description Data Radha rce(s) Supporting Document(s) Lipase [Enzymatic activity/volume] in Serum or Plasma 82 U/L 73-3 [address] [facility] ID Date Data Source [id number] 04/24/2020 07:57:00 PM [facility] Name Value Range Interpretation Code Description Data Radha rce(s) Supporting Document(s) Leukocytes [#/volume] in Blood by Automated count 8.0 10*3/uL 4.45-10 .71 [facility] Erythrocytes [#/volume] in Blood by Automated count 4.06 10*6/uL 4.20-5.40 Below low normal [facility] Hemoglobin [Moles/volume] in Blood 12.3 g/dL 10.7-15.4 [facility] Hematocrit [Volume Fraction] of Blood by Automated count 39.1 % 3 7-47 [facility] Erythrocyte mean corpuscular volume [Ent itic volume] in Cord blood by Automated count 96.3 fL 80-96 Above high normal [facility] Erythrocyte mean corpuscular hemoglobin [Entitic mass] by Automated count 30.3 pg 27-31 N [facility] Erythrocyte mean corpuscular hemoglobin concentration [Mass/volume] in Cord blood 31.5 g/dL 33-37 Below low normal [facility] Erythrocyte distribution width [Entitic volume] by Automated count 13 % 11-15 N [facility] Platelets [#/volume] in Blood by Automated count 278 10*3/uL 130-472 N [facility] Platelet mean volume [Entitic volume] in Blood 9.7 fL 9.1-13.1 N [facility] Neutrophils/100 leukocytes in Blood by Automated count 63.3 % 41- 77 N [facility] Neutrophils [#/volume] in Blood by Automated count 5.1 U 1.7-7.6 N [facility] Lymphocytes/100 leukocytes in Blood by Automated count 27.9 % 14- 46 N [facility] Lymphocytes [#/volume] in Blood by Automated count 2.2 U 0.6-4.6 N [facility] Monocytes/100 leukocytes in Blood by Automated count 7.1 % 4-12 N [facility] Monocytes [#/volume] in Blood by Automated count 0.6 U 0.2-1.2 N [facility] Eosinophils/100 leukocytes in Blood by Automated count 1.2 % 0-7 N [facility] Eosinophils [#/volume] in Blood by Automated count 0.1 U 0.0-0.5 N [facility] Basophils/100 leukocytes in Blood by Automated count 0.4 % 0.4-1 .3 N [facility] Basophils [#/volume] in Blood by Automated count 0.0 U 0.0-0.2 [facility] NUCLEATED RED BLOOD CELL 0 % [facility] NUCLEATED RED BLOOD CELL# 0 U [facility] Immature granulocytes [Presence] in Blood by Automated count 0-2 N [facility] Immature granulocytes [#/volume] in Blood by Automated count 0.0 U 0-0.1 N [facility] Manual Differential panel - Blood NO [facility] ID Date Data Source [id number] 04/24/2020 08:26:00 PM EST [facility] Name Value Range Interpretation Code Description Data Radha rce(s) Supporting Document(s) C reactive protein [Mass/volume] in Serum or Plasma 7.8 mg/L 0.0-5.0 Above high normal [facility] ID Date Data Source [id number] 04/04/2020 04:05:00 PM EST [facility] Name Value Range Interpretation Code Description Data Radha rce(s) Supporting Document(s) SARS-CoV-2, RAULITO Not Detected Not Detected [facility] This nucleic acid amplification test was developed and its performancecharacteristics determined by [facility]. Nucleic acidamplification tests include PCR and [...] in this assay. ID Date Data Source [id number] 04/03/2020 08:00:00 AM EST [facility] Name Value Range Interpretation Code Description Data Radha rce(s) Supporting Document(s) SARS coronavirus 2 RNA [facility] This lab was ordered by [facility] a nd reported by [facility]. ID Date Data Source [id number] 04/04/2020 04:10:00 PM EST [facility] Name Value Range Interpretation Code Description Data Radha rce(s) Supporting Document(s) SARS COV2 [facility] Not Detected Not Detected [facility] This nucleic acid amplification test was developed [...] SARS-CoV-2 virusand/or diagnosis of COVID-19 infection under [id number](b)(1) of the Act, 21 U.S.C. 360bbb-3(b) (1), [...] negative(not detected) result in this assay.Performed at: [facility] [place] [id number] Director: Jerilyn Sainz MD, Phone: [phone] ID Date Data Source INFLUENZA A,B PCR 04/02/2020 01:23:34 PM EST eCW1 ([facility]) Name Value Range Interpretation Code Description Data Radha rce(s) Supporting Document(s) NEGATIVE INFLUENZA A [facility]CW[facility] NEGATIVE INFLUENZA B eCW1 [facility] ID Date Data Source [id number] 04/02/2020 12:19:00 PM EST [facility] Name Value Range Interpretation Code Description Data Radha rce(s) Supporting Document(s) INFLUENZA A NEGATIVE NEGATIVE [facility] INFLUENZA B NEGATIVE NEGATIVE [facility] This is a rapid molecular in vitro diagn ostic test utilizingan isothermal nucleaic acid amplification technology for thequalitative detection and discrimination of influenza A andB viral RNA. Negative results do not preclude influenzavirus infection and should not be used as the sole basis fordiagnosis, treatment or other patient management decisions. ID Date Data Source [id number] 04/02/2020 12:26:00 PM EST [facility] l Name Value Range Interpretation Code Description Data Radha rce(s) Supporting Document(s) GLUCOSE 97 mg/dL 74-106 [facility] BLOOD UREA NITROGEN 11 mg/dL 7-18 [facility] ital CREATININE 0.9 mg/dL 0.6-1.0 [facility] SODIUM 141 mmol/L 136-145 [facility] POTASSIUM 4.1 mmol/L 3.5-5.1 [facility] CHLORIDE 104 mmol/L 98-107 [facility] CO2 29 mmol/L 21-32 [facility] CALCIUM 9.3 mg/dL 8.5-10.1 [facility] ANION GAP 8.0 mmol/L 5-12 [facility] GLOMERULAR FILTRATION RATE 75 mL/min [facility] GFR IS CALCULATED IN mL/min/1.73m2 AMANDA L FUNCTION: >90MILDLY DECREASED: 60-89MILDY TO MODERATELY DECREASED: 45-59 MODERATELY TO SEVERELY DECREASED: 30-44SEVERELY DECREASED: 15-29RENAL FAILURE: <15 ID Date Data Source [id number] 04/02/2020 12:08:00 PM [facility] Name Value Range Interpretation Code Description Data Radha rce(s) Supporting Document(s) WHITE BLOOD COUNT 7.1 K/mm3 4.0-10.0 [facility] al RED BLOOD COUNT 4.65 M/mm3 4.00-5.50 [facility] HEMOGLOBIN 14.3 gm/dL 12.0-16.0 [facility] HEMATOCRIT 42.8 % 36.0-48.8 [facility] MEAN CELL VOLUME 92.0 fl 80-96 [facility] MEAN CORPUSCULAR HEMOGLOBIN 30.8 pg 27.0-31.0 [facility] MEAN CORPUSCULAR HGB CONC 33.4 g/dl 32.0-36.0 [facility] RED CELL DISTRIBUTION WIDTH 12.5 % 10.0-14.5 [facility] PLATELET COUNT 322 K/mm3 172-450 [facility] MEAN PLATELET VOLUME 9.7 fl 9.0-13.0 [facility] GRAN % 70.5 % 50-80.0 [facility] IG% 0.1 % 0.0-0.2 [facility] LYMPH % 21.6 % 25.0-50.0 L [facility] MONO % 6.9 % 2.0-10.0 [facility] EOS % 0.6 % 0-5.0 [facility] BASO % 0.3 % 0.0-2.0 [facility] GRAN # 5.0 K/mm3 2.0-8.00 [facility] IG# 0.0 K/mm3 0.0-0.2 [facility] LYMPH # 1.5 K/mm3 1.0-5.0 [facility] MONO # 0.5 K/mm3 0.10-1.20 [facility] EOS # 0.0 K/mm3 0.0-0.5 [facility] BASO # 0.0 K/mm3 0.0-0.2 [facility] ID Date Data Source BASIC METABOLIC PANEL 04/02/2020 02:01:38 AM EST eCW1 ([facility]) Name Value Range Interpretation Code Description Data Radha rce(s) Supporting Document(s) 97 GLUCOSE eCW1 ([facility]) 0.9 CREATININE eCW1 ([facility]) 11 BLOOD UREA NITROGEN eCW1 ([facility]) 141 SODIUM eCW1 ([facility]) 4.1 POTASSIUM eCW1 ([facility]) 104 CHLORIDE eCW1 ([facility]) 29 CO2 eCW1 ([facility]) 8.0 ANION GAP eCW1 ([facility]) 75 GLOMERULAR FILTRATION RAT E eCW1 ([facility]) 9.3 CALCIUM eCW1 ([facility]) ID Date Data Source FREE T4 02/24/2020 01:01:54 PM EDT eCW1 ([facility]) Name Value Range Interpretation Code Description Data Radha rce(s) Supporting Document(s) 0.90 FREE T4 eCW1 ([facility]) ID Date Data Source CBC 02/24/2020 01:01:40 PM EDT eCW1 ([facility]) Name Value Range Interpretation Code Description Data Radha rce(s) Supporting Document(s) 6.4 WHITE BLOOD COUNT eCW1 ([facility]) 4.57 RED BLOOD COUNT eCW1 ([facility]) 91.7 MEAN CELL VOLUME eCW1 ([facility]) 14.3 HEMOGLOBIN eCW1 ([facility]) 41.9 HEMATOCRIT eCW1 ([facility]) 315 PLATELET COUNT eCW1 ([facility]) 31.3 MEAN CORPUSCULAR HEMOGLOB IN eCW1 ([facility]) 12.7 RED CELL DISTRIBUTION WID TH eCW1 ([facility]) 34.1 MEAN CORPUSCULAR HGB CONC eCW1 ([facility]) ID Date Data Source TSH 02/24/2020 01:00:21 PM EDT eCW1 ([facility]) Name Value Range Interpretation Code Description Data Radha rce(s) Supporting Document(s) 1.67 TSH eCW1 ([facility]) ID Date Data Source LIPID PROFILE 02/24/2020 01:00:14 PM EDT eCW1 ([facility]) Name Value Range Interpretation Code Description Data Radha rce(s) Supporting Document(s) 135 CHOLESTEROL eCW1 [facility] Cholesterol in LDL [Mass/volume] in Serum or Plasma by calculation 66 LDL CHOLESTEROL eCW1 ([facility]) 53 TRIGLYCERIDES eCW1 ([facility]) 2.3 CHOL/HDL RATIO eCW1 ([facility]) 58 HDL CHOLESTEROL eCW1 ([facility]) ID Date Data Source [id number] 02/24/2020 11:22:00 AM EDT [facility] Name Value Range Interpretation Code Description Data Radha rce(s) Supporting Document(s) FREE T4 0.90 ng/dL 0.76-1.46 [facility] ID Date Data Source [id number] 02/24/2020 11:22:00 AM EDT [facility] Name Value Range Interpretation Code Description Data Radha rce(s) Supporting Document(s) TSH 1.67 uIU/mL 0.36-3.74 [facility] ID Date Data Source [id number] 02/24/2020 11:03:00 AM EDT [facility] Name Value Range Interpretation Code Description Data Radha rce(s) Supporting Document(s) CHOLESTEROL 135 mg/dL 0-200 [facility] TRIGLYCERIDES 53 mg/dL 0-150 [facility] LDL CHOLESTEROL 66 mg/dL 0-100 [facility] HDL CHOLESTEROL 58 mg/dL 40-60 [facility] CHOL/HDL RATIO 2.3 0.0-5.0 [facility] ID Date Data Source [id number] 02/24/2020 11:03:00 AM EDT [facility] Name Value Range Interpretation Code Description Data [facility] rce(s) Supporting Document(s) GLUCOSE 103 mg/dL 74-106 [facility] BLOOD UREA NITROGEN 10 mg/dL 7-18 [facility] ital CREATININE 0.8 mg/dL 0.6-1.0 [facility] SODIUM 144 mmol/L 136-145 [facility] POTASSIUM 4.4 mmol/L 3.5-5.1 [facility] CHLORIDE 107 mmol/L 98-107 [facility] CO2 29 mmol/L 21-32 [facility] CALCIUM 9.4 mg/dL 8.5-10.1 [facility] ANION GAP 8.0 mmol/L 5-12 [facility] GLOMERULAR FILTRATION RATE 86 mL/min [facility] GFR IS CALCULATED IN mL/min/1.73m2 AMANDA L FUNCTION: >90MILDLY DECREASED: 60-89MILDY TO MODERATELY DECREASED: 45-59 MODERATELY TO SEVERELY DECREASED: 30-44SEVERELY DECREASED: 15-29RENAL FAILURE: <15 AST 22 U/L 15-37 [facility] ALT 51 U/L 12-78 [facility] ALKALINE PHOSPHATASE 112 U/L 46-116 [facility] TOTAL BILIRUBIN 0.4 mg/dL 0.2-1.0 [facility] TOTAL PROTEIN 7.1 g/dl 6.4-8.2 [facility] ALBUMIN 4.2 gm/dL 3.4-5.0 [facility] ID Date Data Source [id number] 02/24/2020 10:20:00 AM [facility] Name Value Range Interpretation Code Description Data [facility]) Supporting Document(s) WHITE BLOOD COUNT 6.4 K/mm3 4.0-10.0 [facility] al RED BLOOD COUNT 4.57 M/mm3 4.00-5.50 [facility] HEMOGLOBIN 14.3 gm/dL 12.0-16.0 [facility] HEMATOCRIT 41.9 % 36.0-48.8 [facility] MEAN CELL VOLUME 91.7 fl 80-96 [facility] MEAN CORPUSCULAR HEMOGLOBIN 31.3 pg 27.0-31.0 H [facility] MEAN CORPUSCULAR HGB CONC 34.1 g/dl 32.0-36.0 [facility] RED CELL DISTRIBUTION WIDTH 12.7 % 10.0-14.5 [facility] PLATELET COUNT 315 K/mm3 172-450 [facility] Procedure Social History Code Duration Value Status Description Data Source(s ) Smoking 02/03/2021 12:00:00 AM EDT Current Smoker completed Curre nt Smoker eCW1 ([facility]) Smoking 09/30/2020 12:00:00 AM EDT Current Smoker completed Curre nt Smoker eCW1 ([facility]) Smoking 09/30/2020 12:00:00 AM EDT Current Smoker completed Curre nt Smoker eCW1 ([facility]) Smoking 06/22/2020 12:00:00 AM EST Current Smoker completed Curre nt Smoker eCW1 ([facility]) Smoking 06/22/2020 12:00:00 AM EST Current Smoker completed Curre nt Smoker eCW1 ([facility]) Smoking 06/22/2020 12:00:00 AM EST Current Smoker completed Curre nt Smoker eCW1 ([facility]) Smoking 06/22/2020 12:00:00 AM EST Current Smoker completed Curre nt Smoker eCW1 ([facility]) 04/24/2020 10:04:44 PM EST Current some day smoker com pleted Current some day smoker [facility] Smoking 04/24/2020 10:04:00 PM EST Current some day smoker com pleted Current some day smoker [facility] Smoking 04/02/2020 12:00:00 AM EST Current Smoker completed Curre nt Smoker eCW1 ([facility]) Smoking 04/02/2020 12:00:00 AM EST Current Smoker completed Curre nt Smoker eCW1 ([facility]) Smoking 04/02/2020 12:00:00 AM EST Current Smoker completed Curre nt Smoker eCW1 ([facility]) Smoking 04/02/2020 12:00:00 AM EST Current Smoker completed Curre nt Smoker eCW1 ([facility]) Vital Signs ID Date Data Source [id number] Name Value Range Interpretation Code Description Data Source(s) Systolic blood pressure 124 mm[Hg] 124 mm[Hg] M EDENT ([facility]) Diastolic blood pressure 84 mm[Hg] 84 mm[Hg] MEDENT ([facility], [facility]) Heart rate 79 /min 79 /min MEDENT ([facility], [facility]) Respiratory rate 18 /min 18 /min MEDENT ( [facility], [facility]) Oxygen saturation in Arterial blood by Pulse oximetry 98 % 98 % MEDENT ([facility], [facility]) Body temperature 98.2 [degF] 98.2 [degF] MEDENT ([facility], [facility]) Body weight 280.00 [lb_av] 280.00 [lb_av] MEDEN T ([facility], [facility]) Body height 68 [in_i] 68 [in_i] MEDENT ([facility], [facility]) 5'8" Body mass index (BMI) [Ratio] 42.6 kg/m2 42.6 k g/m2 MEDENT ([facility], [facility]) Systolic blood pressure 115 mm[Hg] 115 mm[Hg] EDENT ([facility], [facility]) Diastolic blood pressure 78 mm[Hg] 78 mm[Hg] MEDENT ([facility], [facility]) Heart rate 71 /min 71 /min MEDENT ([facility], [facility]) Respiratory rate 20 /min 20 /min MEDENT ( [facility], [facility]) Oxygen saturation in Arterial blood by Pulse oximetry 99 % 99 % [facility], [facility]) Body temperature 98.2 [degF] 98.2 [degF] [facility] ([facility], [facility]) Body weight 280.00 [lb_av] 280.00 [lb_av] MEDEN T ([facility], [facility]) Body height 68 [in_i] 68 [in_i] MEDENT ([facility], [facility]) 5'8" Body mass index (BMI) [Ratio] 42.6 kg/m2 42.6 k g/m2 MEDENT ([facility], [facility]) Body height 67 [in_i] 67 [in_i] eCW1 ([facility]) Body weight 292.6 [lb_av] 292.6 [lb_av] eCW1 ([facility]) Body mass index (BMI) [Ratio] 45.82 kg/m2 45.82 kg/m2 W1 ([facility]) Body temperature 98.2 [degF] 98.2 [degF] eCW1 ( [facility]) Heart rate 83 /min 83 /min eCW1 ([facility]) Respiratory rate 18 /min 18 /min eCW1 ([facility]) Oxygen saturation in Arterial blood by Pulse oximetry 98 % 98 % eCW1 ([facility]) Body height 67 [in_i] 67 [in_i] eCW1 ([facility]) Body weight 276.2 [lb_av] 276.2 [lb_av] eCW1 ([facility]) Body mass index (BMI) [Ratio] 43.25 kg/m2 43.25 kg/m2 eCW1 ([facility]) Body temperature 98.1 [degF] 98.1 [degF] eCW1 ( [facility]) Heart rate 89 /min 89 /min eCW1 ([facility]) Respiratory rate 20 /min 20 /min eCW1 ([facility]) Oxygen saturation in Arterial blood by Pulse oximetry 100 % 100 % eCW1 ([facility]) Body height 67 [in_i] 67 [in_i] eCW1 ([facility]) Body weight 271.6 [lb_av] 271.6 [lb_av] eCW1 ([facility]) Body mass index (BMI) [Ratio] 42.53 kg/m2 42.53 kg/m2 eCW1 ([facility]) Body temperature 98.6 [degF] 98.6 [degF] eCW1 ( [facility]) Heart rate 80 /min 80 /min eCW1 ([facility]) Respiratory rate 20 /min 20 /min eCW1 ([facility]) Oxygen saturation in Arterial blood by Pulse oximetry 100 % 100 % eCW1 ([facility]) Body mass index (BMI) [Ratio] 41.50 kg/m2 41.50 kg/m2 eCW1 ([facility]) Body height 67 [in_i] 67 [in_i] eCW1 ([facility]) Body weight 265 [lb_av] 265 [lb_av] eCW1 ([facility]) Body temperature 97.7 [degF] 97.7 [degF] eCW1 ( [facility]) Heart rate 80 /min 80 /min eCW1 ([facility]) Respiratory rate 20 /min 20 /min eCW1 ([facility]) Oxygen saturation in Arterial blood by Pulse oximetry 100 % 100 % eCW1 ([facility]) Body height 67 [in_i] 67 [in_i] eCW1 ([facility]) Body weight 263.4 [lb_av] 263.4 [lb_av] eCW1 ([facility]) Body mass index (BMI) [Ratio] 41.25 kg/m2 41.25 kg/m2 eCW1 ([facility]) Body temperature 97.8 [degF] 97.8 [degF] eCW1 ( [facility]) Heart rate 85 /min 85 /min eCW1 ([facility]) Respiratory rate 20 /min 20 /min eCW1 ([facility]) Oxygen saturation in Arterial blood by Pulse oximetry 98 % 98 % eCW1 ([facility]) Systolic blood pressure 118 mm[Hg] 118 mm[Hg] M EDENT ([facility], [facility]) Diastolic blood pressure 86 mm[Hg] 86 mm[Hg] MEDENT ([facility], [facility]) Respiratory rate 16 /min 16 /min MEDENT ( [facility], [facility]) Oxygen saturation in Arterial blood by Pulse oximetry 99 % 99 % MEDENT ([facility], [facility]) Heart rate 75 /min 75 /min MEDENT ([facility]) Body weight 250.00 [lb_av] 250.00 [lb_av] MEDEN T ([facility], [facility]) Body height 68 [in_i] 68 [in_i] MEDENT ([facility], [facility]) 5'8" Body mass index (BMI) [Ratio] 38.0 kg/m2 38.0 k g/m2 MEDENT ([facility], [facility]) Body temperature 97.9 [degF] 97.9 [degF] MEDENT ([facility], [facility]) Body height 67 [in_i] 67 [in_i] eCW1 ([facility]) Body weight 263.4 [lb_av] 263.4 [lb_av] eCW1 ([facility]) Body mass index (BMI) [Ratio] 41.25 kg/m2 41.25 kg/m2 eCW1 ([facility]) Body temperature 98.6 [degF] 98.6 [degF] eCW1 ( [facility]) Heart rate 84 /min 84 /min eCW1 ([facility]) Respiratory rate 18 /min 18 /min eCW1 ([facility]) Oxygen saturation in Arterial blood by Pulse oximetry 100 % 100 % eCW1 ([facility]) ID Date Data Source [id number] 06/23/2020 03:15:56 PM [facility] Name Value Range Interpretation Code Description Data Source(s) WEIGHT RECORDED 265.5 lb 265.5 lb [facility] Body height Measured 68 in 68 in [facility] WEIGHT RECORDED 260 lb 260 lb [facility] Body height Measured 68 in 68 in [facility] Patient Treatment Plan of Care Planned Activity Planned Date Details Description Data Source (s) Sumatriptan 50 MG Oral Tablet [Imitrex] 09/30/2020 12:00:00 AM EDT eCW1 ([facility]) Sumatriptan 50 MG Oral Tablet [Imitrex] 09/30/2020 12:00:00 AM EDT eCW1 ([facility]) Pseudoephedrine Hydrochloride 60 MG Oral Tablet 03/28/2020 12:00:00 AM EDT eCW1 ([facility])
[2021-04-15] MEDS ORDERED: OXYC1TAB23 PO (16:31)
== END 2021-04-15 15:22 | disposition left against medical advice (07) ==
LOC: M ED 10:44
DX: Z53.21 Procedure and treatment not carried out due to patient leaving prior to being seen by health care provider (principal)

== ENCOUNTER → 2021-04-15 | Outpatient (CLI) | payer BC, OTHER ==
--- NOTE | 2021-04-15 13:48 | REP ---
INDICATION: RIGHT OVARIAN CYST COMPARISON: 11/25/2020 TECHNIQUE: Transabdominal pelvic ultrasound followed by transvaginal examination for better evaluation of the endometrium and adnexa with color Doppler evaluation of the ovaries. FINDINGS: Bladder is unremarkable and measures 12.8 x 12.3 x 9.1 cm. Normal anteverted uterus measures 7.7 x 4.5 x 2.2 cm. The endometrial complex measures 6.2 mm thickness. Nabothian cysts in the cervical region noted. Bilateral ovaries are normal in vascularity without evidence for torsion. Right ovary measures 6.8 x 5.5 x 6.6 cm and is dominated by a 6.1 x 7.5 x 5.4 cm simple cyst; R I = 0.60. Left ovary measures 2.7 x 2.5 x 2.2 cm; R I = 0.51. No pelvic fluid or adnexal mass lesion. IMPRESSION: Enlarging simple right ovarian cyst. <Electronically signed by Cachorro Garcia > 04/15/21 [id number]
== END ==
LOC: M WHC 12:10
PROVIDERS: ATTEND Specialist
DX: N83.201 Unspecified ovarian cyst, right side (principal)

== ENCOUNTER → 2021-05-01 | Outpatient (CLI) | payer BC, OTHER ==
[~2021-05-01] MED LIST changes: +ARIP1TAB6 PO; +FLUO10CA16 PO; +MULTTAB20 PO; -SUMA50TA2; +SUMA50TA2 PO
== END ==
LOC: M LABSMTC 09:10
PROVIDERS: ATTEND Anesthesiology
DX: Z01.812 Encounter for preprocedural laboratory examination (principal); Z20.822 Contact with and (suspected) exposure to COVID-19

== ENCOUNTER 2021-05-06 13:17 | Day surgery (SDC) | payer OTHER ==
[~2021-05-06] VITALS: Ht 172.7 cm; Wt 133.4 kg
[~2021-05-06 13:17] MED LIST changes: -FLUO10CA16 PO; +FLUO10CA18 PO; +LIDOCAINE 1% MDV 20ML VIAL SQ PRN; +LR 1,000 ML IV ONE
[2021-05-06] MEDS ORDERED: OXYC1TAB23 PO ×2 (13:52→18:04)
[2021-05-06 14:20] LABS: HEMATOCRIT 43.3 % (36.0-47.0); HEMOGLOBIN 14.1 g/dl (12.0-15.5); MEAN CORPUSCULAR HEMOGLOBIN 30.8 pg (27.0-33.0); MEAN CORPUSCULAR HGB CONC 32.6 g/dl (32.0-36.5); MEAN CORPUSCULAR VOLUME 94.5 fl (80.0-96.0); PLATELET COUNT, AUTOMATED 368 10^3/uL (150-450); RED BLOOD COUNT 4.58 10^6/uL (4.00-5.40); WHITE BLOOD COUNT 8.9 10^3/uL (4.0-10.0)
[2021-05-06] MEDS ORDERED: fentaNYL 250 MCG/5 ML INJECTION As Ordered ONE (15:44)
[2021-05-06] MEDS ORDERED: ROCURONIUM BROMIDE 50 MG/5 ML VIAL As Ordered ONE (15:44)
[2021-05-06] MEDS ORDERED: LIDOCAINE 2% 100MG/5ML SDV (FOR ANES.) As Ordered ONE (15:44)
[2021-05-06] MEDS ORDERED: propofoL 200 MG/20 ML VIAL As Ordered ONE (15:44)
[2021-05-06] MEDS ORDERED: MIDAZOLAM INJ 2MG/2ML VIAL (J2250 PER 1MG) As Ordered ONE (15:45)
[2021-05-06] MEDS ORDERED: BUPIVACAINE HCL 0.25% 30ML VIAL As Ordered ONE (16:16)
[2021-05-06] MEDS ORDERED: LEVONORGESTREL 52MG (MIRENA) IUD As Ordered ONE (16:37)
[2021-05-06] MEDS ORDERED: ONDANSETRON 4MG/2ML VIAL As Ordered ONE (17:05)
[2021-05-06] MEDS ORDERED: KETOROLAC 60MG 2ML VIAL As Ordered ONE (17:05)
[2021-05-06] MEDS ORDERED: METOCLOPRAMIDE INJ 10MG/2ML VIAL (J2765 PER 1) As Ordered ONE (17:05)
[2021-05-06] MEDS ORDERED: dexameTHASONE 4 MG/ML 1ML VIAL (J1100 PER 1MG) As Ordered ONE ×2 (17:05→17:06)
[2021-05-06] MEDS ORDERED: SUGAMMADEX SODIUM 500 MG/5 ML VIAL (BRIDION) As Ordered ONE (17:05)
[2021-05-06] MEDS ORDERED: ACETAMINOPHEN 1000MG 100ML IV BTL (OFIRMEV) (J0131 PER 10MG) As Ordered ONE (17:06)
[2021-05-06] MEDS ORDERED: fentaNYL 100 MCG/2 ML INJECTION As Ordered ONE (17:55)
[2021-05-06] MEDS: fentaNYL 100 MCG/2 ML INJECTION IV PRN ×4 (17:57→18:15)
[2021-05-06] MEDS ORDERED: METOCLOPRAMIDE INJ 10MG/2ML VIAL (J2765 PER 1) IV PRN (18:00)
[2021-05-06] MEDS ORDERED: LR 1,000 ML IV SCH (18:00)
[2021-05-06] MEDS ORDERED: PERCOCET 5MG/325MG TAB PO PRN (18:00)
[2021-05-06] MEDS ORDERED: ONDANSETRON 4MG/2ML VIAL IV PRN (18:00)
[2021-05-06 18:56] VITALS: BP 115/62
== END 2021-05-06 19:22 | disposition home or self-care (01) ==
LOC: M SDC 13:17
PROVIDERS: ATTEND Specialist
DX: D27.0 Benign neoplasm of right ovary (principal); N80.0 Endometriosis of uterus; Z30.430 Encounter for insertion of intrauterine contraceptive device; R10.2 Pelvic and perineal pain; R00.0 Tachycardia, unspecified; E03.9 Hypothyroidism, unspecified; K57.90 Diverticulosis of intestine, part unspecified, without perforation or abscess without bleeding; F41.9 Anxiety disorder, unspecified; F32.9 Major depressive disorder, single episode, unspecified; G43.909 Migraine, unspecified, not intractable, without status migrainosus; M54.2 Cervicalgia; J45.909 Unspecified asthma, uncomplicated; F17.290 Nicotine dependence, other tobacco product, uncomplicated; Z88.8 Allergy status to other drugs, medicaments and biological substances; Z79.899 Other long term (current) drug therapy
CPT/HCPCS: 36415; 58300; 58662; 81025; 85027; 88305; J0131; J1100; J1885; J2250; J2405; J2765; J3010; J7298

== ENCOUNTER → 2021-06-25 | Outpatient (REF) | payer OTHER ==
[~2021-06-25] MED LIST changes: -LIDOCAINE 1% MDV 20ML VIAL SQ PRN; -LR 1,000 ML IV ONE
== END ==
LOC: M SFHCWAGY 10:09
PROVIDERS: ATTEND Specialist
DX: R87.612 Low grade squamous intraepithelial lesion on cytologic smear of cervix (LGSIL) (principal); Z12.4 Encounter for screening for malignant neoplasm of cervix

== ENCOUNTER → 2021-10-28 | Outpatient (CLI) | payer OTHER | LOC: M WHC 14:53 | PROVIDERS: ATTEND Specialist | DX: N83.201 Unspecified ovarian cyst, right side (principal); Z97.5 Presence of (intrauterine) contraceptive device ==

== ENCOUNTER 2021-10-30 20:46 | Emergency (ER) | payer OTHER ==
[~2021-10-30] VITALS: Ht 172.7 cm; Wt 136.7 kg
[2021-10-31] MEDS ORDERED: ONDANSETRON 4MG/2ML VIAL IV ONE (00:15)
[2021-10-31] MEDS ORDERED: KETOROLAC 30 MG/ML 1ML VIAL IV ONE (00:15)
[2021-10-31 00:33] LABS: BASO % 0.3 % (0.0-1.0); EOS # 0.1 10^3/uL (0.0-0.5); EOS % 0.9 % (0.0-3.0); HEMATOCRIT 39.8 % (36.0-47.0); HEMOGLOBIN 12.8 g/dl (12.0-15.5); LYMPH # 2.9 10^3/uL (1.5-5.0); LYMPH % 25.5 % (24.0-44.0); MEAN CORPUSCULAR HEMOGLOBIN 29.9 pg (27.0-33.0); MEAN CORPUSCULAR HGB CONC 32.2 g/dl (32.0-36.5); MONO # 0.9 10^3/uL (0.0-0.8); MONO % 7.9 % (2.0-8.0); NEUTROPHILS # 7.3 10^3/uL (1.5-8.5); PLATELET COUNT, AUTOMATED 310 10^3/uL (150-450); RED BLOOD COUNT 4.28 10^6/uL (4.00-5.40); WHITE BLOOD COUNT 11.2 10^3/uL (4.0-10.0)
[2021-10-31 01:01] LABS: ALBUMIN 3.5 GM/DL (3.2-5.2); BILIRUBIN,DIRECT 0.2 MG/DL (0.0-0.2); BILIRUBIN,TOTAL 0.3 MG/DL (0.2-1.0); TOTAL PROTEIN 6.8 GM/DL (6.4-8.2)
[2021-10-31] MEDS ORDERED: ISOVUE-370 76% 100ML VIAL As Ordered ONE (01:22)
[2021-10-31 03:00] VITALS: BP 140/82
== END 2021-10-31 03:01 | disposition home or self-care (01) ==
LOC: M ED 20:46
DX: R10.9 Unspecified abdominal pain (principal); N83.201 Unspecified ovarian cyst, right side; G43.909 Migraine, unspecified, not intractable, without status migrainosus; F43.10 Post-traumatic stress disorder, unspecified; F41.9 Anxiety disorder, unspecified; F31.9 Bipolar disorder, unspecified; J45.909 Unspecified asthma, uncomplicated; Z86.73 Personal history of transient ischemic attack (TIA), and cerebral infarction without residual deficits; Z91.040 Latex allergy status; Z88.3 Allergy status to other anti-infective agents; Z79.899 Other long term (current) drug therapy
CPT/HCPCS: 74177; 80047; 80076; 81001; 83690; 84702; 85025; 87210; 99284; J1885; J2405; Q9967

== ENCOUNTER → 2021-12-09 | Outpatient (CLI) | payer OTHER ==
[~2021-12-09] MED LIST changes: +ABIL1TAB11 PO; +ALLE180T33 PO; +ALPR1TAB6 PO; +CLONI1TA PO; +CYMB60CA4 PO; +DULO40CA PO; +ERGO500029 PO; +HYDR-3713 PO; +HYDR-4571 PO; +MINI5CAP PO; +ONDA4TAB6 PO; +PROAAER10 INH; +PROM25TA12 PO; +SERO50TA PO; +VITATAB73 PO; +VITMTA PO
== END ==
LOC: M LABSMTC 10:18
PROVIDERS: ATTEND Anesthesiology
DX: Z01.818 Encounter for other preprocedural examination (principal); Z11.52 Encounter for screening for COVID-19

== ENCOUNTER 2021-12-13 11:29 | Day surgery (SDC) | payer OTHER ==
[~2021-12-13] VITALS: Ht 172.7 cm; Wt 132.5 kg
[2021-12-13 11:57] LABS: HEMATOCRIT 42.2 % (36.0-47.0); HEMOGLOBIN 13.7 g/dl (12.0-15.5); MEAN CORPUSCULAR HEMOGLOBIN 31.1 pg (27.0-33.0); MEAN CORPUSCULAR HGB CONC 32.5 g/dl (32.0-36.5); MEAN CORPUSCULAR VOLUME 95.7 fl (80.0-96.0); PLATELET COUNT, AUTOMATED 325 10^3/uL (150-450); RED BLOOD COUNT 4.41 10^6/uL (4.00-5.40); WHITE BLOOD COUNT 6.4 10^3/uL (4.0-10.0)
[2021-12-13] MEDS ORDERED: LR 1,000 ML IV SCH ×3 (12:00→16:00)
[2021-12-13] MEDS ORDERED: BUPIVACAINE HCL 0.25% 10ML VIAL As Ordered ONE (12:41)
[2021-12-13] MEDS ORDERED: OXYC1TAB23 PO (12:52)
[2021-12-13] MEDS ORDERED: IBUP-1022 PO (12:53)
[2021-12-13] MEDS ORDERED: ceFAZolin SOD 2 GM in IV 1 EA IV ONE (12:55)
[2021-12-13] MEDS ORDERED: ceFAZolin SOD 1 GM in D5W MINI-BAG PLUS 50 ML IV ONE (12:55)
[2021-12-13] MEDS ORDERED: ceFAZolin 1GM VIAL (J0690 PER 500MG) As Ordered ONE (13:14)
[2021-12-13] MEDS ORDERED: ceFAZolin 2 GM/D5W 50 ML IV BAG (J0690 PER 500MG) As Ordered ONE (13:14)
[2021-12-13] MEDS ORDERED: MIDAZOLAM INJ 2MG/2ML VIAL (J2250 PER 1MG) As Ordered ONE (13:31)
[2021-12-13] MEDS ORDERED: fentaNYL 100 MCG/2 ML INJECTION As Ordered ONE ×4 (13:31→14:46)
[2021-12-13] MEDS ORDERED: LIDOCAINE 2% INJ 100 MG/5 ML SYRINGE As Ordered ONE (13:35)
[2021-12-13] MEDS ORDERED: dexameTHASONE 4 MG/ML 1ML VIAL (J1100 PER 1MG) As Ordered ONE (13:35)
[2021-12-13] MEDS ORDERED: ROCURONIUM BROMIDE 50 MG/5 ML VIAL As Ordered ONE ×2 (13:35→13:43)
[2021-12-13] MEDS ORDERED: propofoL 200 MG/20 ML VIAL As Ordered ONE (13:35)
[2021-12-13] MEDS ORDERED: ONDANSETRON 4MG 2ML VIAL As Ordered ONE (13:35)
[2021-12-13] MEDS ORDERED: SUGAMMADEX SODIUM 500 MG/5 ML VIAL (BRIDION) As Ordered ONE (13:37)
[2021-12-13] MEDS ORDERED: KETOROLAC 60MG 2ML VIAL As Ordered ONE (14:17)
[2021-12-13] MEDS ORDERED: ONDANSETRON 4MG 2ML VIAL IV PRN ×2 (14:40→15:00)
[2021-12-13] MEDS: fentaNYL 100 MCG/2 ML INJECTION IV PRN ×4 (14:46→15:12)
[2021-12-13] MEDS: oxyCODONE 5MG TAB PO PRN ×2 (14:57→15:31)
[2021-12-13] MEDS: HYDROMORPHONE HCL 0.5 MG/ 0.5 ML SYRINGE (J1170 PER 1) IV PRN ×4 (15:25→15:57)
[2021-12-13] MEDS ORDERED: ESTR1TAB PO (15:43)
[2021-12-13 16:20] VITALS: BP 121/65
[2021-12-13 16:50] VITALS: BP 119/62
[2021-12-13 17:25] VITALS: BP 121/61
[2021-12-13 18:20] VITALS: BP 120/69
[2021-12-13 19:20] VITALS: BP 127/65
[2021-12-13] MEDS: DOCUSATE SODIUM 100MG CAPSULE PO SCH (19:47)
[2021-12-13] MEDS ORDERED: KETOROLAC 30 MG/ML 1ML VIAL IV PRN (20:00)
[2021-12-13 22:00] VITALS: BP 111/56
[2021-12-14 02:00] VITALS: BP 110/93
[2021-12-14] MEDS: PERCOCET 5MG/325MG TAB PO PRN ×2 (02:03→09:22)
[2021-12-14 06:00] VITALS: BP 119/58
[2021-12-14] MEDS: DOCUSATE SODIUM 100MG CAPSULE PO SCH (09:21)
[2021-12-14 10:00] VITALS: BP 124/65
== END 2021-12-14 11:00 | disposition home or self-care (01) ==
LOC: M SDC 11:29 → M OBS 16:20 → M SDC 12-14 11:00
PROVIDERS: ATTEND Specialist
DX: R10.2 Pelvic and perineal pain (principal); N80.0 Endometriosis of uterus; N83.201 Unspecified ovarian cyst, right side; N83.202 Unspecified ovarian cyst, left side; J45.909 Unspecified asthma, uncomplicated; E03.9 Hypothyroidism, unspecified; K57.92 Diverticulitis of intestine, part unspecified, without perforation or abscess without bleeding; F17.200 Nicotine dependence, unspecified, uncomplicated; Z79.51 Long term (current) use of inhaled steroids; Z79.899 Other long term (current) drug therapy; F43.10 Post-traumatic stress disorder, unspecified; F41.9 Anxiety disorder, unspecified; F32.A Depression, unspecified; F31.9 Bipolar disorder, unspecified; G43.909 Migraine, unspecified, not intractable, without status migrainosus; F90.9 Attention-deficit hyperactivity disorder, unspecified type; Z88.8 Allergy status to other drugs, medicaments and biological substances; Z91.040 Latex allergy status
CPT/HCPCS: 36415; 58571; 85027; 86850; 86900; 86901; 88307; 96374; J0690; J1100; J1170; J1885; J2250; J2405; J3010; S2900

== ENCOUNTER → 2021-12-31 | Outpatient (CLI) | payer OTHER ==
[~2021-12-31] MED LIST changes: +ESTR1TAB PO
== END ==
LOC: M PLALAB 12:45
PROVIDERS: ATTEND Specialist
DX: R11.2 Nausea with vomiting, unspecified (principal)

== ENCOUNTER → 2022-07-10 | Outpatient (REF) ==
[2022-07-10 14:57] LABS: RSV AMPLIFICATION NEGATIVE (NEGATIVE)
== END ==
LOC: M LABSMTC 11:44
PROVIDERS: ATTEND Family Medicine
DX: Z20.828 Contact with and (suspected) exposure to other viral communicable diseases (principal); Z11.52 Encounter for screening for COVID-19

== ENCOUNTER → 2022-08-04 | Outpatient (CLI) | payer BC | LOC: M PLAIMG 07:38 | DX: R51.9 Headache, unspecified (principal); Z91.81 History of falling; Z86.69 Personal history of other diseases of the nervous system and sense organs ==

== ENCOUNTER 2022-09-17 02:26 | Emergency (ER) | payer BC ==
[~2022-09-17] VITALS: Ht 172.7 cm; Wt 130.0 kg
[2022-09-17 03:59] LABS: BASO % 0.4 % (0.0-1.0); EOS # 0.1 10^3/uL (0.0-0.5); EOS % 0.5 % (0.0-3.0); HEMATOCRIT 42.2 % (36.0-47.0); HEMOGLOBIN 13.7 g/dl (12.0-15.5); LYMPH # 2.2 10^3/uL (1.5-5.0); LYMPH % 23.6 % (24.0-44.0); MEAN CORPUSCULAR HEMOGLOBIN 30.4 pg (27.0-33.0); MEAN CORPUSCULAR HGB CONC 32.5 g/dl (32.0-36.5); MEAN CORPUSCULAR VOLUME 93.8 fl (80.0-96.0); MONO # 0.9 10^3/uL (0.0-0.8); MONO % 9.1 % (2.0-8.0); NEUTROPHILS # 6.3 10^3/uL (1.5-8.5); NEUTROPHILS % 66.1 % (36.0-66.0); PLATELET COUNT, AUTOMATED 341 10^3/uL (150-450); WHITE BLOOD COUNT 9.5 10^3/uL (4.0-10.0)
[2022-09-17 04:34] LABS: LIPASE 34 U/L (12-53)
[2022-09-17 04:40] LABS: ALBUMIN 4.2 G/DL (3.2-5.2); ALKALINE PHOSPHATASE 115 U/L (46-116); ALT/SGPT 32 U/L (7.0-40); AST/SGOT 19 U/L (<34); BILIRUBIN,DIRECT 0.2 MG/DL (<0.4); BILIRUBIN,TOTAL 0.6 MG/DL (0.3-1.2); BLOOD UREA NITROGEN 10 MG/DL (9-23); CALCIUM LEVEL 9.1 MG/DL (8.5-10.1); CARBON DIOXIDE LEVEL 26 MMOL/L (20-31); CHLORIDE LEVEL 107 MMOL/L (98-107); CREATININE FOR GFR 0.82 MG/DL (0.55-1.30); GLOMERULAR FILTRATION RATE > 60.0 (>60); GLUCOSE, FASTING 97 MG/DL (60-100); POTASSIUM SERUM 4.2 MMOL/L (3.5-5.1); SODIUM LEVEL 141 MMOL/L (136-145); TOTAL PROTEIN 7.2 G/DL (5.7-8.2)
[2022-09-17] MEDS ORDERED: ONDANSETRON 4MG ORAL DISINTEGRATING TAB PO ONE (04:50)
[2022-09-17] MEDS ORDERED: NS 1,000 ML IV ONE (05:40)
[2022-09-17] MEDS ORDERED: ISOVUE-370 76% 100ML VIAL As Ordered ONE (05:49)
[2022-09-17] MEDS ORDERED: METOCLOPRAMIDE INJ 10MG/2ML VIAL IV ONE (07:00)
[2022-09-17 08:57] VITALS: BP 112/58
== END 2022-09-17 09:00 | disposition home or self-care (01) ==
LOC: M ED 02:26
DX: R10.9 Unspecified abdominal pain (principal); R11.10 Vomiting, unspecified; G43.909 Migraine, unspecified, not intractable, without status migrainosus; J45.909 Unspecified asthma, uncomplicated; E03.9 Hypothyroidism, unspecified; F41.9 Anxiety disorder, unspecified; F43.10 Post-traumatic stress disorder, unspecified; Z88.3 Allergy status to other anti-infective agents; Z91.040 Latex allergy status; Z91.048 Other nonmedicinal substance allergy status; Z79.52 Long term (current) use of systemic steroids; Z79.810 Long term (current) use of selective estrogen receptor modulators (SERMs); Z79.83 Long term (current) use of bisphosphonates; Z79.899 Other long term (current) drug therapy
CPT/HCPCS: 74177; 80048; 80076; 83690; 85025; 96361; 96374; 99284; J2765; Q9967

== ENCOUNTER 2022-10-29 00:27 | Emergency (ER) | payer BC ==
[~2022-10-29] VITALS: Ht 172.7 cm; Wt 130.7 kg
[2022-10-29 02:31] VITALS: BP 142/82
== END 2022-10-29 03:20 | disposition left against medical advice (07) ==
LOC: M ED 00:27
DX: Z53.21 Procedure and treatment not carried out due to patient leaving prior to being seen by health care provider (principal)

== ENCOUNTER → 2022-12-28 | Outpatient (CLI) | payer BC | LOC: M RAD 14:21 | PROVIDERS: ATTEND Physician Assistant Medical | DX: Z11.1 Encounter for screening for respiratory tuberculosis (principal) ==

== ENCOUNTER → 2023-01-12 | Outpatient (REF) | LOC: M EMP 08:19 | PROVIDERS: ATTEND Family Medicine | DX: Z11.52 Encounter for screening for COVID-19 (principal) ==

== ENCOUNTER → 2023-01-16 | Outpatient (REF) ==
[2023-01-16 10:55] LABS: RSV AMPLIFICATION NEGATIVE (NEGATIVE)
== END ==
LOC: M EMP 07:36
PROVIDERS: ATTEND Family Medicine
DX: Z11.52 Encounter for screening for COVID-19 (principal)

== ENCOUNTER 2023-07-21 19:42 | Emergency (ER) | payer BC, OTHER ==
[~2023-07-21] VITALS: Ht 172.7 cm; Wt 130.4 kg
[2023-07-21 20:29] LABS: BASO % 0.3 % (0.0-1.0); EOS # 0.1 10^3/uL (0.0-0.5); EOS % 0.8 % (0.0-3.0); HEMATOCRIT 42.1 % (36.0-47.0); HEMOGLOBIN 13.8 g/dl (12.0-15.5); LYMPH # 2.5 10^3/uL (1.5-5.0); LYMPH % 27.2 % (24.0-44.0); MEAN CORPUSCULAR HEMOGLOBIN 31.2 pg (27.0-33.0); MEAN CORPUSCULAR HGB CONC 32.8 g/dl (32.0-36.5); MONO # 0.8 10^3/uL (0.0-0.8); MONO % 8.6 % (2.0-8.0); NEUTROPHILS # 5.8 10^3/uL (1.5-8.5); NEUTROPHILS % 62.8 % (36.0-66.0); PLATELET COUNT, AUTOMATED 335 10^3/uL (150-450); RED BLOOD COUNT 4.43 10^6/uL (4.00-5.40); WHITE BLOOD COUNT 9.2 10^3/uL (4.0-10.0)
[2023-07-21 20:45] LABS: LIPASE 45 U/L (12-53)
[2023-07-21 20:47] LABS: ALBUMIN 3.6 G/DL (3.2-5.2); ALKALINE PHOSPHATASE 112 U/L (46-116); ALT/SGPT 44 U/L (7.0-40); AST/SGOT 20 U/L (<34); BILIRUBIN,DIRECT 0.1 MG/DL (<0.4); BILIRUBIN,TOTAL 0.3 MG/DL (0.3-1.2); BLOOD UREA NITROGEN 14 MG/DL (9-23); CALCIUM LEVEL 8.8 MG/DL (8.5-10.1); CARBON DIOXIDE LEVEL 26 MMOL/L (20-31); CHLORIDE LEVEL 112 MMOL/L (98-107); CREATININE FOR GFR 0.81 MG/DL (0.55-1.30); GLOMERULAR FILTRATION RATE > 60.0 (>60); GLUCOSE, FASTING 82 MG/DL (60-100); POTASSIUM SERUM 4.1 MMOL/L (3.5-5.1); SODIUM LEVEL 142 MMOL/L (136-145); TOTAL PROTEIN 6.5 G/DL (5.7-8.2)
[2023-07-21 21:22] LABS: HCG, SERUM QUALITATIVE NEGATIVE (NEGATIVE)
[2023-07-22] MEDS ORDERED: FAMO20TA PO (00:09)
[2023-07-22] MEDS ORDERED: GABA-284 PO (00:09)
[2023-07-22] MEDS ORDERED: ISOVUE-370 76% 100ML VIAL As Ordered ONE (01:22)
[2023-07-22] MEDS: NS 1,000 ML IV ONE (01:47)
[2023-07-22] MEDS: KETOROLAC 30 MG/ML 1ML VIAL IV ONE (01:47)
[2023-07-22] MEDS: ONDANSETRON 4MG 2ML VIAL IV ONE (01:47)
[2023-07-22] MEDS: NORCO 5/325MG TABLET (HOME DOSE PACK) PO ONE (03:04)
[2023-07-22 03:06] VITALS: BP 94/53; TEMP 97.3; O2SAT 98
== END 2023-07-22 03:08 | disposition home or self-care (01) ==
LOC: M ED 19:42
DX: R10.31 Right lower quadrant pain (principal); J21.9 Acute bronchiolitis, unspecified; G43.909 Migraine, unspecified, not intractable, without status migrainosus; F31.9 Bipolar disorder, unspecified; F41.9 Anxiety disorder, unspecified; E03.9 Hypothyroidism, unspecified; Z91.040 Latex allergy status; Z88.8 Allergy status to other drugs, medicaments and biological substances; Z91.048 Other nonmedicinal substance allergy status; Z79.52 Long term (current) use of systemic steroids; Z79.891 Long term (current) use of opiate analgesic; Z79.83 Long term (current) use of bisphosphonates; Z79.899 Other long term (current) drug therapy
CPT/HCPCS: 74177; 80048; 80076; 81001; 83690; 84703; 85025; 96361; 96374; 99284; J1885; J2405; Q9967

== ENCOUNTER 2023-08-20 16:28 | Inpatient (IN) | payer OTHER ==
[~2023-08-20] VITALS: Ht 172.7 cm; Wt 125.9 kg
[~2023-08-20 16:28] MED LIST changes: +FAMO20TA PO; +GABA-284 PO
[2023-08-20 17:12] LABS: HEMOGLOBIN 14.6 g/dl (12.0-15.5); MEAN CORPUSCULAR HEMOGLOBIN 31.4 pg (27.0-33.0); MEAN CORPUSCULAR HGB CONC 33.2 g/dl (32.0-36.5); MEAN CORPUSCULAR VOLUME 94.6 fl (80.0-96.0); PLATELET COUNT, AUTOMATED 353 10^3/uL (150-450); RED BLOOD COUNT 4.65 10^6/uL (4.00-5.40); WHITE BLOOD COUNT 8.8 10^3/uL (4.0-10.0)
[2023-08-20 17:28] LABS: ETHYL ALCOHOL (ETHANOL) < 0.003 % (0.000-0.010)
[2023-08-20 17:29] LABS: ALKALINE PHOSPHATASE 113 U/L (46-116); ALT/SGPT 33 U/L (7.0-40); AST/SGOT 22 U/L (<34); BILIRUBIN,DIRECT 0.1 MG/DL (<0.4); BILIRUBIN,TOTAL 0.3 MG/DL (0.3-1.2); BLOOD UREA NITROGEN 15 MG/DL (9-23); CALCIUM LEVEL 9.6 MG/DL (8.5-10.1); CARBON DIOXIDE LEVEL 26 MMOL/L (20-31); CHLORIDE LEVEL 109 MMOL/L (98-107); CREATININE FOR GFR 0.86 MG/DL (0.55-1.30); GLOMERULAR FILTRATION RATE > 60.0 (>60); GLUCOSE, FASTING 86 MG/DL (60-100); POTASSIUM SERUM 4.1 MMOL/L (3.5-5.1); SALICYLATE LEVEL < 3.0 MG/DL (<30); SODIUM LEVEL 142 MMOL/L (136-145); TOTAL PROTEIN 7.1 G/DL (5.7-8.2)
[2023-08-20 17:36] LABS: HCG, SERUM QUALITATIVE NEGATIVE (NEGATIVE)
[2023-08-20 17:50] LABS: AMPHETAMINES LEVEL URINE NEGATIVE (NEGATIVE)
[2023-08-20 17:51] LABS: BARBITURATES URINE NEGATIVE (NEGATIVE); BENZODIAZEPINES URINE NEGATIVE (NEGATIVE); CANNABINOIDS URINE NEGATIVE (NEGATIVE); COCAINE METABOLITE URINE NEGATIVE (NEGATIVE); METHADONE URINE NEGATIVE (NEGATIVE); OPIATES URINE NEGATIVE (NEGATIVE); PHENCYCLIDINE URINE NEGATIVE (NEGATIVE)
[2023-08-20] MEDS ORDERED: MED REC IN PROGRESS XX SCH (18:00)
[2023-08-20] MEDS ORDERED: GABA-282 PO (19:00)
[2023-08-20] MEDS ORDERED: TOPI1CAP8 PO (19:03)
[2023-08-20] MEDS ORDERED: QUET50TA67 PO (19:03)
[2023-08-20] MEDS ORDERED: TOPI1CAP4 PO (19:03)
[2023-08-20] MEDS ORDERED: VITA100T14 PO (19:03)
[2023-08-20] MEDS ORDERED: ABIL10TA9 PO (19:04)
[2023-08-20] MEDS ORDERED: HOME MED LIST COMPLETE! XX SCH (19:05)
[2023-08-20] MEDS: GABAPENTIN 300 MG CAP PO ONE (22:30)
[2023-08-20] MEDS: QUEtiapine FUMARATE 50MG TAB PO ONE (22:30)
[2023-08-21] MEDS ORDERED: TOPIRAMATE 50 MG PO SCH (09:00)
[2023-08-21] MEDS: ARIPiprazole 10 MG TAB PO SCH (10:39)
[2023-08-21] MEDS: GABAPENTIN 300 MG CAP PO SCH (10:39)
[2023-08-21] MEDS: TOPIRAMATE 50 MG PO SCH (10:41)
[2023-08-21] MEDS: TOPIRAMATE 100 MG PO SCH (10:42)
[2023-08-21] MEDS: PYRIDOXINE 50 MG TAB PO SCH (10:43)
[2023-08-21] MEDS: NICOTINE 21MG/24HR 1 EA TRANSDERMAL TD ONE (11:39)
[2023-08-21] MEDS ORDERED: QUEtiapine FUMARATE 50MG TAB PO SCH (21:00)
[2023-08-21] MEDS: QUEtiapine FUMERATE XR 50MG TABER PO SCH (21:39)
[2023-08-22] MEDS: NICOTINE 21MG/24HR 1 EA TRANSDERMAL TD SCH (11:49)
[2023-08-22] MEDS ORDERED: IBUPROFEN 400MG TAB PO PRN (14:20)
[2023-08-22] MEDS ORDERED: MOM 30ML SUSPENSION UDC PO PRN (14:20)
[2023-08-22] MEDS ORDERED: ACETAMINOPHEN TAB 650MG DOSE (2X325MG) PO PRN (14:20)
[2023-08-22] MEDS ORDERED: MAALOX 30 ML SUSP *UDC PO PRN (14:20)
[2023-08-22] MEDS: traZODone 50 MG TAB PO PRN (21:16)
[2023-08-23] MEDS ORDERED: ALBUTEROL 90 MCG/ACT 8GM HFA INHALER INH PRN (10:15)
[2023-08-23] MEDS: diphenhydrAMINE 25MG CAP PO PRN (10:59)
[2023-08-23] MEDS: NICOTINE 21MG/24HR 1 EA TRANSDERMAL TD SCH (14:32)
[2023-08-23 18:14] VITALS: BP 119/67; TEMP 98
[2023-08-23] MEDS: QUEtiapine FUMERATE XR 50MG TABER PO SCH (21:16)
[2023-08-24 06:20] VITALS: BP_SYST 102; BP_SYST 114; BP_DIAS 55; BP_DIAS 62; TEMP 97.2; O2SAT 96
[2023-08-24] MEDS: GABAPENTIN 300 MG CAP PO SCH (08:29)
[2023-08-24] MEDS: TOPIRAMATE (TopAMAX) 25 MG TAB PO SCH (08:29)
[2023-08-24 16:54] VITALS: BP 139/67; TEMP 97.6; O2SAT 99
[2023-08-25 06:01] VITALS: BP 108/67; TEMP 98; O2SAT 95
== END 2023-08-25 13:15 | disposition home or self-care (01) | DRG 753 ==
LOC: M ED 16:28 → M ED INP 08-22 14:18 → M PSY 08-22 15:32
PROVIDERS: ADMIT Psychiatry & Neurology Psychiatry; ATTEND Psychiatry & Neurology Psychiatry
DX: F31.30 Bipolar disorder, current episode depressed, mild or moderate severity, unspecified (principal); G62.9 Polyneuropathy, unspecified; R45.851 Suicidal ideations; Z91.040 Latex allergy status; Z88.8 Allergy status to other drugs, medicaments and biological substances; Z91.018 Allergy to other foods; Z79.899 Other long term (current) drug therapy; G43.909 Migraine, unspecified, not intractable, without status migrainosus; J45.909 Unspecified asthma, uncomplicated; F29 Unspecified psychosis not due to a substance or known physiological condition; F17.200 Nicotine dependence, unspecified, uncomplicated

== ENCOUNTER 2024-02-27 22:18 | Emergency (ER) | payer OTHER ==
[~2024-02-27 22:18] MED LIST changes: +ABIL10TA9 PO; -ARIP10TA32 PO; +ARIP10TA63 PO; +FLUO-290 PO; -FLUO10CA18 PO; +GABA-1172 PO; +ONDA-282 PO; +ONDA-284 PO; -ONDA4TAB6 PO; -ONDA8TAB8 PO; +QUET50TA67 PO; +TOPI1CAP4 PO; +TOPI1CAP8 PO; +VITA100T14 PO
[2024-02-27 22:20] VITALS: TEMP 98.2
[2024-02-27 23:27] LABS: BASO % 0.3 % (0.0-1.0); EOS # 0.1 10^3/uL (0.0-0.5); EOS % 1.1 % (0.0-3.0); HEMATOCRIT 40.3 % (36.0-47.0); HEMOGLOBIN 13.4 g/dl (12.0-15.5); LYMPH # 2.2 10^3/uL (1.5-5.0); LYMPH % 27.7 % (24.0-44.0); MEAN CORPUSCULAR HEMOGLOBIN 31.1 pg (27.0-33.0); MEAN CORPUSCULAR HGB CONC 33.3 g/dl (32.0-36.5); MEAN CORPUSCULAR VOLUME 93.5 fl (80.0-96.0); MONO # 0.7 10^3/uL (0.0-0.8); MONO % 8.6 % (2.0-8.0); NEUTROPHILS # 4.9 10^3/uL (1.5-8.5); NEUTROPHILS % 62.2 % (36.0-66.0); PLATELET COUNT, AUTOMATED 304 10^3/uL (150-450); RED BLOOD COUNT 4.31 10^6/uL (4.00-5.40); WHITE BLOOD COUNT 7.8 10^3/uL (4.0-10.0)
[2024-02-27 23:46] LABS: LIPASE 39 U/L (12-53)
[2024-02-27 23:48] LABS: ALBUMIN 3.6 G/DL (3.2-5.2); ALKALINE PHOSPHATASE 105 U/L (46-116); ALT/SGPT 42 U/L (7.0-40); AST/SGOT 23 U/L (<34); BILIRUBIN,DIRECT 0.1 MG/DL (<0.4); BILIRUBIN,TOTAL 0.4 MG/DL (0.3-1.2); BLOOD UREA NITROGEN 11 MG/DL (9-23); CALCIUM LEVEL 8.9 MG/DL (8.5-10.1); CARBON DIOXIDE LEVEL 23 MMOL/L (20-31); CHLORIDE LEVEL 110 MMOL/L (98-107); GLOMERULAR FILTRATION RATE > 60.0 (>60); GLUCOSE, FASTING 85 MG/DL (60-100); SODIUM LEVEL 140 MMOL/L (136-145); TOTAL PROTEIN 6.6 G/DL (5.7-8.2)
[2024-02-27 23:51] LABS: HCG, SERUM QUALITATIVE NEGATIVE (NEGATIVE)
[2024-02-28] MEDS: NS 1,000 ML IV ONE (00:25)
[2024-02-28] MEDS: FAMOTIDINE 20MG/2ML VIAL IVP ONE (00:25)
[2024-02-28] MEDS: ONDANSETRON 4MG 2ML VIAL IV ONE (00:25)
[2024-02-28 00:58] VITALS: BP 102/68; O2SAT 98
[2024-02-28] MEDS ORDERED: ISOVUE-370 76% 100ML VIAL As Ordered ONE (01:08)
[2024-02-28 01:20] LABS: AMPHETAMINES LEVEL URINE NEGATIVE (NEGATIVE); BENZODIAZEPINES URINE NEGATIVE (NEGATIVE)
[2024-02-28 01:21] LABS: BARBITURATES URINE NEGATIVE (NEGATIVE); COCAINE METABOLITE URINE NEGATIVE (NEGATIVE); METHADONE URINE NEGATIVE (NEGATIVE); OPIATES URINE NEGATIVE (NEGATIVE); PHENCYCLIDINE URINE NEGATIVE (NEGATIVE)
[2024-02-28 01:22] LABS: CANNABINOIDS URINE POSITIVE (NEGATIVE)
== END 2024-02-28 02:12 | disposition left against medical advice (07) ==
LOC: M ED 22:18
DX: R11.2 Nausea with vomiting, unspecified (principal); R10.9 Unspecified abdominal pain; J45.909 Unspecified asthma, uncomplicated; M54.2 Cervicalgia; E03.9 Hypothyroidism, unspecified; G43.909 Migraine, unspecified, not intractable, without status migrainosus; N80.9 Endometriosis, unspecified; Z88.8 Allergy status to other drugs, medicaments and biological substances; Z91.040 Latex allergy status; Z91.018 Allergy to other foods; Z91.048 Other nonmedicinal substance allergy status; Z79.899 Other long term (current) drug therapy; Z53.9 Procedure and treatment not carried out, unspecified reason
CPT/HCPCS: 51701; 74177; 80048; 80076; 80307; 81001; 83690; 84703; 85025; 87086; 93041; 96374; 99284; J2405; Q9967; S0028

== ENCOUNTER → 2024-07-05 | Outpatient (REF) | payer OTHER | LOC: M LAB REF 16:17 | PROVIDERS: ATTEND Student in an Organized Health Care Education/Training Program | DX: J06.9 Acute upper respiratory infection, unspecified (principal) ==

== ENCOUNTER → 2025-01-01 | Outpatient (CLI) | payer OTHER ==
[2025-01-01 07:56] LABS: IRON (FE) 90 UG/DL (50-170); PERCENT SATURATION 28.9 % (13.2-45.0)
[2025-01-01 08:03] LABS: HEPATITIS B SURFACE ANTIBODY POSITIVE (POSITIVE)
[2025-01-01 08:37] LABS: HEPATITIS C VIRUS ABY INDEX < 0.02 INDEX (<0.8)
[2025-01-03 13:38] LABS: ALPHA 1 ANTITRYPSIN 160 mg/dL (83-199); CERULOPLASMIN 28.0 mg/dL (14-48)
[2025-01-03 15:01] LABS: ANTI-MITOCHONDRIAL ANTIBODY NEGATIVE (NEGATIVE)
[2025-01-06 17:42] LABS: ANTI-SMOOTH MUSCLE ANTIBODY < 20 U (<20)
== END ==
LOC: M LAB 06:45
PROVIDERS: ATTEND Internal Medicine
DX: R94.5 Abnormal results of liver function studies (principal)

== ENCOUNTER → 2025-02-03 | Outpatient (CLI) | payer OTHER ==
[~2025-02-03] MED LIST changes: -IBUP-1022 PO; +IBUP600T42 PO; -VITA100T14 PO; +VITA100T69 PO
[2025-02-03 12:28] LABS: ESTRADIOL 32.0 PG/ML; LUTEINIZING HORMONE 22.6 mIU/ML
[2025-02-03 12:29] LABS: PROGESTERONE 0.53 NG/ML
== END ==
LOC: M PLALAB 08:55
PROVIDERS: ATTEND Specialist
DX: R10.2 Pelvic and perineal pain (principal)

== ENCOUNTER → 2025-04-22 | Outpatient (CLI) | payer OTHER ==
[~2025-04-22] MED LIST changes: +ALPR-515 PO; +ALPR-516 PO; -ALPR0.5T6 PO; -ALPR1TAB6 PO
[2025-04-22 08:22] LABS: BASO # 0.0 10^3/uL (0.0-0.2); BASO % 0.3 % (0.0-1.0); EOS # 0.1 10^3/uL (0.0-0.5); EOS % 1.2 % (0.0-3.0); LYMPH # 1.6 10^3/uL (1.5-5.0); LYMPH % 26.4 % (24.0-44.0); MONO # 0.5 10^3/uL (0.0-0.8); MONO % 8.6 % (2.0-8.0); NEUTROPHILS # 3.8 10^3/uL (1.5-8.5); NEUTROPHILS % 63.2 % (36.0-66.0); PLATELET COUNT, AUTOMATED 332 10^3/uL (150-450)
[2025-04-22 08:45] LABS: CALCIUM LEVEL 9.2 MG/DL (8.5-10.1); CARBON DIOXIDE LEVEL 32 MMOL/L (20-31); CHLORIDE LEVEL 108 MMOL/L (98-107); CHOLESTEROL LEVEL 140 MG/DL (<200); CHOLESTEROL RISK RATIO 2.31 (<5); CREATININE FOR GFR 0.80 MG/DL (0.55-1.30); GLOMERULAR FILTRATION RATE > 90.0 (>60); LDL CHOLESTEROL 59.9 MG/DL (<100); NON-HDL-C 79.5 MG/DL; POTASSIUM SERUM 4.3 MMOL/L (3.5-5.1); SODIUM LEVEL 148 MMOL/L (136-145); TRIGLYCERIDES LEVEL 98 MG/DL (<150)
== END ==
LOC: M LAB 07:40
PROVIDERS: ATTEND Student in an Organized Health Care Education/Training Program
DX: J45.909 Unspecified asthma, uncomplicated (principal); E66.9 Obesity, unspecified

== ENCOUNTER 2025-05-12 19:42 | Emergency (ER) | payer OTHER ==
[~2025-05-12] VITALS: Ht 172.7 cm; Wt 123.1 kg
[2025-05-12 19:43] VITALS: TEMP 97.6
[2025-05-12 21:29] LABS: BASO # 0.0 10^3/uL (0.0-0.2); BASO % 0.4 % (0.0-1.0); EOS # 0.1 10^3/uL (0.0-0.5); EOS % 0.7 % (0.0-3.0); LYMPH # 2.1 10^3/uL (1.5-5.0); LYMPH % 23.5 % (24.0-44.0); MONO # 0.9 10^3/uL (0.0-0.8); MONO % 9.3 % (2.0-8.0); NEUTROPHILS # 6.0 10^3/uL (1.5-8.5); NEUTROPHILS % 66.0 % (36.0-66.0); PLATELET COUNT, AUTOMATED 305 10^3/uL (150-450)
[2025-05-12 21:53] LABS: HCG, SERUM QUANTITATIVE < 2.6 MIU/ML (<4.2)
[2025-05-12 21:54] LABS: ALT/SGPT 40 U/L (7.0-40); AST/SGOT 24 U/L (<34); CALCIUM LEVEL 9.1 MG/DL (8.5-10.1); CARBON DIOXIDE LEVEL 28 MMOL/L (20-31); CHLORIDE LEVEL 107 MMOL/L (98-107); CREATININE FOR GFR 0.74 MG/DL (0.55-1.30); GLOMERULAR FILTRATION RATE > 90.0 (>60); POTASSIUM SERUM 3.8 MMOL/L (3.5-5.1); SODIUM LEVEL 144 MMOL/L (136-145)
[2025-05-12] MEDS ORDERED: ISOVUE-370 76% 100 ML VIAL As Ordered ONE (22:08)
[2025-05-12] MEDS: ONDANSETRON 4MG/2ML VIAL IV ONE (22:29)
[2025-05-12] MEDS: NS (Normal Saline) 0.9% 1,000 ML IV ONE (22:30)
[2025-05-12] MEDS: MORPHINE 4 MG/ML 1 ML VIAL IV ONE (22:30)
[2025-05-12 23:40] LABS: APPEARANCE, URINE CLEAR (CLEAR); BACTERIA, URINE AUTO NEGATIVE (NEGATIVE); BILIRUBIN, URINE AUTO NEGATIVE (NEGATIVE); BLOOD, URINE BLOOD NEGATIVE (NEGATIVE); GLUCOSE, URINE (UA) AUTO NEGATIVE (NEGATIVE); KETONE, URINE AUTO TRACE mg/dL (NEGATIVE); LEUKOCYTE ESTERASE, URINE AUTO NEGATIVE (NEGATIVE); MUCUS, URINE LARGE (NEGATIVE); NITRITE, URINE AUTO NEGATIVE (NEGATIVE); PROTEIN, URINE AUTO NEGATIVE (NEGATIVE); RBC, URINE AUTO 13 /HPF (0-3); SQUAMOUS EPITHELIAL CELL UR AU 4 /HPF (0-6); UROBILINOGEN, URINE AUTO 0.2 mg/dL (0.0-2.0); WBC, URINE AUTO 2 /HPF (0-3)
[2025-05-12 23:41] LABS: SPECIFIC GRAVITY URINE AUTO >1.060 (1.002-1.035)
[2025-05-13 00:30] VITALS: BP 106/63; O2SAT 96
[2025-05-13] MEDS ORDERED: HYDR-3713 PO (00:32)
[2025-05-13] MEDS ORDERED: AMOX875T2 PO (00:32)
[2025-05-13] MEDS: AUGMENTIN 875 MG TAB PO ONE (00:35)
[2025-05-13] MEDS: KETOROLAC 30 MG/ML 1 ML VIAL IV ONE (00:35)
== END 2025-05-13 00:56 | disposition home or self-care (01) ==
LOC: M ED 19:42
DX: K57.32 Diverticulitis of large intestine without perforation or abscess without bleeding (principal); K76.0 Fatty (change of) liver, not elsewhere classified; J45.909 Unspecified asthma, uncomplicated; F31.9 Bipolar disorder, unspecified; Z79.1 Long term (current) use of non-steroidal anti-inflammatories (NSAID); Z79.899 Other long term (current) drug therapy; Z79.2 Long term (current) use of antibiotics; Z91.018 Allergy to other foods; Z91.040 Latex allergy status; Z91.09 Other allergy status, other than to drugs and biological substances
CPT/HCPCS: 74177; 80048; 80076; 81001; 83690; 84702; 85025; 96361; 96374; 96375; 99284; J1885; J2405; Q9967